=== PATIENT | female | born 1950 | race Caucasian/White ===

== ENCOUNTER → 2021-01-08 14:58 | Outpatient (CLI) | payer MEDICARE, OTHER, SELFPAY | PROVIDERS: Referring Provider Nurse Practitioner Family; Visit Provider Nurse Practitioner Family | DX: N34.3 Urethral syndrome, unspecified (principal) | CPT/HCPCS: 87086 ==

== ENCOUNTER 2021-01-08 15:15 | Inpatient (IN) | payer MEDICARE, OTHER, SELFPAY ==
[2021-01-08] VITALS (11 sets, daily range): BP systolic 144–172; BP diastolic 75–93; PULSE 53–67; RESP 14–18; TEMP 36.1–36.6; O2SAT 93–99; BMI 23.9
[2021-01-08 15:46] LABS: Appearance Urine UA CLOUDY; Bilirubin Urine UA NEGATIVE (NEGATIVE); Color Urine UA BROWN; Glucose Urine UA NEGATIVE (Negative); Ketones Urine UA NEGATIVE (NEGATIVE); Leukocyte Esterase Urine UA TRACE (NEGATIVE); Nitrite Urine UA NEGATIVE (Negative); Occult Blood Urine UA 3+ (Negative); Protein Urine UA 3+ (Negative); Urobilinogen Urine UA 0.2 E.U./dL (0.2)
[2021-01-08 15:55] LABS: Amorphous Sediment Urine 1+; Bacteria Urine Occasional (0-1); Granular Casts Urine 5-10/LPF; Mucus Urine 1+ (Negative); RBC Urine >100/HPF (0-5/HPF); Squamous Epithelial Cell Urine 1-5 /HPF (0-5/HPF); WBC Urine 5-10/HPF (0-5/HPF)
--- NOTE | 2021-01-08 16:42 | DI.CT.S_ITS ---
PROCEDURE: CT ABDOMEN PELVIS WO CON INDICATIONS: Left flank pain, blood in urine TECHNIQUE: After the administration of oral contrast, 5 mm thick sections acquired from the diaphragms to the symphysis. 5 mm coronal and sagittal reformats were performed. For radiation dose reduction, the following was used: automated exposure control, adjustment of mA and/or kV according to patient size. COMPARISON: None. FINDINGS: Lower thorax: Heart size is enlarged. Pacer wires noted. Platelike atelectasis present left lung base. No hiatal hernia. Liver: Normal in size and attenuation. No contour deformity present. 5.3 cm right hepatic cyst. Smaller subcentimeter likely cyst in the right hepatic dome. Biliary system: No calcified cholelithiasis or pericholecystic inflammation. No intra or extrahepatic bile duct dilatation. Pancreas: Unremarkable without mass or inflammation evident. Spleen: Normal in size and density. Adrenals: Normal morphology and density. Reproductive system: Hysterectomy. Urinary system: Left 8 mm calculus present at the proximal ureter results in moderate left hydronephrosis. 4 cm left renal cyst present as well. No right renal calculi. Gastrointestinal system: The bowel is unremarkable without evidence of bowel obstruction or inflammation. The stomach appears unremarkable. Multiple diverticula arise from the sigmoid colon without evidence of diverticulitis. Appendix: No findings to suggest acute appendicitis. Peritoneal spaces: No mesenteric or retroperitoneal adenopathy. No free air. No free fluid. Vasculature: The IVC, aorta and iliac vasculature are unremarkable. Abdominal wall: Abdominal wall intact without evidence of ventral or inguinal hernias. Musculoskeletal: Normal bone mineralization. No acute fractures. IMPRESSION: 1. Left proximal ureteral 8 mm calculus results in moderate left hydronephrosis. 2. Incidental diverticulosis without diverticulitis, hepatorenal cysts, cardiomegaly Approved by: Kelton Multani M.D. on 01/08/2021 at 16:39
--- NOTE | 2021-01-08 16:43 | ED_ITS ---
HPI - Female Genitourinary <Tera Rosenthal PA-C - Last Filed: 01/15/21 19:45> General Chief complaint: Urogenital-Female Stated complaint: sent by [facility] , Possible kidney stones Time Seen by Provider: 01/08/21 15:51 Source: patient Mode of arrival: Ambulatory Limitations: no limitations History of Present Illness HPI Narrative: Patient is a 70-year-old female presenting to the emergency department today for evaluation of left flank pain. Patient states that she noticed intermittent left flank pain approximately 2 weeks ago. She states that her pain worsened this morning and she notes ?rene colored? urine with a strong odor. Of note, patient states that she has a history of kidney stones but has never experienced significant associated symptoms. Additionally, patient states that she has a history of colon polyps and states that she has been unable to completely empty her bowels over the past 2 weeks. Patient reports associated nausea and left- sided abdominal pain but denies fever, chills, chest pain, shortness of breath, cough, diarrhea, vomiting, dysuria, or numbness and tingling in the lower extremities. No other concerns voiced at this time. Related Data Home Medications Medication Instructions Recorded Confirmed biotin 5,000 mcg sublingual tablet 5,000 mcg SUBLINGUAL DAILY 01/09/21 01/09/21 budesonide 200 mcg/actuation 50 mcg INHALATION Q8HR 01/09/21 01/09/21 breath activated powder inhaler carvedilol 6.25 mg tablet 6.25 mg PO BID 01/09/21 01/09/21 cholecalciferol (vitamin D3) 125 125 mcg PO DAILY 01/09/21 01/09/21 mcg (5,000 unit) tablet furosemide 20 mg tablet 20 mg PO 6XW 01/09/21 01/09/21 furosemide 40 mg tablet 40 mg PO WEEKLY 01/09/21 01/09/21 losartan 50 mg tablet 50 mg PO DAILY 01/09/21 01/09/21 rosuvastatin 40 mg tablet 40 mg PO DAILY 01/09/21 01/09/21 warfarin 2 mg tablet 2 mg PO 2XW 01/09/21 01/09/21 warfarin 3 mg tablet 3 mg PO 5XW 01/09/21 01/09/21 Previous Rx's Medication Instructions Recorded tamsulosin 0.4 mg capsule 0.4 mg PO BEDTIME #60 cap 01/10/21 Allergies Allergy/AdvReac Type Severity Reaction Status Date / Time tetracycline Allergy Severe ITCHING Verified 01/11/21 15:49 phenazopyridine Allergy Verified 01/11/21 15:49 [From Pyridium] Review of Systems <Tera Rosenthal PA-C - Last Filed: 01/15/21 19:45> Constitutional Constitutional: Denies chills, Denies fatigue, Denies fever(s), Denies frequent falls, Denies lethargy and Denies weakness Eyes Eyes: Denies loss of vision ENT Ears, Nose, Mouth, and Throat: Denies dizziness and Denies neck pain Cardiovascular Cardiovascular: Denies chest pain, Denies irregular heart rhythm, Denies lightheadedness, Denies palpitations, Denies dyspnea, Denies dyspnea on exertion and Denies orthopnea Respiratory Respiratory: Denies cough, Denies dyspnea, Denies dyspnea on exertion and Denies wheezing Gastrointestinal Gastrointestinal: Reports abdominal pain, Denies change in bowel habits, Denies diarrhea, Reports nausea and Denies vomiting Genitourinary Genitourinary: Reports hematuria, Denies dysuria, Denies dysuria, Reports flank pain (Left flank pain), Denies urinary incontinence and Denies urinary urgency Musculoskeletal Musculoskeletal: Denies muscle weakness, Denies neck pain, Denies numbness and Denies tingling Neurologic Neurologic: Denies behavioral changes, Denies confusion, Denies dizziness, Denies frequent falls, Denies loss of vision, Denies numbness, Denies tingling and Denies weakness Psychiatric Psychiatric: Denies behavioral changes and Denies confusion Endocrine Endocrine: Denies fatigue and Denies palpitations Allergic/Immunologic Allergic/Immunologic: Denies wheezing Patient History <Tera Rosenthal PA-C - Last Filed: 01/15/21 19:45> Medical History Acute kidney injury History of nephrolithiasis Left ureteral calculus alcohol intake frequency: 0-2 drinks per day Substance Use Type: does not use Exam <Tera Rosenthal PA-C - Last Filed: 01/15/21 19:45> Narrative Exam Narrative: GENERAL: 70 year old patient appears stated age. Well-developed patient, in mild distress. HEAD: Atraumatic. Normocephalic. EYES: Pupils equal round and reactive. Extraocular motions intact. No scleral icterus. No injection or drainage. ENT: Nose without bleeding, purulent drainage. Throat without erythema, tonsillar hypertrophy or exudate. Airway patent. NECK: Trachea midline. Non tender CARDIOVASCULAR: Regular rate and rhythm without murmurs, gallops, or rubs. RESPIRATORY: Clear to auscultation. Breath sounds equal bilaterally. No wheezes, rales, or rhonchi. GASTROINTESTINAL: Abdomen soft, nondistended. Tenderness to palpation appreciated he on the left upper and left lower quadrants. EXTREMITIES: No edema or joint tenderness. BACK: Nontender without deformity or crepitance. Left flank, CVA tenderness. NEURO: AOx3. SKIN: No rash or erythema of visible areas Initial Vital Signs Initial Vital Signs: Vital Signs Temperature 97.8 F 01/08/21 15:27 Pulse Rate 63 01/08/21 15:27 Respiratory Rate 18 01/08/21 15:27 Blood Pressure 151/75 H 01/08/21 15:27 Pulse Oximetry 98 01/08/21 15:27 <Luis Nicole DO - Last Filed: 01/18/21 00:30> Initial Vital Signs Initial Vital Signs: Vital Signs Temperature 97.8 F 01/08/21 15:27 Pulse Rate 63 01/08/21 15:27 Respiratory Rate 18 01/08/21 15:27 Blood Pressure 151/75 H 01/08/21 15:27 Pulse Oximetry 98 01/08/21 15:27 Course <Tera Rosenthal PA-C - Last Filed: 01/15/21 19:45> Course Course Narrative: CBC, CMP, urinalysis, and CT of the abdomen and pelvis without contrast obtained. Orders Ordered: Discontinued Medications Acetaminophen (Acetaminophen 325 Mg Tablet) 650 mg PO NOW ONE Stop: 01/08/21 19:36 Last Admin: 01/08/21 19:42 Dose: 650 mg Documented by: ZEFERINO Acetaminophen (Acetaminophen 325 Mg Tablet) 650 mg PO Q6HR PRN PRN Reason: Fever/Mild Pain (1-3) Last Admin: 01/09/21 17:20 Dose: 650 mg Documented by: Admin: 01/09/21 10:01 Dose: 650 mg Documented by: Admin: 01/09/21 03:18 Dose: 650 mg Documented by: JTURNEK Atorvastatin Calcium (Atorvastatin 20 Mg Tablet) 80 mg PO BEDTIME [facility] Last Admin: 01/09/21 20:26 Dose: 40 mg Documented by: CAMILO Belladonna Alkaloids/Opium (Belladonna/Opium Suppositories) 1 each [place] BID [facility] Last Admin: 01/10/21 10:45 Dose: 1 each Documented by: Admin: 01/09/21 18:59 Dose: 1 each Documented by: DONAVON Budesonide (Budesonide 0.5 Mg/2 Ml Neb) 0.5 mg INH RTBID [facility] Last Admin: 01/09/21 23:08 Dose: Not Given Documented by: WALLY Budesonide (Budesonide 0.5 Mg/2 Ml Neb) 0.5 mg INH RTBID [facility] Last Admin: 01/09/21 23:08 Dose: Not Given Documented by: WALLY Carvedilol (Carvedilol 3.125 Mg Tablet) 6.25 mg PO BID [facility] Last Admin: 01/09/21 10:01 Dose: 6.25 mg Documented by: DONAVON Cefazolin Sodium (Cefazolin 1 Gm Vial) 2 gm IV PREOP [facility] Last Admin: 01/09/21 16:35 Dose: 2 gm Documented by: ROGER Fentanyl (Fentanyl 100 Mcg/2 Ml Inj) 0 mcg IV Q5M PRN PRN Reason: Pain, Moderate (4-6) Furosemide (Furosemide 20 Mg Tablet) 20 mg PO SuMoTuWeThFr@0900 [facility] Last Admin: 01/10/21 10:48 Dose: 20 mg Documented by: LEONIDES Furosemide (Furosemide 40 Mg Tablet) 40 mg PO Sa@0900 [facility] Hydromorphone HCl (Hydromorphone 0.5 Mg Inj) 0.5 mg IV NOW ONE Stop: 01/08/21 19:04 Last Admin: 01/08/21 19:35 Dose: Not Given Documented by: ZEFERINO Hydromorphone HCl (Hydromorphone 0.5 Mg Inj) 0.5 mg IV Q6H PRN PRN Reason: Pain, Moderate (4-6) Last Admin: 01/08/21 23:14 Dose: 0.5 mg Documented by: CAMILO Sodium Chloride (Normal Saline 0.9%) 1,000 mls @ 100 mls/hr IV CONT [facility] Last Admin: 01/09/21 10:03 Dose: 100 mls/hr Documented by: Infusion: 01/09/21 08:24 Dose: 100 mls/hr Documented by: Admin: 01/08/21 22:24 Dose: 100 mls/hr Documented by: CAMILO Phytonadione 5 mg/ Sodium (Chloride) 100.5 mls @ 201 mls/hr IV NOW ONE Stop: 01/08/21 21:56 Last Admin: 01/08/21 23:09 Dose: 201 mls/hr Documented by: CAMILO Lactated Ringer's (Lactated Ringers) 1,000 mls @ 42 mls/hr IV CONT [facility] Last Admin: 01/09/21 15:52 Dose: 42 mls/hr Documented by: STAN Losartan Potassium (Losartan 50 Mg Tablet) 50 mg PO DAILY [facility] Last Admin: 01/10/21 10:46 Dose: 50 mg Documented by: LEONIDES Ondansetron HCl (Ondansetron 4 Mg/2 Ml Inj) 4 mg IV Q8HR PRN PRN Reason: Nausea And Vomiting Ondansetron HCl (Ondansetron 4 Mg/2 Ml Inj) 4 mg IV NOW PRN PRN Reason: Nausea And Vomiting Oxycodone HCl (Oxycodone Ir 5 Mg Tablet) 5 mg PO NOW ONE Stop: 01/08/21 17:24 Last Admin: 01/08/21 17:55 Dose: 5 mg Documented by: GIANNI Oxycodone HCl (Oxycodone 5 Mg/5 Ml Oral Solution) 5 mg PO Q6HR [facility] Oxycodone HCl (Oxycodone Ir 5 Mg Tablet) 5 mg PO Q6H PRN PRN Reason: Pain, Moderate (4-6) Oxycodone HCl (Oxycodone Ir 5 Mg Tablet) 5 mg PO Q6HR [facility] Last Admin: 01/10/21 12:00 Dose: 5 mg Documented by: Admin: 01/10/21 05:51 Dose: 5 mg Documented by: Admin: 01/10/21 00:00 Dose: 5 mg Documented by: CAMILO Oxycodone/Acetaminophen (Oxycodone/Acetaminophen 5/325 Tablet) 1 tab PO PACUNOW PRN PRN Reason: Mild or Moderate Pain Vitamin D (Cholecalciferol (Vitamin D3) 1,000 Unit Tablet) 5,000 unit PO DAILY [facility] Last Admin: 01/10/21 10:45 Dose: 5,000 unit Documented by: LEONIDES Warfarin Sodium (Warfarin 2 Mg Tablet) 2 mg PO Fr@1700 [facility] Warfarin Sodium (Warfarin 1 Mg Tablet) 3 mg PO SuMoTuWeThSa@1700 [facility] Consultations Consultation #1: Consulted with Dr. Knapp urology. Request patient to be admitted to medicine, stop warfarin, and remain NPO. He plans to perform a cystoscopy to obstruct the ureteral stone with a left stent placement tomorrow morning. Time: 19:52 Consultation #2: Consulted with Dr. Pruett internal medicine. Request we obtained in PT/INR on the patient and will accept the patient for observation. Time: 18:20 Vital Signs Vital signs: Vital Signs - 8 hr 01/08/21 15:27 01/08/21 16:04 01/08/21 17:32 Temperature 97.8 F Pulse Rate 63 56 L 54 L Respiratory Rate 18 Blood Pressure 151/75 H 144/79 H Pulse Oximetry 98 93 93 01/08/21 17:37 01/08/21 18:00 01/08/21 18:30 Temperature Pulse Rate 63 54 L 54 L Respiratory Rate Blood Pressure 156/80 H Pulse Oximetry 97 99 98 <Luis Nicole DO - Last Filed: 01/18/21 00:30> Orders Ordered: Discontinued Medications Acetaminophen (Acetaminophen 325 Mg Tablet) 650 mg PO NOW ONE Stop: 01/08/21 19:36 Last Admin: 01/08/21 19:42 Dose: 650 mg Documented by: ZEFERINO Acetaminophen (Acetaminophen 325 Mg Tablet) 650 mg PO Q6HR PRN PRN Reason: Fever/Mild Pain (1-3) Last Admin: 01/09/21 17:20 Dose: 650 mg Documented by: Admin: 01/09/21 10:01 Dose: 650 mg Documented by: Admin: 01/09/21 03:18 Dose: 650 mg Documented by: CAMILO Atorvastatin Calcium (Atorvastatin 20 Mg Tablet) 80 mg PO BEDTIME [facility] Last Admin: 01/09/21 20:26 Dose: 40 mg Documented by: CAMILO Belladonnluis e Alkaloids/Opium (Belladonna/Opium Suppositories) 1 each [place] BID [facility] Last Admin: 01/10/21 10:45 Dose: 1 each Documented by: Admin: 01/09/21 18:59 Dose: 1 each Documented by: DONAVON Budesonide (Budesonide 0.5 Mg/2 Ml Neb) 0.5 mg INH RTBID [facility] Last Admin: 01/09/21 23:08 Dose: Not Given Documented by: WALLY Budesonide (Budesonide 0.5 Mg/2 Ml Neb) 0.5 mg INH RTBID [facility] Last Admin: 01/09/21 23:08 Dose: Not Given Documented by: WALLY Carvedilol (Carvedilol 3.125 Mg Tablet) 6.25 mg PO BID [facility] Last Admin: 01/09/21 10:01 Dose: 6.25 mg Documented by: DONAVON Cefazolin Sodium (Cefazolin 1 Gm Vial) 2 gm IV PREOP [facility] Last Admin: 01/09/21 16:35 Dose: 2 gm Documented by: ROGER Fentanyl (Fentanyl 100 Mcg/2 Ml Inj) 0 mcg IV Q5M PRN PRN Reason: Pain, Moderate (4-6) Furosemide (Furosemide 20 Mg Tablet) 20 mg PO SuMoTuWeThFr@0900 [facility] Last Admin: 01/10/21 10:48 Dose: 20 mg Documented by: LEONIDES Furosemide (Furosemide 40 Mg Tablet) 40 mg PO Sa@0900 [facility] Hydromorphone HCl (Hydromorphone 0.5 Mg Inj) 0.5 mg IV NOW ONE Stop: 01/08/21 19:04 Last Admin: 01/08/21 19:35 Dose: Not Given Documented by: ZEFERINO Hydromorphone HCl (Hydromorphone 0.5 Mg Inj) 0.5 mg IV Q6H PRN PRN Reason: Pain, Moderate (4-6) Last Admin: 01/08/21 23:14 Dose: 0.5 mg Documented by: CAMILO Sodium Chloride (Normal Saline 0.9%) 1,000 mls @ 100 mls/hr IV CONT [facility] Last Admin: 01/09/21 10:03 Dose: 100 mls/hr Documented by: DONAVON Mejia: 01/09/21 08:24 Dose: 100 mls/hr Documented by: Admin: 01/08/21 22:24 Dose: 100 mls/hr Documented by: CAMILO Phytonadione 5 mg/ Sodium (Chloride) 100.5 mls @ 201 mls/hr IV NOW ONE Stop: 01/08/21 21:56 Last Admin: 01/08/21 23:09 Dose: 201 mls/hr Documented by: CAMILO Lactated Ringer's (Lactated Ringers) 1,000 mls @ 42 mls/hr IV CONT [facility] Last Admin: 01/09/21 15:52 Dose: 42 mls/hr Documented by: STAN Losartan Potassium (Losartan 50 Mg Tablet) 50 mg PO DAILY [facility] Last Admin: 01/10/21 10:46 Dose: 50 mg Documented by: LEONIDES Ondansetron HCl (Ondansetron 4 Mg/2 Ml Inj) 4 mg IV Q8HR PRN PRN Reason: Nausea And Vomiting Ondansetron HCl (Ondansetron 4 Mg/2 Ml Inj) 4 mg IV NOW PRN PRN Reason: Nausea And Vomiting Oxycodone HCl (Oxycodone Ir 5 Mg Tablet) 5 mg PO NOW ONE Stop: 01/08/21 17:24 Last Admin: 01/08/21 17:55 Dose: 5 mg Documented by: GIANNI Oxycodone HCl (Oxycodone 5 Mg/5 Ml Oral Solution) 5 mg PO Q6HR [facility] Oxycodone HCl (Oxycodone Ir 5 Mg Tablet) 5 mg PO Q6H PRN PRN Reason: Pain, Moderate (4-6) Oxycodone HCl (Oxycodone Ir 5 Mg Tablet) 5 mg PO Q6HR [facility] Last Admin: 01/10/21 12:00 Dose: 5 mg Documented by: Admin: 01/10/21 05:51 Dose: 5 mg Documented by: Admin: 01/10/21 00:00 Dose: 5 mg Documented by: CAMILO Oxycodone/Acetaminophen (Oxycodone/Acetaminophen 5/325 Tablet) 1 tab PO PACUNOW PRN PRN Reason: Mild or Moderate Pain Vitamin D (Cholecalciferol (Vitamin D3) 1,000 Unit Tablet) 5,000 unit PO DAILY [facility] Last Admin: 01/10/21 10:45 Dose: 5,000 unit Documented by: DEIDRAEWCELSO Warfarin Sodium (Warfarin 2 Mg Tablet) 2 mg PO Fr@1700 [facility] Warfarin Sodium (Warfarin 1 Mg Tablet) 3 mg PO SuMoTuWeThSa@1700 [facility] Vital Signs Vital signs: Vital Signs - 8 hr 01/08/21 15:27 01/08/21 16:04 01/08/21 17:32 Temperature 97.8 F Pulse Rate 63 56 L 54 L Respiratory Rate 18 Blood Pressure 151/75 H 144/79 H Pulse Oximetry 98 93 93 01/08/21 17:37 01/08/21 18:00 01/08/21 18:30 Temperature Pulse Rate 63 54 L 54 L Respiratory Rate Blood Pressure 156/80 H Pulse Oximetry 97 99 98 MDM - Female Genitourinary <Tera Rosenthal PA-C - Last Filed: 01/15/21 19:45> Lab Data Result diagrams: 01/09/21 04:50 01/09/21 04:50 Labs: Lab Results 01/08/21 01/08/21 01/08/21 Range/Units 15:35 18:16 18:16 WBC 10.0 (4.5-11.0) X10^3/uL RBC 3.83 L (4.0-5.2) X10^6/uL Hgb 11.6 L (12.0-16.0) g/dL Hct 34.8 L (36-46) % MCV 90.8 (80-100) fL MCH 30.4 (26-34) PG MCHC 33.5 (30-36) % RDW 14.0 (11.6-14.8) % Plt Count 308 (150-400) X10^3/uL Neut % (Auto) 72.0 (50-75) % Lymph % (Auto) 16.2 L (25-40) % Mccormick % (Auto) 8.1 (3-14) % Eos % (Auto) 2.9 (2-4) % Baso % (Auto) 0.8 (0-2) % Neut # (Auto) 7200 H (6028-5064) /uL Lymph # (Auto) 1600 (6689-7694) /uL Mccormick # (Auto) 800 (0-900) /uL Eos # (Auto) 300 (0-450) /uL Baso # (Auto) 100 (0-100) /uL PT (10.1-12.7) SECONDS INR (0.9-1.3) Sodium 139 (137-145) mmol/L Potassium 3.7 (3.4-5.1) mmol/L Chloride 104 (98-107) mmol/L Carbon Dioxide 27 (22-32) mmol/L BUN 22 H (7-17) mg/dL Creatinine 1.72 H (0.52-1.04) mg/dL Estimated GFR 29.5 L (>60) mL/min BUN/Creatinine Ratio 12.8 (6-22) Glucose 111 H (80-110) mg/dL Calcium 10.3 H (8.4-10.2) mg/dL Total Bilirubin 0.4 (0.2-1.3) mg/dL AST 22 (14-36) IU/L ALT 15 (<35) IU/L Alkaline Phosphatase 54 (38-126) U/L Total Protein 6.8 (6.3-8.2) g/dL Albumin 3.9 (3.5-5.0) g/dL Globulin 2.9 (1.7-4.1) g/dL Albumin/Globulin Ratio 1.3 (1.0-2.8) Urine Color Brown Urine Appearance Cloudy Urine pH 8.0 (4.5-8.0) Ur Specific [place] 1.020 (1.000-1.035) Urine Protein 3+ H (Negative) Urine Glucose (UA) Negative (Negative) g/dL Urine Ketones Negative (NEGATIVE) Urine Occult Blood 3+ H (Negative) Urine Nitrate Negative (Negative) Urine Bilirubin Negative (NEGATIVE) Urine Urobilinogen 0.2 (0.2) E.U./dL Ur Leukocyte Esterase Trace H (NEGATIVE) Urine RBC >100/hpf H (0-5/HPF) Urine WBC 5-10/hpf H (0-5/HPF) Ur Squamous Epith Cells 1-5 /hpf (0-5/HPF) Amorphous Sediment 1+ Urine Bacteria Occasional (0-1) (None) Granular Casts 5-10/lpf (None) Urine Mucus 1+ H (Negative) Ur Culture Indicated? Culture not indicate 11/17/21 Range/Units 18:16 WBC (4.5-11.0) X10^3/uL RBC (4.0-5.2) X10^6/uL Hgb (12.0-16.0) g/dL Hct (36-46) % MCV (80-100) fL MCH (26-34) PG MCHC (30-36) % RDW (11.6-14.8) % Plt Count (150-400) X10^3/uL Neut % (Auto) (50-75) % Lymph % (Auto) (25-40) % Mccormick % (Auto) (3-14) % Eos % (Auto) (2-4) % Baso % (Auto) (0-2) % Neut # (Auto) (4160-3198) /uL Lymph # (Auto) (0166-5634) /uL Mccormick # (Auto) (0-900) /uL Eos # (Auto) (0-450) /uL Baso # (Auto) (0-100) /uL PT 44.6 H (10.1-12.7) SECONDS INR 3.8 H (0.9-1.3) Sodium (137-145) mmol/L Potassium (3.4-5.1) mmol/L Chloride (98-107) mmol/L Carbon Dioxide (22-32) mmol/L BUN (7-17) mg/dL Creatinine (0.52-1.04) mg/dL Estimated GFR (>60) mL/min BUN/Creatinine Ratio (6-22) Glucose (80-110) mg/dL Calcium (8.4-10.2) mg/dL Total Bilirubin (0.2-1.3) mg/dL AST (14-36) IU/L ALT (<35) IU/L Alkaline Phosphatase (38-126) U/L Total Protein (6.3-8.2) g/dL Albumin (3.5-5.0) g/dL Globulin (1.7-4.1) g/dL Albumin/Globulin Ratio (1.0-2.8) Urine Color Urine Appearance Urine pH (4.5-8.0) Ur Specific [place] (1.000-1.035) Urine Protein (Negative) Urine Glucose (UA) (Negative) g/dL Urine Ketones (NEGATIVE) Urine Occult Blood (Negative) Urine Nitrate (Negative) Urine Bilirubin (NEGATIVE) Urine Urobilinogen (0.2) E.U./dL Ur Leukocyte Esterase (NEGATIVE) Urine RBC (0-5/HPF) Urine WBC (0-5/HPF) Ur Squamous Epith Cells (0-5/HPF) Amorphous Sediment Urine Bacteria (None) Granular Casts (None) Urine Mucus (Negative) Ur Culture Indicated? Imaging Data CT scan - abdomen/pelvis: Radiologist's Impression: PROCEDURE:? CT ABDOMEN PELVIS WO CON ? INDICATIONS:? Left flank pain, blood in urine ? TECHNIQUE:? After the administration of oral contrast, 5 mm thick sections acquired from the diaphragms to the symphysis.? 5 mm coronal and sagittal reformats were performed.? For radiation dose reduction, the following was used:? automated exposure control, adjustment of mA and/or kV according to patient size.? ? COMPARISON:? None. ? FINDINGS: ? Lower thorax:? Heart size is enlarged.? Pacer wires noted.? Platelike atelectasis present left lung base.? No hiatal hernia.? ? Liver:? Normal in size and attenuation. No contour deformity present.? 5.3 cm right hepatic cyst.? Smaller subcentimeter likely cyst in the right hepatic dome. ? Biliary system:? No calcified cholelithiasis or pericholecystic inflammation. No intra or extrahepatic bile duct dilatation. ? Pancreas:? Unremarkable without mass or inflammation evident. ? Spleen:? Normal in size and density. ? Adrenals:? Normal morphology and density. ? Reproductive system:? Hysterectomy. ? Urinary system:? Left 8 mm calculus present at the proximal ureter results in moderate left hydronephrosis.? 4 cm left renal cyst present as well.? No right renal calculi. ? Gastrointestinal system:? The bowel is unremarkable without evidence of bowel obstruction or inflammation. The stomach appears unremarkable.? Multiple diverticula arise from the sigmoid colon without evidence of diverticulitis. ? ? Appendix:? No findings to suggest acute appendicitis. ? Peritoneal spaces:? No mesenteric or retroperitoneal adenopathy.? No free air.? No free fluid.? ? Vasculature:? The IVC, aorta and iliac vasculature are unremarkable. ? Abdominal wall:? Abdominal wall intact without evidence of ventral or inguinal hernias. ? Musculoskeletal:? Normal bone mineralization.? No acute fractures.? ? IMPRESSION: ? 1. Left proximal ureteral 8 mm calculus results in moderate left hydronephrosis. ? 2. Incidental diverticulosis without diverticulitis, hepatorenal cysts, cardiomegaly ? ? ? Approved by: Kelton Multani M.D. on 01/08/2021 at 16:39? [facility] Narrative Medical decision making narrative: Patient is a 70-year-old female presenting to the emergency department today for evaluation of left flank pain. To consider the nephrolithiasis versus ureterolithiasis versus urinary tract infection versus pyelonephritis versus lumbago. CT showed with the mm obstructing stone in the left proximal ureter. Additionally, CMP showed patient with a GFR of 29.5, a creatinine of 1.72, and a BUN of 22. Discussed with patient results of imaging and labs. Inform the patient that she will be admitted overnight with plans to have cystoscopy performed tomorrow with a left stent placed. Patient understands plan. <Luis Nicole, DO - Last Filed: 01/18/21 00:30> Lab Data Labs: Lab Results 01/08/21 01/08/21 01/08/21 Range/Units 15:35 18:16 18:16 WBC 10.0 (4.5-11.0) X10^3/uL RBC 3.83 L (4.0-5.2) X10^6/uL Hgb 11.6 L (12.0-16.0) g/dL Hct 34.8 L (36-46) % MCV 90.8 (80-100) fL MCH 30.4 (26-34) PG MCHC 33.5 (30-36) % RDW 14.0 (11.6-14.8) % Plt Count 308 (150-400) X10^3/uL Neut % (Auto) 72.0 (50-75) % Lymph % (Auto) 16.2 L (25-40) % Mccormick % (Auto) 8.1 (3-14) % Eos % (Auto) 2.9 (2-4) % Baso % (Auto) 0.8 (0-2) % Neut # (Auto) 7200 H (6423-2120) /uL Lymph # (Auto) 1600 (7607-5341) /uL Mccormick # (Auto) 800 (0-900) /uL Eos # (Auto) 300 (0-450) /uL Baso # (Auto) 100 (0-100) /uL PT (10.1-12.7) SECONDS INR (0.9-1.3) Sodium 139 (137-145) mmol/L Potassium 3.7 (3.4-5.1) mmol/L Chloride 104 (98-107) mmol/L Carbon Dioxide 27 (22-32) mmol/L BUN 22 H (7-17) mg/dL Creatinine 1.72 H (0.52-1.04) mg/dL Estimated GFR 29.5 L (>60) mL/min BUN/Creatinine Ratio 12.8 (6-22) Glucose 111 H (80-110) mg/dL Calcium 10.3 H (8.4-10.2) mg/dL Total Bilirubin 0.4 (0.2-1.3) mg/dL AST 22 (14-36) IU/L ALT 15 (<35) IU/L Alkaline Phosphatase 54 (38-126) U/L Total Protein 6.8 (6.3-8.2) g/dL Albumin 3.9 (3.5-5.0) g/dL Globulin 2.9 (1.7-4.1) g/dL Albumin/Globulin Ratio 1.3 (1.0-2.8) Urine Color Brown Urine Appearance Cloudy Urine pH 8.0 (4.5-8.0) Ur Specific [place] 1.020 (1.000-1.035) Urine Protein 3+ H (Negative) Urine Glucose (UA) Negative (Negative) g/dL Urine Ketones Negative (NEGATIVE) Urine Occult Blood 3+ H (Negative) Urine Nitrate Negative (Negative) Urine Bilirubin Negative (NEGATIVE) Urine Urobilinogen 0.2 (0.2) E.U./dL Ur Leukocyte Esterase Trace H (NEGATIVE) Urine RBC >100/hpf H (0-5/HPF) Urine WBC 5-10/hpf H (0-5/HPF) Ur Squamous Epith Cells 1-5 /hpf (0-5/HPF) Amorphous Sediment 1+ Urine Bacteria Occasional (0-1) (None) Granular Casts 5-10/lpf (None) Urine Mucus 1+ H (Negative) Ur Culture Indicated? Culture not indicate 01/08/21 Range/Units 18:16 WBC (4.5-11.0) X10^3/uL RBC (4.0-5.2) X10^6/uL Hgb (12.0-16.0) g/dL Hct (36-46) % MCV (80-100) fL MCH (26-34) PG MCHC (30-36) % RDW (11.6-14.8) % Plt Count (150-400) X10^3/uL Neut % (Auto) (50-75) % Lymph % (Auto) (25-40) % Mccormick % (Auto) (3-14) % Eos % (Auto) (2-4) % Baso % (Auto) (0-2) % Neut # (Auto) (6573-3483) /uL Lymph # (Auto) (0035-0760) /uL Mccormick # (Auto) (0-900) /uL Eos # (Auto) (0-450) /uL Baso # (Auto) (0-100) /uL PT 44.6 H (10.1-12.7) SECONDS INR 3.8 H (0.9-1.3) Sodium (137-145) mmol/L Potassium (3.4-5.1) mmol/L Chloride (98-107) mmol/L Carbon Dioxide (22-32) mmol/L BUN (7-17) mg/dL Creatinine (0.52-1.04) mg/dL Estimated GFR (>60) mL/min BUN/Creatinine Ratio (6-22) Glucose (80-110) mg/dL Calcium (8.4-10.2) mg/dL Total Bilirubin (0.2-1.3) mg/dL AST (14-36) IU/L ALT (<35) IU/L Alkaline Phosphatase (38-126) U/L Total Protein (6.3-8.2) g/dL Albumin (3.5-5.0) g/dL Globulin (1.7-4.1) g/dL Albumin/Globulin Ratio (1.0-2.8) Urine Color Urine Appearance Urine pH (4.5-8.0) Ur Specific [place] (1.000-1.035) Urine Protein (Negative) Urine Glucose (UA) (Negative) g/dL Urine Ketones (NEGATIVE) Urine Occult Blood (Negative) Urine Nitrate (Negative) Urine Bilirubin (NEGATIVE) Urine Urobilinogen (0.2) E.U./dL Ur Leukocyte Esterase (NEGATIVE) Urine RBC (0-5/HPF) Urine WBC (0-5/HPF) Ur Squamous Epith Cells (0-5/HPF) Amorphous Sediment Urine Bacteria (None) Granular Casts (None) Urine Mucus (Negative) Ur Culture Indicated? Discharge Plan Departure Patient Disposition: Admitted As Inpatient Clinical Impression: Ureterolithiasis Admit Date/Time: 01/08/21 20:40 Admit Provider: Aric Pruett <Luis Nicole DO - Last Filed: 01/18/21 00:30> Cosign ED Attending Cosignature Attestation: I was immediately available in the department for consultation. This documentation has been reviewed and I agree with assessment and plan. Supervised by Luis Nicole DO
[2021-01-08] MEDS: OXYCODONE IR 5 MG TABLET PO (17:55)
[2021-01-08 18:25] LABS: Add Manual Diff / Slide Review NO; Basophils Absolute Auto 100 /uL (0-100); Basophils Percent Auto 0.8 % (0-2); Eosinophils Absolute Auto 300 /uL (0-450); Eosinophils Percent Auto 2.9 % (2-4); Hematocrit 34.8 % (36-46); Hemoglobin 11.6 g/dL (12.0-16.0); Lymphocytes Absolute Auto 1600 /uL (1100-4500); Lymphocytes Percent Auto 16.2 % (25-40); Mean Corpuscular HGB Conc 33.5 % (30-36); Mean Corpuscular Hemoglobin 30.4 PG (26-34); Mean Corpuscular Volume 90.8 fL (80-100); Monocytes Absolute Auto 800 /uL (0-900); Monocytes Percent Auto 8.1 % (3-14); Neutrophils Absolute Auto 7200 /uL (1500-7000); Platelet Count 308 X10^3/uL (150-400); Red Blood Cell Count 3.83 X10^6/uL (4.0-5.2)
[2021-01-08 18:38] LABS: Alanine Aminotransferase 15 IU/L (<35); Albumin 3.9 g/dL (3.5-5.0); Albumin Globulin Ratio 1.3 (1.0-2.8); Alkaline Phosphatase 54 U/L (38-126); Aspartate Aminotransferase 22 IU/L (14-36); BUN Creatinine Ratio 12.8 (6-22); Bilirubin Total 0.4 mg/dL (0.2-1.3); Blood Urea Nitrogen 22 mg/dL (7-17); Calcium 10.3 mg/dL (8.4-10.2); Carbon Dioxide 27 mmol/L (22-32); Chloride 104 mmol/L (98-107); Estimated Glomerular Filt Rate 29.5 mL/min (>60); Globulin 2.9 g/dL (1.7-4.1); Glucose 111 mg/dL (80-110); HEMOLYSIS < 15 (0-50); Potassium 3.7 mmol/L (3.4-5.1); Sodium 139 mmol/L (137-145); Total Protein 6.8 g/dL (6.3-8.2)
[2021-01-08] MEDS: ACETAMINOPHEN 325 MG TABLET 650 MG PO (19:42)
[2021-01-08 20:26] LABS: INR 3.8 (0.9-1.3); Prothrombin Time 44.6 SECONDS (10.1-12.7)
--- NOTE | 2021-01-08 22:00 | P.HP_ITS ---
History of Present Illness History of Present Illness Date Patient Seen: 01/08/21 Time Patient Seen: 22:00 Chief complaint: sent by [facility] , Possible kidney stones Narrative: Ms. Wilson is a 70W with PMH CHF, sudden cardiac arrest s/p PPM/AICD, asthma who presents with left flank pain. She notes intermittent left flank pain that began initially 2 weeks ago. She has noted this 3-5x since. She has noted a sensation of incomplete voiding. She has also noted what she thinks is blood in her urine. She has no dysuria. She has no fevers/chills. She has noted nausea. B ecause of this she presented to the ED. In the ED workup was done, she was noted to have an elevated blood pressure. Labs notable for WBC 10, hgb 11.6, BUN 22, creatinine 1.72. INR 3.8. UA notable for >100 RBCs, trace leuk esterase, 5-[address] abdomen noted to have 8mm stone in the left proximal ureter with moderate left hydronephrosis. She was ordered for IV fluids and pain medications and admitted for further treatment. Family history: brother with kidney stones Patient History Family & Social History Social History: household members spouse Prior Living Arrangements RV Safety & Behavioral: Feels Safe in Current Yes Environment Been Physically Hurt or No Threatened By a Person Suicidal Ideation Description None Suicide Plan Description No Plan Tobacco & Substance use: Smoking Status Never smoker alcohol intake never alcohol intake frequency 0-2 drinks per day Substance Use Type does not use Meds Home Medications and Allergies Home Medications Medication Instructions Recorded Confirmed Type biotin 5,000 mcg sublingual tablet 5,000 mcg SUBLINGUAL DAILY 01/09/21 01/09/21 History budesonide 200 mcg/actuation 50 mcg INHALATION Q8HR 01/09/21 01/09/21 History breath activated powder inhaler carvedilol 6.25 mg tablet 6.25 mg PO BID 01/09/21 01/09/21 History cholecalciferol (vitamin D3) 125 125 mcg PO DAILY 01/09/21 01/09/21 History mcg (5,000 unit) tablet furosemide 20 mg tablet 20 mg PO 6XW 01/09/21 01/09/21 History furosemide 40 mg tablet 40 mg PO WEEKLY 01/09/21 01/09/21 History losartan 50 mg tablet 50 mg PO DAILY 01/09/21 01/09/21 History potassium 99 mg tablet 99 mg PO DAILY 01/09/21 01/09/21 History rosuvastatin 40 mg tablet 40 mg PO DAILY 01/09/21 01/09/21 History warfarin 2 mg tablet 2 mg PO 2XW 01/09/21 01/09/21 History warfarin 3 mg tablet 3 mg PO 5XW 01/09/21 01/09/21 History Allergies Allergy/AdvReac Type Severity Reaction Status Date / Time tetracycline Allergy Severe ITCHING Verified 01/08/21 15:31 Review of Systems Review of Systems Narrative: 14 systems reviewed and negative aside from what is noted in HPI Exam Vital Signs (past 8 hours): - 01/08/21 20:00 01/08/21 20:30 01/08/21 21:30 Temperature 97.0 F L Pulse Rate 67 57 L 66 Respiratory Rate 14 Blood Pressure 172/93 H Pulse Oximetry 97 97 97 01/09/21 03:28 Temperature 97.1 F L Pulse Rate 57 L Respiratory Rate 14 Blood Pressure 136/73 Pulse Oximetry 97 Oxygen Delivery Method Room Air Oxygen Flow Rate 0 Narrative Exam Narrative: GEN: no acute distress HEENT: moist mucous membranes, PERRL NECK: trachea midline, no JVD CV: regular rate rhythm, no murmurs PULM: clear bilaterally, no wheezes, rhonchi, rales ABD: soft, nontender, distended, no organomegaly, decreased bowel sounds BACK: +left CVA tenderness EXT: warm and well perfused with no edema NEURO: awake, alert, moving all extremities with no focal deficits Objective Labs Result Diagrams: 01/08/21 18:16 01/08/21 18:16 Labs: Laboratory Results - last 24 hr 01/08/21 01/08/21 01/08/21 15:35 18:16 18:16 WBC 10.0 RBC 3.83 L Hgb 11.6 L Hct 34.8 L MCV 90.8 MCH 30.4 MCHC 33.5 RDW 14.0 Plt Count 308 Neut % (Auto) 72.0 Lymph % (Auto) 16.2 L [place] % (Auto) 8.1 Eos % (Auto) 2.9 Baso % (Auto) 0.8 Neut # (Auto) 7200 H Lymph # (Auto) 1600 [place] # (Auto) 800 Eos # (Auto) 300 Baso # (Auto) 100 PT INR Sodium 139 Potassium 3.7 Chloride 104 Carbon Dioxide 27 BUN 22 H Creatinine 1.72 H Estimated GFR 29.5 L BUN/Creatinine Ratio 12.8 Glucose 111 H Calcium 10.3 H Total Bilirubin 0.4 AST 22 ALT 15 Alkaline Phosphatase 54 Total Protein 6.8 Albumin 3.9 Globulin 2.9 Albumin/Globulin Ratio 1.3 Urine Color Brown Urine Appearance Cloudy Urine pH 8.0 Ur Specific [place] 1.020 Urine Protein 3+ H Urine Glucose (UA) Negative Urine Ketones Negative Urine Occult Blood 3+ H Urine Nitrate Negative Urine Bilirubin Negative Urine Urobilinogen 0.2 Ur Leukocyte Esterase Trace H Urine RBC >100/hpf H Urine WBC 5-10/hpf H Ur Squamous Epith Cells 1-5 /hpf Amorphous Sediment 1+ Urine Bacteria Occasional (0-1) Granular Casts 5-10/lpf Urine Mucus 1+ H Ur Culture Indicated? Culture not indicate SARS-CoV-2 (PCR) 01/08/21 01/08/21 18:16 20:58 WBC RBC Hgb Hct MCV MCH MCHC RDW Plt Count Neut % (Auto) Lymph % (Auto) [place] % (Auto) Eos % (Auto) Baso % (Auto) Neut # (Auto) Lymph # (Auto) [place] # (Auto) Eos # (Auto) Baso # (Auto) PT 44.6 H INR 3.8 H Sodium Potassium Chloride Carbon Dioxide BUN Creatinine Estimated GFR BUN/Creatinine Ratio Glucose Calcium Total Bilirubin AST ALT Alkaline Phosphatase Total Protein Albumin Globulin Albumin/Globulin Ratio Urine Color Urine Appearance Urine pH Ur Specific [place] Urine Protein Urine Glucose (UA) Urine Ketones Urine Occult Blood Urine Nitrate Urine Bilirubin Urine Urobilinogen Ur Leukocyte Esterase Urine RBC Urine WBC Ur Squamous Epith Cells Amorphous Sediment Urine Bacteria Granular Casts Urine Mucus Ur Culture Indicated? SARS-CoV-2 (PCR) Negative Assessment & Plan Assessment & Plan narrative: Ms. Wilson is a 70W with PMH CHF, s/p PPM, on warfair who presents with flank plan found to have obstructing kidney stone and LANIE. 1. Obstructing kidney stone, acute -patient left flank pain -CT confirms 8mm obstruction stone in left ureter with hydronephrosis -urology consulted, plan for intervention in AM -NPO over midnight, for now continue IV fluids and pain control -UA showed no infection, patient with no fevers 2. Acute kidney injury -secondary to obstructing stone -baseline creatinine unknown -trend creatinine daily 3. Asthma -continue home budesonide 4. CHF with history of sudden cardiac arrest s/p PPM/AICD, atrial fibrillation -hold lasix for now due to LANIE -hold warfarin -initial INR >3, ordered for IV vitamin K -repeat INR in AM 5. Hypertension -hold losartan CODE: Full Proxy: Puneet Hernandezingrid, I have utilized all available immediate resources to obtain, update, or review of the patient's current medications Time Spent With Patient Critical Care time: I spent a total of [] minutes of critical care time on this patient's care today; this time is exclusive of procedural time. Quality VTE Deep Vein Thrombosis/Pulmonary Embolism Present on Admission: No MIPS - Admit I confirm the patient?s Advance Care Plan is present, Code status is documented, Surrogate decision maker is in patient?s record [If Yes, STOP here]: Yes
[2021-01-08 22:07] LABS: COVID19 - ADMIT (NP swab/PCR) Negative (Negative)
[2021-01-08] MEDS: SODIUM CHLORIDE 0.9% 1,000 ML 100 ML IV (22:24)
[2021-01-08] MEDS: PHYTONADIONE (VIT K1) 5 MG in SODIUM CHLORIDE 0.9% 100 ML 201 ML IV (23:09)
[2021-01-08] MEDS: HYDROMORPHONE 0.5 MG INJ IV (23:14)
[2021-01-09] VITALS (14 sets, daily range): BP systolic 124–153; BP diastolic 63–87; PULSE 52–85; RESP 12–18; TEMP 36.1–37; O2SAT 93–100; BMI 23.9
--- NOTE | 2021-01-09 | DI.RAD.S_ITS ---
PROCEDURE: XR KUB INDICATIONS: Left ureteral calculus TECHNIQUE: One view of the abdomen acquired. COMPARISON: [facility], CT, CT ABDOMEN PELVIS WO CON, 01/08/2021, 17:01. FINDINGS: Surgical changes and devices: None. Bowel: Bowel gas pattern is normal. Soft tissues: No suspicious abdominal calcifications. Bowel gas and stool overlie the left kidney, obscuring area of previously identified stone. Visualized solid organ contours appear normal in size. Bones: No suspicious bony lesions. IMPRESSION: No visualized stone. However, regions of interest are obscured as above. Dictated by: Patricia Davis M.D. on 01/09/2021 at 8:23 Approved by: Patricia Davis M.D. on 01/09/2021 at 8:25
[2021-01-09] MEDS: ACETAMINOPHEN 325 MG TABLET 650 MG PO ×3 (03:18→17:20)
[2021-01-09 05:40] LABS: Add Manual Diff / Slide Review NO; Basophils Absolute Auto 100 /uL (0-100); Basophils Percent Auto 0.5 % (0-2); Eosinophils Absolute Auto 200 /uL (0-450); Hematocrit 33.4 % (36-46); Hemoglobin 11.2 g/dL (12.0-16.0); Lymphocytes Absolute Auto 1400 /uL (1100-4500); Lymphocytes Percent Auto 12.3 % (25-40); Mean Corpuscular HGB Conc 33.7 % (30-36); Mean Corpuscular Hemoglobin 30.8 PG (26-34); Mean Corpuscular Volume 91.4 fL (80-100); Monocytes Absolute Auto 1200 /uL (0-900); Monocytes Percent Auto 10.7 % (3-14); Neutrophils Absolute Auto 8600 /uL (1500-7000); Neutrophils Percent Auto 74.5 % (50-75); Platelet Count 263 X10^3/uL (150-400); Red Blood Cell Count 3.65 X10^6/uL (4.0-5.2); Red Cell Distribution Width 14.1 % (11.6-14.8); White Blood Cell Count 11.5 X10^3/uL (4.5-11.0)
[2021-01-09 05:44] LABS: INR 2.2 (0.9-1.3); Prothrombin Time 25.3 SECONDS (10.1-12.7)
[2021-01-09 05:48] LABS: BUN Creatinine Ratio 12.9 (6-22); Blood Urea Nitrogen 20 mg/dL (7-17); Calcium 9.7 mg/dL (8.4-10.2); Carbon Dioxide 25 mmol/L (22-32); Chloride 105 mmol/L (98-107); Estimated Glomerular Filt Rate 33.3 mL/min (>60); Glucose 112 mg/dL (80-110); HEMOLYSIS < 15 (0-50); Potassium 3.5 mmol/L (3.4-5.1); Sodium 138 mmol/L (137-145)
--- NOTE | 2021-01-09 06:52 | PM.PN.1 ---
Subjective Subjective Date Patient Seen: 01/09/21 Time Patient Seen: 06:30 Interval history: She clarifies she did not have atrial fibrillation, she did not have any clotting (PE, DVT). She has no valve replacement. She says she is on warfarin because her EF is 15%. Her pain is improved. Exam Vital Signs (past 8 hours): - 01/09/21 03:28 Temperature 97.1 F L Pulse Rate 57 L Respiratory Rate 14 Blood Pressure 136/73 Pulse Oximetry 97 Oxygen Delivery Method Room Air Oxygen Flow Rate 0 Narrative Exam Narrative: GEN: no acute distress HEENT: moist mucous membranes, PERRL NECK: trachea midline, no JVD CV: regular rate rhythm, no murmurs PULM: clear bilaterally, no wheezes, rhonchi, rales ABD: soft, nontender, distended, no organomegaly, decreased bowel sounds BACK: +left CVA tenderness EXT: warm and well perfused with no edema NEURO: awake, alert, moving all extremities with no focal deficits Objective Labs Result Diagrams: 01/09/21 04:50 01/09/21 04:50 Labs: Laboratory Results - last 24 hr 01/08/21 01/08/21 01/08/21 15:35 18:16 18:16 WBC 10.0 RBC 3.83 L Hgb 11.6 L Hct 34.8 L MCV 90.8 MCH 30.4 MCHC 33.5 RDW 14.0 Plt Count 308 Neut % (Auto) 72.0 Lymph % (Auto) 16.2 L [place] % (Auto) 8.1 Eos % (Auto) 2.9 Baso % (Auto) 0.8 Neut # (Auto) 7200 H Lymph # (Auto) 1600 [place] # (Auto) 800 Eos # (Auto) 300 Baso # (Auto) 100 PT INR Sodium 139 Potassium 3.7 Chloride 104 Carbon Dioxide 27 BUN 22 H Creatinine 1.72 H Estimated GFR 29.5 L BUN/Creatinine Ratio 12.8 Glucose 111 H Calcium 10.3 H Total Bilirubin 0.4 AST 22 ALT 15 Alkaline Phosphatase 54 Total Protein 6.8 Albumin 3.9 Globulin 2.9 Albumin/Globulin Ratio 1.3 Urine Color Brown Urine Appearance Cloudy Urine pH 8.0 Ur Specific [place] 1.020 Urine Protein 3+ H Urine Glucose (UA) Negative Urine Ketones Negative Urine Occult Blood 3+ H Urine Nitrate Negative Urine Bilirubin Negative Urine Urobilinogen 0.2 Ur Leukocyte Esterase Trace H Urine RBC >100/hpf H Urine WBC 5-10/hpf H Ur Squamous Epith Cells 1-5 /hpf Amorphous Sediment 1+ Urine Bacteria Occasional (0-1) Granular Casts 5-10/lpf Urine Mucus 1+ H Ur Culture Indicated? Culture not indicate SARS-CoV-2 (PCR) 01/08/21 01/08/21 01/09/21 18:16 20:58 04:50 WBC 11.5 H RBC 3.65 L Hgb 11.2 L Hct 33.4 L MCV 91.4 MCH 30.8 MCHC 33.7 RDW 14.1 Plt Count 263 Neut % (Auto) 74.5 Lymph % (Auto) 12.3 L [place] % (Auto) 10.7 Eos % (Auto) 2.0 Baso % (Auto) 0.5 Neut # (Auto) 8600 H Lymph # (Auto) 1400 [place] # (Auto) 1200 H Eos # (Auto) 200 Baso # (Auto) 100 PT 44.6 H INR 3.8 H Sodium Potassium Chloride Carbon Dioxide BUN Creatinine Estimated GFR BUN/Creatinine Ratio Glucose Calcium Total Bilirubin AST ALT Alkaline Phosphatase Total Protein Albumin Globulin Albumin/Globulin Ratio Urine Color Urine Appearance Urine pH Ur Specific [place] Urine Protein Urine Glucose (UA) Urine Ketones Urine Occult Blood Urine Nitrate Urine Bilirubin Urine Urobilinogen Ur Leukocyte Esterase Urine RBC Urine WBC Ur Squamous Epith Cells Amorphous Sediment Urine Bacteria Granular Casts Urine Mucus Ur Culture Indicated? SARS-CoV-2 (PCR) Negative 01/09/21 01/09/21 04:50 04:50 WBC RBC Hgb Hct MCV MCH MCHC RDW Plt Count Neut % (Auto) Lymph % (Auto) [place] % (Auto) Eos % (Auto) Baso % (Auto) Neut # (Auto) Lymph # (Auto) [place] # (Auto) Eos # (Auto) Baso # (Auto) PT 25.3 H D INR 2.2 H Sodium 138 Potassium 3.5 Chloride 105 Carbon Dioxide 25 BUN 20 H Creatinine 1.55 H Estimated GFR 33.3 L BUN/Creatinine Ratio 12.9 Glucose 112 H Calcium 9.7 Total Bilirubin AST ALT Alkaline Phosphatase Total Protein Albumin Globulin Albumin/Globulin Ratio Urine Color Urine Appearance Urine pH Ur Specific [place] Urine Protein Urine Glucose (UA) Urine Ketones Urine Occult Blood Urine Nitrate Urine Bilirubin Urine Urobilinogen Ur Leukocyte Esterase Urine RBC Urine WBC Ur Squamous Epith Cells Amorphous Sediment Urine Bacteria Granular Casts Urine Mucus Ur Culture Indicated? SARS-CoV-2 (PCR) PFSH Social History household members: spouse Smoking Status: Never smoker alcohol intake: never Assessment & Plan Assessment & Plan narrative: Ms. Wilson is a 70W with PMH CHF, s/p PPM, on warfair who presents with flank plan found to have obstructing kidney stone and LANIE. 1. Obstructing kidney stone, acute -patient left flank pain -CT confirms 8mm obstruction stone in left ureter with hydronephrosis -urology consulted, plan for intervention in AM -NPO over midnight, for now continue IV fluids and pain control -UA showed no infection, patient with no fevers 2. Acute kidney injury -secondary to obstructing stone -baseline creatinine unknown -trend creatinine daily, improved from 1.7 to 1.5 with IV fluid 3. Asthma -continue home budesonide 4. CHF with history of sudden cardiac arrest s/p PPM/AICD -hold lasix for now due to LANIE -hold warfarin -initial INR >3 on admit, ordered for IV vitamin K and improving to 2.2, full effect of vitamin K not yet likely in effect as given 7 hours before lab draw -repeat INR in AM -careful with IV fluids not to cause fluid overload 5. Hypertension -hold losartan CODE: Full Proxy: Puneet Wilson, I have utilized all available immediate resources to obtain, update, or review of the patient's current medications Time Spent With Patient Critical Care time: I spent a total of [] minutes of critical care time on this patient's care today; this time is exclusive of procedural time. Quality VTE Deep Vein Thrombosis/Pulmonary Embolism Present on Admission: No
--- NOTE | 2021-01-09 07:35 | P.CONS_ITS ---
History of Present Illness Consult details Date Patient Seen: 01/09/21 Time Patient Seen: 07:35 Chief complaint: sent by [facility] , Possible kidney stones Reason for consult: Left ureteral calculus Requesting provider: Tera Rosenthal Narrative: The patient is a 70-year-old female who was experiencing usual health until a bout 2 weeks ago when she began noting intermittent left flank pain. After awakening yesterday morning the pain became significantly worse and unremitting. She presented to [facility] ED for evaluation. CT KUB demonstrated an obstructing 8 mm left UPJ calculus and associated moderate hydronephrosis. Laboratory for indicative of LANIE verses baseline CKD with superimposed LANIE. Urinalysis was devoid of bacteria. She did not have picture of UTI or sepsis. Due to the size of the stone, on likelihood of successful facets, and unremitting pain, she is admitted for intervention to relieve obstruction. Meds Home Medications and Allergies Home Medications Medication Instructions Recorded Confirmed Type biotin 5,000 mcg sublingual tablet 5,000 mcg SUBLINGUAL DAILY 01/09/21 01/09/21 History budesonide 200 mcg/actuation 50 mcg INHALATION Q8HR 01/09/21 01/09/21 History breath activated powder inhaler carvedilol 6.25 mg tablet 6.25 mg PO BID 01/09/21 01/09/21 History cholecalciferol (vitamin D3) 125 125 mcg PO DAILY 01/09/21 01/09/21 History mcg (5,000 unit) tablet furosemide 20 mg tablet 20 mg PO 6XW 01/09/21 01/09/21 History furosemide 40 mg tablet 40 mg PO WEEKLY 01/09/21 01/09/21 History losartan 50 mg tablet 50 mg PO DAILY 01/09/21 01/09/21 History potassium 99 mg tablet 99 mg PO DAILY 01/09/21 01/09/21 History rosuvastatin 40 mg tablet 40 mg PO DAILY 01/09/21 01/09/21 History warfarin 2 mg tablet 2 mg PO 2XW 01/09/21 01/09/21 History warfarin 3 mg tablet 3 mg PO 5XW 01/09/21 01/09/21 History Allergies Allergy/AdvReac Type Severity Reaction Status Date / Time tetracycline Allergy Severe ITCHING Verified 01/08/21 15:31 Review of Systems Review of Systems ROS: Yes All systems reviewed with the patient and are negative except as ot herwise documented Exam Vital Signs (past 8 hours): - 01/09/21 03:28 01/09/21 07:00 Temperature 97.1 F L 98.6 F Pulse Rate 57 L 52 L Respiratory Rate 14 14 Blood Pressure 136/73 129/79 Pulse Oximetry 97 94 Oxygen Delivery Method Room Air Oxygen Flow Rate 0 Narrative Exam Narrative: She is a well-developed and nourished woman in no distress Head/neck-sclera clear and pupils are equal round bilaterally. No visible evidence of adenopathy or JVD. Chest-equal, and unlabored expansion bilaterally. Heart-regular rate and rhythm. Objective Labs Result Diagrams: 01/09/21 04:50 01/09/21 04:50 Labs: Laboratory Results - last 24 hr 01/08/21 01/08/21 01/08/21 15:35 18:16 18:16 WBC 10.0 RBC 3.83 L Hgb 11.6 L Hct 34.8 L MCV 90.8 MCH 30.4 MCHC 33.5 RDW 14.0 Plt Count 308 Neut % (Auto) 72.0 Lymph % (Auto) 16.2 L [place] % (Auto) 8.1 Eos % (Auto) 2.9 Baso % (Auto) 0.8 Neut # (Auto) 7200 H Lymph # (Auto) 1600 [place] # (Auto) 800 Eos # (Auto) 300 Baso # (Auto) 100 PT INR Sodium 139 Potassium 3.7 Chloride 104 Carbon Dioxide 27 BUN 22 H Creatinine 1.72 H Estimated GFR 29.5 L BUN/Creatinine Ratio 12.8 Glucose 111 H Calcium 10.3 H Total Bilirubin 0.4 AST 22 ALT 15 Alkaline Phosphatase 54 Total Protein 6.8 Albumin 3.9 Globulin 2.9 Albumin/Globulin Ratio 1.3 Urine Color Brown Urine Appearance Cloudy Urine pH 8.0 Ur Specific [place] 1.020 Urine Protein 3+ H Urine Glucose (UA) Negative Urine Ketones Negative Urine Occult Blood 3+ H Urine Nitrate Negative Urine Bilirubin Negative Urine Urobilinogen 0.2 Ur Leukocyte Esterase Trace H Urine RBC >100/hpf H Urine WBC 5-10/hpf H Ur Squamous Epith Cells 1-5 /hpf Amorphous Sediment 1+ Urine Bacteria Occasional (0-1) Granular Casts 5-10/lpf Urine Mucus 1+ H Ur Culture Indicated? Culture not indicate SARS-CoV-2 (PCR) 01/08/21 01/08/21 01/09/21 18:16 20:58 04:50 WBC 11.5 H RBC 3.65 L Hgb 11.2 L Hct 33.4 L MCV 91.4 MCH 30.8 MCHC 33.7 RDW 14.1 Plt Count 263 Neut % (Auto) 74.5 Lymph % (Auto) 12.3 L [place] % (Auto) 10.7 Eos % (Auto) 2.0 Baso % (Auto) 0.5 Neut # (Auto) 8600 H Lymph # (Auto) 1400 [place] # (Auto) 1200 H Eos # (Auto) 200 Baso # (Auto) 100 PT 44.6 H INR 3.8 H Sodium Potassium Chloride Carbon Dioxide BUN Creatinine Estimated GFR BUN/Creatinine Ratio Glucose Calcium Total Bilirubin AST ALT Alkaline Phosphatase Total Protein Albumin Globulin Albumin/Globulin Ratio Urine Color Urine Appearance Urine pH Ur Specific [place] Urine Protein Urine Glucose (UA) Urine Ketones Urine Occult Blood Urine Nitrate Urine Bilirubin Urine Urobilinogen Ur Leukocyte Esterase Urine RBC Urine WBC Ur Squamous Epith Cells Amorphous Sediment Urine Bacteria Granular Casts Urine Mucus Ur Culture Indicated? SARS-CoV-2 (PCR) Negative 01/09/21 01/09/21 04:50 04:50 WBC RBC Hgb Hct MCV MCH MCHC RDW Plt Count Neut % (Auto) Lymph % (Auto) [place] % (Auto) Eos % (Auto) Baso % (Auto) Neut # (Auto) Lymph # (Auto) [place] # (Auto) Eos # (Auto) Baso # (Auto) PT 25.3 H D INR 2.2 H Sodium 138 Potassium 3.5 Chloride 105 Carbon Dioxide 25 BUN 20 H Creatinine 1.55 H Estimated GFR 33.3 L BUN/Creatinine Ratio 12.9 Glucose 112 H Calcium 9.7 Total Bilirubin AST ALT Alkaline Phosphatase Total Protein Albumin Globulin Albumin/Globulin Ratio Urine Color Urine Appearance Urine pH Ur Specific [place] Urine Protein Urine Glucose (UA) Urine Ketones Urine Occult Blood Urine Nitrate Urine Bilirubin Urine Urobilinogen Ur Leukocyte Esterase Urine RBC Urine WBC Ur Squamous Epith Cells Amorphous Sediment Urine Bacteria Granular Casts Urine Mucus Ur Culture Indicated? SARS-CoV-2 (PCR) [facility] Medical History (Updated 01/09/21 @ 07:39 by Bi Knapp MD) History of nephrolithiasis Left ureteral calculus Social History household members: spouse Tobacco & Substance Use Smoking Status: Never smoker alcohol intake: never Assessment & Plan Assessment and plan (1) Left ureteral calculus: Status: Acute (2) History of nephrolithiasis: Status: Acute Plan 1. To the operating room today for CYSTOSCOPY/PLACEMENT LEFT URETERAL STENT. 2. KUB Reviewed findings and discussed impression and recommended plan. The patient is on chronic Coumadin anticoagulation and has a pacemaker. Explained rationale for relief of left renal obstruction to relieve pain and maximize renal function. Explain common side effects, possible complications, perioperative limitations/restrictions, and reasonable expectations of outcomes and recovery. Further explained overview of near future plan following passive ureteral dilation, optimization of renal function, and guidance regarding interruption of anticoagulant therapy, for definitive ESWL versus laser lithotripsy. He acknowledges understanding of the situation and discuss and and agrees with the plan. Time Spent With Patient Critical Care time: I spent a total of [] minutes of critical care time on this patient's care today; this time is exclusive of procedural time.
[2021-01-09] MEDS: carvediloL 3.125 MG TABLET 6.25 MG PO (10:01)
[2021-01-09] MEDS: SODIUM CHLORIDE 0.9% 1,000 ML 100 ML IV (10:03)
--- NOTE | 2021-01-09 10:49 | CM.DANOTE ---
Addendum entered by Dominga Lamar R.N. 01/10/21 13:07: CM met with patient and gave her a list of PCP physicians who are accepting new patients both at [facility] and at [facility]. Cm also gave her information on Cardiology clinics within the area that she can work with to get established and work on follow up after discharge. No other DC planning needs patient plan to DC back to her RV with her today. Dominga lamar RNmicrobiology lab manager Original Note: DCP Assessment: Patient is a 70 yr old female who was admitted for large kidney stone and planning surgery today with stent placement planned with Dr. Knapp. CM met with patient at the bedside and explained role. Patient was alert and oriented x4 during CM visit. patient is independent and drives at her baseline and is currently traveling with her in an RV patient has 3 steps into the trailor and 3 steps inside the trailor. patients RV is currently Parked at [facility] and she is planning on returning to camping in her RV once DC from the hospital. Patient lives in [facility] and states her PCP is MD Ismael Avila in [facility]. I: Medicare and commercial insurance Plan: DC back to RV with her when medically stable no Identified DC planning needs at this time. CM department will continue to follow to assist with any new DC plans that may arise. Discharge Planning/Care Management Discharge Assessment Start: 01/09/21 10:47 Freq: Status: Active Protocol: Document 01/09/21 10:47 HS (Rec: 01/09/21 10:49 HS [id number]) Discharge Planning Assessment Assigned Bathroom Tiling Professional Dominga Lamar RN Case Manger DPOA/Assigned Designee Name Puneet Wilson () Contact Information [phone] Advance Directives? No Advance Directives on File No History Provided By Patient Prior Living Arrangements RV Comment Currently lives in RV and is traveling with her - from [facility]. Household Members spouse Type of transporation used prior to Drives own vehicle admit Independent with ADL's Yes Is patient alert and oriented? Yes Caregiver for Another No Comment Does not use DME at her base line Barriers to Discharge No Discharge Plan Home Transportation Arrangement Patients will provide Transport home Referrals Initiated None needed Whiteboard Updated in Patient Room with Yes name and ext. # of Bathroom Tiling Professional Review Status In Process Next Review Type Continued Stay Review
[2021-01-09] MEDS: LACTATED RINGERS 1,000 ML 42 ML IV (15:52)
--- NOTE | 2021-01-09 16:21 | PM.PREOP ---
Pre-operative Note Interval Note History & Physical reviewed/Exam performed by Physician: Yes Changes to H&P: No
[2021-01-09] MEDS: CEFAZOLIN 1 GM VIAL 2 GM IV (16:35)
--- NOTE | 2021-01-09 16:46 | SUR.OPER ---
Lithotomy on padded OR bed, head on pillow, arms secured on padded arm boards at <90 degrees abduction. Legs secured in padded yellow fins stirrups.
--- NOTE | 2021-01-09 16:58 | P.OP_ITS ---
Operative Date/Time/Diagnoses Date of procedure: 01/09/21 Time of procedure: 16:58 Pre-op diagnosis: 1. Obstructing 8 mm left proximal ureteral calculus. 2. Intractable left renal colic. 3. Acute kidney injury. Post-op diagnosis: same Procedure & Clinicians Procedure: 1. Cystoscopy/left ureteral stone manipulation without removal. 2. Cystoscopy/placement left ureteral stent (6 Burmese by 22-32 cm multi-length). Same procedure as scheduled: Yes Indications: 1. Obstructing 8 mm left proximal ureteral calculus. 2. Intractable left renal colic. 3. Acute kidney injury. Surgeon: Bi Knapp Click Yes if Unassisted: Yes Anesthesia Type: General Operative Notes Findings: Urethra normal caliber without tenderness. Bladder had trace trabeculation with normal appearing ureteral orifices bilaterally. Following advancement of left ureteral stent there was a postobstructive turbid efflux witnessed. Closure Type: not applicable Specimen(s): none sent Applied: other (Six Burmese by 22-32 cm multi-length stent) Estimated Blood Loss (mL): 0 Blood products transfused: none Tourniquet time (min): 0 Procedure in detail: The patient was positioned supine was administered general anesthesia. He was then repositioned semi lithotomy and the lower abdomen, genitalia, and groin were then prepped and draped in sterile fashion. A 22 Burmese panendoscope was inserted lower urinary tract with the findings as described above. Next a 0.35 hybrid guidewire was is selected and advanced through the working port of the endoscope advanced in left collecting system under direct and fluoroscopic syed nce. Over this a 6 Burmese by 22-32 cm multi-length stent was selected advanced over the hybrid guidewire, again, under direct and fluoroscopic guidance. NO RETRIEVAL LINE WAS LEFT ATTACHED. Bladder is entering completing all instrumentation was removed. The patient was then repositioned in supine, was awakened, was transferred recovery in stable condition. Complications: none Post-operative Condition: stable Disposition: PACU Plan for aftercare: Transfer to hospitalist service-acute care.
[2021-01-09] MEDS: BELLADONNA/OPIUM SUPPOSITORIES 1 EACH PR (18:59)
[2021-01-09] MEDS: ATORVASTATIN 20 MG TABLET 80 MG PO (20:26)
[2021-01-10 00:27] VITALS: BP 127/76; PULSE 64; RESP 14; TEMP 36.9; O2SAT 95
[2021-01-10 05:30] VITALS: BP 147/69; PULSE 65; RESP 12; TEMP 36.1; O2SAT 97
[2021-01-10] MEDS: OXYCODONE IR 5 MG TABLET PO ×3 (05:51→12:00)
[2021-01-10 08:00] VITALS: BP 131/62; PULSE 67; RESP 16; TEMP 36.9; O2SAT 97
--- NOTE | 2021-01-10 08:18 | P.PN_ITS ---
Subjective Subjective Date Patient Seen: 01/10/21 Time Patient Seen: 08:18 Interval history: The patient is postoperative day 1. Status post cystoscopy and placement left ureteral stent for obstructing 8 mm left proximal ureteral calculus, intractable left renal colic, and LANIE. She has expected complaints of lower urinary tract irritative symptoms this morning. She denies nausea or vomiting. She denies flank pain. Explained to her by telephone last evening and the patient this morning intraoperative findings and events. Explained suture plan for definitive laser ureteroscopic laser lithotripsy once off warfarin and passive ureteral dilation. Exam Vital Signs (past 8 hours): - 01/10/21 00:27 01/10/21 05:30 01/10/21 08:00 Temperature 98.4 F 96.9 F L 98.5 F Pulse Rate 64 65 67 Respiratory Rate 14 12 16 Blood Pressure 127/76 147/69 H 131/62 Pulse Oximetry 95 97 97 Oxygen Delivery Method Room Air Oxygen Flow Rate 0 Objective Labs Result Diagrams: 01/09/21 04:50 01/09/21 04:50 [facility] Medical History (Updated 01/10/21 @ 08:20 by Bi Knapp MD) Acute kidney injury History of nephrolithiasis Left ureteral calculus Social History household members: spouse Smoking Status: Never smoker alcohol intake: never Assessment & Plan Assessment and plan (1) Left ureteral calculus: Status: Acute (2) Acute kidney injury: Status: Acute Plan 1. Patient may be discharged from standpoint today. 2. Bladder scan for postvoid residual prior to discharge. I have spoken with nursing staff in this regard. 3. May consider a low-dose anticholinergic such as tolterodine, etc (NOT oxybutynin). 4. Follow-up at [facility] as currently being arranged. Time Spent With Patient Critical Care time: I spent a total of [] minutes of critical care time on this patient's care today; this time is exclusive of procedural time. Quality VTE Deep Vein Thrombosis/Pulmonary Embolism Present on Admission: No
[2021-01-10] MEDS: CHOLECALCIFEROL (VITAMIN D3) 1,000 UNIT TABLET 5000 UNIT PO (10:45)
[2021-01-10] MEDS: BELLADONNA/OPIUM SUPPOSITORIES 1 EACH PR (10:45)
[2021-01-10 10:46] VITALS: BP 131/62; PULSE 70
[2021-01-10] MEDS: LOSARTAN 50 MG TABLET PO (10:46)
[2021-01-10] MEDS: FUROSEMIDE 20 MG TABLET PO (10:48)
[2021-01-10 11:10] VITALS: BP 135/76; PULSE 73; RESP 18; TEMP 36.4; O2SAT 95
--- NOTE | 2021-01-10 12:39 | P.PN_ITS ---
Subjective Subjective Interval history: The patient endorses a fair degree of pain to the left side this morning. She denies issues with urination. She understands that she is due to undergo urologic intervention today for the obstructing left mid-ureter stone. Exam Vital Signs (past 8 hours): - 01/10/21 05:30 01/10/21 08:00 01/10/21 10:46 Temperature 96.9 F L 98.5 F Pulse Rate 65 67 70 Respiratory Rate 12 16 Blood Pressure 147/69 H 131/62 131/62 Pulse Oximetry 97 97 Oxygen Delivery Method Room Air Oxygen Flow Rate 0 Const Other: Patient standing up and washing her hands upon my entering the room, in no apparent acute distress. Eyes Other: No scleral icterus appreciated. Resp Other: Clear to auscultation bilaterally. Cardio Other: Regular rate and rhythm. S1 and S2 heart sounds auscultated with no extra heart sounds or murmurs appreciated. GI Other: Soft, non-distended, non-tender. Bowel sounds present. Skin Other: No reji skin lesions appreciated grossly. Extrem Other: Palpable and equal radial and dorsalis pedis pulses bilaterally. Objective Labs Result Diagrams: 01/09/21 04:50 01/09/21 04:50 [facility] Medical History (Updated 01/10/21 @ 08:20 by Bi Knapp MD) Acute kidney injury History of nephrolithiasis Left ureteral calculus Social History household members: spouse Smoking Status: Never smoker alcohol intake: never Assessment & Plan Assessment & Plan narrative: Assessment: 1. Left mid-ureter obstructing?8 mm nephrolithiasis with hydronephrosis and no evidence of pyelonephritis 2. LANIE, likely pre-renal 3. Intermittent asthma, not in exacerbation 4. HFrEF (EF reportedly 10-15%), not in acute exacerbation 5. Hx of sudden cardiac arrest status post AICD placement 6. Hypertension 7. History of ischemic strokes without residual deficits 8. Anticoagulated on warfarin, likely for atrial fibrillation hx Plan: 1. Patient underwent left ureteral stent placement by urology on Jan 09 with good effect. She is due to follow-up with urology outpatient. 2. Cr has improved with hydration, and urologic intervention. 3. Patient taking budesonide inhaler at home and will continue. 4. Home lasix held initially due to LANIE. Can resume at home as prescribed. 5. Patient is not aware what caused this. AICD in place. 6. Home losartan initally held due to LANIE. Can resume home medication as prescribed on discharge. 7. These likely were the result of problem 8. 8. INR slightly supratherapeutic on admission. Responded well to IV vitamin K for problem 1 intervention. Patient has reliable follow[facility]. CODE: Full Proxy: Puneet Wilson, I have utilized all available immediate resources to obtain, update, or review of the patient's current medications Time Spent With Patient Critical Care time: I spent a total of [] minutes of critical care time on this patient's care today; this time is exclusive of procedural time. Time Spent With Patient Critical Care time: I spent a total of [] minutes of critical care time on this patient's care today; this time is exclusive of procedural time. Quality VTE Deep Vein Thrombosis/Pulmonary Embolism Present on Admission: No
--- NOTE | 2021-01-10 13:15 | PM.DS.1 ---
History of Present Illness History of Present Illness Chief complaint: sent by [facility] , Possible kidney stones Narrative: 70yo female with a hx of HFrEF (EF 10-15%), hx of sudden cardiac arrest status post AICD placement, hx of ischemic strokes without residual deficits, and likely hx of atrial fibrillation as she is on warfarin that presented with left mid-ureter 8 mm obstructing nephrolithiasis with hydronephrosis and without evidence of pyelonephritis. She underwent urological left ureteral stent placement on January 09 and is due to follow-up with outpatient urology. She reports reliably followin-up with [facility] for her INR needs, and states she will do that oupatient. Discharge Providers Provider Date of admission: 01/08/21 20:40 Discharge Date: 01/10/21 Discharge provider: Gaby Galicia MD Summary Hospital Course Discharge Diagnosis: 1. Left mid-ureter obstructing 8 mm nephrolithiasis with hydronephrosis and no evidence of pyelonephritis 2. LANIE, likely pre-renal 3. Intermittent asthma, not in exacerbation 4. HFrEF (EF reportedly 10-15%), not in acute exacerbation 5. Hx of sudden cardiac arrest status post AICD placement 6. Hypertension 7. History of ischemic strokes without residual deficits 8. Anticoagulated on warfarin, likely for atrial fibrillation hx Hospital Course: 70yo female with a hx of HFrEF (EF 10-15%), hx of sudden cardiac arrest status post AICD placement, hx of ischemic strokes without residual deficits, and likely hx of atrial fibrillation as she is on warfarin that presented with left mid-ureter 8 mm obstructing nephrolithiasis with hydronephrosis and without evidence of pyelonephritis. She underwent urological left ureteral stent placement on January 09 and is due to follow-up with outpatient urology. She reports reliably followin-[facility] with [facility] for her [facility]R needs, and states she will do that oupatient. Exam Vital Signs (past 8 hours): - 01/10/21 05:30 01/10/21 08:00 01/10/21 10:46 Temperature 96.9 F L 98.5 F Pulse Rate 65 67 70 Respiratory Rate 12 16 Blood Pressure 147/69 H 131/62 131/62 Pulse Oximetry 97 97 Oxygen Delivery Method Room Air Oxygen Flow Rate 0 Objective Labs Result Diagrams: 01/09/21 04:50 01/09/21 04:50 [facility] Medical History (Updated 01/10/21 @ 08:20 by Bi Knapp MD) Acute kidney injury History of nephrolithiasis Left ureteral calculus Social History household members: spouse Smoking Status: Never smoker alcohol intake: never Discharge Assessment & Plan Assessment and Plan Assessment: 1. Left mid-ureter obstructing?8 mm nephrolithiasis with hydronephrosis and no evidence of pyelonephritis 2. LANIE, likely pre-renal 3. Intermittent asthma, not in exacerbation 4. HFrEF (EF reportedly 10-15%), not in acute exacerbation 5. Hx of sudden cardiac arrest status post AICD placement 6. Hypertension 7. History of ischemic strokes without residual deficits 8. Anticoagulated on warfarin, likely for atrial fibrillation hx Plan of Treatment: 1. Patient underwent left ureteral stent placement by urology on Jan 09 with good effect. She is due to follow-up with urology outpatient. 2. Cr has improved with hydration, and urologic intervention. 3. Patient taking budesonide inhaler at home and will continue. 4. Home lasix held initially due to LANIE. Can resume at home as prescribed. 5. Patient is not aware what caused this. AICD in place. 6. Home losartan initally held due to LANIE. Can resume home medication as prescribed on discharge. 7. These likely were the result of problem 8. 8. INR slightly supratherapeutic on admission. Responded well to IV vitamin K for problem 1 intervention. Patient has reliable follow-up with [facility]. Discharge Plan Discharge Plan Patient Disposition: Home Discharge orders & Medications Prescriptions: Continued biotin 5,000 mcg Tablet, Sublingual 5,000 mcg sublingual DAILY 0RF losartan 50 mg Tablet 50 mg PO DAILY 0RF furosemide 40 mg Tablet 40 mg PO WEEKLY 0RF cholecalciferol (vitamin D3) 125 mcg (5,000 unit) Tablet 125 mcg PO DAILY 0RF carvedilol 6.25 mg Tablet 6.25 mg PO BID 0RF Rx Instructions: must administer with a meal/food budesonide 200 mcg/actuation Aerosol Powdr Breath Activated 50 mcg INHALATION Q8HR 0RF Label Comments: takes 4 puffs qhs rosuvastatin 40 mg Tablet 40 mg PO DAILY 0RF warfarin 3 mg Tablet 3 mg PO 5XW 0RF Rx Instructions: takes it 5x/week warfarin 2 mg Tablet 2 mg PO 2XW 0RF furosemide 20 mg Tablet 20 mg PO 6XW 0RF Discontinued potassium 99 mg Tablet 99 mg PO DAILY 0RF Quality VTE Deep Vein Thrombosis/Pulmonary Embolism Present on Admission: No
== END 2021-01-10 15:09 | disposition home or self-care (01) | DRG 660 ==
LOC: ED 20:24 → ICU 01-09 07:33 → AC 01-09 13:17
PROVIDERS: Specialist; Admitting Provider Internal Medicine; Emergency Provider Physician Assistant; Referring Provider Emergency Medicine; Visit Provider Internal Medicine
PROC: 0T778DZ Dilation of Left Ureter with Intraluminal Device, Via Natural or Artificial Opening Endoscopic (ICD-10-PCS; principal; 2021-01-09 16:45)
DX: N13.2 Hydronephrosis with renal and ureteral calculous obstruction (principal); I13.0 Hypertensive heart and chronic kidney disease with heart failure and stage 1 through stage 4 chronic kidney disease, or unspecified chronic kidney disease; I50.22 Chronic systolic (congestive) heart failure; N17.9 Acute kidney failure, unspecified; N18.9 Chronic kidney disease, unspecified; I48.91 Unspecified atrial fibrillation; J45.909 Unspecified asthma, uncomplicated; Z20.822 Contact with and (suspected) exposure to COVID-19; Z95.0 Presence of cardiac pacemaker; Z79.01 Long term (current) use of anticoagulants; N34.3 Urethral syndrome, unspecified
CPT/HCPCS: 36415; 74018; 74176; 76000; 80048; 80053; 81001; 82962; 85025; 85610; 87086; 87635; 99283; 99284; C9803; J0690; J1170; J2250; J2704; J3010; J3430

== ENCOUNTER 2021-01-11 15:43 | Emergency (ER) | payer MEDICARE, OTHER, SELFPAY ==
[2021-01-08 21:46] VITALS: BMI 23.9
[2021-01-11 15:49] VITALS: BP 141/74; PULSE 81; RESP 18; TEMP 36.9; O2SAT 97; BMI 24.5
--- NOTE | 2021-01-11 16:14 | DI.RAD.S_ITS ---
PROCEDURE: XR ABDOMEN 1V INDICATIONS: Left ureter stone, stent recently placed. TECHNIQUE: One view of the abdomen acquired. COMPARISON: [facility], CT, CT ABDOMEN PELVIS WO CON, 01/08/2021, 17:01. [facility], CR, XR KUB, 01/09/2021, 7:52. FINDINGS: Surgical changes and devices: There is a left-sided double-J stent. An AICD is partially seen. Bowel: Bowel gas pattern is normal. Soft tissues: No suspicious abdominal calcifications. No findings of [place] are seen. Visualized solid organ contours appear normal in size. Bones: No suspicious bony lesions. Age-appropriate bony degenerative changes are seen. IMPRESSION: Left-sided ureteral double-J stent, without stones seen. Dictated by: Fady Gupta M.D. on 01/11/2021 at 15:46 Approved by: Fady Gupta M.D. on 01/11/2021 at 15:48
--- NOTE | 2021-01-11 16:16 | ED_ITS ---
HPI - Abdominal Pain General Chief Complaint: Abdominal Pain Stated Complaint: kidney pain Time Seen by Provider: 01/11/21 15:58 Source: patient Mode of arrival: Ambulatory Limitations: no limitations History of Present Illness HPI narrative: The patient presents with left flank pain. She denies nausea. She has normal BMs. She denies dysuria or hematuria. She was diagnosed with a left 8 mm stone that required a stent to the left ureter. This was placed [address] Knapp, urology. She is eating and drinking normally. Urine output is normal. It is noted she is anticoagulated with Coumadin which was stopped preceding the recent procedure. She has history of cardiomyopathy, cardiac arrest, and she has an AICD. The patient restarted the Coumadin yesterday. She has Percocet and Flomax at home. She is having adequate urine output. She had a significant flare of pain today. She has no fever chills. She denies dysuria. Related Data Home Medications Medication Instructions Recorded Confirmed biotin 5,000 mcg sublingual tablet 5,000 mcg SUBLINGUAL DAILY 01/09/21 01/09/21 budesonide 200 mcg/actuation 50 mcg INHALATION Q8HR 01/09/21 01/09/21 breath activated powder inhaler carvedilol 6.25 mg tablet 6.25 mg PO BID 01/09/21 01/09/21 cholecalciferol (vitamin D3) 125 125 mcg PO DAILY 01/09/21 01/09/21 mcg (5,000 unit) tablet furosemide 20 mg tablet 20 mg PO 6XW 01/09/21 01/09/21 furosemide 40 mg tablet 40 mg PO WEEKLY 01/09/21 01/09/21 losartan 50 mg tablet 50 mg PO DAILY 01/09/21 01/09/21 rosuvastatin 40 mg tablet 40 mg PO DAILY 01/09/21 01/09/21 warfarin 2 mg tablet 2 mg PO 2XW 01/09/21 01/09/21 warfarin 3 mg tablet 3 mg PO 5XW 01/09/21 01/09/21 Previous Rx's Medication Instructions Recorded oxycodone 5 mg tablet 5 mg PO Q4H PRN #14 tab 01/10/21 tamsulosin 0.4 mg capsule 0.4 mg PO BEDTIME #60 cap 01/10/21 tolterodine 4 mg capsule,extended 4 mg PO DAILY #60 cap 01/10/21 release 24 hr Allergies Allergy/AdvReac Type Severity Reaction Status Date / Time tetracycline Allergy Severe ITCHING Verified 01/11/21 15:49 phenazopyridine Allergy Verified 01/11/21 15:49 [From Pyridium] Review of Systems Constitutional Constitutional: Denies body ache(s) and Denies fever(s) Gastrointestinal Gastrointestinal: Reports abdominal pain, Denies constipation, Denies diarrhea and Denies nausea Genitourinary Genitourinary: Denies dysuria and Reports flank pain Comments: No hematuria. Musculoskeletal Musculoskeletal: Denies back pain Patient History Medical History Acute kidney injury History of nephrolithiasis Left ureteral calculus Social History household members: spouse Smoking Status: Never smoker alcohol intake: never Smoking Status: Never smoker alcohol intake frequency: 0-2 drinks per day Substance Use Type: does not use Exam Initial Vital Signs Initial Vital Signs: Vital Signs Temperature 98.4 F 01/11/21 15:49 Pulse Rate 81 01/11/21 15:49 Respiratory Rate 18 01/11/21 15:49 Blood Pressure 141/74 H 01/11/21 15:49 Pulse Oximetry 97 01/11/21 15:49 Const General: cooperative (Obviously uncomfortable. Nontoxic in appearance.) HENOK Head: normocephalic and atraumatic Resp Auscultation: clear to auscultation bilaterally Cardio Rate: regular rate Rhythm: regular rhythm Heart Sounds: S1 normal and S2 normal GI Other: Mild tenderness in left flank. No distension. No guarding rebound. No masses. Normal bowel sounds. Back/Spine/Pelvis Back: No CVA tenderness Skin General: no rashes or lesions noted Neuro General: patient alert, patient awake, patient oriented x3 and no focal motor deficits Extrem General: normal to inspection, no pedal edema and no calf tenderness Course Course Course Narrative: KUB x-ray shows the left ureter stent, the stone is not seen. She has signi ficant relief with the Dilaudid. Labs are reassuring. She is discharged home with her prior prescriptions for Flomax and Percocet. There is no suggestion of infection. She has scheduled follow-up with Urology in 2 days. Orders Ordered: ED Orders 01/11/21 16:05 Urinalysis and Microscopic Stat Urine Culture Stat 01/11/21 16:12 BMP [Basic Metabolic Panel] Stat Complete Blood Count AUTO DIFF Stat 01/11/21 16:14 XR abdomen 1V Stat 01/11/21 16:15 Prothrombin Time INR Stat Sodium Chloride (Normal Saline 0.9%) 1,000 mls @ 150 mls/hr IV CONT BRENDA Last Admin: 01/11/21 16:25 Dose: 150 mls/hr Documented by: Discontinued Medications Hydromorphone HCl (Hydromorphone 0.5 Mg Inj) 0.5 mg IV NOW ONE Stop: 01/11/21 16:13 Last Admin: 01/11/21 16:24 Dose: 0.5 mg Documented by: Vital Signs Vital signs: Vital Signs - 8 hr 01/11/21 15:49 Temperature 98.4 F Pulse Rate 81 Respiratory Rate 18 Blood Pressure 141/74 H Pulse Oximetry 97 MDM - Abdominal Pain Lab Data Result diagrams: 01/11/21 16:10 01/11/21 16:10 Labs: Lab Results 01/11/21 01/11/21 01/11/21 Range/Units 16:05 16:10 16:10 WBC 9.5 (4.5-11.0) X10^3/uL RBC 3.95 L (4.0-5.2) X10^6/uL Hgb 12.3 (12.0-16.0) g/dL Hct 36.0 (36-46) % MCV 91.1 (80-100) fL MCH 31.1 (26-34) PG MCHC 34.1 (30-36) % RDW 14.3 (11.6-14.8) % Plt Count 327 (150-400) X10^3/uL Neut % (Auto) 73.9 (50-75) % Lymph % (Auto) 10.5 L (25-40) % [place] % (Auto) 9.2 (3-14) % Eos % (Auto) 5.7 H (2-4) % Baso % (Auto) 0.7 (0-2) % Neut # (Auto) 7000 (1199-5624) /uL Lymph # (Auto) 1000 L (9635-1834) /uL [place] # (Auto) 900 (0-900) /uL Eos # (Auto) 500 H (0-450) /uL Baso # (Auto) 100 (0-100) /uL PT (10.1-12.7) SECONDS INR (0.9-1.3) Sodium 142 (137-145) mmol/L Potassium 3.6 (3.4-5.1) mmol/L Chloride 104 (98-107) mmol/L Carbon Dioxide 28 (22-32) mmol/L BUN 17 (7-17) mg/dL Creatinine 1.37 H (0.52-1.04) mg/dL Estimated GFR 38.3 L (>60) mL/min BUN/Creatinine Ratio 12.4 (6-22) Glucose 185 H (80-110) mg/dL Calcium 10.4 H (8.4-10.2) mg/dL Urine Color [place] Urine Appearance Sl cloudy Urine pH 6.0 (4.5-8.0) Ur Specific [place] <=1.005 (1.000-1.035) Urine Protein 1+ H (Negative) Urine Glucose (UA) Trace H (Negative) g/dL Urine Ketones Negative (NEGATIVE) Urine Occult Blood 3+ H (Negative) Urine Nitrate Negative (Negative) Urine Bilirubin Negative (NEGATIVE) Urine Urobilinogen 0.2 (0.2) E.U./dL Ur Leukocyte Esterase 1+ H (NEGATIVE) Urine RBC 10-30/hpf H (0-5/HPF) Urine WBC 5-10/hpf H (0-5/HPF) Ur Squamous Epith Cells 1-5 /hpf (0-5/HPF) Ur Transition Epith Cell 5-10/hpf H (0-5/HPF) Urine Bacteria Occasional (0-1) (None) Ur Culture Indicated? Specimen cultured 01/11/21 Range/Units 16:10 WBC (4.5-11.0) X10^3/uL RBC (4.0-5.2) X10^6/uL Hgb (12.0-16.0) g/dL Hct (36-46) % MCV (80-100) fL MCH (26-34) PG MCHC (30-36) % RDW (11.6-14.8) % Plt Count (150-400) X10^3/uL Neut % (Auto) (50-75) % Lymph % (Auto) (25-40) % [place] % (Auto) (3-14) % Eos % (Auto) (2-4) % Baso % (Auto) (0-2) % Neut # (Auto) (3547-4336) /uL Lymph # (Auto) (6475-5361) /uL [place] # (Auto) (0-900) /uL Eos # (Auto) (0-450) /uL Baso # (Auto) (0-100) /uL PT 13.7 H D (10.1-12.7) SECONDS INR 1.2 (0.9-1.3) Sodium (137-145) mmol/L Potassium (3.4-5.1) mmol/L Chloride (98-107) mmol/L Carbon Dioxide (22-32) mmol/L BUN (7-17) mg/dL Creatinine (0.52-1.04) mg/dL Estimated GFR (>60) mL/min BUN/Creatinine Ratio (6-22) Glucose (80-110) mg/dL Calcium (8.4-10.2) mg/dL Urine Color Urine Appearance Urine pH (4.5-8.0) Ur Specific [place] (1.000-1.035) Urine Protein (Negative) Urine Glucose (UA) (Negative) g/dL Urine Ketones (NEGATIVE) Urine Occult Blood (Negative) Urine Nitrate (Negative) Urine Bilirubin (NEGATIVE) Urine Urobilinogen (0.2) E.U./dL Ur Leukocyte Esterase (NEGATIVE) Urine RBC (0-5/HPF) Urine WBC (0-5/HPF) Ur Squamous Epith Cells (0-5/HPF) Ur Transition Epith Cell (0-5/HPF) Urine Bacteria (None) Ur Culture Indicated? Discharge Plan Departure Patient Disposition: Home Clinical Impression: Ureterolithiasis Instructions: DI for Kidney Stones Activity Restrictions/Additional Instructions: Continue to drink plenty of fluids. Tamsulosin daily as prescribed. Percocet every 4 hours as needed for pain. Follow-up with Dr. Knapp next week as scheduled. Return the ER if you have significant discomfort with urination or fever. Prescriptions: No Action tamsulosin 0.4 mg capsule 0.4 mg PO BEDTIME Qty: 60 0RF tolterodine 4 mg capsule,extended release 24hr 4 mg PO DAILY Qty: 60 0RF oxycodone 5 mg tablet 5 mg PO Q4H PRN (Reason: pain) Qty: 14 0RF biotin 5,000 mcg Tablet, Sublingual 5,000 mcg sublingual DAILY 0RF losartan 50 mg Tablet 50 mg PO DAILY 0RF furosemide 40 mg Tablet 40 mg PO WEEKLY 0RF cholecalciferol (vitamin D3) 125 mcg (5,000 unit) Tablet 125 mcg PO DAILY 0RF carvedilol 6.25 mg Tablet 6.25 mg PO BID 0RF Rx Instructions: must administer with a meal/food budesonide 200 mcg/actuation Aerosol Powdr Breath Activated 50 mcg INHALATION Q8HR 0RF Label Comments: takes 4 puffs qhs rosuvastatin 40 mg Tablet 40 mg PO DAILY 0RF warfarin 3 mg Tablet 3 mg PO 5XW 0RF Rx Instructions: takes it 5x/week warfarin 2 mg Tablet 2 mg PO 2XW 0RF furosemide 20 mg Tablet 20 mg PO 6XW 0RF
[2021-01-11] MEDS: HYDROMORPHONE 0.5 MG INJ IV (16:24)
[2021-01-11] MEDS: SODIUM CHLORIDE 0.9% 1,000 ML 150 ML IV (16:25)
[2021-01-11 16:27] LABS: Appearance Urine UA SL CLOUDY; Bilirubin Urine UA NEGATIVE (NEGATIVE); Color Urine UA PINK; Glucose Urine UA TRACE g/dL (Negative); Ketones Urine UA NEGATIVE (NEGATIVE); Leukocyte Esterase Urine UA 1+ (NEGATIVE); Nitrite Urine UA NEGATIVE (Negative); Occult Blood Urine UA 3+ (Negative); Protein Urine UA 1+ (Negative); Specific Gravity Urine UA <=1.005 (1.000-1.035); Urobilinogen Urine UA 0.2 E.U./dL (0.2)
[2021-01-11 16:32] VITALS: PULSE 74; O2SAT 92
[2021-01-11 16:32] LABS: Add Manual Diff / Slide Review NO; Basophils Absolute Auto 100 /uL (0-100); Basophils Percent Auto 0.7 % (0-2); Eosinophils Absolute Auto 500 /uL (0-450); Eosinophils Percent Auto 5.7 % (2-4); Hemoglobin 12.3 g/dL (12.0-16.0); Lymphocytes Absolute Auto 1000 /uL (1100-4500); Lymphocytes Percent Auto 10.5 % (25-40); Mean Corpuscular HGB Conc 34.1 % (30-36); Mean Corpuscular Hemoglobin 31.1 PG (26-34); Mean Corpuscular Volume 91.1 fL (80-100); Monocytes Absolute Auto 900 /uL (0-900); Monocytes Percent Auto 9.2 % (3-14); Neutrophils Absolute Auto 7000 /uL (1500-7000); Neutrophils Percent Auto 73.9 % (50-75); Platelet Count 327 X10^3/uL (150-400); Red Blood Cell Count 3.95 X10^6/uL (4.0-5.2); Red Cell Distribution Width 14.3 % (11.6-14.8); White Blood Cell Count 9.5 X10^3/uL (4.5-11.0)
[2021-01-11 16:34] VITALS: BP 140/66; PULSE 70; O2SAT 98
[2021-01-11 16:42] LABS: INR 1.2 (0.9-1.3); Prothrombin Time 13.7 SECONDS (10.1-12.7)
[2021-01-11 16:46] LABS: BUN Creatinine Ratio 12.4 (6-22); Blood Urea Nitrogen 17 mg/dL (7-17); Calcium 10.4 mg/dL (8.4-10.2); Carbon Dioxide 28 mmol/L (22-32); Chloride 104 mmol/L (98-107); Estimated Glomerular Filt Rate 38.3 mL/min (>60); Glucose 185 mg/dL (80-110); HEMOLYSIS 53 (0-50); Potassium 3.6 mmol/L (3.4-5.1); Sodium 142 mmol/L (137-145)
[2021-01-11 16:50] LABS: Bacteria Urine Occasional (0-1); Culture Indicated Urine Specimen Cultured; RBC Urine 10-30/HPF (0-5/HPF); Squamous Epithelial Cell Urine 1-5 /HPF (0-5/HPF); Transitional Epi Cells Urine 5-10/HPF (0-5/HPF); WBC Urine 5-10/HPF (0-5/HPF)
[2021-01-11 17:00] VITALS: BP 131/60; PULSE 63; O2SAT 94
[2021-01-11 17:30] VITALS: BP 137/63; PULSE 71; O2SAT 97
== END 2021-01-11 18:29 | disposition home or self-care (01) ==
PROVIDERS: Emergency Provider Emergency Medicine
DX: N20.1 Calculus of ureter (principal); Z96.0 Presence of urogenital implants
CPT/HCPCS: 36415; 51798; 74018; 80048; 81001; 85025; 85610; 87086; 96361; 96374; 99284; J1170

== ENCOUNTER → 2021-01-23 14:53 | Outpatient (CLI) | payer MEDICARE, OTHER, SELFPAY ==
[2021-01-08 21:46] VITALS: BMI 23.9
--- NOTE | 2021-01-23 14:57 | DI.RAD.S_ITS ---
PROCEDURE: XR KUB INDICATIONS: calculus of ureter TECHNIQUE: One view of the abdomen acquired. COMPARISON: [facility], CR, XR ABDOMEN 1V, 01/11/2021, 16:20. [facility], CT, CT ABDOMEN PELVIS WO CON, 01/08/2021, 17:01. [facility], CR, XR KUB, 01/09/2021, 7:52. FINDINGS: Surgical changes and devices: Left ureteral stent is present with a redundant loop in the interpolar kidney, as before. Bowel: Bowel gas pattern is normal. Soft tissues: No suspicious abdominal calcifications. Visualized solid organ contours appear normal in size. Bones: No suspicious bony lesions. IMPRESSION: Left ureteral stent as above. Dictated by: Juju Morton M.D. on 01/23/2021 at 16:09 Approved by: Juju Morton M.D. on 01/23/2021 at 16:35
== END ==
PROVIDERS: Referring Provider Specialist; Visit Provider Specialist
DX: N20.1 Calculus of ureter (principal); Z96.0 Presence of urogenital implants
CPT/HCPCS: 74018

== ENCOUNTER → 2021-02-07 10:40 | Outpatient (CLI) | payer MEDICARE, OTHER, SELFPAY ==
[2021-01-08 21:46] VITALS: BMI 23.9
== END ==
PROVIDERS: Visit Provider Specialist
DX: N20.1 Calculus of ureter (principal); R30.0 Dysuria
CPT/HCPCS: 51701; 87086

== ENCOUNTER → 2021-02-11 14:21 | Outpatient (CLI) | payer MEDICARE, OTHER, SELFPAY ==
[2021-01-08 21:46] VITALS: BMI 23.9
[2021-02-11 14:49] LABS: COVID19 -Nasal RAPID Negative (Negative)
== END ==
PROVIDERS: Referring Provider Specialist; Visit Provider Specialist
DX: Z20.822 Contact with and (suspected) exposure to COVID-19 (principal)
CPT/HCPCS: 87635; C9803

== ENCOUNTER 2021-02-14 07:58 | Day surgery (SDC) | payer MEDICARE, OTHER, SELFPAY ==
[2021-01-08 21:46] VITALS: BMI 23.9
[2021-02-11 13:33] VITALS: BMI 24.4
[2021-02-14] VITALS (11 sets, daily range): BP systolic 112–147; BP diastolic 73–92; PULSE 78–98; RESP 13–22; TEMP 36–37.1; O2SAT 93–98; BMI 24.4
--- NOTE | 2021-02-14 | DI.RAD.S_ITS ---
PROCEDURE: XR KUB INDICATIONS: Left ureteral calculus TECHNIQUE: One view of the abdomen acquired. COMPARISON: [facility], , XR KUB, 01/23/2021, 14:56. FINDINGS: Surgical changes and devices: A left-sided ureteral stent is in good position. Bowel: Bowel gas pattern is normal. Soft tissues: No suspicious abdominal calcifications. Visualized solid organ contours appear normal in size. Bones: No suspicious bony lesions. IMPRESSION: Left ureteral stent is well positioned. Dictated by: David Boyer M.D. on 02/14/2021 at 9:44 Approved by: David Boyer M.D. on 02/14/2021 at 9:48
[2021-02-14] MEDS: LACTATED RINGERS 1,000 ML 42 ML IV ×2 (08:35→10:49)
--- NOTE | 2021-02-14 08:40 | SUR.PREOP ---
[facility] 0838-off unit for KUB study.
--- NOTE | 2021-02-14 08:46 | SUR.PREOP ---
preop Returned to unit. preop assessment completed.
--- NOTE | 2021-02-14 09:03 | PM.PREOP ---
Pre-operative Note Interval Note History & Physical reviewed/Exam performed by Physician: Yes Changes to H&P: No
[2021-02-14] MEDS: CEFAZOLIN 2 GM/20 ML SYRINGE IV (09:30)
--- NOTE | 2021-02-14 09:39 | SUR.OPER ---
Lithotomy on padded OR bed, head on pillow, arms secured on padded arm boards at <90 degrees abduction. Legs secured in padded yellow fins stirrups.
[2021-02-14] MEDS: IOPAMIDOL 15 ML VIAL INJ (10:42)
[2021-02-14] MEDS: BELLADONNA/OPIUM SUPPOSITORIES 1 EACH PR (11:56)
--- NOTE | 2021-02-14 12:09 | P.OP_ITS ---
Operative Date/Time/Diagnoses Date of procedure: 02/14/21 Time of procedure: 12:09 Pre-op diagnosis: Obstructing 8 mm left ureteropelvic junction calculus. History acute kidney injury due to left ureteral obstruction Post-op diagnosis: same Procedure & Clinicians Procedure: 1. Cystoscopy/left ureteroscopic laser lithotripsy. 2. Cystoscopy/left ureteral stent exchange. Same procedure as scheduled: Yes Indications: 1. Obstructing 8 mm left ureteropelvic junction calculus. 2. History of a acute kidney injury secondary to left renal obstruction. Surgeon: Bi Knapp Click Yes if Unassisted: Yes Anesthesia Type: General Operative Notes Findings: 1. Urethra-normal caliber without lesion or obstruction. 2. Bladder-trace trabeculation. Normal right ureteral orifice. Left ureteral orifice at surrounding edema and erythema with intact left indwelling ureteral stent. Closure Type: not applicable Specimen(s): none sent Applied: other (Six [place] by 22-32 cm multi-length stent.) Estimated Blood Loss (mL): 5 Blood products transfused: none Procedure in detail: The patient was positioned supine was administered general anesthesia. She was then repositioned semi lithotomy and the lower abdomen, genitalia, and groin were then prepped and draped in sterile fashion. The 22 [place] panendoscope some past lower urinary tract with the findings as described above. A foreign body grasper was then utilized to engage the distal end of the stent and the scope in the stent were then withdrawn to the perineum. A 0.35 hybrid guidewire was then passed retrograde into the lumen of the retained stent under fluor oscopic guidance. The retained stent was then backloaded off the wire discarded. A dual lumen ureteral access sheath was then advanced over the hybrid guidewire under fluoroscopic guidance. A 2nd 0.35 hybrid guidewire was then passed through the accessory channel of the dual lumen ureteral access sheath under fluoroscopic guidance. Ureteral access sheath was then backloaded off both wires. One wire was a attached to the surgical drape. The remaining wire was then utilized to guide the flexible ureteral scope over it under fluoroscopic guidance. The stone was noted to be in a difficult curvature at the UPJ due to impaction and then proximal dilation. Flexor ureteral scope was backloaded off a wire temporarily in the dual lumen ureteral access sheath was again advanced and then passed a bit further to dislodge the stone so could be approached and maneuvered within the central renal collecting system. The dual lumen ureteral access sheath was then backloaded off the both wires again. Again 1 wire was secured to the surgical drape and the other was utilized as a guide for repeat placement of the flexible ureteral scope. A guidewire was then removed. The index calculus was then identified. A 200 micron laser fiber was then selected. All operating room personnel and patient were fitted with laser safety eyewear. Laser lithotripsy was then commenced with painstaking effort. Eventually the stone was broken down into minute fragments. Most of these lie within the lower pole collecting system. Laser fiber was then backloaded of the flexible ureteral scope. A 0 0.35 hybrid guidewire was then advanced through the ureteral scope so that the proximal tip of the hybrid guidewire was coiled within the lower pole collecting system flexible ureteral scope was then back loaded off the guidewire. Same safety wire was sent removed. The 22 [place] panendoscope was then front loaded on the wire just recently positioned with its coil in the lower pole collecting system. Over this a 6 [place] by 22-32 cm multi-length stent was then advanced over the wire under direct and fluoroscopic guidance. A SHORT RETRIEVAL LINE WAS LEFT ATTACHED. The bladder is in drained completely and all instrumentation was removed. The patient was then repositioned supine, was awakened, and then was transferred to recovery awake in stable condition. Complications: none Post-operative Condition: stable Disposition: PACU Plan for aftercare: Discharge home
[2021-02-14] MEDS: FUROSEMIDE 20 MG/2 ML VIAL IV (12:16)
--- NOTE | 2021-02-14 12:17 | DI.RAD.S_ITS ---
PROCEDURE: XR KUB INDICATIONS: LEFT STONE LAZERING, STENT REPLACEMENT TECHNIQUE: One view of the abdomen acquired. COMPARISON: [facility], , XR KUB, 02/14/2021, 8:25. FINDINGS: Intraoperative fluoroscopic support was performed by the limited radiology technician. IMPRESSION: Intraoperative fluoroscopic views are presented. Dictated by: David Boyer M.D. on 02/14/2021 at 11:45 Approved by: David Boyer M.D. on 02/14/2021 at 11:46
[2021-02-14] MEDS: OXYCODONE/ACETAMINOPHEN 5/325 TABLET 1 TAB PO ×2 (12:34→13:54)
[2021-02-14] MEDS: fentaNYL 100 MCG/2 ML INJ IV ×3 (12:47→12:58)
--- NOTE | 2021-02-14 13:17 | SUR.PHASEI ---
1231 Pt reports begin desperate to get up to BR due to pain in urethra and need to pee, also reports flank pain to left side. Stretcher to BR and pt able to walk to toilet after being unable to void on bedpan. Pt voided small amt which severe pain reported to both flank and urethra. Pt back to stretch and then medicated with IV medication to help control pain. Pt up to [facility] at 1306 after reporting significant pressure to void. Voided well and assisted back to back. Pain to urethrea down to 7 from 01/31 and flank pain to left side 7/10 and down to 5/10. resting back in bed now. VSS. Declining pain meds at this time.
--- NOTE | 2021-02-14 13:48 | SUR.PHASEII ---
Dr Knapp here at beside to see patient discussing with her.
--- NOTE | 2021-02-14 14:12 | SUR.PHASEII ---
pt awake, alert. states pain is better controlled. [facility]
== END 2021-02-14 14:41 | disposition home or self-care (01) ==
PROVIDERS: Referring Provider Specialist; Visit Provider Specialist
PROC: (CPT 52356; principal; 2021-02-14 09:15)
DX: Z96.0 Presence of urogenital implants (principal); N20.1 Calculus of ureter; Z79.01 Long term (current) use of anticoagulants; I69.398 Other sequelae of cerebral infarction; Z87.898 Personal history of other specified conditions; Z86.74 Personal history of sudden cardiac arrest; Z95.0 Presence of cardiac pacemaker
CPT/HCPCS: 52356; 74018; 76000; 82962; C1771; J0690; J1100; J1940; J2405; J2704; J3010

== ENCOUNTER → 2021-02-18 10:55 | Outpatient (CLI) | payer MEDICARE, OTHER, SELFPAY ==
[2021-01-08 21:46] VITALS: BMI 23.9
== END ==
PROVIDERS: Referring Provider Specialist; Visit Provider Specialist
DX: R30.0 Dysuria (principal); R10.9 Unspecified abdominal pain; Z96.0 Presence of urogenital implants
CPT/HCPCS: 81002; 87077; 87086; 87186; 99214

== ENCOUNTER → 2021-02-28 14:45 | Outpatient (CLI) | payer MEDICARE, OTHER, SELFPAY ==
[2021-01-08 21:46] VITALS: BMI 23.9
== END ==
PROVIDERS: Visit Provider Specialist
DX: R30.0 Dysuria (principal)
CPT/HCPCS: 87077; 87086; 87186

== ENCOUNTER → 2021-03-17 11:18 | Outpatient (CLI) | payer MEDICARE, OTHER, SELFPAY ==
[2021-03-14 15:04] VITALS: BMI 23.9
[2021-03-17 11:50] LABS: Appearance Urine UA SL CLOUDY; Bilirubin Urine UA NEGATIVE (NEGATIVE); Color Urine UA YELLOW; Glucose Urine UA NEGATIVE (Negative); Ketones Urine UA NEGATIVE (NEGATIVE); Leukocyte Esterase Urine UA 2+ (NEGATIVE); Nitrite Urine UA NEGATIVE (Negative); Occult Blood Urine UA 2+ (Negative); Protein Urine UA 2+ (Negative); Specific Gravity Urine UA 1.015 (1.000-1.035); Urobilinogen Urine UA 0.2 E.U./dL (0.2); pH Urine UA 6.5 (4.5-8.0)
[2021-03-17 11:55] LABS: Bacteria Urine Moderate (10-30); Culture Indicated Urine Specimen Cultured; RBC Urine 10-30/HPF (0-5/HPF); Renal Epithelial Cells Urine 1-5/HPF (0-1/HPF); Squamous Epithelial Cell Urine 1-5 /HPF (0-5/HPF); Transitional Epi Cells Urine 0-1/HPF (0-5/HPF); WBC Urine 10-30/HPF (0-5/HPF)
== END ==
PROVIDERS: Visit Provider Urology
DX: Z87.440 Personal history of urinary (tract) infections (principal); Z09 Encounter for follow-up examination after completed treatment for conditions other than malignant neoplasm
CPT/HCPCS: 51701; 81001; 87077; 87086; 87186

== ENCOUNTER 2022-02-14 07:04 | Emergency (ER) | payer MEDICARE, OTHER, SELFPAY ==
[2021-03-14 15:04] VITALS: BMI 23.9
[2022-02-14 07:15] VITALS: BP 137/90; PULSE 88; O2SAT 96
[2022-02-14 07:20] VITALS: BP 137/90; PULSE 65; RESP 17; TEMP 36.5; O2SAT 96; BMI 22.3
--- NOTE | 2022-02-14 07:22 | ED_ITS ---
HPI - Female Genitourinary General Chief complaint: Urogenital-Female Stated complaint: think she has bladder infection t-4 Time Seen by Provider: 02/14/22 07:15 Source: patient Mode of arrival: Ambulatory Limitations: no limitations History of Present Illness HPI Narrative: This is a 71-year-old female with prior strokes, diabetes, hypertension, prior cardiomyopathy on warfarin, pacemaker and states she had a cardiac arrest in the past was found to have an EF of 15% she states they never found exact cause. She has had recurrent UTIs, and required ureteral stents in the past as well as had kidney stones. Patient states today she is having UTI symptoms with frequency, dysuria, urgency and sense of incomplete emptying. She denies fevers or chills. No nausea or vomiting. She denies any flank or back pain. She states it is very suprapubic. Patient states she has chronic diarrhea from metformin which has not changed, no black or bloody stools. Patient has not had any vaginal bleeding or discharge. Patient states she is had about 5 days symptoms she came to get checked today because symptoms had started to improve and then worsened again overnight. Patient did have straight cath obtained in the urology office on 03/17/2021 which had showed Enterobacter greater than 100,000 did have sensitivities to Levaquin, Cipro and Bactrim at that time. Patient states she is allergic to azo causes swelling for throat and vomiting. Patient states this does not feel like when she is had kidney stones before. Related Data Home Medications Medication Instructions Recorded Confirmed biotin 5,000 mcg sublingual tablet 5,000 mcg sublingual DAILY 01/09/21 03/03/21 budesonide 200 mcg/actuation 50 mcg inhalation Q8HR 01/09/21 03/03/21 breath activated powder inhaler carvedilol 6.25 mg tablet 6.25 mg PO BID 01/09/21 03/03/21 cholecalciferol (vitamin D3) 125 125 mcg PO DAILY 01/09/21 03/03/21 mcg (5,000 unit) tablet furosemide 20 mg tablet 20 mg PO 6XW 01/09/21 03/03/21 furosemide 40 mg tablet 40 mg PO WEEKLY 01/09/21 03/03/21 losartan 50 mg tablet 50 mg PO DAILY 01/09/21 03/03/21 rosuvastatin 40 mg tablet 40 mg PO DAILY 01/09/21 03/03/21 warfarin 2 mg tablet 2 mg PO 2XW 01/09/21 03/03/21 warfarin 3 mg tablet 3 mg PO 5XW 01/09/21 03/03/21 metformin 500 mg tablet 1,000 mg PO BID 02/14/21 03/03/21 potassium 99 mg tablet 99 mg PO DAILY 02/14/21 03/03/21 Previous Rx's Medication Instructions Recorded tamsulosin 0.4 mg capsule 0.4 mg PO BEDTIME #60 caps 01/10/21 oxycodone 5 mg tablet 5 mg PO Q4H PRN pain #20 tabs 02/14/21 fosfomycin tromethamine 3 gram 3 g PO ONCE #1 ea 02/19/21 oral packet fosfomycin tromethamine 3 gram 3 g PO ONCE #1 ea 02/20/21 oral packet estradiol 0.01% (0.1 mg/gram) 1 g vaginal 2XW #42.5 grams 03/10/21 vaginal cream (Estrace) ciprofloxacin HCl 250 mg tablet 250 mg PO BEDTIME #60 tabs 03/24/21 sulfamethoxazole 800 1 tab PO BID 7 days #14 tabs 02/14/22 mg-trimethoprim 160 mg tablet (Bactrim DS) Allergies Allergy/AdvReac Type Severity Reaction Status Date / Time tetracycline Allergy Severe ITCHING Verified 03/03/21 08:17 phenazopyridine Allergy Verified 03/03/21 08:17 [From Pyridium] Review of Systems Review of Systems ROS Unobtainable: All systems reviewed & are unremarkable except as noted in HPI and below Patient History Medical History Acute kidney injury Afib Cardiac arrest (06/20/20) Cardiomyopathy CHF (congestive heart failure) CVA (cerebral vascular accident) Diabetes History of nephrolithiasis History of UTI HLD (hyperlipidemia) HTN (hypertension) Left ureteral calculus Postmenopausal atrophic vaginitis Retained ureteral stent SVT (supraventricular tachycardia) Surgical History AICD (automatic cardioverter/defibrillator) present (06/20/20) History of colon surgery History of colonoscopy History of hysterectomy History of thyroidectomy, subtotal Hx of appendectomy Hx of breast surgery Hx of cystoscopy (01/09/21) Hx of eye surgery alcohol intake frequency: 0-2 drinks per day Substance Use Type: does not use Exam Narrative Exam Narrative: GENERAL: Alert and oriented x three, female in mild distress. HEENT: Head normocephalic, atraumatic, EOMI, pupils reactive, face symmetric, moist mucous membranes NECK: Supple, full range of motion CARDIOVASCULAR: Regular rate and rhythm without murmurs, rubs or gallops. RESPIRATORY: Breath sounds equal bilaterally, no wheezes rales or rhonchi. ABDOMEN: Soft, nontender. Normoactive bowel sounds all 4 quadrants. No guarding or rebound, rigidity, no mass : No CVA tenderness EXTREMITIES: Normal range of motion, no clubbing or edema. Neurovascularly intact NEUROLOGICAL: Cranial nerves II through XII grossly intact. Moving all extremities SKIN: Warm, dry, no petechiae, no rashes or lesions. Initial Vital Signs Initial Vital Signs: Vital Signs Pulse Rate 88 02/14/22 07:15 Blood Pressure 137/90 02/14/22 07:15 Pulse Oximetry 96 02/14/22 07:15 Course Orders Ordered: Discontinued Medications Trimethoprim/Sulfamethoxazole (Trimeth/Sulfa 160/800 (Ds) Tablet) 1 tab PO NOW ONE Stop: 02/14/22 07:58 Last Admin: 02/14/22 08:15 Dose: 1 tab Documented By: ROBIN Vital Signs Vital signs: Vital Signs - 8 hr 02/14/22 07:20 Temperature 97.7 F Pulse Rate 65 Respiratory Rate 17 Blood Pressure 137/90 Pulse Oximetry 96 Oxygen Delivery Method Room Air MDM - Female Genitourinary Lab Data Labs: Lab Results 02/14/22 Range/Units 07:20 Urine Color Yellow Urine Appearance Clear Urine pH 6.0 (4.5-8.0) Ur Specific [place] 1.015 (1.000-1.035) Urine Protein 2+ H (Negative) Urine Glucose (UA) Negative (Negative) g/dL Urine Ketones Negative (NEGATIVE) Urine Occult Blood 2+ H (Negative) Urine Nitrate Negative (Negative) Urine Bilirubin Negative (NEGATIVE) Urine Urobilinogen 0.2 (0.2) E.U./dL Ur Leukocyte Esterase Negative (NEGATIVE) Urine RBC 1-5/hpf D (0-5/HPF) Urine WBC 1-5/hpf (0-5/HPF) Urine Bacteria None seen (None) Ur Culture Indicated? Cult not indicated Urine Dip Bedside Urine Glucose Negative Bedside Urine Bilirubin - Negative Bedside Urine Ketone - Negative Urine Specific [place] 1.015 Bedside Urine Occult Blood ++ Bedside Urine pH 6.0 Bedside Urine Protein ++ 100 Bedside Urine Urobilinogen - Negative Bedside Urine Nitrite - Negative Bedside Urine Leukocytes - Negative Esterase MDM Narrative Medical decision making narrative: 71-year-old male with UTI like symptoms, she is on warfarin, sensitivities for her last 3 urine cultures show Enterobacter aerogenes, most recent had resistance and Bactrim, Levaquin and Cipro were sensitive. Because of warfarin will go with Bactrim but patient has been instructed to have her INR rechecked in the next several days. Patient has had issues with kidney stones and required ureteral stents in the past, her exam and symptoms today as overall reassuring make me less suspicious for kidney stone. Further workup is deferred at this time. Return precautions discussed patient expressed her understanding as well as her need for repeat INR. Discharge Plan Departure Patient Disposition: Home Clinical Impression: Acute UTI Instructions: DI for Urinary Tract Infection (UTI) Activity Restrictions/Additional Instructions: Follow-up Wednesday have your INR rechecked, Bactrim can sometimes affect your warfarin level and make it elevate. Take Bactrim 1 tablet twice daily until gone. Your urine was sent for culture if it shows resistance V antibiotics prescribed you will be contacted to change your antibiotic. Prescription sent to [facility] in [place]. Please return for fevers, worsening abdominal, pelvic or flank pain, nausea or vomiting, black or bloody stools, difficulty with urination or worsening symptoms. Prescriptions: New sulfamethoxazole-trimethoprim [Bactrim DS] 800-160 mg tablet 1 tab PO BID 7 Days Qty: 14 0RF No Action tamsulosin 0.4 mg capsule 0.4 mg PO BEDTIME Qty: 60 0RF fosfomycin tromethamine 3 gram packet 3 g PO ONCE Qty: 1 0RF fosfomycin tromethamine 3 gram packet 3 g PO ONCE Qty: 1 0RF Rx Instructions: Please take this the morning of February 23, 2021. ciprofloxacin HCl 250 mg tablet 250 mg PO BEDTIME Qty: 60 0RF Rx Instructions: Start after 5 day course of 2 caps daily is complete. metformin 500 mg Tablet 1,000 mg PO BID potassium 99 mg Tablet 99 mg PO DAILY oxycodone 5 mg tablet 5 mg PO Q4H PRN (Reason: pain) Qty: 20 0RF biotin 5,000 mcg Tablet, Sublingual 5,000 mcg sublingual DAILY losartan 50 mg Tablet 50 mg PO DAILY furosemide 40 mg Tablet 40 mg PO WEEKLY cholecalciferol (vitamin D3) 125 mcg (5,000 unit) Tablet 125 mcg PO DAILY carvedilol 6.25 mg Tablet 6.25 mg PO BID Rx Instructions: must administer with a meal/food budesonide 200 mcg/actuation Aerosol Powdr Breath Activated 50 mcg INHALATION Q8HR Label Comments: takes 4 puffs qhs-(Pulmacort) rosuvastatin 40 mg Tablet 40 mg PO DAILY warfarin 3 mg Tablet 3 mg PO 5XW Rx Instructions: takes it 5x/week warfarin 2 mg Tablet 2 mg PO 2XW furosemide 20 mg Tablet 20 mg PO 6XW estradiol [Estrace] 0.01 % (0.1 mg/gram) cream 1 g vaginal 2XW Qty: 42.5 3RF Rx Instructions: Insert 1 g intravaginally at HS times 12 days then 1 g intravaginally at HS twice weekly thereafter. Referrals: Miscellaneous,Doctor, MD [Primary Care Provider] - Visit Report Forms: Patient Portal/API
[2022-02-14 07:30] VITALS: BP 127/56; PULSE 58; O2SAT 96
[2022-02-14 07:47] LABS: Appearance Urine UA CLEAR; Bilirubin Urine UA NEGATIVE (NEGATIVE); Color Urine UA YELLOW; Glucose Urine UA NEGATIVE (Negative); Ketones Urine UA NEGATIVE (NEGATIVE); Leukocyte Esterase Urine UA NEGATIVE (NEGATIVE); Nitrite Urine UA NEGATIVE (Negative); Occult Blood Urine UA 2+ (Negative); Protein Urine UA 2+ (Negative); Specific Gravity Urine UA 1.015 (1.000-1.035); Urobilinogen Urine UA 0.2 E.U./dL (0.2)
[2022-02-14 07:59] LABS: Bacteria Urine None Seen; Culture Indicated Urine Cult Not Indicated; RBC Urine 1-5/HPF (0-5/HPF); WBC Urine 1-5/HPF (0-5/HPF)
[2022-02-14 08:00] VITALS: BP 139/62; PULSE 63; O2SAT 95
[2022-02-14] MEDS: TRIMETH/SULFA 160/800 (DS) TABLET 1 TAB PO (08:15)
== END 2022-02-14 08:18 | disposition home or self-care (01) ==
PROVIDERS: Emergency Provider Emergency Medicine
DX: N39.0 Urinary tract infection, site not specified (principal); Z87.442 Personal history of urinary calculi; Z79.01 Long term (current) use of anticoagulants; Z79.899 Other long term (current) drug therapy
CPT/HCPCS: 81001; 81003; 99283

== ENCOUNTER 2022-02-21 01:07 | Emergency (ER) | payer MEDICARE, OTHER, SELFPAY ==
[2021-03-14 15:04] VITALS: BMI 23.9
[2022-02-21] VITALS (57 sets, daily range): BP systolic 102–146; BP diastolic 52–69; PULSE 53–82; RESP 15–27; TEMP 37.1; O2SAT 94–99; BMI 22.4
--- NOTE | 2022-02-21 | DI.US.S_ITS ---
PROCEDURE: US ABDOMEN COMPLETE INDICATIONS: VOMITING; RENAL FAILURE TECHNIQUE: Real-time scanning was performed of the abdominal and retroperitoneal organs, with image documentation. COMPARISON: None. FINDINGS: Liver: Liver is normal in size and homogeneous in echotexture. Gallbladder: Sonolucent without evidence cholelithiasis, gallbladder wall thickening or pericholecystic fluid. No sonographic Hill sign. Biliary ducts: Intrahepatic bile ducts are non-dilated. Extrahepatic bile duct caliber measures 3.9 mm. Normal is 6-7 mm or less in diameter, or 10 mm or less post-cholecystectomy. Pancreas: Visualized portions of the pancreas are sonographically normal. Spleen: Spleen is normal in size and homogeneous in echotexture. Kidneys: Both kidneys show increased cortical echogenicity. There is a 1.6 cm right renal cyst and several left renal cysts measuring up to 4.7 cm. No hydronephrosis or shadowing calculi bilaterally. Aorta: Visualized aorta is normal in caliber at less than 3 cm. Iliacs: Proximal common iliac arteries are normal in caliber at less than 2.5 cm. IVC: Intrahepatic inferior vena cava is patent. Miscellaneous: No free abdominal fluid. IMPRESSION: Bilateral simple renal cysts. No hydronephrosis Increased renal cortical echogenicity suggests medical renal disease Note: Final report is concordant with preliminary interpretation by [employer] Approved by: Kelton Multani M.D. on 02/21/2022 at 7:43
[2022-02-21 01:48] LABS: Add Manual Diff / Slide Review NO; Basophils Absolute Auto 100 /uL (0-100); Basophils Percent Auto 0.7 % (0-2); Eosinophils Absolute Auto 100 /uL (0-450); Eosinophils Percent Auto 1.2 % (2-4); Hematocrit 38.4 % (36-46); Hemoglobin 12.7 g/dL (12.0-16.0); Lymphocytes Absolute Auto 1500 /uL (1100-4500); Mean Corpuscular HGB Conc 33.1 % (30-36); Mean Corpuscular Hemoglobin 29.9 PG (26-34); Mean Corpuscular Volume 90.3 fL (80-100); Monocytes Absolute Auto 700 /uL (0-900); Monocytes Percent Auto 7.6 % (3-14); Neutrophils Absolute Auto 7400 /uL (1500-7000); Neutrophils Percent Auto 75.5 % (50-75); Platelet Count 262 X10^3/uL (150-400); Red Blood Cell Count 4.26 X10^6/uL (4.0-5.2); Red Cell Distribution Width 14.5 % (11.6-14.8); White Blood Cell Count 9.8 X10^3/uL (4.5-11.0)
[2022-02-21 01:58] LABS: Alanine Aminotransferase 27 IU/L (<35); Albumin 4.2 g/dL (3.5-5.0); Albumin Globulin Ratio 1.4 (1.0-2.8); Alkaline Phosphatase 54 U/L (38-126); Aspartate Aminotransferase 32 IU/L (14-36); BUN Creatinine Ratio 6.7 (6-22); Bilirubin Total 0.7 mg/dL (0.2-1.3); Blood Urea Nitrogen 67 mg/dL (7-17); Calcium 9.9 mg/dL (8.4-10.2); Carbon Dioxide 13 mmol/L (22-32); Chloride 103 mmol/L (98-107); Estimated Glomerular Filt Rate 4 mL/min (>60); Globulin 3.1 g/dL (1.7-4.1); Glucose 88 mg/dL (80-110); Sodium 136 mmol/L (137-145); Total Protein 7.3 g/dL (6.3-8.2)
[2022-02-21 02:06] LABS: HEMOLYSIS 53 (0-50)
[2022-02-21 02:07] LABS: Potassium 5.7 mmol/L (3.4-5.1)
[2022-02-21] MEDS: SODIUM CHLORIDE 0.9% 1,000 ML 1000 ML IV ×2 (02:15→04:04)
--- NOTE | 2022-02-21 02:18 | ED_ITS ---
HPI - Nausea/Vomiting/Diarrhea <Milton Lugo, DO - Last Filed: 02/26/22 06:46> General Chief complaint: Nausea/Vomiting/Diarrhea Stated complaint: body pain/not able to eat or drink x 5 days Time Seen by Provider: 02/21/22 01:38 Source: patient and family Mode of arrival: Ambulatory History of Present Illness HPI Narrative: Patient is a 71-year-old female. To seen here in the emergency department recently for UTI like symptoms. Was sent home with Bactrim. She took this for a couple days but her symptoms were not improving and she started to feel worse so she contact her primary doctor who looked up the culture results and told her that she did not have an infection so she quit taking the medications per their direction. She comes to the emergency department today because of overall body pain, belly pain, vomiting, unable to drink for the past several days. Still having bowel movements. She denies any fevers. No recent travel. Related Data Home Medications Medication Instructions Recorded Confirmed biotin 5,000 mcg sublingual tablet 5,000 mcg sublingual QMWF 01/09/21 02/21/22 carvedilol 6.25 mg tablet 6.25 mg PO BID 01/09/21 02/21/22 cholecalciferol (vitamin D3) 125 125 mcg PO QMWF 01/09/21 02/21/22 mcg (5,000 unit) tablet furosemide 20 mg tablet 20 mg PO DAILY 01/09/21 02/21/22 losartan 50 mg tablet 50 mg PO DAILY 01/09/21 02/21/22 rosuvastatin 40 mg tablet 40 mg PO DAILY 01/09/21 02/21/22 warfarin 2 mg tablet 2 mg PO WEEKLY 01/09/21 02/21/22 warfarin 3 mg tablet 3 mg PO Q6W 01/09/21 02/21/22 metformin 500 mg tablet 1,000 mg PO QID 02/14/21 02/21/22 potassium 99 mg tablet 99 mg PO DAILY 02/14/21 02/21/22 allopurinol 100 mg tablet 100 mg DAILY 02/21/22 02/21/22 Allergies Allergy/AdvReac Type Severity Reaction Status Date / Time prednisone Allergy Severe Swelling Verified 02/21/22 01:20 of Lip/Tongue/Throat rizatriptan Allergy Severe Difficulty Verified 02/21/22 01:20 Breathing tetracycline Allergy Severe ITCHING Verified 03/03/21 08:17 phenazopyridine Allergy Verified 03/03/21 08:17 [From Pyridium] procaine [From Novocain] Allergy Chest Pain Verified 02/21/22 01:20 shellfish derived AdvReac Gastrointestinal Verified 02/21/22 01:20 Upset thiopental AdvReac Palpitation Verified 02/21/22 01:20 s Review of Systems <Milton Lugo DO - Last Filed: 02/26/22 06:46> Review of Systems ROS Unobtainable: All systems reviewed & are unremarkable except as noted in HPI and below Patient History <Milton Lugo DO - Last Filed: 02/26/22 06:46> Medical History Acute kidney injury Afib Cardiac arrest (06/20/20) Cardiomyopathy CHF (congestive heart failure) CVA (cerebral vascular accident) Diabetes History of nephrolithiasis History of UTI HLD (hyperlipidemia) HTN (hypertension) Left ureteral calculus Postmenopausal atrophic vaginitis Retained ureteral stent SVT (supraventricular tachycardia) Surgical History AICD (automatic cardioverter/defibrillator) present (06/20/20) History of colon surgery History of colonoscopy History of hysterectomy History of thyroidectomy, subtotal Hx of appendectomy Hx of breast surgery Hx of cystoscopy (01/09/21) Hx of eye surgery Social History household members: spouse Smoking Status: Never smoker alcohol intake: never Smoking Status: Never smoker alcohol intake frequency: 0-2 drinks per day Substance Use Type: does not use Exam <Milton Lugo DO - Last Filed: 02/26/22 06:46> Initial Vital Signs Initial Vital Signs: Vital Signs Temperature 98.7 F 02/21/22 01:20 Pulse Rate 78 02/21/22 01:20 Respiratory Rate 19 02/21/22 01:20 Blood Pressure 130/69 02/21/22 01:20 Pulse Oximetry 95 02/21/22 01:20 Oxygen Delivery Method 02/21/22 01:20 Const General: cooperative, comfortable and No ill appearing [facility] Head: normal to inspection and normocephalic Chest Other: Pacemaker/AICD left upper chest Resp Effort & Inspection: normal respiratory effort Auscultation: clear to auscultation bilaterally Cardio Rate: regular rate Rhythm: regular rhythm GI Inspection: normal to inspection Palpation: soft, No firm and tender Back/Spine/Pelvis Back: No CVA tenderness Skin General: no rashes or lesions noted Neuro General: patient alert, patient awake, patient oriented x3 and moves all extremities Cognition: normal cognition Speech: speech normal Extrem General: normal to inspection, capillary refill normal and No edema Psych Appearance: grossly normal and well kempt <Leyda Love DO - Last Filed: 02/27/22 07:29> Initial Vital Signs Initial Vital Signs: Vital Signs Temperature 98.7 F 02/21/22 01:20 Pulse Rate 78 02/21/22 01:20 Respiratory Rate 19 02/21/22 01:20 Blood Pressure 130/69 02/21/22 01:20 Pulse Oximetry 95 02/21/22 01:20 Oxygen Delivery Method 02/21/22 01:20 <Melody Bustamante DO - Last Filed: 02/24/22 06:26> Initial Vital Signs Initial Vital Signs: Vital Signs Temperature 98.7 F 02/21/22 01:20 Pulse Rate 78 02/21/22 01:20 Respiratory Rate 19 02/21/22 01:20 Blood Pressure 130/69 02/21/22 01:20 Pulse Oximetry 95 02/21/22 01:20 Oxygen Delivery Method 02/21/22 01:20 <Kana Scott MD - Last Filed: 03/04/22 22:12> Initial Vital Signs Initial Vital Signs: Vital Signs Temperature 98.7 F 02/21/22 01:20 Pulse Rate 78 02/21/22 01:20 Respiratory Rate 19 02/21/22 01:20 Blood Pressure 130/69 02/21/22 01:20 Pulse Oximetry 95 02/21/22 01:20 Oxygen Delivery Method 02/21/22 01:20 <Chanel Smith MD - Last Filed: 03/01/22 18:49> Initial Vital Signs Initial Vital Signs: Vital Signs Temperature 98.7 F 02/21/22 01:20 Pulse Rate 78 02/21/22 01:20 Respiratory Rate 19 02/21/22 01:20 Blood Pressure 130/69 02/21/22 01:20 Pulse Oximetry 95 02/21/22 01:20 Oxygen Delivery Method 02/21/22 01:20 <Mathew Rodríguez MD - Last Filed: 03/25/22 08:12> Initial Vital Signs Initial Vital Signs: Vital Signs Temperature 98.7 F 02/21/22 01:20 Pulse Rate 78 02/21/22 01:20 Respiratory Rate 19 02/21/22 01:20 Blood Pressure 130/69 02/21/22 01:20 Pulse Oximetry 95 02/21/22 01:20 Oxygen Delivery Method 02/21/22 01:20 <Luis Nicole DO - Last Filed: 02/26/22 09:45> Initial Vital Signs Initial Vital Signs: Vital Signs Temperature 98.7 F 02/21/22 01:20 Pulse Rate 78 02/21/22 01:20 Respiratory Rate 19 02/21/22 01:20 Blood Pressure 130/69 02/21/22 01:20 Pulse Oximetry 95 02/21/22 01:20 Oxygen Delivery Method 02/21/22 01:20 Scores <Milton Lugo DO - Last Filed: 02/26/22 06:46> GCS Martha coma scale eye opening: Spontaneous Martha coma scale verbal response: Orientated Martha coma scale motor response: Obey commands Peever coma scale total score: 15 <Leyda Love DO - Last Filed: 02/27/22 07:29> GCS Peever coma scale total score: 15 <Melody Bustamante DO - Last Filed: 02/24/22 06:26> GCS Peever coma scale total score: 15 <Kana Scott MD - Last Filed: 03/04/22 22:12> GCS Martha coma scale total score: 15 <Chanel Smith MD - Last Filed: 03/01/22 18:49> GCS Peever coma scale total score: 15 <Mathew Rodríguez MD - Last Filed: 03/25/22 08:12> GCS Peever coma scale total score: 15 <Luis Nicole DO - Last Filed: 02/26/22 09:45> GCS Matrha coma scale total score: 15 Course <Milton Lugo DO - Last Filed: 02/26/22 06:46> Orders Ordered: Discontinued Medications Acetaminophen (Acetaminophen 325 Mg Tablet) 650 mg PO NOW ONE Stop: 02/22/22 01:37 Last Admin: 02/22/22 01:52 Dose: 650 mg Documented By: NEHEMIAS Acetaminophen (Acetaminophen 325 Mg Tablet) 650 mg PO NOW ONE Stop: 02/22/22 18:33 Last Admin: 02/22/22 18:55 Dose: 650 mg Documented By: SB Acetaminophen (Acetaminophen 325 Mg Tablet) 650 mg PO Q4HR PRN PRN Reason: Pain, Moderate (4-6) Last Admin: 02/25/22 23:06 Dose: 650 mg Documented By: Admin: 02/25/22 08:36 Dose: 650 mg Documented By: Admin: 02/24/22 21:28 Dose: 650 mg Documented By: Admin: 02/24/22 11:00 Dose: 650 mg Documented By: Admin: 02/24/22 03:16 Dose: 650 mg Documented By: Admin: 02/23/22 20:18 Dose: 650 mg Documented By: Admin: 02/23/22 15:36 Dose: 650 mg Documented By: Admin: 02/23/22 09:43 Dose: 650 mg Documented By: YULIYA Budesonide (Budesonide 0.5 Mg/2 Ml Neb) 0.5 mg INH BID [facility] Last Admin: 02/26/22 09:31 Dose: 0.5 mg Documented By: Admin: 02/25/22 20:36 Dose: 0.5 mg Documented By: Admin: 02/25/22 07:53 Dose: 0.5 mg Documented By: Admin: 02/24/22 19:22 Dose: Not Given Documented By: Admin: 02/24/22 08:28 Dose: 0.5 mg Documented By: Admin: 02/23/22 21:33 Dose: 0.5 mg Documented By: Admin: 02/23/22 08:50 Dose: 0.5 mg Documented By: Admin: 02/22/22 21:18 Dose: 0.5 mg Documented By: Admin: 02/22/22 08:56 Dose: 0.5 mg Documented By: DENIA Carvedilol (Carvedilol 3.125 Mg Tablet) 6.25 mg PO BID [facility] Last Admin: 02/26/22 09:26 Dose: 6.25 mg Documented By: Admin: 02/25/22 21:05 Dose: 6.25 mg Documented By: Admin: 02/25/22 08:25 Dose: 6.25 mg Documented By: Admin: 02/24/22 21:28 Dose: 6.25 mg Documented By: Admin: 02/24/22 10:50 Dose: 6.25 mg Documented By: Admin: 02/23/22 20:18 Dose: 6.25 mg Documented By: Admin: 02/23/22 09:44 Dose: 6.25 mg Documented By: Admin: 02/22/22 21:40 Dose: 6.25 mg Documented By: Admin: 02/22/22 08:39 Dose: 6.25 mg Documented By: Admin: 02/21/22 20:59 Dose: 6.25 mg Documented By: GC Sodium Chloride (Normal Saline 0.9%) 1,000 mls @ 1,000 mls/hr IV BOLUS ONE Stop: 02/21/22 02:39 Last Infusion: 02/21/22 03:27 Dose: 0 mls/hr Documented By: Admin: 02/21/22 02:15 Dose: 1,000 mls/hr Documented By: GC Sodium Chloride (Normal Saline 0.9%) 1,000 mls @ 1,000 mls/hr IV BOLUS ONE Stop: 02/21/22 04:57 Last Infusion: 02/21/22 05:05 Dose: 0 mls/hr Documented By: Admin: 02/21/22 04:04 Dose: 1,000 mls/hr Documented By: GC Sodium Chloride (Normal Saline 0.9%) 1,000 mls @ 250 mls/hr IV CONT BRENDA Last Infusion: 02/21/22 10:20 Dose: 0 mls/hr Documented By: Admin: 02/21/22 06:16 Dose: 250 mls/hr Documented By: KATIANA Sodium Bicarbonate 150 meq/ (Dextrose) 1,150 mls @ 75 mls/hr IV CONT BRENDA Last Infusion: 02/22/22 08:20 Dose: 0 mls/hr Documented By: Infusion: 02/22/22 01:03 Dose: 0 mls/hr Documented By: Admin: 02/21/22 10:16 Dose: 75 mls/hr Documented By: PEGGY Sodium Bicarbonate 150 meq/ (Dextrose) 1,150 mls @ 75 mls/hr IV CONT BRENDA Last Infusion: 02/22/22 08:36 Dose: 0 mls/hr Documented By: Admin: 02/22/22 01:02 Dose: 75 mls/hr Documented By: GC Lactated Ringer's (Lactated Ringers) 1,000 mls @ 150 mls/hr IV CONT BRENDA Last Infusion: 02/25/22 12:19 Dose: 0 mls/hr Documented By: Admin: 02/25/22 07:12 Dose: 150 mls/hr Documented By: Infusion: 02/25/22 07:10 Dose: 0 mls/hr Documented By: Admin: 02/24/22 23:45 Dose: 150 mls/hr Documented By: Infusion: 02/24/22 23:42 Dose: 0 mls/hr Documented By: Admin: 02/24/22 17:16 Dose: 150 mls/hr Documented By: Infusion: 02/24/22 17:16 Dose: 0 mls/hr Documented By: Admin: 02/24/22 10:17 Dose: 150 mls/hr Documented By: Infusion: 02/24/22 10:14 Dose: 0 mls/hr Documented By: Admin: 02/24/22 03:12 Dose: 150 mls/hr Documented By: Infusion: 02/24/22 03:03 Dose: 150 mls/hr Documented By: DKBartolo Admin: 02/23/22 20:22 Dose: 150 mls/hr Documented By: Infusion: 02/23/22 20:17 Dose: 150 mls/hr Documented By: Admin: 02/23/22 13:36 Dose: 150 mls/hr Documented By: Infusion: 02/23/22 13:23 Dose: 150 mls/hr Documented By: Admin: 02/23/22 06:42 Dose: 150 mls/hr Documented By: Admin: 02/22/22 13:43 Dose: Not Given Documented By: AT Furosemide 120 mg/ Sodium (Chloride) 62 mls @ 124 mls/hr IV NOW ONE Stop: 02/22/22 11:01 Last Infusion: 02/22/22 12:36 Dose: 0 mls/hr Documented By: Admin: 02/22/22 11:39 Dose: 124 mls/hr Documented By: AT Lactated Ringer's (Lactated Ringers) 1,000 mls @ 150 mls/hr IV CONT BRENDA Last Infusion: 02/23/22 06:32 Dose: 0 mls/hr Documented By: Admin: 02/22/22 23:59 Dose: 150 mls/hr Documented By: RLS(2) Infusion: 02/22/22 23:59 Dose: 150 mls/hr Documented By: RLS(2) Infusion: 02/22/22 23:58 Dose: 150 mls/hr Documented By: RLS(2) Infusion: 02/22/22 18:57 Dose: 0 mls/hr Documented By: Admin: 02/22/22 16:40 Dose: 150 mls/hr Documented By: AT Cefepime HCl 0.5 gm/ Sodium (Chloride) 100 mls @ 200 mls/hr IV NOW ONE Stop: 02/22/22 18:20 Last Infusion: 02/22/22 19:52 Dose: 0 mls/hr Documented By: Admin: 02/22/22 18:57 Dose: 200 mls/hr Documented By: SB Cefepime HCl 1 gm/ Sodium (Chloride) 100 mls @ 200 mls/hr IV Q24H BRENDA Last Infusion: 02/25/22 20:49 Dose: 0 mls/hr Documented By: Admin: 02/25/22 19:31 Dose: 200 mls/hr Documented By: Infusion: 02/24/22 18:03 Dose: 0 mls/hr Documented By: Admin: 02/24/22 17:17 Dose: 200 mls/hr Documented By: Infusion: 02/23/22 21:02 Dose: 0 mls/hr Documented By: Admin: 02/23/22 20:23 Dose: 200 mls/hr Documented By: AT Furosemide 80 mg/ Sodium (Chloride) 58 mls @ 116 mls/hr IV Q8H BRENDA Last Infusion: 02/26/22 11:12 Dose: 0 mls/hr Documented By: Admin: 02/26/22 09:32 Dose: 116 mls/hr Documented By: Infusion: 02/26/22 04:15 Dose: 0 mls/hr Documented By: Admin: 02/26/22 03:42 Dose: 116 mls/hr Documented By: Infusion: 02/25/22 21:53 Dose: 0 mls/hr Documented By: Admin: 02/25/22 21:04 Dose: 116 mls/hr Documented By: Infusion: 02/25/22 12:18 Dose: 0 mls/hr Documented By: Admin: 02/25/22 11:32 Dose: 116 mls/hr Documented By: Infusion: 02/25/22 02:26 Dose: 0 mls/hr Documented By: Admin: 02/25/22 01:57 Dose: 116 mls/hr Documented By: Infusion: 02/24/22 19:14 Dose: 0 mls/hr Documented By: Admin: 02/24/22 18:37 Dose: 116 mls/hr Documented By: Infusion: 02/24/22 13:14 Dose: 0 mls/hr Documented By: Admin: 02/24/22 10:36 Dose: 116 mls/hr Documented By: SHARONA Lidocaine HCl (Lidocaine 2% (Glydo) 6 Ml Gel) 6 ml TOP NOW ONE Stop: 02/21/22 07:44 Last Admin: 02/21/22 08:01 Dose: 6 ml Documented By: NR Morphine Sulfate (Morphine 2 Mg/Ml Inj) 2 mg IV Q4HR PRN PRN Reason: Pain, Moderate (4-6) Last Admin: 02/22/22 23:23 Dose: 2 mg Documented By: AT Ondansetron HCl (Ondansetron 4 Mg/2 Ml Inj) 4 mg IV NOW PRN PRN Reason: Nausea And Vomiting Last Admin: 02/21/22 02:48 Dose: 4 mg Documented By: NEHEMIAS Ondansetron HCl (Ondansetron 4 Mg Odt) 4 mg PO NOW PRN PRN Reason: Nausea And Vomiting Ondansetron HCl (Ondansetron 4 Mg/2 Ml Inj) 4 mg IV Q6HR PRN PRN Reason: Nausea And Vomiting Last Admin: 02/23/22 06:42 Dose: 4 mg Documented By: GC Phytonadione (Phytonadione (Vit K1) 5 Mg Tablet) 10 mg PO NOW ONE Stop: 02/21/22 08:23 Last Admin: 02/21/22 08:53 Dose: 10 mg Documented By: NR Vital Signs Vital signs: Vital Signs - 8 hr 02/26/22 03:49 Temperature 96.8 F L Pulse Rate 60 Respiratory Rate 16 Blood Pressure 148/72 H Pulse Oximetry 96 Oxygen Delivery Method Room Air <Leyda Love DO - Last Filed: 02/27/22 07:29> Orders Ordered: Discontinued Medications Acetaminophen (Acetaminophen 325 Mg Tablet) 650 mg PO NOW ONE Stop: 02/22/22 01:37 Last Admin: 02/22/22 01:52 Dose: 650 mg Documented By: NEHEMIAS Acetaminophen (Acetaminophen 325 Mg Tablet) 650 mg PO NOW ONE Stop: 02/22/22 18:33 Last Admin: 02/22/22 18:55 Dose: 650 mg Documented By: SB Acetaminophen (Acetaminophen 325 Mg Tablet) 650 mg PO Q4HR PRN PRN Reason: Pain, Moderate (4-6) Last Admin: 02/25/22 23:06 Dose: 650 mg Documented By: Admin: 02/25/22 08:36 Dose: 650 mg Documented By: Admin: 02/24/22 21:28 Dose: 650 mg Documented By: Admin: 02/24/22 11:00 Dose: 650 mg Documented By: Admin: 02/24/22 03:16 Dose: 650 mg Documented By: Admin: 02/23/22 20:18 Dose: 650 mg Documented By: Admin: 02/23/22 15:36 Dose: 650 mg Documented By: Admin: 02/23/22 09:43 Dose: 650 mg Documented By: YULIYA Budesonide (Budesonide 0.5 Mg/2 Ml Neb) 0.5 mg INH BID [facility] Last Admin: 02/26/22 09:31 Dose: 0.5 mg Documented By: Admin: 02/25/22 20:36 Dose: 0.5 mg Documented By: Admin: 02/25/22 07:53 Dose: 0.5 mg Documented By: Admin: 02/24/22 19:22 Dose: Not Given Documented By: Admin: 02/24/22 08:28 Dose: 0.5 mg Documented By: Admin: 02/23/22 21:33 Dose: 0.5 mg Documented By: Admin: 02/23/22 08:50 Dose: 0.5 mg Documented By: Admin: 02/22/22 21:18 Dose: 0.5 mg Documented By: Admin: 02/22/22 08:56 Dose: 0.5 mg Documented By: DENIA Carvedilol (Carvedilol 3.125 Mg Tablet) 6.25 mg PO BID BRENDA Last Admin: 02/26/22 09:26 Dose: 6.25 mg Documented By: Admin: 02/25/22 21:05 Dose: 6.25 mg Documented By: Admin: 02/25/22 08:25 Dose: 6.25 mg Documented By: Admin: 02/24/22 21:28 Dose: 6.25 mg Documented By: Admin: 02/24/22 10:50 Dose: 6.25 mg Documented By: Admin: 02/23/22 20:18 Dose: 6.25 mg Documented By: Admin: 02/23/22 09:44 Dose: 6.25 mg Documented By: Admin: 02/22/22 21:40 Dose: 6.25 mg Documented By: Admin: 02/22/22 08:39 Dose: 6.25 mg Documented By: Admin: 02/21/22 20:59 Dose: 6.25 mg Documented By: NEHEMIAS Sodium Chloride (Normal Saline 0.9%) 1,000 mls @ 1,000 mls/hr IV BOLUS ONE Stop: 02/21/22 02:39 Last Infusion: 02/21/22 03:27 Dose: 0 mls/hr Documented By: Admin: 02/21/22 02:15 Dose: 1,000 mls/hr Documented By: GC Sodium Chloride (Normal Saline 0.9%) 1,000 mls @ 1,000 mls/hr IV BOLUS ONE Stop: 02/21/22 04:57 Last Infusion: 02/21/22 05:05 Dose: 0 mls/hr Documented By: Admin: 02/21/22 04:04 Dose: 1,000 mls/hr Documented By: GC Sodium Chloride (Normal Saline 0.9%) 1,000 mls @ 250 mls/hr IV CONT BRENDA Last Infusion: 02/21/22 10:20 Dose: 0 mls/hr Documented By: Admin: 02/21/22 06:16 Dose: 250 mls/hr Documented By: KATIANA Sodium Bicarbonate 150 meq/ (Dextrose) 1,150 mls @ 75 mls/hr IV CONT BRENDA Last Infusion: 02/22/22 08:20 Dose: 0 mls/hr Documented By: Infusion: 02/22/22 01:03 Dose: 0 mls/hr Documented By: Admin: 02/21/22 10:16 Dose: 75 mls/hr Documented By: NR Sodium Bicarbonate 150 meq/ (Dextrose) 1,150 mls @ 75 mls/hr IV CONT BRENDA Last Infusion: 02/22/22 08:36 Dose: 0 mls/hr Documented By: Admin: 02/22/22 01:02 Dose: 75 mls/hr Documented By: GC Lactated Ringer's (Lactated Ringers) 1,000 mls @ 150 mls/hr IV CONT BRENDA Last Infusion: 02/25/22 12:19 Dose: 0 mls/hr Documented By: Admin: 02/25/22 07:12 Dose: 150 mls/hr Documented By: Infusion: 02/25/22 07:10 Dose: 0 mls/hr Documented By: Admin: 02/24/22 23:45 Dose: 150 mls/hr Documented By: Infusion: 02/24/22 23:42 Dose: 0 mls/hr Documented By: Admin: 02/24/22 17:16 Dose: 150 mls/hr Documented By: Infusion: 02/24/22 17:16 Dose: 0 mls/hr Documented By: Admin: 02/24/22 10:17 Dose: 150 mls/hr Documented By: KEBartolo Infusion: 02/24/22 10:14 Dose: 0 mls/hr Documented By: KEBartolo Admin: 02/24/22 03:12 Dose: 150 mls/hr Documented By: Infusion: 02/24/22 03:03 Dose: 150 mls/hr Documented By: Admin: 02/23/22 20:22 Dose: 150 mls/hr Documented By: Infusion: 02/23/22 20:17 Dose: 150 mls/hr Documented By: Admin: 02/23/22 13:36 Dose: 150 mls/hr Documented By: Infusion: 02/23/22 13:23 Dose: 150 mls/hr Documented By: Admin: 02/23/22 06:42 Dose: 150 mls/hr Documented By: Admin: 02/22/22 13:43 Dose: Not Given Documented By: AT Furosemide 120 mg/ Sodium (Chloride) 62 mls @ 124 mls/hr IV NOW ONE Stop: 02/22/22 11:01 Last Infusion: 02/22/22 12:36 Dose: 0 mls/hr Documented By: Admin: 02/22/22 11:39 Dose: 124 mls/hr Documented By: AT Lactated Ringer's (Lactated Ringers) 1,000 mls @ 150 mls/hr IV CONT BRENDA Last Infusion: 02/23/22 06:32 Dose: 0 mls/hr Documented By: Admin: 02/22/22 23:59 Dose: 150 mls/hr Documented By: RLS(2) Infusion: 02/22/22 23:59 Dose: 150 mls/hr Documented By: RLS(2) Infusion: 02/22/22 23:58 Dose: 150 mls/hr Documented By: RLS(2) Infusion: 02/22/22 18:57 Dose: 0 mls/hr Documented By: Admin: 02/22/22 16:40 Dose: 150 mls/hr Documented By: AT Cefepime HCl 0.5 gm/ Sodium (Chloride) 100 mls @ 200 mls/hr IV NOW ONE Stop: 02/22/22 18:20 Last Infusion: 02/22/22 19:52 Dose: 0 mls/hr Documented By: Admin: 02/22/22 18:57 Dose: 200 mls/hr Documented By: SB Cefepime HCl 1 gm/ Sodium (Chloride) 100 mls @ 200 mls/hr IV Q24H [facility] Last Infusion: 02/25/22 20:49 Dose: 0 mls/hr Documented By: Admin: 02/25/22 19:31 Dose: 200 mls/hr Documented By: Infusion: 02/24/22 18:03 Dose: 0 mls/hr Documented By: Admin: 02/24/22 17:17 Dose: 200 mls/hr Documented By: Infusion: 02/23/22 21:02 Dose: 0 mls/hr Documented By: Admin: 02/23/22 20:23 Dose: 200 mls/hr Documented By: AT Furosemide 80 mg/ Sodium (Chloride) 58 mls @ 116 mls/hr IV Q8H BRENDA Last Infusion: 02/26/22 11:12 Dose: 0 mls/hr Documented By: Admin: 02/26/22 09:32 Dose: 116 mls/hr Documented By: Infusion: 02/26/22 04:15 Dose: 0 mls/hr Documented By: Admin: 02/26/22 03:42 Dose: 116 mls/hr Documented By: Infusion: 02/25/22 21:53 Dose: 0 mls/hr Documented By: Admin: 02/25/22 21:04 Dose: 116 mls/hr Documented By: Infusion: 02/25/22 12:18 Dose: 0 mls/hr Documented By: Admin: 02/25/22 11:32 Dose: 116 mls/hr Documented By: Infusion: 02/25/22 02:26 Dose: 0 mls/hr Documented By: Admin: 02/25/22 01:57 Dose: 116 mls/hr Documented By: Infusion: 02/24/22 19:14 Dose: 0 mls/hr Documented By: Admin: 02/24/22 18:37 Dose: 116 mls/hr Documented By: Infusion: 02/24/22 13:14 Dose: 0 mls/hr Documented By: Admin: 02/24/22 10:36 Dose: 116 mls/hr Documented By: SHARONA Lidocaine HCl (Lidocaine 2% (Glydo) 6 Ml Gel) 6 ml TOP NOW ONE Stop: 02/21/22 07:44 Last Admin: 02/21/22 08:01 Dose: 6 ml Documented By: NR Morphine Sulfate (Morphine 2 Mg/Ml Inj) 2 mg IV Q4HR PRN PRN Reason: Pain, Moderate (4-6) Last Admin: 02/22/22 23:23 Dose: 2 mg Documented By: AT Ondansetron HCl (Ondansetron 4 Mg/2 Ml Inj) 4 mg IV NOW PRN PRN Reason: Nausea And Vomiting Last Admin: 02/21/22 02:48 Dose: 4 mg Documented By: GC Ondansetron HCl (Ondansetron 4 Mg Odt) 4 mg PO NOW PRN PRN Reason: Nausea And Vomiting Ondansetron HCl (Ondansetron 4 Mg/2 Ml Inj) 4 mg IV Q6HR PRN PRN Reason: Nausea And Vomiting Last Admin: 02/23/22 06:42 Dose: 4 mg Documented By: GC Phytonadione (Phytonadione (Vit K1) 5 Mg Tablet) 10 mg PO NOW ONE Stop: 02/21/22 08:23 Last Admin: 02/21/22 08:53 Dose: 10 mg Documented By: NR Vital Signs Vital signs: Vital Signs - 8 hr 02/26/22 03:49 Temperature 96.8 F L Pulse Rate 60 Respiratory Rate 16 Blood Pressure 148/72 H Pulse Oximetry 96 Oxygen Delivery Method Room Air <Melody Bustamante DO - Last Filed: 02/24/22 06:26> Orders Ordered: Discontinued Medications Acetaminophen (Acetaminophen 325 Mg Tablet) 650 mg PO NOW ONE Stop: 02/22/22 01:37 Last Admin: 02/22/22 01:52 Dose: 650 mg Documented By: NEHEMIAS Acetaminophen (Acetaminophen 325 Mg Tablet) 650 mg PO NOW ONE Stop: 02/22/22 18:33 Last Admin: 02/22/22 18:55 Dose: 650 mg Documented By: SB Acetaminophen (Acetaminophen 325 Mg Tablet) 650 mg PO Q4HR PRN PRN Reason: Pain, Moderate (4-6) Last Admin: 02/25/22 23:06 Dose: 650 mg Documented By: Admin: 02/25/22 08:36 Dose: 650 mg Documented By: Admin: 02/24/22 21:28 Dose: 650 mg Documented By: Admin: 02/24/22 11:00 Dose: 650 mg Documented By: Admin: 02/24/22 03:16 Dose: 650 mg Documented By: Admin: 02/23/22 20:18 Dose: 650 mg Documented By: Admin: 02/23/22 15:36 Dose: 650 mg Documented By: Admin: 02/23/22 09:43 Dose: 650 mg Documented By: YULIYA Budesonide (Budesonide 0.5 Mg/2 Ml Neb) 0.5 mg INH BID BRENDA Last Admin: 02/26/22 09:31 Dose: 0.5 mg Documented By: Admin: 02/25/22 20:36 Dose: 0.5 mg Documented By: Admin: 02/25/22 07:53 Dose: 0.5 mg Documented By: Admin: 02/24/22 19:22 Dose: Not Given Documented By: Admin: 02/24/22 08:28 Dose: 0.5 mg Documented By: Admin: 02/23/22 21:33 Dose: 0.5 mg Documented By: Admin: 02/23/22 08:50 Dose: 0.5 mg Documented By: Admin: 02/22/22 21:18 Dose: 0.5 mg Documented By: Admin: 02/22/22 08:56 Dose: 0.5 mg Documented By: DENIA Carvedilol (Carvedilol 3.125 Mg Tablet) 6.25 mg PO BID BRENDA Last Admin: 02/26/22 09:26 Dose: 6.25 mg Documented By: Admin: 02/25/22 21:05 Dose: 6.25 mg Documented By: Admin: 02/25/22 08:25 Dose: 6.25 mg Documented By: Admin: 02/24/22 21:28 Dose: 6.25 mg Documented By: Admin: 02/24/22 10:50 Dose: 6.25 mg Documented By: [email or web address] Admin: 02/23/22 20:18 Dose: 6.25 mg Documented By: Admin: 02/23/22 09:44 Dose: 6.25 mg Documented By: Admin: 02/22/22 21:40 Dose: 6.25 mg Documented By: Admin: 02/22/22 08:39 Dose: 6.25 mg Documented By: Admin: 02/21/22 20:59 Dose: 6.25 mg Documented By: GC Sodium Chloride (Normal Saline 0.9%) 1,000 mls @ 1,000 mls/hr IV BOLUS ONE Stop: 02/21/22 02:39 Last Infusion: 02/21/22 03:27 Dose: 0 mls/hr Documented By: Admin: 02/21/22 02:15 Dose: 1,000 mls/hr Documented By: GC Sodium Chloride (Normal Saline 0.9%) 1,000 mls @ 1,000 mls/hr IV BOLUS ONE Stop: 02/21/22 04:57 Last Infusion: 02/21/22 05:05 Dose: 0 mls/hr Documented By: Admin: 02/21/22 04:04 Dose: 1,000 mls/hr Documented By: GC Sodium Chloride (Normal Saline 0.9%) 1,000 mls @ 250 mls/hr IV CONT BRENDA Last Infusion: 02/21/22 10:20 Dose: 0 mls/hr Documented By: Admin: 02/21/22 06:16 Dose: 250 mls/hr Documented By: KATIANA Sodium Bicarbonate 150 meq/ (Dextrose) 1,150 mls @ 75 mls/hr IV CONT BRENDA Last Infusion: 02/22/22 08:20 Dose: 0 mls/hr Documented By: Infusion: 02/22/22 01:03 Dose: 0 mls/hr Documented By: Admin: 02/21/22 10:16 Dose: 75 mls/hr Documented By: PEGGY Sodium Bicarbonate 150 meq/ (Dextrose) 1,150 mls @ 75 mls/hr IV CONT BRENDA Last Infusion: 02/22/22 08:36 Dose: 0 mls/hr Documented By: Admin: 02/22/22 01:02 Dose: 75 mls/hr Documented By: NEHEMIAS Lactated Ringer's (Lactated Ringers) 1,000 mls @ 150 mls/hr IV CONT BRENDA Last Infusion: 02/25/22 12:19 Dose: 0 mls/hr Documented By: Admin: 02/25/22 07:12 Dose: 150 mls/hr Documented By: Infusion: 02/25/22 07:10 Dose: 0 mls/hr Documented By: Admin: 02/24/22 23:45 Dose: 150 mls/hr Documented By: Infusion: 02/24/22 23:42 Dose: 0 mls/hr Documented By: Admin: 02/24/22 17:16 Dose: 150 mls/hr Documented By: Infusion: 02/24/22 17:16 Dose: 0 mls/hr Documented By: Admin: 02/24/22 10:17 Dose: 150 mls/hr Documented By: Infusion: 02/24/22 10:14 Dose: 0 mls/hr Documented By: Admin: 02/24/22 03:12 Dose: 150 mls/hr Documented By: Infusion: 02/24/22 03:03 Dose: 150 mls/hr Documented By: Admin: 02/23/22 20:22 Dose: 150 mls/hr Documented By: Infusion: 02/23/22 20:17 Dose: 150 mls/hr Documented By: Admin: 02/23/22 13:36 Dose: 150 mls/hr Documented By: Infusion: 02/23/22 13:23 Dose: 150 mls/hr Documented By: Admin: 02/23/22 06:42 Dose: 150 mls/hr Documented By: Admin: 02/22/22 13:43 Dose: Not Given Documented By: AT Furosemide 120 mg/ Sodium (Chloride) 62 mls @ 124 mls/hr IV NOW ONE Stop: 02/22/22 11:01 Last Infusion: 02/22/22 12:36 Dose: 0 mls/hr Documented By: Admin: 02/22/22 11:39 Dose: 124 mls/hr Documented By: AT Lactated Ringer's (Lactated Ringers) 1,000 mls @ 150 mls/hr IV CONT BRENDA Last Infusion: 02/23/22 06:32 Dose: 0 mls/hr Documented By: Admin: 02/22/22 23:59 Dose: 150 mls/hr Documented By: RLS(2) Infusion: 02/22/22 23:59 Dose: 150 mls/hr Documented By: RLS(2) Infusion: 02/22/22 23:58 Dose: 150 mls/hr Documented By: RLS(2) Infusion: 02/22/22 18:57 Dose: 0 mls/hr Documented By: Admin: 02/22/22 16:40 Dose: 150 mls/hr Documented By: AT Cefepime HCl 0.5 gm/ Sodium (Chloride) 100 mls @ 200 mls/hr IV NOW ONE Stop: 02/22/22 18:20 Last Infusion: 02/22/22 19:52 Dose: 0 mls/hr Documented By: Admin: 02/22/22 18:57 Dose: 200 mls/hr Documented By: SB Cefepime HCl 1 gm/ Sodium (Chloride) 100 mls @ 200 mls/hr IV Q24H BRENDA Last Infusion: 02/25/22 20:49 Dose: 0 mls/hr Documented By: Admin: 02/25/22 19:31 Dose: 200 mls/hr Documented By: Infusion: 02/24/22 18:03 Dose: 0 mls/hr Documented By: Admin: 02/24/22 17:17 Dose: 200 mls/hr Documented By: Infusion: 02/23/22 21:02 Dose: 0 mls/hr Documented By: Admin: 02/23/22 20:23 Dose: 200 mls/hr Documented By: AT Furosemide 80 mg/ Sodium (Chloride) 58 mls @ 116 mls/hr IV Q8H BRENDA Last Infusion: 02/26/22 11:12 Dose: 0 mls/hr Documented By: Admin: 02/26/22 09:32 Dose: 116 mls/hr Documented By: Infusion: 02/26/22 04:15 Dose: 0 mls/hr Documented By: Admin: 02/26/22 03:42 Dose: 116 mls/hr Documented By: Infusion: 02/25/22 21:53 Dose: 0 mls/hr Documented By: Admin: 02/25/22 21:04 Dose: 116 mls/hr Documented By: Infusion: 02/25/22 12:18 Dose: 0 mls/hr Documented By: Admin: 02/25/22 11:32 Dose: 116 mls/hr Documented By: Infusion: 02/25/22 02:26 Dose: 0 mls/hr Documented By: Admin: 02/25/22 01:57 Dose: 116 mls/hr Documented By: Infusion: 02/24/22 19:14 Dose: 0 mls/hr Documented By: Admin: 02/24/22 18:37 Dose: 116 mls/hr Documented By: Infusion: 02/24/22 13:14 Dose: 0 mls/hr Documented By: KEBartolo Admin: 02/24/22 10:36 Dose: 116 mls/hr Documented By: SHARONA Lidocaine HCl (Lidocaine 2% (Glydo) 6 Ml Gel) 6 ml TOP NOW ONE Stop: 02/21/22 07:44 Last Admin: 02/21/22 08:01 Dose: 6 ml Documented By: NR Morphine Sulfate (Morphine 2 Mg/Ml Inj) 2 mg IV Q4HR PRN PRN Reason: Pain, Moderate (4-6) Last Admin: 02/22/22 23:23 Dose: 2 mg Documented By: AT Ondansetron HCl (Ondansetron 4 Mg/2 Ml Inj) 4 mg IV NOW PRN PRN Reason: Nausea And Vomiting Last Admin: 02/21/22 02:48 Dose: 4 mg Documented By: NEHEMIAS Ondansetron HCl (Ondansetron 4 Mg Odt) 4 mg PO NOW PRN PRN Reason: Nausea And Vomiting Ondansetron HCl (Ondansetron 4 Mg/2 Ml Inj) 4 mg IV Q6HR PRN PRN Reason: Nausea And Vomiting Last Admin: 02/23/22 06:42 Dose: 4 mg Documented By: NEHEMIAS Phytonadione (Phytonadione (Vit K1) 5 Mg Tablet) 10 mg PO NOW ONE Stop: 02/21/22 08:23 Last Admin: 02/21/22 08:53 Dose: 10 mg Documented By: PEGGY Vital Signs Vital signs: Vital Signs - 8 hr 02/26/22 03:49 Temperature 96.8 F L Pulse Rate 60 Respiratory Rate 16 Blood Pressure 148/72 H Pulse Oximetry 96 Oxygen Delivery Method Room Air <Kana Scott MD - Last Filed: 03/04/22 22:12> Course Course Narrative: February 23, 2022 at 7:[address] Bustamante, patient here for acute renal failure/UTI, patient awaiting for transfer for nephrology needs. [facility] nephrology has been contacted. Patient currently off bicarb drip. Labs are pending this morning. Orders Ordered: Discontinued Medications Acetaminophen (Acetaminophen 325 Mg Tablet) 650 mg PO NOW ONE Stop: 02/22/22 01:37 Last Admin: 02/22/22 01:52 Dose: 650 mg Documented By: NEHEMIAS Acetaminophen (Acetaminophen 325 Mg Tablet) 650 mg PO NOW ONE Stop: 02/22/22 18:33 Last Admin: 02/22/22 18:55 Dose: 650 mg Documented By: ARNOLD Acetaminophen (Acetaminophen 325 Mg Tablet) 650 mg PO Q4HR PRN PRN Reason: Pain, Moderate (4-6) Last Admin: 02/25/22 23:06 Dose: 650 mg Documented By: Admin: 02/25/22 08:36 Dose: 650 mg Documented By: Admin: 02/24/22 21:28 Dose: 650 mg Documented By: Admin: 02/24/22 11:00 Dose: 650 mg Documented By: Admin: 02/24/22 03:16 Dose: 650 mg Documented By: Admin: 02/23/22 20:18 Dose: 650 mg Documented By: Admin: 02/23/22 15:36 Dose: 650 mg Documented By: Admin: 02/23/22 09:43 Dose: 650 mg Documented By: YULIYA Budesonide (Budesonide 0.5 Mg/2 Ml Neb) 0.5 mg INH BID [facility] Last Admin: 02/26/22 09:31 Dose: 0.5 mg Documented By: Admin: 02/25/22 20:36 Dose: 0.5 mg Documented By: Admin: 02/25/22 07:53 Dose: 0.5 mg Documented By: Admin: 02/24/22 19:22 Dose: Not Given Documented By: Admin: 02/24/22 08:28 Dose: 0.5 mg Documented By: Admin: 02/23/22 21:33 Dose: 0.5 mg Documented By: Admin: 02/23/22 08:50 Dose: 0.5 mg Documented By: Admin: 02/22/22 21:18 Dose: 0.5 mg Documented By: Admin: 02/22/22 08:56 Dose: 0.5 mg Documented By: DENIA Carvedilol (Carvedilol 3.125 Mg Tablet) 6.25 mg PO BID [facility] Last Admin: 02/26/22 09:26 Dose: 6.25 mg Documented By: Admin: 02/25/22 21:05 Dose: 6.25 mg Documented By: Admin: 02/25/22 08:25 Dose: 6.25 mg Documented By: Admin: 02/24/22 21:28 Dose: 6.25 mg Documented By: Admin: 02/24/22 10:50 Dose: 6.25 mg Documented By: Admin: 02/23/22 20:18 Dose: 6.25 mg Documented By: Admin: 02/23/22 09:44 Dose: 6.25 mg Documented By: Admin: 02/22/22 21:40 Dose: 6.25 mg Documented By: Admin: 02/22/22 08:39 Dose: 6.25 mg Documented By: Admin: 02/21/22 20:59 Dose: 6.25 mg Documented By: GC Sodium Chloride (Normal Saline 0.9%) 1,000 mls @ 1,000 mls/hr IV BOLUS ONE Stop: 02/21/22 02:39 Last Infusion: 02/21/22 03:27 Dose: 0 mls/hr Documented By: Admin: 02/21/22 02:15 Dose: 1,000 mls/hr Documented By: GC Sodium Chloride (Normal Saline 0.9%) 1,000 mls @ 1,000 mls/hr IV BOLUS ONE Stop: 02/21/22 04:57 Last Infusion: 02/21/22 05:05 Dose: 0 mls/hr Documented By: Admin: 02/21/22 04:04 Dose: 1,000 mls/hr Documented By: GC Sodium Chloride (Normal Saline 0.9%) 1,000 mls @ 250 mls/hr IV CONT BRENDA Last Infusion: 02/21/22 10:20 Dose: 0 mls/hr Documented By: Admin: 02/21/22 06:16 Dose: 250 mls/hr Documented By: KATIANA Sodium Bicarbonate 150 meq/ (Dextrose) 1,150 mls @ 75 mls/hr IV CONT BRENDA Last Infusion: 02/22/22 08:20 Dose: 0 mls/hr Documented By: Infusion: 02/22/22 01:03 Dose: 0 mls/hr Documented By: Admin: 02/21/22 10:16 Dose: 75 mls/hr Documented By: NR Sodium Bicarbonate 150 meq/ (Dextrose) 1,150 mls @ 75 mls/hr IV CONT BRENDA Last Infusion: 02/22/22 08:36 Dose: 0 mls/hr Documented By: Admin: 02/22/22 01:02 Dose: 75 mls/hr Documented By: GC Lactated Ringer's (Lactated Ringers) 1,000 mls @ 150 mls/hr IV CONT BRENDA Last Infusion: 02/25/22 12:19 Dose: 0 mls/hr Documented By: Admin: 02/25/22 07:12 Dose: 150 mls/hr Documented By: Infusion: 02/25/22 07:10 Dose: 0 mls/hr Documented By: Admin: 02/24/22 23:45 Dose: 150 mls/hr Documented By: Infusion: 02/24/22 23:42 Dose: 0 mls/hr Documented By: Admin: 02/24/22 17:16 Dose: 150 mls/hr Documented By: Infusion: 02/24/22 17:16 Dose: 0 mls/hr Documented By: KLIndigo Admin: 02/24/22 10:17 Dose: 150 mls/hr Documented By: KEBartolo Infusion: 02/24/22 10:14 Dose: 0 mls/hr Documented By: Admin: 02/24/22 03:12 Dose: 150 mls/hr Documented By: Infusion: 02/24/22 03:03 Dose: 150 mls/hr Documented By: Admin: 02/23/22 20:22 Dose: 150 mls/hr Documented By: Infusion: 02/23/22 20:17 Dose: 150 mls/hr Documented By: Admin: 02/23/22 13:36 Dose: 150 mls/hr Documented By: Infusion: 02/23/22 13:23 Dose: 150 mls/hr Documented By: Admin: 02/23/22 06:42 Dose: 150 mls/hr Documented By: Admin: 02/22/22 13:43 Dose: Not Given Documented By: AT Furosemide 120 mg/ Sodium (Chloride) 62 mls @ 124 mls/hr IV NOW ONE Stop: 02/22/22 11:01 Last Infusion: 02/22/22 12:36 Dose: 0 mls/hr Documented By: Admin: 02/22/22 11:39 Dose: 124 mls/hr Documented By: AT Lactated Ringer's (Lactated Ringers) 1,000 mls @ 150 mls/hr IV CONT BRENDA Last Infusion: 02/23/22 06:32 Dose: 0 mls/hr Documented By: Admin: 02/22/22 23:59 Dose: 150 mls/hr Documented By: RLS(2) Infusion: 02/22/22 23:59 Dose: 150 mls/hr Documented By: RLS(2) Infusion: 02/22/22 23:58 Dose: 150 mls/hr Documented By: RLS(2) Infusion: 02/22/22 18:57 Dose: 0 mls/hr Documented By: Admin: 02/22/22 16:40 Dose: 150 mls/hr Documented By: AT Cefepime HCl 0.5 gm/ Sodium (Chloride) 100 mls @ 200 mls/hr IV NOW ONE Stop: 02/22/22 18:20 Last Infusion: 02/22/22 19:52 Dose: 0 mls/hr Documented By: Admin: 02/22/22 18:57 Dose: 200 mls/hr Documented By: SB Cefepime HCl 1 gm/ Sodium (Chloride) 100 mls @ 200 mls/hr IV Q24H BRENDA Last Infusion: 02/25/22 20:49 Dose: 0 mls/hr Documented By: Admin: 02/25/22 19:31 Dose: 200 mls/hr Documented By: Infusion: 02/24/22 18:03 Dose: 0 mls/hr Documented By: Admin: 02/24/22 17:17 Dose: 200 mls/hr Documented By: Infusion: 02/23/22 21:02 Dose: 0 mls/hr Documented By: Admin: 02/23/22 20:23 Dose: 200 mls/hr Documented By: AT Furosemide 80 mg/ Sodium (Chloride) 58 mls @ 116 mls/hr IV Q8H [facility] Last Infusion: 02/26/22 11:12 Dose: 0 mls/hr Documented By: Admin: 02/26/22 09:32 Dose: 116 mls/hr Documented By: Infusion: 02/26/22 04:15 Dose: 0 mls/hr Documented By: Admin: 02/26/22 03:42 Dose: 116 mls/hr Documented By: Infusion: 02/25/22 21:53 Dose: 0 mls/hr Documented By: Admin: 02/25/22 21:04 Dose: 116 mls/hr Documented By: Infusion: 02/25/22 12:18 Dose: 0 mls/hr Documented By: Admin: 02/25/22 11:32 Dose: 116 mls/hr Documented By: Infusion: 02/25/22 02:26 Dose: 0 mls/hr Documented By: Admin: 02/25/22 01:57 Dose: 116 mls/hr Documented By: Infusion: 02/24/22 19:14 Dose: 0 mls/hr Documented By: Admin: 02/24/22 18:37 Dose: 116 mls/hr Documented By: Infusion: 02/24/22 13:14 Dose: 0 mls/hr Documented By: Admin: 02/24/22 10:36 Dose: 116 mls/hr Documented By: SHARONA Lidocaine HCl (Lidocaine 2% (Glydo) 6 Ml Gel) 6 ml TOP NOW ONE Stop: 02/21/22 07:44 Last Admin: 02/21/22 08:01 Dose: 6 ml Documented By: NR Morphine Sulfate (Morphine 2 Mg/Ml Inj) 2 mg IV Q4HR PRN PRN Reason: Pain, Moderate (4-6) Last Admin: 02/22/22 23:23 Dose: 2 mg Documented By: AT Ondansetron HCl (Ondansetron 4 Mg/2 Ml Inj) 4 mg IV NOW PRN PRN Reason: Nausea And Vomiting Last Admin: 02/21/22 02:48 Dose: 4 mg Documented By: NEHEMIAS Ondansetron HCl (Ondansetron 4 Mg Odt) 4 mg PO NOW PRN PRN Reason: Nausea And Vomiting Ondansetron HCl (Ondansetron 4 Mg/2 Ml Inj) 4 mg IV Q6HR PRN PRN Reason: Nausea And Vomiting Last Admin: 02/23/22 06:42 Dose: 4 mg Documented By: NEHEMIAS Phytonadione (Phytonadione (Vit K1) 5 Mg Tablet) 10 mg PO NOW ONE Stop: 02/21/22 08:23 Last Admin: 02/21/22 08:53 Dose: 10 mg Documented By: NR Vital Signs Vital signs: Vital Signs - 8 hr 02/26/22 03:49 Temperature 96.8 F L Pulse Rate 60 Respiratory Rate 16 Blood Pressure 148/72 H Pulse Oximetry 96 Oxygen Delivery Method Room Air <Chanel Smith MD - Last Filed: 03/01/22 18:49> Orders Ordered: Discontinued Medications Acetaminophen (Acetaminophen 325 Mg Tablet) 650 mg PO NOW ONE Stop: 02/22/22 01:37 Last Admin: 02/22/22 01:52 Dose: 650 mg Documented By: NEHEMIAS Acetaminophen (Acetaminophen 325 Mg Tablet) 650 mg PO NOW ONE Stop: 02/22/22 18:33 Last Admin: 02/22/22 18:55 Dose: 650 mg Documented By: SB Acetaminophen (Acetaminophen 325 Mg Tablet) 650 mg PO Q4HR PRN PRN Reason: Pain, Moderate (4-6) Last Admin: 02/25/22 23:06 Dose: 650 mg Documented By: Admin: 02/25/22 08:36 Dose: 650 mg Documented By: Admin: 02/24/22 21:28 Dose: 650 mg Documented By: Admin: 02/24/22 11:00 Dose: 650 mg Documented By: Admin: 02/24/22 03:16 Dose: 650 mg Documented By: Admin: 02/23/22 20:18 Dose: 650 mg Documented By: Admin: 02/23/22 15:36 Dose: 650 mg Documented By: Admin: 02/23/22 09:43 Dose: 650 mg Documented By: YULIYA Budesonide (Budesonide 0.5 Mg/2 Ml Neb) 0.5 mg INH BID [facility] Last Admin: 02/26/22 09:31 Dose: 0.5 mg Documented By: Admin: 02/25/22 20:36 Dose: 0.5 mg Documented By: Admin: 02/25/22 07:53 Dose: 0.5 mg Documented By: Admin: 02/24/22 19:22 Dose: Not Given Documented By: Admin: 02/24/22 08:28 Dose: 0.5 mg Documented By: Admin: 02/23/22 21:33 Dose: 0.5 mg Documented By: Admin: 02/23/22 08:50 Dose: 0.5 mg Documented By: Admin: 02/22/22 21:18 Dose: 0.5 mg Documented By: Admin: 02/22/22 08:56 Dose: 0.5 mg Documented By: DENIA Carvedilol (Carvedilol 3.125 Mg Tablet) 6.25 mg PO BID [facility] Last Admin: 02/26/22 09:26 Dose: 6.25 mg Documented By: Admin: 02/25/22 21:05 Dose: 6.25 mg Documented By: Admin: 02/25/22 08:25 Dose: 6.25 mg Documented By: Admin: 02/24/22 21:28 Dose: 6.25 mg Documented By: Admin: 02/24/22 10:50 Dose: 6.25 mg Documented By: Admin: 02/23/22 20:18 Dose: 6.25 mg Documented By: Admin: 02/23/22 09:44 Dose: 6.25 mg Documented By: Admin: 02/22/22 21:40 Dose: 6.25 mg Documented By: Admin: 02/22/22 08:39 Dose: 6.25 mg Documented By: Admin: 02/21/22 20:59 Dose: 6.25 mg Documented By: GC Sodium Chloride (Normal Saline 0.9%) 1,000 mls @ 1,000 mls/hr IV BOLUS ONE Stop: 02/21/22 02:39 Last Infusion: 02/21/22 03:27 Dose: 0 mls/hr Documented By: Admin: 02/21/22 02:15 Dose: 1,000 mls/hr Documented By: GC Sodium Chloride (Normal Saline 0.9%) 1,000 mls @ 1,000 mls/hr IV BOLUS ONE Stop: 02/21/22 04:57 Last Infusion: 02/21/22 05:05 Dose: 0 mls/hr Documented By: Admin: 02/21/22 04:04 Dose: 1,000 mls/hr Documented By: GC Sodium Chloride (Normal Saline 0.9%) 1,000 mls @ 250 mls/hr IV CONT BRENDA Last Infusion: 02/21/22 10:20 Dose: 0 mls/hr Documented By: Admin: 02/21/22 06:16 Dose: 250 mls/hr Documented By: KATIANA Sodium Bicarbonate 150 meq/ (Dextrose) 1,150 mls @ 75 mls/hr IV CONT BRENDA Last Infusion: 02/22/22 08:20 Dose: 0 mls/hr Documented By: Infusion: 02/22/22 01:03 Dose: 0 mls/hr Documented By: Admin: 02/21/22 10:16 Dose: 75 mls/hr Documented By: PEGGY Sodium Bicarbonate 150 meq/ (Dextrose) 1,150 mls @ 75 mls/hr IV CONT BRENDA Last Infusion: 02/22/22 08:36 Dose: 0 mls/hr Documented By: Admin: 02/22/22 01:02 Dose: 75 mls/hr Documented By: GC Lactated Ringer's (Lactated Ringers) 1,000 mls @ 150 mls/hr IV CONT BRENDA Last Infusion: 02/25/22 12:19 Dose: 0 mls/hr Documented By: Admin: 02/25/22 07:12 Dose: 150 mls/hr Documented By: Infusion: 02/25/22 07:10 Dose: 0 mls/hr Documented By: Admin: 02/24/22 23:45 Dose: 150 mls/hr Documented By: Infusion: 02/24/22 23:42 Dose: 0 mls/hr Documented By: Admin: 02/24/22 17:16 Dose: 150 mls/hr Documented By: Infusion: 02/24/22 17:16 Dose: 0 mls/hr Documented By: Admin: 02/24/22 10:17 Dose: 150 mls/hr Documented By: Infusion: 02/24/22 10:14 Dose: 0 mls/hr Documented By: Admin: 02/24/22 03:12 Dose: 150 mls/hr Documented By: Infusion: 02/24/22 03:03 Dose: 150 mls/hr Documented By: Admin: 02/23/22 20:22 Dose: 150 mls/hr Documented By: Infusion: 02/23/22 20:17 Dose: 150 mls/hr Documented By: Admin: 02/23/22 13:36 Dose: 150 mls/hr Documented By: Infusion: 02/23/22 13:23 Dose: 150 mls/hr Documented By: Admin: 02/23/22 06:42 Dose: 150 mls/hr Documented By: Admin: 02/22/22 13:43 Dose: Not Given Documented By: AT Furosemide 120 mg/ Sodium (Chloride) 62 mls @ 124 mls/hr IV NOW ONE Stop: 02/22/22 11:01 Last Infusion: 02/22/22 12:36 Dose: 0 mls/hr Documented By: Admin: 02/22/22 11:39 Dose: 124 mls/hr Documented By: AT Lactated Ringer's (Lactated Ringers) 1,000 mls @ 150 mls/hr IV CONT BRENDA Last Infusion: 02/23/22 06:32 Dose: 0 mls/hr Documented By: Admin: 02/22/22 23:59 Dose: 150 mls/hr Documented By: RLS(2) Infusion: 02/22/22 23:59 Dose: 150 mls/hr Documented By: RLS(2) Infusion: 02/22/22 23:58 Dose: 150 mls/hr Documented By: RLS(2) Infusion: 02/22/22 18:57 Dose: 0 mls/hr Documented By: Admin: 02/22/22 16:40 Dose: 150 mls/hr Documented By: AT Cefepime HCl 0.5 gm/ Sodium (Chloride) 100 mls @ 200 mls/hr IV NOW ONE Stop: 02/22/22 18:20 Last Infusion: 02/22/22 19:52 Dose: 0 mls/hr Documented By: Admin: 02/22/22 18:57 Dose: 200 mls/hr Documented By: SB Cefepime HCl 1 gm/ Sodium (Chloride) 100 mls @ 200 mls/hr IV Q24H BRENDA Last Infusion: 02/25/22 20:49 Dose: 0 mls/hr Documented By: Admin: 02/25/22 19:31 Dose: 200 mls/hr Documented By: Infusion: 02/24/22 18:03 Dose: 0 mls/hr Documented By: Admin: 02/24/22 17:17 Dose: 200 mls/hr Documented By: Infusion: 02/23/22 21:02 Dose: 0 mls/hr Documented By: Admin: 02/23/22 20:23 Dose: 200 mls/hr Documented By: AT Furosemide 80 mg/ Sodium (Chloride) 58 mls @ 116 mls/hr IV Q8H BRENDA Last Infusion: 02/26/22 11:12 Dose: 0 mls/hr Documented By: Admin: 02/26/22 09:32 Dose: 116 mls/hr Documented By: Infusion: 02/26/22 04:15 Dose: 0 mls/hr Documented By: Admin: 02/26/22 03:42 Dose: 116 mls/hr Documented By: Infusion: 02/25/22 21:53 Dose: 0 mls/hr Documented By: Admin: 02/25/22 21:04 Dose: 116 mls/hr Documented By: Infusion: 02/25/22 12:18 Dose: 0 mls/hr Documented By: Admin: 02/25/22 11:32 Dose: 116 mls/hr Documented By: Infusion: 02/25/22 02:26 Dose: 0 mls/hr Documented By: Admin: 02/25/22 01:57 Dose: 116 mls/hr Documented By: Infusion: 02/24/22 19:14 Dose: 0 mls/hr Documented By: Admin: 02/24/22 18:37 Dose: 116 mls/hr Documented By: Infusion: 02/24/22 13:14 Dose: 0 mls/hr Documented By: Admin: 02/24/22 10:36 Dose: 116 mls/hr Documented By: SHARONA Lidocaine HCl (Lidocaine 2% (Glydo) 6 Ml Gel) 6 ml TOP NOW ONE Stop: 02/21/22 07:44 Last Admin: 02/21/22 08:01 Dose: 6 ml Documented By: NR Morphine Sulfate (Morphine 2 Mg/Ml Inj) 2 mg IV Q4HR PRN PRN Reason: Pain, Moderate (4-6) Last Admin: 02/22/22 23:23 Dose: 2 mg Documented By: AT Ondansetron HCl (Ondansetron 4 Mg/2 Ml Inj) 4 mg IV NOW PRN PRN Reason: Nausea And Vomiting Last Admin: 02/21/22 02:48 Dose: 4 mg Documented By: NEHEMIAS Ondansetron HCl (Ondansetron 4 Mg Odt) 4 mg PO NOW PRN PRN Reason: Nausea And Vomiting Ondansetron HCl (Ondansetron 4 Mg/2 Ml Inj) 4 mg IV Q6HR PRN PRN Reason: Nausea And Vomiting Last Admin: 02/23/22 06:42 Dose: 4 mg Documented By: NEHEMIAS Phytonadione (Phytonadione (Vit K1) 5 Mg Tablet) 10 mg PO NOW ONE Stop: 02/21/22 08:23 Last Admin: 02/21/22 08:53 Dose: 10 mg Documented By: NR Vital Signs Vital signs: Vital Signs - 8 hr 02/26/22 03:49 Temperature 96.8 F L Pulse Rate 60 Respiratory Rate 16 Blood Pressure 148/72 H Pulse Oximetry 96 Oxygen Delivery Method Room Air <Mathew Rodríguez MD - Last Filed: 03/25/22 08:12> Orders Ordered: Discontinued Medications Acetaminophen (Acetaminophen 325 Mg Tablet) 650 mg PO NOW ONE Stop: 02/22/22 01:37 Last Admin: 02/22/22 01:52 Dose: 650 mg Documented By: NEHEMIAS Acetaminophen (Acetaminophen 325 Mg Tablet) 650 mg PO NOW ONE Stop: 02/22/22 18:33 Last Admin: 02/22/22 18:55 Dose: 650 mg Documented By: ARNOLD Acetaminophen (Acetaminophen 325 Mg Tablet) 650 mg PO Q4HR PRN PRN Reason: Pain, Moderate (4-6) Last Admin: 02/25/22 23:06 Dose: 650 mg Documented By: Admin: 02/25/22 08:36 Dose: 650 mg Documented By: Admin: 02/24/22 21:28 Dose: 650 mg Documented By: Admin: 02/24/22 11:00 Dose: 650 mg Documented By: Admin: 02/24/22 03:16 Dose: 650 mg Documented By: Admin: 02/23/22 20:18 Dose: 650 mg Documented By: Admin: 02/23/22 15:36 Dose: 650 mg Documented By: Admin: 02/23/22 09:43 Dose: 650 mg Documented By: YULIYA Budesonide (Budesonide 0.5 Mg/2 Ml Neb) 0.5 mg INH BID [facility] Last Admin: 02/26/22 09:31 Dose: 0.5 mg Documented By: Admin: 02/25/22 20:36 Dose: 0.5 mg Documented By: Admin: 02/25/22 07:53 Dose: 0.5 mg Documented By: Admin: 02/24/22 19:22 Dose: Not Given Documented By: Admin: 02/24/22 08:28 Dose: 0.5 mg Documented By: Admin: 02/23/22 21:33 Dose: 0.5 mg Documented By: Admin: 02/23/22 08:50 Dose: 0.5 mg Documented By: Admin: 02/22/22 21:18 Dose: 0.5 mg Documented By: Admin: 02/22/22 08:56 Dose: 0.5 mg Documented By: DENIA Carvedilol (Carvedilol 3.125 Mg Tablet) 6.25 mg PO BID [facility] Last Admin: 02/26/22 09:26 Dose: 6.25 mg Documented By: Admin: 02/25/22 21:05 Dose: 6.25 mg Documented By: Admin: 02/25/22 08:25 Dose: 6.25 mg Documented By: Admin: 02/24/22 21:28 Dose: 6.25 mg Documented By: Admin: 02/24/22 10:50 Dose: 6.25 mg Documented By: Admin: 02/23/22 20:18 Dose: 6.25 mg Documented By: Admin: 02/23/22 09:44 Dose: 6.25 mg Documented By: Admin: 02/22/22 21:40 Dose: 6.25 mg Documented By: Admin: 02/22/22 08:39 Dose: 6.25 mg Documented By: Admin: 02/21/22 20:59 Dose: 6.25 mg Documented By: GC Sodium Chloride (Normal Saline 0.9%) 1,000 mls @ 1,000 mls/hr IV BOLUS ONE Stop: 02/21/22 02:39 Last Infusion: 02/21/22 03:27 Dose: 0 mls/hr Documented By: Admin: 02/21/22 02:15 Dose: 1,000 mls/hr Documented By: GC Sodium Chloride (Normal Saline 0.9%) 1,000 mls @ 1,000 mls/hr IV BOLUS ONE Stop: 02/21/22 04:57 Last Infusion: 02/21/22 05:05 Dose: 0 mls/hr Documented By: Admin: 02/21/22 04:04 Dose: 1,000 mls/hr Documented By: GC Sodium Chloride (Normal Saline 0.9%) 1,000 mls @ 250 mls/hr IV CONT BRENDA Last Infusion: 02/21/22 10:20 Dose: 0 mls/hr Documented By: Admin: 02/21/22 06:16 Dose: 250 mls/hr Documented By: KATIANA Sodium Bicarbonate 150 meq/ (Dextrose) 1,150 mls @ 75 mls/hr IV CONT BRENDA Last Infusion: 02/22/22 08:20 Dose: 0 mls/hr Documented By: Infusion: 02/22/22 01:03 Dose: 0 mls/hr Documented By: Admin: 02/21/22 10:16 Dose: 75 mls/hr Documented By: NR Sodium Bicarbonate 150 meq/ (Dextrose) 1,150 mls @ 75 mls/hr IV CONT BRENDA Last Infusion: 02/22/22 08:36 Dose: 0 mls/hr Documented By: Admin: 02/22/22 01:02 Dose: 75 mls/hr Documented By: GC Lactated Ringer's (Lactated Ringers) 1,000 mls @ 150 mls/hr IV CONT BRENDA Last Infusion: 02/25/22 12:19 Dose: 0 mls/hr Documented By: Admin: 02/25/22 07:12 Dose: 150 mls/hr Documented By: Infusion: 02/25/22 07:10 Dose: 0 mls/hr Documented By: Admin: 02/24/22 23:45 Dose: 150 mls/hr Documented By: Infusion: 02/24/22 23:42 Dose: 0 mls/hr Documented By: Admin: 02/24/22 17:16 Dose: 150 mls/hr Documented By: Infusion: 02/24/22 17:16 Dose: 0 mls/hr Documented By: Admin: 02/24/22 10:17 Dose: 150 mls/hr Documented By: Infusion: 02/24/22 10:14 Dose: 0 mls/hr Documented By: Admin: 02/24/22 03:12 Dose: 150 mls/hr Documented By: Infusion: 02/24/22 03:03 Dose: 150 mls/hr Documented By: Admin: 02/23/22 20:22 Dose: 150 mls/hr Documented By: Infusion: 02/23/22 20:17 Dose: 150 mls/hr Documented By: Admin: 02/23/22 13:36 Dose: 150 mls/hr Documented By: Infusion: 02/23/22 13:23 Dose: 150 mls/hr Documented By: Admin: 02/23/22 06:42 Dose: 150 mls/hr Documented By: Admin: 02/22/22 13:43 Dose: Not Given Documented By: AT Furosemide 120 mg/ Sodium (Chloride) 62 mls @ 124 mls/hr IV NOW ONE Stop: 02/22/22 11:01 Last Infusion: 02/22/22 12:36 Dose: 0 mls/hr Documented By: Admin: 02/22/22 11:39 Dose: 124 mls/hr Documented By: AT Lactated Ringer's (Lactated Ringers) 1,000 mls @ 150 mls/hr IV CONT BRENDA Last Infusion: 02/23/22 06:32 Dose: 0 mls/hr Documented By: Admin: 02/22/22 23:59 Dose: 150 mls/hr Documented By: RLS(2) Infusion: 02/22/22 23:59 Dose: 150 mls/hr Documented By: RLS(2) Infusion: 02/22/22 23:58 Dose: 150 mls/hr Documented By: RLS(2) Infusion: 02/22/22 18:57 Dose: 0 mls/hr Documented By: Admin: 02/22/22 16:40 Dose: 150 mls/hr Documented By: AT Cefepime HCl 0.5 gm/ Sodium (Chloride) 100 mls @ 200 mls/hr IV NOW ONE Stop: 02/22/22 18:20 Last Infusion: 02/22/22 19:52 Dose: 0 mls/hr Documented By: Admin: 02/22/22 18:57 Dose: 200 mls/hr Documented By: SB Cefepime HCl 1 gm/ Sodium (Chloride) 100 mls @ 200 mls/hr IV Q24H BRENDA Last Infusion: 02/25/22 20:49 Dose: 0 mls/hr Documented By: Admin: 02/25/22 19:31 Dose: 200 mls/hr Documented By: Infusion: 02/24/22 18:03 Dose: 0 mls/hr Documented By: Admin: 02/24/22 17:17 Dose: 200 mls/hr Documented By: Infusion: 02/23/22 21:02 Dose: 0 mls/hr Documented By: Admin: 02/23/22 20:23 Dose: 200 mls/hr Documented By: AT Furosemide 80 mg/ Sodium (Chloride) 58 mls @ 116 mls/hr IV Q8H BRENDA Last Infusion: 02/26/22 11:12 Dose: 0 mls/hr Documented By: Admin: 02/26/22 09:32 Dose: 116 mls/hr Documented By: Infusion: 02/26/22 04:15 Dose: 0 mls/hr Documented By: Admin: 02/26/22 03:42 Dose: 116 mls/hr Documented By: Infusion: 02/25/22 21:53 Dose: 0 mls/hr Documented By: Admin: 02/25/22 21:04 Dose: 116 mls/hr Documented By: Infusion: 02/25/22 12:18 Dose: 0 mls/hr Documented By: Admin: 02/25/22 11:32 Dose: 116 mls/hr Documented By: Infusion: 02/25/22 02:26 Dose: 0 mls/hr Documented By: Admin: 02/25/22 01:57 Dose: 116 mls/hr Documented By: Infusion: 02/24/22 19:14 Dose: 0 mls/hr Documented By: Admin: 02/24/22 18:37 Dose: 116 mls/hr Documented By: Infusion: 02/24/22 13:14 Dose: 0 mls/hr Documented By: Admin: 02/24/22 10:36 Dose: 116 mls/hr Documented By: SHARONA Lidocaine HCl (Lidocaine 2% (Glydo) 6 Ml Gel) 6 ml TOP NOW ONE Stop: 02/21/22 07:44 Last Admin: 02/21/22 08:01 Dose: 6 ml Documented By: PEGGY Morphine Sulfate (Morphine 2 Mg/Ml Inj) 2 mg IV Q4HR PRN PRN Reason: Pain, Moderate (4-6) Last Admin: 02/22/22 23:23 Dose: 2 mg Documented By: AT Ondansetron HCl (Ondansetron 4 Mg/2 Ml Inj) 4 mg IV NOW PRN PRN Reason: Nausea And Vomiting Last Admin: 02/21/22 02:48 Dose: 4 mg Documented By: GC Ondansetron HCl (Ondansetron 4 Mg Odt) 4 mg PO NOW PRN PRN Reason: Nausea And Vomiting Ondansetron HCl (Ondansetron 4 Mg/2 Ml Inj) 4 mg IV Q6HR PRN PRN Reason: Nausea And Vomiting Last Admin: 02/23/22 06:42 Dose: 4 mg Documented By: GC Phytonadione (Phytonadione (Vit K1) 5 Mg Tablet) 10 mg PO NOW ONE Stop: 02/21/22 08:23 Last Admin: 02/21/22 08:53 Dose: 10 mg Documented By: NR Vital Signs Vital signs: Vital Signs - 8 hr 02/26/22 03:49 Temperature 96.8 F L Pulse Rate 60 Respiratory Rate 16 Blood Pressure 148/72 H Pulse Oximetry 96 Oxygen Delivery Method Room Air <Luis Nicole, - Last Filed: 02/26/22 09:45> Orders Ordered: Discontinued Medications Acetaminophen (Acetaminophen 325 Mg Tablet) 650 mg PO NOW ONE Stop: 02/22/22 01:37 Last Admin: 02/22/22 01:52 Dose: 650 mg Documented By: NEHEMIAS Acetaminophen (Acetaminophen 325 Mg Tablet) 650 mg PO NOW ONE Stop: 02/22/22 18:33 Last Admin: 02/22/22 18:55 Dose: 650 mg Documented By: ARNOLD Acetaminophen (Acetaminophen 325 Mg Tablet) 650 mg PO Q4HR PRN PRN Reason: Pain, Moderate (4-6) Last Admin: 02/25/22 23:06 Dose: 650 mg Documented By: Admin: 02/25/22 08:36 Dose: 650 mg Documented By: Admin: 02/24/22 21:28 Dose: 650 mg Documented By: Admin: 02/24/22 11:00 Dose: 650 mg Documented By: Admin: 02/24/22 03:16 Dose: 650 mg Documented By: Admin: 02/23/22 20:18 Dose: 650 mg Documented By: Admin: 02/23/22 15:36 Dose: 650 mg Documented By: Admin: 02/23/22 09:43 Dose: 650 mg Documented By: YULIYA Budesonide (Budesonide 0.5 Mg/2 Ml Neb) 0.5 mg INH BID [facility] Last Admin: 02/26/22 09:31 Dose: 0.5 mg Documented By: Admin: 02/25/22 20:36 Dose: 0.5 mg Documented By: Admin: 02/25/22 07:53 Dose: 0.5 mg Documented By: Admin: 02/24/22 19:22 Dose: Not Given Documented By: Admin: 02/24/22 08:28 Dose: 0.5 mg Documented By: Admin: 02/23/22 21:33 Dose: 0.5 mg Documented By: Admin: 02/23/22 08:50 Dose: 0.5 mg Documented By: Admin: 02/22/22 21:18 Dose: 0.5 mg Documented By: Admin: 02/22/22 08:56 Dose: 0.5 mg Documented By: DENIA Carvedilol (Carvedilol 3.125 Mg Tablet) 6.25 mg PO BID BRENDA Last Admin: 02/26/22 09:26 Dose: 6.25 mg Documented By: Admin: 02/25/22 21:05 Dose: 6.25 mg Documented By: Admin: 02/25/22 08:25 Dose: 6.25 mg Documented By: Admin: 02/24/22 21:28 Dose: 6.25 mg Documented By: Admin: 02/24/22 10:50 Dose: 6.25 mg Documented By: Admin: 02/23/22 20:18 Dose: 6.25 mg Documented By: Admin: 02/23/22 09:44 Dose: 6.25 mg Documented By: Admin: 02/22/22 21:40 Dose: 6.25 mg Documented By: Admin: 02/22/22 08:39 Dose: 6.25 mg Documented By: Admin: 02/21/22 20:59 Dose: 6.25 mg Documented By: GC Sodium Chloride (Normal Saline 0.9%) 1,000 mls @ 1,000 mls/hr IV BOLUS ONE Stop: 02/21/22 02:39 Last Infusion: 02/21/22 03:27 Dose: 0 mls/hr Documented By: Admin: 02/21/22 02:15 Dose: 1,000 mls/hr Documented By: GC Sodium Chloride (Normal Saline 0.9%) 1,000 mls @ 1,000 mls/hr IV BOLUS ONE Stop: 02/21/22 04:57 Last Infusion: 02/21/22 05:05 Dose: 0 mls/hr Documented By: Admin: 02/21/22 04:04 Dose: 1,000 mls/hr Documented By: GC Sodium Chloride (Normal Saline 0.9%) 1,000 mls @ 250 mls/hr IV CONT BRENDA Last Infusion: 02/21/22 10:20 Dose: 0 mls/hr Documented By: Admin: 02/21/22 06:16 Dose: 250 mls/hr Documented By: KATIANA Sodium Bicarbonate 150 meq/ (Dextrose) 1,150 mls @ 75 mls/hr IV CONT BRENDA Last Infusion: 02/22/22 08:20 Dose: 0 mls/hr Documented By: Infusion: 02/22/22 01:03 Dose: 0 mls/hr Documented By: Admin: 02/21/22 10:16 Dose: 75 mls/hr Documented By: NR Sodium Bicarbonate 150 meq/ (Dextrose) 1,150 mls @ 75 mls/hr IV CONT BRENDA Last Infusion: 02/22/22 08:36 Dose: 0 mls/hr Documented By: Admin: 02/22/22 01:02 Dose: 75 mls/hr Documented By: GC Lactated Ringer's (Lactated Ringers) 1,000 mls @ 150 mls/hr IV CONT BRENDA Last Infusion: 02/25/22 12:19 Dose: 0 mls/hr Documented By: Admin: 02/25/22 07:12 Dose: 150 mls/hr Documented By: Infusion: 02/25/22 07:10 Dose: 0 mls/hr Documented By: Admin: 02/24/22 23:45 Dose: 150 mls/hr Documented By: Infusion: 02/24/22 23:42 Dose: 0 mls/hr Documented By: Admin: 02/24/22 17:16 Dose: 150 mls/hr Documented By: Infusion: 02/24/22 17:16 Dose: 0 mls/hr Documented By: Admin: 02/24/22 10:17 Dose: 150 mls/hr Documented By: KEBartolo Infusion: 02/24/22 10:14 Dose: 0 mls/hr Documented By: Admin: 02/24/22 03:12 Dose: 150 mls/hr Documented By: Infusion: 02/24/22 03:03 Dose: 150 mls/hr Documented By: Admin: 02/23/22 20:22 Dose: 150 mls/hr Documented By: Infusion: 02/23/22 20:17 Dose: 150 mls/hr Documented By: Admin: 02/23/22 13:36 Dose: 150 mls/hr Documented By: Infusion: 02/23/22 13:23 Dose: 150 mls/hr Documented By: Admin: 02/23/22 06:42 Dose: 150 mls/hr Documented By: Admin: 02/22/22 13:43 Dose: Not Given Documented By: AT Furosemide 120 mg/ Sodium (Chloride) 62 mls @ 124 mls/hr IV NOW ONE Stop: 02/22/22 11:01 Last Infusion: 02/22/22 12:36 Dose: 0 mls/hr Documented By: Admin: 02/22/22 11:39 Dose: 124 mls/hr Documented By: AT Lactated Ringer's (Lactated Ringers) 1,000 mls @ 150 mls/hr IV CONT BRENDA Last Infusion: 02/23/22 06:32 Dose: 0 mls/hr Documented By: Admin: 02/22/22 23:59 Dose: 150 mls/hr Documented By: RLS(2) Infusion: 02/22/22 23:59 Dose: 150 mls/hr Documented By: RLS(2) Infusion: 02/22/22 23:58 Dose: 150 mls/hr Documented By: RLS(2) Infusion: 02/22/22 18:57 Dose: 0 mls/hr Documented By: Admin: 02/22/22 16:40 Dose: 150 mls/hr Documented By: AT Cefepime HCl 0.5 gm/ Sodium (Chloride) 100 mls @ 200 mls/hr IV NOW ONE Stop: 02/22/22 18:20 Last Infusion: 02/22/22 19:52 Dose: 0 mls/hr Documented By: Admin: 02/22/22 18:57 Dose: 200 mls/hr Documented By: SB Cefepime HCl 1 gm/ Sodium (Chloride) 100 mls @ 200 mls/hr IV Q24H [facility] Last Infusion: 02/25/22 20:49 Dose: 0 mls/hr Documented By: Admin: 02/25/22 19:31 Dose: 200 mls/hr Documented By: Infusion: 02/24/22 18:03 Dose: 0 mls/hr Documented By: Admin: 02/24/22 17:17 Dose: 200 mls/hr Documented By: Infusion: 02/23/22 21:02 Dose: 0 mls/hr Documented By: Admin: 02/23/22 20:23 Dose: 200 mls/hr Documented By: AT Furosemide 80 mg/ Sodium (Chloride) 58 mls @ 116 mls/hr IV Q8H BRENDA Last Infusion: 02/26/22 11:12 Dose: 0 mls/hr Documented By: Admin: 02/26/22 09:32 Dose: 116 mls/hr Documented By: Infusion: 02/26/22 04:15 Dose: 0 mls/hr Documented By: Admin: 02/26/22 03:42 Dose: 116 mls/hr Documented By: Infusion: 02/25/22 21:53 Dose: 0 mls/hr Documented By: Admin: 02/25/22 21:04 Dose: 116 mls/hr Documented By: Infusion: 02/25/22 12:18 Dose: 0 mls/hr Documented By: Admin: 02/25/22 11:32 Dose: 116 mls/hr Documented By: Infusion: 02/25/22 02:26 Dose: 0 mls/hr Documented By: Admin: 02/25/22 01:57 Dose: 116 mls/hr Documented By: Infusion: 02/24/22 19:14 Dose: 0 mls/hr Documented By: Admin: 02/24/22 18:37 Dose: 116 mls/hr Documented By: Infusion: 02/24/22 13:14 Dose: 0 mls/hr Documented By: Admin: 02/24/22 10:36 Dose: 116 mls/hr Documented By: SHARONA Lidocaine HCl (Lidocaine 2% (Glydo) 6 Ml Gel) 6 ml TOP NOW ONE Stop: 02/21/22 07:44 Last Admin: 02/21/22 08:01 Dose: 6 ml Documented By: NR Morphine Sulfate (Morphine 2 Mg/Ml Inj) 2 mg IV Q4HR PRN PRN Reason: Pain, Moderate (4-6) Last Admin: 02/22/22 23:23 Dose: 2 mg Documented By: AT Ondansetron HCl (Ondansetron 4 Mg/2 Ml Inj) 4 mg IV NOW PRN PRN Reason: Nausea And Vomiting Last Admin: 02/21/22 02:48 Dose: 4 mg Documented By: GC Ondansetron HCl (Ondansetron 4 Mg Odt) 4 mg PO NOW PRN PRN Reason: Nausea And Vomiting Ondansetron HCl (Ondansetron 4 Mg/2 Ml Inj) 4 mg IV Q6HR PRN PRN Reason: Nausea And Vomiting Last Admin: 02/23/22 06:42 Dose: 4 mg Documented By: NEHEMIAS Phytonadione (Phytonadione (Vit K1) 5 Mg Tablet) 10 mg PO NOW ONE Stop: 02/21/22 08:23 Last Admin: 02/21/22 08:53 Dose: 10 mg Documented By: NR Vital Signs Vital signs: Vital Signs - 8 hr 02/26/22 03:49 Temperature 96.8 F L Pulse Rate 60 Respiratory Rate 16 Blood Pressure 148/72 H Pulse Oximetry 96 Oxygen Delivery Method Room Air MDM - Nausea/Vomiting/Diarrhea <Milton Lugo DO - Last Filed: 02/26/22 06:46> Medical Records Attestation: I reviewed the patient's medical records. Lab Data Attestation: I reviewed the patient's lab results. 02/26/22 08:42 02/26/22 08:42 Labs: Lab Results 02/21/22 02/21/22 02/21/22 Range/Units 01:17 01:40 01:40 WBC 9.8 (4.5-11.0) X10^3/uL RBC 4.26 (4.0-5.2) X10^6/uL Hgb 12.7 (12.0-16.0) g/dL Hct 38.4 (36-46) % MCV 90.3 (80-100) fL MCH 29.9 (26-34) PG MCHC 33.1 (30-36) % RDW 14.5 (11.6-14.8) % Plt Count 262 (150-400) X10^3/uL Neut % (Auto) 75.5 H (50-75) % Lymph % (Auto) 15.0 L (25-40) % [place] % (Auto) 7.6 (3-14) % Eos % (Auto) 1.2 L (2-4) % Baso % (Auto) 0.7 (0-2) % Neut # (Auto) 7400 H (6538-2836) /uL Lymph # (Auto) 1500 (7659-5156) /uL [place] # (Auto) 700 (0-900) /uL Eos # (Auto) 100 (0-450) /uL Baso # (Auto) 100 (0-100) /uL PT (10.1-12.7) SECONDS INR (0.9-1.3) Sodium 136 L (137-145) mmol/L Potassium 5.7 H (3.4-5.1) mmol/L Chloride 103 (98-107) mmol/L Carbon Dioxide 13 L (22-32) mmol/L BUN 67 H (7-17) mg/dL Creatinine 10.0 H* (0.52-1.04) mg/dL Estimated GFR 4 L (>60) mL/min BUN/Creatinine Ratio 6.7 (6-22) Glucose 88 (80-110) mg/dL Uric Acid (2.5-6.2) mg/dL Calcium 9.9 (8.4-10.2) mg/dL Total Bilirubin 0.7 (0.2-1.3) mg/dL AST 32 (14-36) IU/L ALT 27 (<35) IU/L Alkaline Phosphatase 54 (38-126) U/L Lactate Dehydrogenase (120-246) U/L Total Protein 7.3 (6.3-8.2) g/dL Albumin 4.2 (3.5-5.0) g/dL Globulin 3.1 (1.7-4.1) g/dL Albumin/Globulin Ratio 1.4 (1.0-2.8) Lipase 2998 H (23-300) U/L Procalcitonin (<0.5) ng/mL Ur Random Sodium (30-90) mmol/L Urine Creatinine mg/dL SARS-CoV-2 (PCR) Negative (Negative) Influenza A (RT-PCR) Flu a negative (NEGATIVE) Influenza B (RT-PCR) Flu b negative (NEGATIVE) RSV (PCR) Negative (Negative) 02/21/22 02/21/22 02/21/22 Range/Units 03:30 05:30 07:46 WBC (4.5-11.0) X10^3/uL RBC (4.0-5.2) X10^6/uL Hgb (12.0-16.0) g/dL Hct (36-46) % MCV (80-100) fL MCH (26-34) PG MCHC (30-36) % RDW (11.6-14.8) % Plt Count (150-400) X10^3/uL Neut % (Auto) (50-75) % Lymph % (Auto) (25-40) % [place] % (Auto) (3-14) % Eos % (Auto) (2-4) % Baso % (Auto) (0-2) % Neut # (Auto) (0275-1573) /uL Lymph # (Auto) (6751-9926) /uL [place] # (Auto) (0-900) /uL Eos # (Auto) (0-450) /uL Baso # (Auto) (0-100) /uL PT 82.9 H (10.1-12.7) SECONDS INR 7.1 H* (0.9-1.3) Sodium 137 (137-145) mmol/L Potassium 5.8 H (3.4-5.1) mmol/L Chloride 109 H (98-107) mmol/L Carbon Dioxide 13 L (22-32) mmol/L BUN 63 H (7-17) mg/dL Creatinine 9.15 H* (0.52-1.04) mg/dL Estimated GFR 4 L (>60) mL/min BUN/Creatinine Ratio 6.9 (6-22) Glucose 86 (80-110) mg/dL Uric Acid (2.5-6.2) mg/dL Calcium 8.4 (8.4-10.2) mg/dL Total Bilirubin (0.2-1.3) mg/dL AST (14-36) IU/L ALT (<35) IU/L Alkaline Phosphatase (38-126) U/L Lactate Dehydrogenase (120-246) U/L Total Protein (6.3-8.2) g/dL Albumin (3.5-5.0) g/dL Globulin (1.7-4.1) g/dL Albumin/Globulin Ratio (1.0-2.8) Lipase (23-300) U/L Procalcitonin (<0.5) ng/mL Ur Random Sodium 84 (30-90) mmol/L Urine Creatinine 69.7 mg/dL SARS-CoV-2 (PCR) (Negative) Influenza A (RT-PCR) (NEGATIVE) Influenza B (RT-PCR) (NEGATIVE) RSV (PCR) (Negative) 02/21/22 02/21/2222 Range/Units 07:46 07:46 07:50 WBC (4.5-11.0) X10^3/uL RBC (4.0-5.2) X10^6/uL Hgb (12.0-16.0) g/dL Hct (36-46) % MCV (80-100) fL MCH (26-34) PG MCHC (30-36) % RDW (11.6-14.8) % Plt Count (150-400) X10^3/uL Neut % (Auto) (50-75) % Lymph % (Auto) (25-40) % [place] % (Auto) (3-14) % Eos % (Auto) (2-4) % Baso % (Auto) (0-2) % Neut # (Auto) (6923-3056) /uL Lymph # (Auto) (3113-6335) /uL [place] # (Auto) (0-900) /uL Eos # (Auto) (0-450) /uL Baso # (Auto) (0-100) /uL PT (10.1-12.7) SECONDS INR (0.9-1.3) Sodium 139 (137-145) mmol/L Potassium 5.5 H (3.4-5.1) mmol/L Chloride 109 H (98-107) mmol/L Carbon Dioxide 13 L (22-32) mmol/L BUN 65 H (7-17) mg/dL Creatinine 9.23 H* (0.52-1.04) mg/dL Estimated GFR 4 L (>60) mL/min BUN/Creatinine Ratio 7.0 (6-22) Glucose 82 (80-110) mg/dL Uric Acid (2.5-6.2) mg/dL Calcium 8.4 (8.4-10.2) mg/dL Total Bilirubin (0.2-1.3) mg/dL AST (14-36) IU/L ALT (<35) IU/L Alkaline Phosphatase (38-126) U/L Lactate Dehydrogenase 231 (120-246) U/L Total Protein (6.3-8.2) g/dL Albumin (3.5-5.0) g/dL Globulin (1.7-4.1) g/dL Albumin/Globulin Ratio (1.0-2.8) Lipase 2978 H (23-300) U/L Procalcitonin 0.33 (<0.5) ng/mL Ur Random Sodium (30-90) mmol/L Urine Creatinine mg/dL SARS-CoV-2 (PCR) (Negative) Influenza A (RT-PCR) (NEGATIVE) Influenza B (RT-PCR) (NEGATIVE) RSV (PCR) (Negative) 02/21/22 02/21/22 02/22/22 Range/Units 12:00 18:00 07:00 WBC (4.5-11.0) X10^3/uL RBC (4.0-5.2) X10^6/uL Hgb (12.0-16.0) g/dL Hct (36-46) % MCV (80-100) fL MCH (26-34) PG MCHC (30-36) % RDW (11.6-14.8) % Plt Count (150-400) X10^3/uL Neut % (Auto) (50-75) % Lymph % (Auto) (25-40) % [place] % (Auto) (3-14) % Eos % (Auto) (2-4) % Baso % (Auto) (0-2) % Neut # (Auto) (3408-9747) /uL Lymph # (Auto) (7634-2516) /uL [place] # (Auto) (0-900) /uL Eos # (Auto) (0-450) /uL Baso # (Auto) (0-100) /uL PT (10.1-12.7) SECONDS INR (0.9-1.3) Sodium 138 137 137 (137-145) mmol/L Potassium 5.5 H 4.4 4.0 (3.4-5.1) mmol/L Chloride 110 H 103 100 (98-107) mmol/L Carbon Dioxide 13 L 16 L 23 (22-32) mmol/L BUN 64 H 67 H 72 H (7-17) mg/dL Creatinine 9.00 H* 9.00 H* 9.31 H* (0.52-1.04) mg/dL Estimated GFR 4 L 4 L 4 L (>60) mL/min BUN/Creatinine Ratio 7.1 7.4 7.7 (6-22) Glucose 78 L 170 H 132 H (80-110) mg/dL Uric Acid (2.5-6.2) mg/dL Calcium 8.0 L 8.2 L 8.7 (8.4-10.2) mg/dL Total Bilirubin 0.5 (0.2-1.3) mg/dL AST 25 (14-36) IU/L ALT 21 (<35) IU/L Alkaline Phosphatase 41 (38-126) U/L Lactate Dehydrogenase (120-246) U/L Total Protein 5.7 L (6.3-8.2) g/dL Albumin 3.1 L (3.5-5.0) g/dL Globulin 2.6 (1.7-4.1) g/dL Albumin/Globulin Ratio 1.2 (1.0-2.8) Lipase 3228 H (23-300) U/L Procalcitonin (<0.5) ng/mL Ur Random Sodium (30-90) mmol/L Urine Creatinine mg/dL SARS-CoV-2 (PCR) (Negative) Influenza A (RT-PCR) (NEGATIVE) Influenza B (RT-PCR) (NEGATIVE) RSV (PCR) (Negative) 02/22/22 02/22/22 02/22/22 Range/Units 08:10 08:10 16:50 WBC 7.0 7.7 (4.5-11.0) X10^3/uL RBC 3.56 L 3.57 L (4.0-5.2) X10^6/uL Hgb 10.8 L 11.1 L (12.0-16.0) g/dL Hct 31.3 L 31.5 L (36-46) % MCV 88.0 88.4 (80-100) fL MCH 30.3 31.0 (26-34) PG MCHC 34.5 35.1 (30-36) % RDW 14.2 13.9 (11.6-14.8) % Plt Count 193 199 (150-400) X10^3/uL Neut % (Auto) 67.6 73.6 (50-75) % Lymph % (Auto) 18.0 L 12.6 L (25-40) % [place] % (Auto) 10.4 10.2 (3-14) % Eos % (Auto) 3.3 3.0 (2-4) % Baso % (Auto) 0.7 0.6 (0-2) % Neut # (Auto) 4700 5600 (2006-3534) /uL Lymph # (Auto) 1300 1000 L (8640-7232) /uL [place] # (Auto) 700 800 (0-900) /uL Eos # (Auto) 200 200 (0-450) /uL Baso # (Auto) 0 0 (0-100) /uL PT 54.9 H D (10.1-12.7) SECONDS INR 4.7 H* (0.9-1.3) Sodium (137-145) mmol/L Potassium (3.4-5.1) mmol/L Chloride (98-107) mmol/L Carbon Dioxide (22-32) mmol/L BUN (7-17) mg/dL Creatinine (0.52-1.04) mg/dL Estimated GFR (>60) mL/min BUN/Creatinine Ratio (6-22) Glucose (80-110) mg/dL Uric Acid (2.5-6.2) mg/dL Calcium (8.4-10.2) mg/dL Total Bilirubin (0.2-1.3) mg/dL AST (14-36) IU/L ALT (<35) IU/L Alkaline Phosphatase (38-126) U/L Lactate Dehydrogenase (120-246) U/L Total Protein (6.3-8.2) g/dL Albumin (3.5-5.0) g/dL Globulin (1.7-4.1) g/dL Albumin/Globulin Ratio (1.0-2.8) Lipase (23-300) U/L Procalcitonin (<0.5) ng/mL Ur Random Sodium (30-90) mmol/L Urine Creatinine mg/dL SARS-CoV-2 (PCR) (Negative) Influenza A (RT-PCR) (NEGATIVE) Influenza B (RT-PCR) (NEGATIVE) RSV (PCR) (Negative) 02/22/22 02/23/22 02/23/22 Range/Units 16:50 08:22 08:22 WBC 8.4 (4.5-11.0) X10^3/uL RBC 3.34 L (4.0-5.2) X10^6/uL Hgb 10.1 L (12.0-16.0) g/dL Hct 29.9 L (36-46) % MCV 89.3 (80-100) fL MCH 30.3 (26-34) PG MCHC 34.0 (30-36) % RDW 14.0 (11.6-14.8) % Plt Count 183 (150-400) X10^3/uL Neut % (Auto) 75.8 H (50-75) % Lymph % (Auto) 9.7 L (25-40) % [place] % (Auto) 10.9 (3-14) % Eos % (Auto) 3.1 (2-4) % Baso % (Auto) 0.5 (0-2) % Neut # (Auto) 6400 (3799-5747) /uL Lymph # (Auto) 800 L (9104-6351) /uL [place] # (Auto) 900 (0-900) /uL Eos # (Auto) 300 (0-450) /uL Baso # (Auto) 0 (0-100) /uL PT 29.4 H D (10.1-12.7) SECONDS INR 2.5 H (0.9-1.3) Sodium 137 (137-145) mmol/L Potassium 4.1 (3.4-5.1) mmol/L Chloride 101 (98-107) mmol/L Carbon Dioxide 20 L (22-32) mmol/L BUN 72 H (7-17) mg/dL Creatinine 9.63 H* (0.52-1.04) mg/dL Estimated GFR 4 L (>60) mL/min BUN/Creatinine Ratio 7.5 (6-22) Glucose 112 H (80-110) mg/dL Uric Acid (2.5-6.2) mg/dL Calcium 8.9 (8.4-10.2) mg/dL Total Bilirubin 0.5 (0.2-1.3) mg/dL AST 27 (14-36) IU/L ALT 21 (<35) IU/L Alkaline Phosphatase 44 (38-126) U/L Lactate Dehydrogenase (120-246) U/L Total Protein 5.8 L (6.3-8.2) g/dL Albumin 3.1 L (3.5-5.0) g/dL Globulin 2.7 (1.7-4.1) g/dL Albumin/Globulin Ratio 1.1 (1.0-2.8) Lipase 3886 H (23-300) U/L Procalcitonin (<0.5) ng/mL Ur Random Sodium (30-90) mmol/L Urine Creatinine mg/dL SARS-CoV-2 (PCR) (Negative) Influenza A (RT-PCR) (NEGATIVE) Influenza B (RT-PCR) (NEGATIVE) RSV (PCR) (Negative) 02/23/22 02/24/22 02/24/22 Range/Units 08:22 06:17 06:17 WBC 8.5 (4.5-11.0) X10^3/uL RBC 3.16 L (4.0-5.2) X10^6/uL Hgb 9.5 L (12.0-16.0) g/dL Hct 28.4 L (36-46) % MCV 90.1 (80-100) fL MCH 30.2 (26-34) PG MCHC 33.6 (30-36) % RDW 14.1 (11.6-14.8) % Plt Count 164 (150-400) X10^3/uL Neut % (Auto) 72.9 (50-75) % Lymph % (Auto) 11.5 L (25-40) % [place] % (Auto) 10.7 (3-14) % Eos % (Auto) 4.4 H (2-4) % Baso % (Auto) 0.5 (0-2) % Neut # (Auto) 6200 (0394-4884) /uL Lymph # (Auto) 1000 L (7500-2449) /uL [place] # (Auto) 900 (0-900) /uL Eos # (Auto) 400 (0-450) /uL Baso # (Auto) 0 (0-100) /uL PT 30.8 H (10.1-12.7) SECONDS INR 2.7 H (0.9-1.3) Sodium 138 (137-145) mmol/L Potassium 4.6 (3.4-5.1) mmol/L Chloride 105 (98-107) mmol/L Carbon Dioxide 21 L (22-32) mmol/L BUN 67 H (7-17) mg/dL Creatinine 9.43 H* (0.52-1.04) mg/dL Estimated GFR 4 L (>60) mL/min BUN/Creatinine Ratio 7.1 (6-22) Glucose 113 H (80-110) mg/dL Uric Acid (2.5-6.2) mg/dL Calcium 8.7 (8.4-10.2) mg/dL Total Bilirubin 0.5 (0.2-1.3) mg/dL AST 25 (14-36) IU/L ALT 18 (<35) IU/L Alkaline Phosphatase 43 (38-126) U/L Lactate Dehydrogenase (120-246) U/L Total Protein 4.9 L (6.3-8.2) g/dL Albumin 2.6 L (3.5-5.0) g/dL Globulin 2.3 (1.7-4.1) g/dL Albumin/Globulin Ratio 1.1 (1.0-2.8) Lipase 2420 H (23-300) U/L Procalcitonin (<0.5) ng/mL Ur Random Sodium (30-90) mmol/L Urine Creatinine mg/dL SARS-CoV-2 (PCR) (Negative) Influenza A (RT-PCR) (NEGATIVE) Influenza B (RT-PCR) (NEGATIVE) RSV (PCR) (Negative) 02/24/22 02/25/22 02/25/22 Range/Units 06:17 08:25 08:25 WBC 8.5 (4.5-11.0) X10^3/uL RBC 3.37 L (4.0-5.2) X10^6/uL Hgb 10.3 L (12.0-16.0) g/dL Hct 30.3 L (36-46) % MCV 90.0 (80-100) fL MCH 30.5 (26-34) PG MCHC 33.9 (30-36) % RDW 14.5 (11.6-14.8) % Plt Count 203 (150-400) X10^3/uL Neut % (Auto) 72.9 (50-75) % Lymph % (Auto) 11.0 L (25-40) % [place] % (Auto) 9.2 (3-14) % Eos % (Auto) 6.2 H (2-4) % Baso % (Auto) 0.7 (0-2) % Neut # (Auto) 6200 (9961-4048) /uL Lymph # (Auto) 900 L (9183-7244) /uL [place] # (Auto) 800 (0-900) /uL Eos # (Auto) 500 H (0-450) /uL Baso # (Auto) 100 (0-100) /uL PT 27.7 H (10.1-12.7) SECONDS INR 2.4 H (0.9-1.3) Sodium 135 L (137-145) mmol/L Potassium 4.3 (3.4-5.1) mmol/L Chloride 108 H (98-107) mmol/L Carbon Dioxide 18 L (22-32) mmol/L BUN 64 H (7-17) mg/dL Creatinine 9.12 H* (0.52-1.04) mg/dL Estimated GFR 4 L (>60) mL/min BUN/Creatinine Ratio 7.0 (6-22) Glucose 102 (80-110) mg/dL Uric Acid (2.5-6.2) mg/dL Calcium 8.5 (8.4-10.2) mg/dL Total Bilirubin 0.5 (0.2-1.3) mg/dL AST 24 (14-36) IU/L ALT 16 (<35) IU/L Alkaline Phosphatase 41 (38-126) U/L Lactate Dehydrogenase (120-246) U/L Total Protein 5.0 L (6.3-8.2) g/dL Albumin 2.5 L (3.5-5.0) g/dL Globulin 2.5 (1.7-4.1) g/dL Albumin/Globulin Ratio 1.0 (1.0-2.8) Lipase 1539 H (23-300) U/L Procalcitonin (<0.5) ng/mL Ur Random Sodium (30-90) mmol/L Urine Creatinine mg/dL SARS-CoV-2 (PCR) (Negative) Influenza A (RT-PCR) (NEGATIVE) Influenza B (RT-PCR) (NEGATIVE) RSV (PCR) (Negative) 02/25/22 02/26/22 02/26/22 Range/Units 08:25 08:42 08:42 WBC 7.6 (4.5-11.0) X10^3/uL RBC 3.59 L (4.0-5.2) X10^6/uL Hgb 10.8 L (12.0-16.0) g/dL Hct 32.2 L (36-46) % MCV 89.7 (80-100) fL MCH 30.0 (26-34) PG MCHC 33.4 (30-36) % RDW 14.1 (11.6-14.8) % Plt Count 227 (150-400) X10^3/uL Neut % (Auto) 74.4 (50-75) % Lymph % (Auto) 11.5 L (25-40) % [place] % (Auto) 7.9 (3-14) % Eos % (Auto) 5.4 H (2-4) % Baso % (Auto) 0.8 (0-2) % Neut # (Auto) 5600 (9301-0205) /uL Lymph # (Auto) 900 L (4324-7746) /uL [place] # (Auto) 600 (0-900) /uL Eos # (Auto) 400 (0-450) /uL Baso # (Auto) 100 (0-100) /uL PT 22.4 H D (10.1-12.7) SECONDS INR 1.9 H (0.9-1.3) Sodium 136 L (137-145) mmol/L Potassium 4.6 (3.4-5.1) mmol/L Chloride 105 (98-107) mmol/L Carbon Dioxide 20 L (22-32) mmol/L BUN 61 H (7-17) mg/dL Creatinine 9.09 H* (0.52-1.04) mg/dL Estimated GFR 4 L (>60) mL/min BUN/Creatinine Ratio 6.7 (6-22) Glucose 90 (80-110) mg/dL Uric Acid (2.5-6.2) mg/dL Calcium 8.6 (8.4-10.2) mg/dL Total Bilirubin 0.5 (0.2-1.3) mg/dL AST 25 (14-36) IU/L ALT 17 (<35) IU/L Alkaline Phosphatase 48 (38-126) U/L Lactate Dehydrogenase (120-246) U/L Total Protein 5.5 L (6.3-8.2) g/dL Albumin 2.7 L (3.5-5.0) g/dL Globulin 2.8 (1.7-4.1) g/dL Albumin/Globulin Ratio 1.0 (1.0-2.8) Lipase 958 H (23-300) U/L Procalcitonin (<0.5) ng/mL Ur Random Sodium (30-90) mmol/L Urine Creatinine mg/dL SARS-CoV-2 (PCR) (Negative) Influenza A (RT-PCR) (NEGATIVE) Influenza B (RT-PCR) (NEGATIVE) RSV (PCR) (Negative) 02/26/22 02/26/22 Range/Units 08:42 08:42 WBC (4.5-11.0) X10^3/uL RBC (4.0-5.2) X10^6/uL Hgb (12.0-16.0) g/dL Hct (36-46) % MCV (80-100) fL MCH (26-34) PG MCHC (30-36) % RDW (11.6-14.8) % Plt Count (150-400) X10^3/uL Neut % (Auto) (50-75) % Lymph % (Auto) (25-40) % [place] % (Auto) (3-14) % Eos % (Auto) (2-4) % Baso % (Auto) (0-2) % Neut # (Auto) (4592-8677) /uL Lymph # (Auto) (4759-1454) /uL [place] # (Auto) (0-900) /uL Eos # (Auto) (0-450) /uL Baso # (Auto) (0-100) /uL PT (10.1-12.7) SECONDS INR (0.9-1.3) Sodium 135 L (137-145) mmol/L Potassium 4.5 (3.4-5.1) mmol/L Chloride 105 (98-107) mmol/L Carbon Dioxide 17 L (22-32) mmol/L BUN 65 H (7-17) mg/dL Creatinine 9.91 H* (0.52-1.04) mg/dL Estimated GFR 4 L (>60) mL/min BUN/Creatinine Ratio 6.6 (6-22) Glucose 149 H (80-110) mg/dL Uric Acid 4.4 (2.5-6.2) mg/dL Calcium 8.7 (8.4-10.2) mg/dL Total Bilirubin 0.5 (0.2-1.3) mg/dL AST 26 (14-36) IU/L ALT 16 (<35) IU/L Alkaline Phosphatase 51 (38-126) U/L Lactate Dehydrogenase (120-246) U/L Total Protein 5.6 L (6.3-8.2) g/dL Albumin 2.8 L (3.5-5.0) g/dL Globulin 2.8 (1.7-4.1) g/dL Albumin/Globulin Ratio 1.0 (1.0-2.8) Lipase 912 H (23-300) U/L Procalcitonin (<0.5) ng/mL Ur Random Sodium (30-90) mmol/L Urine Creatinine mg/dL SARS-CoV-2 (PCR) (Negative) Influenza A (RT-PCR) (NEGATIVE) Influenza B (RT-PCR) (NEGATIVE) RSV (PCR) (Negative) Point of Care Testing Glucose POC 101 Urine Dip Bedside Urine Glucose Negative Bedside Urine Bilirubin - Negative Bedside Urine Ketone +/- 5 Urine Specific [place] 1.015 Bedside Urine Occult Blood + Bedside Urine pH 6.0 Bedside Urine Protein ++ 100 Bedside Urine Urobilinogen - Negative Bedside Urine Nitrite - Negative Bedside Urine Leukocytes - Negative Esterase Imaging Data CT scan - abdomen/pelvis: Radiologist's Impression: No obstructive uropathy Bilateral perinephric stranding. This can be an asymptomatic finding. Pyelonephritis can appear similar noncontrast examination US - abdomen: Radiologist's Impression: Bilateral renal cysts Mild echogenic kidneys suggesting possible medical renal disease. No obstructive uropathy. ECG Data Attestation: I personally reviewed and interpreted this ECG as follows: Interpretation: Atrially sensed/ventricularly paced Rate is 63 MDM Narrative Medical decision making narrative: Patient is well-appearing. Is not tachycardic. Not hypotensive. She does have upper abdominal discomfort. Has pancreatitis based on her lipase which is most likely that the cause of all of her nausea and vomiting even her abdominal pain. She is in acute renal failure/LANIE given her creatinine of 10 and GFR 4. Prior labs that we have for her were greater than 1 year ago which has her creatinine at the 1.3-1.7 range in her GFR in the 30s. Patient has not been vomiting since arrival here to the ER. Her urinalysis today does not show any signs of an infection. CT scans did not give a definitive etiology. Her FeNa is 8.9% which is consistent with a post renal/obstructive pathology however I do not have a specific source of this as it does not appear to be an obstructive stone nor urinary retention. After 2 L of fluid her creatinine only improved slightly. Care turned over to Dr. Love to follow-up and most likely consultation with Nephrology. 02/21/22 Virgilionick-patient signed out to me by Dr. Lugo if seen evaluated patient myself. She says overall she is feeling better. No nausea vomiting no abdominal pain. Blood work today does show improvement in high mild hyperkalemia it was 5.8 now was 5 5. Improvement in her creatinine as well was 10.0 and now 9.23. Knight catheter is placed she has very clear urine draining. She continues to get IV fluids. No sign of infection. INR is found to be elevated at 7.1 thought to be somehow related to her renal failure. Vitamin K is ordered. 0900am- Dr. Cui Nephrology, updated on patient's symptoms test results at this time agrees with a bicarb drip 100 mEq for 75 an hour for about 1 day. Continue checking light. Will likely need dialysis however no beds available at [facility]. Dr lugo 02/21-02/22: Assumed care of patient. Reviewed patient's events over the day. Is on a bicarb drip. Creatinine not much improved. Patient is supratherapeutic on INR but no active bleeding. Care turned over to Dr. Love to continue to observe until disposition can be made. <Leyda Love, - Last Filed: 02/27/22 07:29> Lab Data Labs: Lab Results 02/21/22 02/21/22 02/21/22 Range/Units 01:17 01:40 01:40 WBC 9.8 (4.5-11.0) X10^3/uL RBC 4.26 (4.0-5.2) X10^6/uL Hgb 12.7 (12.0-16.0) g/dL Hct 38.4 (36-46) % MCV 90.3 (80-100) fL MCH 29.9 (26-34) PG MCHC 33.1 (30-36) % RDW 14.5 (11.6-14.8) % Plt Count 262 (150-400) X10^3/uL Neut % (Auto) 75.5 H (50-75) % Lymph % (Auto) 15.0 L (25-40) % [place] % (Auto) 7.6 (3-14) % Eos % (Auto) 1.2 L (2-4) % Baso % (Auto) 0.7 (0-2) % Neut # (Auto) 7400 H (6150-5360) /uL Lymph # (Auto) 1500 (9763-1746) /uL [place] # (Auto) 700 (0-900) /uL Eos # (Auto) 100 (0-450) /uL Baso # (Auto) 100 (0-100) /uL PT (10.1-12.7) SECONDS INR (0.9-1.3) Sodium 136 L (137-145) mmol/L Potassium 5.7 H (3.4-5.1) mmol/L Chloride 103 (98-107) mmol/L Carbon Dioxide 13 L (22-32) mmol/L BUN 67 H (7-17) mg/dL Creatinine 10.0 H* (0.52-1.04) mg/dL Estimated GFR 4 L (>60) mL/min BUN/Creatinine Ratio 6.7 (6-22) Glucose 88 (80-110) mg/dL Uric Acid (2.5-6.2) mg/dL Calcium 9.9 (8.4-10.2) mg/dL Total Bilirubin 0.7 (0.2-1.3) mg/dL AST 32 (14-36) IU/L ALT 27 (<35) IU/L Alkaline Phosphatase 54 (38-126) U/L Lactate Dehydrogenase (120-246) U/L Total Protein 7.3 (6.3-8.2) g/dL Albumin 4.2 (3.5-5.0) g/dL Globulin 3.1 (1.7-4.1) g/dL Albumin/Globulin Ratio 1.4 (1.0-2.8) Lipase 2998 H (23-300) U/L Procalcitonin (<0.5) ng/mL Ur Random Sodium (30-90) mmol/L Urine Creatinine mg/dL SARS-CoV-2 (PCR) Negative (Negative) Influenza A (RT-PCR) Flu a negative (NEGATIVE) Influenza B (RT-PCR) Flu b negative (NEGATIVE) RSV (PCR) Negative (Negative) 02/21/22 02/21/22 02/21/22 Range/Units 03:30 05:30 07:46 WBC (4.5-11.0) X10^3/uL RBC (4.0-5.2) X10^6/uL Hgb (12.0-16.0) g/dL Hct (36-46) % MCV (80-100) fL MCH (26-34) PG MCHC (30-36) % RDW (11.6-14.8) % Plt Count (150-400) X10^3/uL Neut % (Auto) (50-75) % Lymph % (Auto) (25-40) % [place] % (Auto) (3-14) % Eos % (Auto) (2-4) % Baso % (Auto) (0-2) % Neut # (Auto) (2864-5701) /uL Lymph # (Auto) (1615-4839) /uL [place] # (Auto) (0-900) /uL Eos # (Auto) (0-450) /uL Baso # (Auto) (0-100) /uL PT 82.9 H (10.1-12.7) SECONDS INR 7.1 H* (0.9-1.3) Sodium 137 (137-145) mmol/L Potassium 5.8 H (3.4-5.1) mmol/L Chloride 109 H (98-107) mmol/L Carbon Dioxide 13 L (22-32) mmol/L BUN 63 H (7-17) mg/dL Creatinine 9.15 H* (0.52-1.04) mg/dL Estimated GFR 4 L (>60) mL/min BUN/Creatinine Ratio 6.9 (6-22) Glucose 86 (80-110) mg/dL Uric Acid (2.5-6.2) mg/dL Calcium 8.4 (8.4-10.2) mg/dL Total Bilirubin (0.2-1.3) mg/dL AST (14-36) IU/L ALT (<35) IU/L Alkaline Phosphatase (38-126) U/L Lactate Dehydrogenase (120-246) U/L Total Protein (6.3-8.2) g/dL Albumin (3.5-5.0) g/dL Globulin (1.7-4.1) g/dL Albumin/Globulin Ratio (1.0-2.8) Lipase (23-300) U/L Procalcitonin (<0.5) ng/mL Ur Random Sodium 84 (30-90) mmol/L Urine Creatinine 69.7 mg/dL SARS-CoV-2 (PCR) (Negative) Influenza A (RT-PCR) (NEGATIVE) Influenza B (RT-PCR) (NEGATIVE) RSV (PCR) (Negative) 02/21/22 02/21/22 02/21/22 Range/Units 07:46 07:46 07:50 WBC (4.5-11.0) X10^3/uL RBC (4.0-5.2) X10^6/uL Hgb (12.0-16.0) g/dL Hct (36-46) % MCV (80-100) fL MCH (26-34) PG MCHC (30-36) % RDW (11.6-14.8) % Plt Count (150-400) X10^3/uL Neut % (Auto) (50-75) % Lymph % (Auto) (25-40) % [place] % (Auto) (3-14) % Eos % (Auto) (2-4) % Baso % (Auto) (0-2) % Neut # (Auto) (2933-0758) /uL Lymph # (Auto) (4815-5138) /uL [place] # (Auto) (0-900) /uL Eos # (Auto) (0-450) /uL Baso # (Auto) (0-100) /uL PT (10.1-12.7) SECONDS INR (0.9-1.3) Sodium 139 (137-145) mmol/L Potassium 5.5 H (3.4-5.1) mmol/L Chloride 109 H (98-107) mmol/L Carbon Dioxide 13 L (22-32) mmol/L BUN 65 H (7-17) mg/dL Creatinine 9.23 H* (0.52-1.04) mg/dL Estimated GFR 4 L (>60) mL/min BUN/Creatinine Ratio 7.0 (6-22) Glucose 82 (80-110) mg/dL Uric Acid (2.5-6.2) mg/dL Calcium 8.4 (8.4-10.2) mg/dL Total Bilirubin (0.2-1.3) mg/dL AST (14-36) IU/L ALT (<35) IU/L Alkaline Phosphatase (38-126) U/L Lactate Dehydrogenase 231 (120-246) U/L Total Protein (6.3-8.2) g/dL Albumin (3.5-5.0) g/dL Globulin (1.7-4.1) g/dL Albumin/Globulin Ratio (1.0-2.8) Lipase 2978 H (23-300) U/L Procalcitonin 0.33 (<0.5) ng/mL Ur Random Sodium (30-90) mmol/L Urine Creatinine mg/dL SARS-CoV-2 (PCR) (Negative) Influenza A (RT-PCR) (NEGATIVE) Influenza B (RT-PCR) (NEGATIVE) RSV (PCR) (Negative) 02/21/22 02/21/22 02/22/22 Range/Units 12:00 18:00 07:00 WBC (4.5-11.0) X10^3/uL RBC (4.0-5.2) X10^6/uL Hgb (12.0-16.0) g/dL Hct (36-46) % MCV (80-100) fL MCH (26-34) PG MCHC (30-36) % RDW (11.6-14.8) % Plt Count (150-400) X10^3/uL Neut % (Auto) (50-75) % Lymph % (Auto) (25-40) % [place] % (Auto) (3-14) % Eos % (Auto) (2-4) % Baso % (Auto) (0-2) % Neut # (Auto) (5519-1258) /uL Lymph # (Auto) (4445-7928) /uL [place] # (Auto) (0-900) /uL Eos # (Auto) (0-450) /uL Baso # (Auto) (0-100) /uL PT (10.1-12.7) SECONDS INR (0.9-1.3) Sodium 138 137 137 (137-145) mmol/L Potassium 5.5 H 4.4 4.0 (3.4-5.1) mmol/L Chloride 110 H 103 100 (98-107) mmol/L Carbon Dioxide 13 L 16 L 23 (22-32) mmol/L BUN 64 H 67 H 72 H (7-17) mg/dL Creatinine 9.00 H* 9.00 H* 9.31 H* (0.52-1.04) mg/dL Estimated GFR 4 L 4 L 4 L (>60) mL/min BUN/Creatinine Ratio 7.1 7.4 7.7 (6-22) Glucose 78 L 170 H 132 H (80-110) mg/dL Uric Acid (2.5-6.2) mg/dL Calcium 8.0 L 8.2 L 8.7 (8.4-10.2) mg/dL Total Bilirubin 0.5 (0.2-1.3) mg/dL AST 25 (14-36) IU/L ALT 21 (<35) IU/L Alkaline Phosphatase 41 (38-126) U/L Lactate Dehydrogenase (120-246) U/L Total Protein 5.7 L (6.3-8.2) g/dL Albumin 3.1 L (3.5-5.0) g/dL Globulin 2.6 (1.7-4.1) g/dL Albumin/Globulin Ratio 1.2 (1.0-2.8) Lipase 3228 H (23-300) U/L Procalcitonin (<0.5) ng/mL Ur Random Sodium (30-90) mmol/L Urine Creatinine mg/dL SARS-CoV-2 (PCR) (Negative) Influenza A (RT-PCR) (NEGATIVE) Influenza B (RT-PCR) (NEGATIVE) RSV (PCR) (Negative) 02/22/22 02/22/22 02/22/22 Range/Units 08:10 08:10 16:50 WBC 7.0 7.7 (4.5-11.0) X10^3/uL RBC 3.56 L 3.57 L (4.0-5.2) X10^6/uL Hgb 10.8 L 11.1 L (12.0-16.0) g/dL Hct 31.3 L 31.5 L (36-46) % MCV 88.0 88.4 (80-100) fL MCH 30.3 31.0 (26-34) PG MCHC 34.5 35.1 (30-36) % RDW 14.2 13.9 (11.6-14.8) % Plt Count 193 199 (150-400) X10^3/uL Neut % (Auto) 67.6 73.6 (50-75) % Lymph % (Auto) 18.0 L 12.6 L (25-40) % [place] % (Auto) 10.4 10.2 (3-14) % Eos % (Auto) 3.3 3.0 (2-4) % Baso % (Auto) 0.7 0.6 (0-2) % Neut # (Auto) 4700 5600 (2061-8558) /uL Lymph # (Auto) 1300 1000 L (8933-0487) /uL [place] # (Auto) 700 800 (0-900) /uL Eos # (Auto) 200 200 (0-450) /uL Baso # (Auto) 0 0 (0-100) /uL PT 54.9 H D (10.1-12.7) SECONDS INR 4.7 H* (0.9-1.3) Sodium (137-145) mmol/L Potassium (3.4-5.1) mmol/L Chloride (98-107) mmol/L Carbon Dioxide (22-32) mmol/L BUN (7-17) mg/dL Creatinine (0.52-1.04) mg/dL Estimated GFR (>60) mL/min BUN/Creatinine Ratio (6-22) Glucose (80-110) mg/dL Uric Acid (2.5-6.2) mg/dL Calcium (8.4-10.2) mg/dL Total Bilirubin (0.2-1.3) mg/dL AST (14-36) IU/L ALT (<35) IU/L Alkaline Phosphatase (38-126) U/L Lactate Dehydrogenase (120-246) U/L Total Protein (6.3-8.2) g/dL Albumin (3.5-5.0) g/dL Globulin (1.7-4.1) g/dL Albumin/Globulin Ratio (1.0-2.8) Lipase (23-300) U/L Procalcitonin (<0.5) ng/mL Ur Random Sodium (30-90) mmol/L Urine Creatinine mg/dL SARS-CoV-2 (PCR) (Negative) Influenza A (RT-PCR) (NEGATIVE) Influenza B (RT-PCR) (NEGATIVE) RSV (PCR) (Negative) 02/22/22 02/23/22 02/23/22 Range/Units 16:50 08:22 08:22 WBC 8.4 (4.5-11.0) X10^3/uL RBC 3.34 L (4.0-5.2) X10^6/uL Hgb 10.1 L (12.0-16.0) g/dL Hct 29.9 L (36-46) % MCV 89.3 (80-100) fL MCH 30.3 (26-34) PG MCHC 34.0 (30-36) % RDW 14.0 (11.6-14.8) % Plt Count 183 (150-400) X10^3/uL Neut % (Auto) 75.8 H (50-75) % Lymph % (Auto) 9.7 L (25-40) % [place] % (Auto) 10.9 (3-14) % Eos % (Auto) 3.1 (2-4) % Baso % (Auto) 0.5 (0-2) % Neut # (Auto) 6400 (3510-4188) /uL Lymph # (Auto) 800 L (1846-4750) /uL [place] # (Auto) 900 (0-900) /uL Eos # (Auto) 300 (0-450) /uL Baso # (Auto) 0 (0-100) /uL PT 29.4 H D (10.1-12.7) SECONDS INR 2.5 H (0.9-1.3) Sodium 137 (137-145) mmol/L Potassium 4.1 (3.4-5.1) mmol/L Chloride 101 (98-107) mmol/L Carbon Dioxide 20 L (22-32) mmol/L BUN 72 H (7-17) mg/dL Creatinine 9.63 H* (0.52-1.04) mg/dL Estimated GFR 4 L (>60) mL/min BUN/Creatinine Ratio 7.5 (6-22) Glucose 112 H (80-110) mg/dL Uric Acid (2.5-6.2) mg/dL Calcium 8.9 (8.4-10.2) mg/dL Total Bilirubin 0.5 (0.2-1.3) mg/dL AST 27 (14-36) IU/L ALT 21 (<35) IU/L Alkaline Phosphatase 44 (38-126) U/L Lactate Dehydrogenase (120-246) U/L Total Protein 5.8 L (6.3-8.2) g/dL Albumin 3.1 L (3.5-5.0) g/dL Globulin 2.7 (1.7-4.1) g/dL Albumin/Globulin Ratio 1.1 (1.0-2.8) Lipase 3886 H (23-300) U/L Procalcitonin (<0.5) ng/mL Ur Random Sodium (30-90) mmol/L Urine Creatinine mg/dL SARS-CoV-2 (PCR) (Negative) Influenza A (RT-PCR) (NEGATIVE) Influenza B (RT-PCR) (NEGATIVE) RSV (PCR) (Negative) 02/23/22 02/24/22 02/24/22 Range/Units 08:22 06:17 06:17 WBC 8.5 (4.5-11.0) X10^3/uL RBC 3.16 L (4.0-5.2) X10^6/uL Hgb 9.5 L (12.0-16.0) g/dL Hct 28.4 L (36-46) % MCV 90.1 (80-100) fL MCH 30.2 (26-34) PG MCHC 33.6 (30-36) % RDW 14.1 (11.6-14.8) % Plt Count 164 (150-400) X10^3/uL Neut % (Auto) 72.9 (50-75) % Lymph % (Auto) 11.5 L (25-40) % [place] % (Auto) 10.7 (3-14) % Eos % (Auto) 4.4 H (2-4) % Baso % (Auto) 0.5 (0-2) % Neut # (Auto) 6200 (6831-4061) /uL Lymph # (Auto) 1000 L (2689-9633) /uL [place] # (Auto) 900 (0-900) /uL Eos # (Auto) 400 (0-450) /uL Baso # (Auto) 0 (0-100) /uL PT 30.8 H (10.1-12.7) SECONDS INR 2.7 H (0.9-1.3) Sodium 138 (137-145) mmol/L Potassium 4.6 (3.4-5.1) mmol/L Chloride 105 (98-107) mmol/L Carbon Dioxide 21 L (22-32) mmol/L BUN 67 H (7-17) mg/dL Creatinine 9.43 H* (0.52-1.04) mg/dL Estimated GFR 4 L (>60) mL/min BUN/Creatinine Ratio 7.1 (6-22) Glucose 113 H (80-110) mg/dL Uric Acid (2.5-6.2) mg/dL Calcium 8.7 (8.4-10.2) mg/dL Total Bilirubin 0.5 (0.2-1.3) mg/dL AST 25 (14-36) IU/L ALT 18 (<35) IU/L Alkaline Phosphatase 43 (38-126) U/L Lactate Dehydrogenase (120-246) U/L Total Protein 4.9 L (6.3-8.2) g/dL Albumin 2.6 L (3.5-5.0) g/dL Globulin 2.3 (1.7-4.1) g/dL Albumin/Globulin Ratio 1.1 (1.0-2.8) Lipase 2420 H (23-300) U/L Procalcitonin (<0.5) ng/mL Ur Random Sodium (30-90) mmol/L Urine Creatinine mg/dL SARS-CoV-2 (PCR) (Negative) Influenza A (RT-PCR) (NEGATIVE) Influenza B (RT-PCR) (NEGATIVE) RSV (PCR) (Negative) 02/24/22 02/25/22 02/25/22 Range/Units 06:17 08:25 08:25 WBC 8.5 (4.5-11.0) X10^3/uL RBC 3.37 L (4.0-5.2) X10^6/uL Hgb 10.3 L (12.0-16.0) g/dL Hct 30.3 L (36-46) % MCV 90.0 (80-100) fL MCH 30.5 (26-34) PG MCHC 33.9 (30-36) % RDW 14.5 (11.6-14.8) % Plt Count 203 (150-400) X10^3/uL Neut % (Auto) 72.9 (50-75) % Lymph % (Auto) 11.0 L (25-40) % [place] % (Auto) 9.2 (3-14) % Eos % (Auto) 6.2 H (2-4) % Baso % (Auto) 0.7 (0-2) % Neut # (Auto) 6200 (2419-0728) /uL Lymph # (Auto) 900 L (6281-2528) /uL [place] # (Auto) 800 (0-900) /uL Eos # (Auto) 500 H (0-450) /uL Baso # (Auto) 100 (0-100) /uL PT 27.7 H (10.1-12.7) SECONDS INR 2.4 H (0.9-1.3) Sodium 135 L (137-145) mmol/L Potassium 4.3 (3.4-5.1) mmol/L Chloride 108 H (98-107) mmol/L Carbon Dioxide 18 L (22-32) mmol/L BUN 64 H (7-17) mg/dL Creatinine 9.12 H* (0.52-1.04) mg/dL Estimated GFR 4 L (>60) mL/min BUN/Creatinine Ratio 7.0 (6-22) Glucose 102 (80-110) mg/dL Uric Acid (2.5-6.2) mg/dL Calcium 8.5 (8.4-10.2) mg/dL Total Bilirubin 0.5 (0.2-1.3) mg/dL AST 24 (14-36) IU/L ALT 16 (<35) IU/L Alkaline Phosphatase 41 (38-126) U/L Lactate Dehydrogenase (120-246) U/L Total Protein 5.0 L (6.3-8.2) g/dL Albumin 2.5 L (3.5-5.0) g/dL Globulin 2.5 (1.7-4.1) g/dL Albumin/Globulin Ratio 1.0 (1.0-2.8) Lipase 1539 H (23-300) U/L Procalcitonin (<0.5) ng/mL Ur Random Sodium (30-90) mmol/L Urine Creatinine mg/dL SARS-CoV-2 (PCR) (Negative) Influenza A (RT-PCR) (NEGATIVE) Influenza B (RT-PCR) (NEGATIVE) RSV (PCR) (Negative) 02/25/22 02/26/22 02/26/22 Range/Units 08:25 08:42 08:42 WBC 7.6 (4.5-11.0) X10^3/uL RBC 3.59 L (4.0-5.2) X10^6/uL Hgb 10.8 L (12.0-16.0) g/dL Hct 32.2 L (36-46) % MCV 89.7 (80-100) fL MCH 30.0 (26-34) PG MCHC 33.4 (30-36) % RDW 14.1 (11.6-14.8) % Plt Count 227 (150-400) X10^3/uL Neut % (Auto) 74.4 (50-75) % Lymph % (Auto) 11.5 L (25-40) % [place] % (Auto) 7.9 (3-14) % Eos % (Auto) 5.4 H (2-4) % Baso % (Auto) 0.8 (0-2) % Neut # (Auto) 5600 (3126-1235) /uL Lymph # (Auto) 900 L (6800-9498) /uL [place] # (Auto) 600 (0-900) /uL Eos # (Auto) 400 (0-450) /uL Baso # (Auto) 100 (0-100) /uL PT 22.4 H D (10.1-12.7) SECONDS INR 1.9 H (0.9-1.3) Sodium 136 L (137-145) mmol/L Potassium 4.6 (3.4-5.1) mmol/L Chloride 105 (98-107) mmol/L Carbon Dioxide 20 L (22-32) mmol/L BUN 61 H (7-17) mg/dL Creatinine 9.09 H* (0.52-1.04) mg/dL Estimated GFR 4 L (>60) mL/min BUN/Creatinine Ratio 6.7 (6-22) Glucose 90 (80-110) mg/dL Uric Acid (2.5-6.2) mg/dL Calcium 8.6 (8.4-10.2) mg/dL Total Bilirubin 0.5 (0.2-1.3) mg/dL AST 25 (14-36) IU/L ALT 17 (<35) IU/L Alkaline Phosphatase 48 (38-126) U/L Lactate Dehydrogenase (120-246) U/L Total Protein 5.5 L (6.3-8.2) g/dL Albumin 2.7 L (3.5-5.0) g/dL Globulin 2.8 (1.7-4.1) g/dL Albumin/Globulin Ratio 1.0 (1.0-2.8) Lipase 958 H (23-300) U/L Procalcitonin (<0.5) ng/mL Ur Random Sodium (30-90) mmol/L Urine Creatinine mg/dL SARS-CoV-2 (PCR) (Negative) Influenza A (RT-PCR) (NEGATIVE) Influenza B (RT-PCR) (NEGATIVE) RSV (PCR) (Negative) 02/26/22 02/26/22 Range/Units 08:42 08:42 WBC (4.5-11.0) X10^3/uL RBC (4.0-5.2) X10^6/uL Hgb (12.0-16.0) g/dL Hct (36-46) % MCV (80-100) fL MCH (26-34) PG MCHC (30-36) % RDW (11.6-14.8) % Plt Count (150-400) X10^3/uL Neut % (Auto) (50-75) % Lymph % (Auto) (25-40) % [place] % (Auto) (3-14) % Eos % (Auto) (2-4) % Baso % (Auto) (0-2) % Neut # (Auto) (1958-5643) /uL Lymph # (Auto) (7954-8156) /uL [place] # (Auto) (0-900) /uL Eos # (Auto) (0-450) /uL Baso # (Auto) (0-100) /uL PT (10.1-12.7) SECONDS INR (0.9-1.3) Sodium 135 L (137-145) mmol/L Potassium 4.5 (3.4-5.1) mmol/L Chloride 105 (98-107) mmol/L Carbon Dioxide 17 L (22-32) mmol/L BUN 65 H (7-17) mg/dL Creatinine 9.91 H* (0.52-1.04) mg/dL Estimated GFR 4 L (>60) mL/min BUN/Creatinine Ratio 6.6 (6-22) Glucose 149 H (80-110) mg/dL Uric Acid 4.4 (2.5-6.2) mg/dL Calcium 8.7 (8.4-10.2) mg/dL Total Bilirubin 0.5 (0.2-1.3) mg/dL AST 26 (14-36) IU/L ALT 16 (<35) IU/L Alkaline Phosphatase 51 (38-126) U/L Lactate Dehydrogenase (120-246) U/L Total Protein 5.6 L (6.3-8.2) g/dL Albumin 2.8 L (3.5-5.0) g/dL Globulin 2.8 (1.7-4.1) g/dL Albumin/Globulin Ratio 1.0 (1.0-2.8) Lipase 912 H (23-300) U/L Procalcitonin (<0.5) ng/mL Ur Random Sodium (30-90) mmol/L Urine Creatinine mg/dL SARS-CoV-2 (PCR) (Negative) Influenza A (RT-PCR) (NEGATIVE) Influenza B (RT-PCR) (NEGATIVE) RSV (PCR) (Negative) Point of Care Testing Glucose POC 101 Urine Dip Bedside Urine Glucose Negative Bedside Urine Bilirubin - Negative Bedside Urine Ketone +/- 5 Urine Specific [place] 1.015 Bedside Urine Occult Blood + Bedside Urine pH 6.0 Bedside Urine Protein ++ 100 Bedside Urine Urobilinogen - Negative Bedside Urine Nitrite - Negative Bedside Urine Leukocytes - Negative Esterase MDM Narrative Medical decision making narrative: Patient is well-appearing. Is not tachycardic. Not hypotensive. She does have upper abdominal discomfort. Has pancreatitis based on her lipase which is most likely that the cause of all of her nausea and vomiting even her abdominal pain. She is in acute renal failure/LANIE given her creatinine of 10 and GFR 4. Prior labs that we have for her were greater than 1 year ago which has her creatinine at the 1.3-1.7 range in her GFR in the 30s. Patient has not been vomiting since arrival here to the ER. Her urinalysis today does not show any signs of an infection. CT scans did not give a definitive etiology. Her FeNa is 8.9% which is consistent with a post renal/obstructive pathology however I do not have a specific source of this as it does not appear to be an obstructive stone nor urinary retention. After 2 L of fluid her creatinine only improved slightly. Care turned over to Dr. Love to follow-up and most likely consultation with Nephrology. 02/21/22 Ivan-patient signed out to me by Dr. Lugo if seen evaluated patient myself. She says overall she is feeling better. No nausea vomiting no abdominal pain. Blood work today does show improvement in high mild hyperkalemia it was 5.8 now was 5 5. Improvement in her creatinine as well was 10.0 and now 9.23. Knight catheter is placed she has very clear urine draining. She continues to get IV fluids. No sign of infection. INR is found to be elevated at 7.1 thought to be somehow related to her renal failure. Vitamin K is ordered. 0900am- Dr. Cui Nephrology, updated on patient's symptoms test results at this time agrees with a bicarb drip 100 mEq for 75 an hour for about 1 day. Continue checking light. Will likely need dialysis however no beds available at [facility]. Dr lugo 02/21-02/22: Assumed care of patient. Reviewed patient's events over the day. Is on a bicarb drip. Creatinine not much improved. Patient is supratherapeutic on INR but no active bleeding. Care turned over to Dr. Love to continue to observe until disposition can be made. 02/22/2022 8am Ivan- patient seen evaluated by myself. Awaiting for morning blood work. She has mild pain requesting her Pulmicort. But overall eating breakfast. Blood work over last night does show improvement in bicarb creatinine remains about the same. Urine output did decreased throughout the day and last night, 200 cc out last night. 1100am Spoke wiht Dr. Abebe, nephrology, updated on patient's symptoms test results agrees with stopping bicarb drip. Recommends giving a large dose of Lasix to help stimulate the kidneys. Can stop IV fluids if she is eating and drinking. Agrees with continuing to find placement and transfer for probable dialysis. Spoke with Dr. Mathew nixon, nephrologists in [place], [place], patient apparently has seen nephrology previously she saw them once in April and once in September creatinine was 2 and then 1 had complete workup was told did not need any further follow-up. No renal biopsy was done at that time. Clearly in acute renal failure at this time. Patient is having increasing abdominal pain lipase continues to be elevated at 3900 for this reason fluids are continued. She did respond well to 120 mg of Lasix she would significant urine output. Continuing to still try and transfer for need for dialysis. However potassium and bicarb are significantly improved. Patient signed out to Dr. Dianna Bustamante 02/22/22: Patient signed out to myself by Dr. Love. Patient is in acute renal failure, with creatinine being 10 on 02/21/2022 and is currently 9.6 today on 02/22/2022 at 4:50 a.m. in the afternoon. Patient's potassium has improved from 5.7-4.1, her bicarb is slowly improving from 13-20, patient is continued on LR at this time she does appear to be developing some pancreatitis. Glucose has been appropriate on daily labs, lipase is slowly trending upwards it was 2998 on the and is [address] from 02/21/2022 shows nonobstructing right renal calculus, no hydro obstructive uropathy, nonspecific bilateral perinephric stranding noted, 5 cm stable mural calcifications in the liver as well as a 4 cm left renal cyst and a 7 mm nonobstructing right renal calculus. Patient had been seen on the for possible infection had been started on oral antibiotic and that urine culture grew Enterobacter Kurt's greater than 100,000 CFU, patient appears to have sensitivities to cefepime which was started 500 mg x1 followed by 250 mg to be given Q [address] Love had spoken with Nephrology at [facility] yesterday they agree with stopping the bicarb drip they did recommend giving a large dose of Lasix to stimulate kidneys which did seem to be helpful. 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 Patient has a.m. labs ordered, continuing to seek placement for Nephrology and to initiate dialysis, patient signed out to Dr. Scott. February 23, 2022 at 10:00 a.m.. Spoke with patient and family results of laboratory studies this morning. No significant change in creatinine however IN R has improved. Lipase has improved. CT scan imaging does not show pancreatitis. Ultrasound does not show cholecystitis, does not show any gallstones. Liver enzymes are reassuring at this time. They do understand need for transfer for Nephrology Services evaluation, even possible dialysis. Tracy hernandez does have Knight catheter in place. Is making urine 6:[address] Bustamante, new issues during today. Family has been trying to transfer patient to a hospital in [place]. However patient still on waiting list here. No significant changes in blood work. 02/24/2022 Dianna: Patient signed out myself. No additional issues throughout the day. Patient is on waiting list for transfer to possible hospital [place] where she lives. Her was able to help try to find a bed. Patient's labs have been, patient is eating and drinking still making urine. Lipase appears to be trending down words. Patient has labs ordered for this morning, did see independently evaluated herself this morning. She was up we chatted briefly she would like to be more mobile at this time and not be boarding in the emergency department anymore but otherwise does not have any other complaints currently. Patient's diet was upgraded to renal diet. Patient urine culture does show enterobacter and shows sensitivities to cefepime she is on daily. Patient signed out to Dr. Smith while awaiting transfer. Dr Smith 02/24/2022 8am ED observation/progress note 71-year-old woman presents with severe nausea vomiting diarrhea belly pain.? Was seen on February 18 with acute UTI, started on .? Continued to feel worse was re-evaluated on 1230.? Urine has eventually grown out Enterobacter with following sensitivies ? --------- --- ? * Amoxicillin/Clavulanate? >=32? R? * Cefazolin? >=64? R? * Cefepime? <=1? S? * Ceftriaxone? 16? I? * Ciprofloxacin? <=0.25??? S? * Ertapenem? <=0.5??? S? * Gentamicin? <=1? S? * Imipenem? 0.5? S? * Levofloxacin? <=0.12??? S? * Nitrofurantoin? 128? R? * Tobramycin? <=1? S? * Trimethoprim/Sulfamethoxazole??? <=20? S? * Piperacillin/Tazobactam? >=128??? R? CT scan shows a nonobstructing right renal calculus with nonspecific bilateral perinephric stranding. INR was elevated on 02/21 at 7.1 without evidence of bleeding Newly diagnosed renal? failure with creatinine 9.15 , K= 5..8, CO2=13 Objective Vital stable Chest:? Regular breathing, no respiratory distress Cardiac: regular rate and rhythm Abdomen: Minor epigastric tenderness, no rebound or guarding Assessment and plan 1.? Hospital boarding day 3, ?pyelonephritis with Enterobacter, currently on cefepime with no evidence of sepsis.? 2.? Severe vomiting and diarrhea with acute renal failure.? Now off bicarb drip does need axis and will need dialysis.? I have talked to all available facilities up and down the eye 5 quarter and no beds are available.? We will again review with Nephrology at [facility], Dr. Mead and see if arranging for dialysis access to at least be done today would be helpful 3.? Vomiting and diarrhea.? At this point controlled she has not had any diarrhea since the .? She is making minimal amounts of non concentrated urine. 4.? Additional medical problems include stroke for which he is anticoagulated with INR initially significantly elevated but no active bl eeding.? Labs are currently pending this morning with repeat INR 5.? History of diabetes, atrial fibrillation, cardiomyopathy, hypertension, hyperlipidemia with home meds all restarted 6.? Will continue to work on bed availability.? [facility] is involved. 9:55 am Reviewed with Nephrology, Dr Marshall, at [facility]. Recommended continuing LR at 1:50 a.m. an hour as ordered, starting 80 mg of Lasix 3 times a day IV as long as systolic pressures are above 100. Did not think that trying to facilitate dialysis access prior to being seen by a building code inspector would be particularly helpful. Will continue working on bed availability. 945 long discussion with her . He is increasingly frustrated with the weights and inability to transfer her. Is wondering why we simply can not do an ED to ED transfer. Did review EMTALA restraints regarding transfer. He is talking to PCP an organ about possible transfer to [facility]. 245pm Patient [place] Talking with the local hospital, [facility]. Dr Nixon is pt's own nephroloigst and has priveleges at [facility]. Pt has medical evac insurance and they have indicated they will pay for transport to [facility] in light of no bed capacity. Will continue to pursue this option. 02/25/22 @13:17 I assumed care of this patient at change of shift, check out from Dr. Lugo. She presented here several days ago, diagnosed with UTI. She is intra back to her pyelonephritis. She also has pancreatitis. She lost appetite several days before onset of symptoms. She is history of hypertension diabetes. She is found to be in acute renal failure with Cr >9. Her GFR is 4. She is on cefepime. She still makes a small amount of urine. She has mild upper abdominal pain. She does not feel like she currently needs pain or nausea med ications. She is been given a diet, but oral intake is minimal. She is no back pain. She is no fever chills. A facility was not accepting physician has been found in [place], the patient has travel insurance. Transportation has been arranged. At this time, transportation may not occur Ortho tomorrow. Regarding her abdominal pain, she has upper abdominal discomfort, but no guarding or rebound. She is normal bowel sounds. She is left arm erythema, the erythema started suddenly after an IV started several days ago immediately during the IV start. Ultrasound revealed no evidence of DVT. She is anticoagulated. I suspect the erythema is related to hemorrhage at the time of the IV start. Current treatment plan will be continued, awaiting transportation.Phil SANCHEZ. [0700] (Corey) Patient received in sign out from [Brittney]. I have reviewed the clinical course and performed an independent history and physical exam. Patient resting comfortably without any significant events overnight. She is stable per her own admission. Repeat labs reviewed and demonstrate expected abnormalities. Expectant arrival of transport team later today. <Melody Bustamante, - Last Filed: 02/24/22 06:26> Lab Data Labs: Lab Results 02/21/22 02/21/22 02/21/22 Range/Units 01:17 01:40 01:40 WBC 9.8 (4.5-11.0) X10^3/uL RBC 4.26 (4.0-5.2) X10^6/uL Hgb 12.7 (12.0-16.0) g/dL Hct 38.4 (36-46) % MCV 90.3 (80-100) fL MCH 29.9 (26-34) PG MCHC 33.1 (30-36) % RDW 14.5 (11.6-14.8) % Plt Count 262 (150-400) X10^3/uL Neut % (Auto) 75.5 H (50-75) % Lymph % (Auto) 15.0 L (25-40) % [place] % (Auto) 7.6 (3-14) % Eos % (Auto) 1.2 L (2-4) % Baso % (Auto) 0.7 (0-2) % Neut # (Auto) 7400 H (7528-2127) /uL Lymph # (Auto) 1500 (7817-2075) /uL [place] # (Auto) 700 (0-900) /uL Eos # (Auto) 100 (0-450) /uL Baso # (Auto) 100 (0-100) /uL PT (10.1-12.7) SECONDS INR (0.9-1.3) Sodium 136 L (137-145) mmol/L Potassium 5.7 H (3.4-5.1) mmol/L Chloride 103 (98-107) mmol/L Carbon Dioxide 13 L (22-32) mmol/L BUN 67 H (7-17) mg/dL Creatinine 10.0 H* (0.52-1.04) mg/dL Estimated GFR 4 L (>60) mL/min BUN/Creatinine Ratio 6.7 (6-22) Glucose 88 (80-110) mg/dL Uric Acid (2.5-6.2) mg/dL Calcium 9.9 (8.4-10.2) mg/dL Total Bilirubin 0.7 (0.2-1.3) mg/dL AST 32 (14-36) IU/L ALT 27 (<35) IU/L Alkaline Phosphatase 54 (38-126) U/L Lactate Dehydrogenase (120-246) U/L Total Protein 7.3 (6.3-8.2) g/dL Albumin 4.2 (3.5-5.0) g/dL Globulin 3.1 (1.7-4.1) g/dL Albumin/Globulin Ratio 1.4 (1.0-2.8) Lipase 2998 H (23-300) U/L Procalcitonin (<0.5) ng/mL Ur Random Sodium (30-90) mmol/L Urine Creatinine mg/dL SARS-CoV-2 (PCR) Negative (Negative) Influenza A (RT-PCR) Flu a negative (NEGATIVE) Influenza B (RT-PCR) Flu b negative (NEGATIVE) RSV (PCR) Negative (Negative) 02/21/22 02/21/22 02/21/22 Range/Units 03:30 05:30 07:46 WBC (4.5-11.0) X10^3/uL RBC (4.0-5.2) X10^6/uL Hgb (12.0-16.0) g/dL Hct (36-46) % MCV (80-100) fL MCH (26-34) PG MCHC (30-36) % RDW (11.6-14.8) % Plt Count (150-400) X10^3/uL Neut % (Auto) (50-75) % Lymph % (Auto) (25-40) % [place] % (Auto) (3-14) % Eos % (Auto) (2-4) % Baso % (Auto) (0-2) % Neut # (Auto) (0760-8789) /uL Lymph # (Auto) (3744-4289) /uL [place] # (Auto) (0-900) /uL Eos # (Auto) (0-450) /uL Baso # (Auto) (0-100) /uL PT 82.9 H (10.1-12.7) SECONDS INR 7.1 H* (0.9-1.3) Sodium 137 (137-145) mmol/L Potassium 5.8 H (3.4-5.1) mmol/L Chloride 109 H (98-107) mmol/L Carbon Dioxide 13 L (22-32) mmol/L BUN 63 H (7-17) mg/dL Creatinine 9.15 H* (0.52-1.04) mg/dL Estimated GFR 4 L (>60) mL/min BUN/Creatinine Ratio 6.9 (6-22) Glucose 86 (80-110) mg/dL Uric Acid (2.5-6.2) mg/dL Calcium 8.4 (8.4-10.2) mg/dL Total Bilirubin (0.2-1.3) mg/dL AST (14-36) IU/L ALT (<35) IU/L Alkaline Phosphatase (38-126) U/L Lactate Dehydrogenase (120-246) U/L Total Protein (6.3-8.2) g/dL Albumin (3.5-5.0) g/dL Globulin (1.7-4.1) g/dL Albumin/Globulin Ratio (1.0-2.8) Lipase (23-300) U/L Procalcitonin (<0.5) ng/mL Ur Random Sodium 84 (30-90) mmol/L Urine Creatinine 69.7 mg/dL SARS-CoV-2 (PCR) (Negative) Influenza A (RT-PCR) (NEGATIVE) Influenza B (RT-PCR) (NEGATIVE) RSV (PCR) (Negative) 02/21/22 02/21/22 02/21/22 Range/Units 07:46 07:46 07:50 WBC (4.5-11.0) X10^3/uL RBC (4.0-5.2) X10^6/uL Hgb (12.0-16.0) g/dL Hct (36-46) % MCV (80-100) fL MCH (26-34) PG MCHC (30-36) % RDW (11.6-14.8) % Plt Count (150-400) X10^3/uL Neut % (Auto) (50-75) % Lymph % (Auto) (25-40) % [place] % (Auto) (3-14) % Eos % (Auto) (2-4) % Baso % (Auto) (0-2) % Neut # (Auto) (8193-1008) /uL Lymph # (Auto) (3046-4040) /uL [place] # (Auto) (0-900) /uL Eos # (Auto) (0-450) /uL Baso # (Auto) (0-100) /uL PT (10.1-12.7) SECONDS INR (0.9-1.3) Sodium 139 (137-145) mmol/L Potassium 5.5 H (3.4-5.1) mmol/L Chloride 109 H (98-107) mmol/L Carbon Dioxide 13 L (22-32) mmol/L BUN 65 H (7-17) mg/dL Creatinine 9.23 H* (0.52-1.04) mg/dL Estimated GFR 4 L (>60) mL/min BUN/Creatinine Ratio 7.0 (6-22) Glucose 82 (80-110) mg/dL Uric Acid (2.5-6.2) mg/dL Calcium 8.4 (8.4-10.2) mg/dL Total Bilirubin (0.2-1.3) mg/dL AST (14-36) IU/L ALT (<35) IU/L Alkaline Phosphatase (38-126) U/L Lactate Dehydrogenase 231 (120-246) U/L Total Protein (6.3-8.2) g/dL Albumin (3.5-5.0) g/dL Globulin (1.7-4.1) g/dL Albumin/Globulin Ratio (1.0-2.8) Lipase 2978 H (23-300) U/L Procalcitonin 0.33 (<0.5) ng/mL Ur Random Sodium (30-90) mmol/L Urine Creatinine mg/dL SARS-CoV-2 (PCR) (Negative) Influenza A (RT-PCR) (NEGATIVE) Influenza B (RT-PCR) (NEGATIVE) RSV (PCR) (Negative) 02/21/22 02/21/22 02/22/22 Range/Units 12:00 18:00 07:00 WBC (4.5-11.0) X10^3/uL RBC (4.0-5.2) X10^6/uL Hgb (12.0-16.0) g/dL Hct (36-46) % MCV (80-100) fL MCH (26-34) PG MCHC (30-36) % RDW (11.6-14.8) % Plt Count (150-400) X10^3/uL Neut % (Auto) (50-75) % Lymph % (Auto) (25-40) % [place] % (Auto) (3-14) % Eos % (Auto) (2-4) % Baso % (Auto) (0-2) % Neut # (Auto) (8808-1193) /uL Lymph # (Auto) (9600-3786) /uL [place] # (Auto) (0-900) /uL Eos # (Auto) (0-450) /uL Baso # (Auto) (0-100) /uL PT (10.1-12.7) SECONDS INR (0.9-1.3) Sodium 138 137 137 (137-145) mmol/L Potassium 5.5 H 4.4 4.0 (3.4-5.1) mmol/L Chloride 110 H 103 100 (98-107) mmol/L Carbon Dioxide 13 L 16 L 23 (22-32) mmol/L BUN 64 H 67 H 72 H (7-17) mg/dL Creatinine 9.00 H* 9.00 H* 9.31 H* (0.52-1.04) mg/dL Estimated GFR 4 L 4 L 4 L (>60) mL/min BUN/Creatinine Ratio 7.1 7.4 7.7 (6-22) Glucose 78 L 170 H 132 H (80-110) mg/dL Uric Acid (2.5-6.2) mg/dL Calcium 8.0 L 8.2 L 8.7 (8.4-10.2) mg/dL Total Bilirubin 0.5 (0.2-1.3) mg/dL AST 25 (14-36) IU/L ALT 21 (<35) IU/L Alkaline Phosphatase 41 (38-126) U/L Lactate Dehydrogenase (120-246) U/L Total Protein 5.7 L (6.3-8.2) g/dL Albumin 3.1 L (3.5-5.0) g/dL Globulin 2.6 (1.7-4.1) g/dL Albumin/Globulin Ratio 1.2 (1.0-2.8) Lipase 3228 H (23-300) U/L Procalcitonin (<0.5) ng/mL Ur Random Sodium (30-90) mmol/L Urine Creatinine mg/dL SARS-CoV-2 (PCR) (Negative) Influenza A (RT-PCR) (NEGATIVE) Influenza B (RT-PCR) (NEGATIVE) RSV (PCR) (Negative) 02/22/22 02/22/22 02/22/22 Range/Units 08:10 08:10 16:50 WBC 7.0 7.7 (4.5-11.0) X10^3/uL RBC 3.56 L 3.57 L (4.0-5.2) X10^6/uL Hgb 10.8 L 11.1 L (12.0-16.0) g/dL Hct 31.3 L 31.5 L (36-46) % MCV 88.0 88.4 (80-100) fL MCH 30.3 31.0 (26-34) PG MCHC 34.5 35.1 (30-36) % RDW 14.2 13.9 (11.6-14.8) % Plt Count 193 199 (150-400) X10^3/uL Neut % (Auto) 67.6 73.6 (50-75) % Lymph % (Auto) 18.0 L 12.6 L (25-40) % [place] % (Auto) 10.4 10.2 (3-14) % Eos % (Auto) 3.3 3.0 (2-4) % Baso % (Auto) 0.7 0.6 (0-2) % Neut # (Auto) 4700 5600 (7765-3438) /uL Lymph # (Auto) 1300 1000 L (8920-6363) /uL [place] # (Auto) 700 800 (0-900) /uL Eos # (Auto) 200 200 (0-450) /uL Baso # (Auto) 0 0 (0-100) /uL PT 54.9 H D (10.1-12.7) SECONDS INR 4.7 H* (0.9-1.3) Sodium (137-145) mmol/L Potassium (3.4-5.1) mmol/L Chloride (98-107) mmol/L Carbon Dioxide (22-32) mmol/L BUN (7-17) mg/dL Creatinine (0.52-1.04) mg/dL Estimated GFR (>60) mL/min BUN/Creatinine Ratio (6-22) Glucose (80-110) mg/dL Uric Acid (2.5-6.2) mg/dL Calcium (8.4-10.2) mg/dL Total Bilirubin (0.2-1.3) mg/dL AST (14-36) IU/L ALT (<35) IU/L Alkaline Phosphatase (38-126) U/L Lactate Dehydrogenase (120-246) U/L Total Protein (6.3-8.2) g/dL Albumin (3.5-5.0) g/dL Globulin (1.7-4.1) g/dL Albumin/Globulin Ratio (1.0-2.8) Lipase (23-300) U/L Procalcitonin (<0.5) ng/mL Ur Random Sodium (30-90) mmol/L Urine Creatinine mg/dL SARS-CoV-2 (PCR) (Negative) Influenza A (RT-PCR) (NEGATIVE) Influenza B (RT-PCR) (NEGATIVE) RSV (PCR) (Negative) 02/22/22 02/23/22 02/23/22 Range/Units 16:50 08:22 08:22 WBC 8.4 (4.5-11.0) X10^3/uL RBC 3.34 L (4.0-5.2) X10^6/uL Hgb 10.1 L (12.0-16.0) g/dL Hct 29.9 L (36-46) % MCV 89.3 (80-100) fL MCH 30.3 (26-34) PG MCHC 34.0 (30-36) % RDW 14.0 (11.6-14.8) % Plt Count 183 (150-400) X10^3/uL Neut % (Auto) 75.8 H (50-75) % Lymph % (Auto) 9.7 L (25-40) % [place] % (Auto) 10.9 (3-14) % Eos % (Auto) 3.1 (2-4) % Baso % (Auto) 0.5 (0-2) % Neut # (Auto) 6400 (5756-9577) /uL Lymph # (Auto) 800 L (9567-3069) /uL [place] # (Auto) 900 (0-900) /uL Eos # (Auto) 300 (0-450) /uL Baso # (Auto) 0 (0-100) /uL PT 29.4 H D (10.1-12.7) SECONDS INR 2.5 H (0.9-1.3) Sodium 137 (137-145) mmol/L Potassium 4.1 (3.4-5.1) mmol/L Chloride 101 (98-107) mmol/L Carbon Dioxide 20 L (22-32) mmol/L BUN 72 H (7-17) mg/dL Creatinine 9.63 H* (0.52-1.04) mg/dL Estimated GFR 4 L (>60) mL/min BUN/Creatinine Ratio 7.5 (6-22) Glucose 112 H (80-110) mg/dL Uric Acid (2.5-6.2) mg/dL Calcium 8.9 (8.4-10.2) mg/dL Total Bilirubin 0.5 (0.2-1.3) mg/dL AST 27 (14-36) IU/L ALT 21 (<35) IU/L Alkaline Phosphatase 44 (38-126) U/L Lactate Dehydrogenase (120-246) U/L Total Protein 5.8 L (6.3-8.2) g/dL Albumin 3.1 L (3.5-5.0) g/dL Globulin 2.7 (1.7-4.1) g/dL Albumin/Globulin Ratio 1.1 (1.0-2.8) Lipase 3886 H (23-300) U/L Procalcitonin (<0.5) ng/mL Ur Random Sodium (30-90) mmol/L Urine Creatinine mg/dL SARS-CoV-2 (PCR) (Negative) Influenza A (RT-PCR) (NEGATIVE) Influenza B (RT-PCR) (NEGATIVE) RSV (PCR) (Negative) 02/23/22 02/24/22 02/24/22 Range/Units 08:22 06:17 06:17 WBC 8.5 (4.5-11.0) X10^3/uL RBC 3.16 L (4.0-5.2) X10^6/uL Hgb 9.5 L (12.0-16.0) g/dL Hct 28.4 L (36-46) % MCV 90.1 (80-100) fL MCH 30.2 (26-34) PG MCHC 33.6 (30-36) % RDW 14.1 (11.6-14.8) % Plt Count 164 (150-400) X10^3/uL Neut % (Auto) 72.9 (50-75) % Lymph % (Auto) 11.5 L (25-40) % [place] % (Auto) 10.7 (3-14) % Eos % (Auto) 4.4 H (2-4) % Baso % (Auto) 0.5 (0-2) % Neut # (Auto) 6200 (3496-0020) /uL Lymph # (Auto) 1000 L (1932-5049) /uL [place] # (Auto) 900 (0-900) /uL Eos # (Auto) 400 (0-450) /uL Baso # (Auto) 0 (0-100) /uL PT 30.8 H (10.1-12.7) SECONDS INR 2.7 H (0.9-1.3) Sodium 138 (137-145) mmol/L Potassium 4.6 (3.4-5.1) mmol/L Chloride 105 (98-107) mmol/L Carbon Dioxide 21 L (22-32) mmol/L BUN 67 H (7-17) mg/dL Creatinine 9.43 H* (0.52-1.04) mg/dL Estimated GFR 4 L (>60) mL/min BUN/Creatinine Ratio 7.1 (6-22) Glucose 113 H (80-110) mg/dL Uric Acid (2.5-6.2) mg/dL Calcium 8.7 (8.4-10.2) mg/dL Total Bilirubin 0.5 (0.2-1.3) mg/dL AST 25 (14-36) IU/L ALT 18 (<35) IU/L Alkaline Phosphatase 43 (38-126) U/L Lactate Dehydrogenase (120-246) U/L Total Protein 4.9 L (6.3-8.2) g/dL Albumin 2.6 L (3.5-5.0) g/dL Globulin 2.3 (1.7-4.1) g/dL Albumin/Globulin Ratio 1.1 (1.0-2.8) Lipase 2420 H (23-300) U/L Procalcitonin (<0.5) ng/mL Ur Random Sodium (30-90) mmol/L Urine Creatinine mg/dL SARS-CoV-2 (PCR) (Negative) Influenza A (RT-PCR) (NEGATIVE) Influenza B (RT-PCR) (NEGATIVE) RSV (PCR) (Negative) 0102/25/22 02/25/22 Range/Units 06:17 08:25 08:25 WBC 8.5 (4.5-11.0) X10^3/uL RBC 3.37 L (4.0-5.2) X10^6/uL Hgb 10.3 L (12.0-16.0) g/dL Hct 30.3 L (36-46) % MCV 90.0 (80-100) fL MCH 30.5 (26-34) PG MCHC 33.9 (30-36) % RDW 14.5 (11.6-14.8) % Plt Count 203 (150-400) X10^3/uL Neut % (Auto) 72.9 (50-75) % Lymph % (Auto) 11.0 L (25-40) % [place] % (Auto) 9.2 (3-14) % Eos % (Auto) 6.2 H (2-4) % Baso % (Auto) 0.7 (0-2) % Neut # (Auto) 6200 (2650-8657) /uL Lymph # (Auto) 900 L (1431-1604) /uL [place] # (Auto) 800 (0-900) /uL Eos # (Auto) 500 H (0-450) /uL Baso # (Auto) 100 (0-100) /uL PT 27.7 H (10.1-12.7) SECONDS INR 2.4 H (0.9-1.3) Sodium 135 L (137-145) mmol/L Potassium 4.3 (3.4-5.1) mmol/L Chloride 108 H (98-107) mmol/L Carbon Dioxide 18 L (22-32) mmol/L BUN 64 H (7-17) mg/dL Creatinine 9.12 H* (0.52-1.04) mg/dL Estimated GFR 4 L (>60) mL/min BUN/Creatinine Ratio 7.0 (6-22) Glucose 102 (80-110) mg/dL Uric Acid (2.5-6.2) mg/dL Calcium 8.5 (8.4-10.2) mg/dL Total Bilirubin 0.5 (0.2-1.3) mg/dL AST 24 (14-36) IU/L ALT 16 (<35) IU/L Alkaline Phosphatase 41 (38-126) U/L Lactate Dehydrogenase (120-246) U/L Total Protein 5.0 L (6.3-8.2) g/dL Albumin 2.5 L (3.5-5.0) g/dL Globulin 2.5 (1.7-4.1) g/dL Albumin/Globulin Ratio 1.0 (1.0-2.8) Lipase 1539 H (23-300) U/L Procalcitonin (<0.5) ng/mL Ur Random Sodium (30-90) mmol/L Urine Creatinine mg/dL SARS-CoV-2 (PCR) (Negative) Influenza A (RT-PCR) (NEGATIVE) Influenza B (RT-PCR) (NEGATIVE) RSV (PCR) (Negative) 02/25/22 02/26/22 02/26/22 Range/Units 08:25 08:42 08:42 WBC 7.6 (4.5-11.0) X10^3/uL RBC 3.59 L (4.0-5.2) X10^6/uL Hgb 10.8 L (12.0-16.0) g/dL Hct 32.2 L (36-46) % MCV 89.7 (80-100) fL MCH 30.0 (26-34) PG MCHC 33.4 (30-36) % RDW 14.1 (11.6-14.8) % Plt Count 227 (150-400) X10^3/uL Neut % (Auto) 74.4 (50-75) % Lymph % (Auto) 11.5 L (25-40) % [place] % (Auto) 7.9 (3-14) % Eos % (Auto) 5.4 H (2-4) % Baso % (Auto) 0.8 (0-2) % Neut # (Auto) 5600 (2248-3806) /uL Lymph # (Auto) 900 L (0843-2327) /uL [place] # (Auto) 600 (0-900) /uL Eos # (Auto) 400 (0-450) /uL Baso # (Auto) 100 (0-100) /uL PT 22.4 H D (10.1-12.7) SECONDS INR 1.9 H (0.9-1.3) Sodium 136 L (137-145) mmol/L Potassium 4.6 (3.4-5.1) mmol/L Chloride 105 (98-107) mmol/L Carbon Dioxide 20 L (22-32) mmol/L BUN 61 H (7-17) mg/dL Creatinine 9.09 H* (0.52-1.04) mg/dL Estimated GFR 4 L (>60) mL/min BUN/Creatinine Ratio 6.7 (6-22) Glucose 90 (80-110) mg/dL Uric Acid (2.5-6.2) mg/dL Calcium 8.6 (8.4-10.2) mg/dL Total Bilirubin 0.5 (0.2-1.3) mg/dL AST 25 (14-36) IU/L ALT 17 (<35) IU/L Alkaline Phosphatase 48 (38-126) U/L Lactate Dehydrogenase (120-246) U/L Total Protein 5.5 L (6.3-8.2) g/dL Albumin 2.7 L (3.5-5.0) g/dL Globulin 2.8 (1.7-4.1) g/dL Albumin/Globulin Ratio 1.0 (1.0-2.8) Lipase 958 H (23-300) U/L Procalcitonin (<0.5) ng/mL Ur Random Sodium (30-90) mmol/L Urine Creatinine mg/dL SARS-CoV-2 (PCR) (Negative) Influenza A (RT-PCR) (NEGATIVE) Influenza B (RT-PCR) (NEGATIVE) RSV (PCR) (Negative) 02/26/22 02/26/22 Range/Units 08:42 08:42 WBC (4.5-11.0) X10^3/uL RBC (4.0-5.2) X10^6/uL Hgb (12.0-16.0) g/dL Hct (36-46) % MCV (80-100) fL MCH (26-34) PG MCHC (30-36) % RDW (11.6-14.8) % Plt Count (150-400) X10^3/uL Neut % (Auto) (50-75) % Lymph % (Auto) (25-40) % [place] % (Auto) (3-14) % Eos % (Auto) (2-4) % Baso % (Auto) (0-2) % Neut # (Auto) (7740-8693) /uL Lymph # (Auto) (3832-6953) /uL [place] # (Auto) (0-900) /uL Eos # (Auto) (0-450) /uL Baso # (Auto) (0-100) /uL PT (10.1-12.7) SECONDS INR (0.9-1.3) Sodium 135 L (137-145) mmol/L Potassium 4.5 (3.4-5.1) mmol/L Chloride 105 (98-107) mmol/L Carbon Dioxide 17 L (22-32) mmol/L BUN 65 H (7-17) mg/dL Creatinine 9.91 H* (0.52-1.04) mg/dL Estimated GFR 4 L (>60) mL/min BUN/Creatinine Ratio 6.6 (6-22) Glucose 149 H (80-110) mg/dL Uric Acid 4.4 (2.5-6.2) mg/dL Calcium 8.7 (8.4-10.2) mg/dL Total Bilirubin 0.5 (0.2-1.3) mg/dL AST 26 (14-36) IU/L ALT 16 (<35) IU/L Alkaline Phosphatase 51 (38-126) U/L Lactate Dehydrogenase (120-246) U/L Total Protein 5.6 L (6.3-8.2) g/dL Albumin 2.8 L (3.5-5.0) g/dL Globulin 2.8 (1.7-4.1) g/dL Albumin/Globulin Ratio 1.0 (1.0-2.8) Lipase 912 H (23-300) U/L Procalcitonin (<0.5) ng/mL Ur Random Sodium (30-90) mmol/L Urine Creatinine mg/dL SARS-CoV-2 (PCR) (Negative) Influenza A (RT-PCR) (NEGATIVE) Influenza B (RT-PCR) (NEGATIVE) RSV (PCR) (Negative) Point of Care Testing Glucose POC 101 Urine Dip Bedside Urine Glucose Negative Bedside Urine Bilirubin - Negative Bedside Urine Ketone +/- 5 Urine Specific [place] 1.015 Bedside Urine Occult Blood + Bedside Urine pH 6.0 Bedside Urine Protein ++ 100 Bedside Urine Urobilinogen - Negative Bedside Urine Nitrite - Negative Bedside Urine Leukocytes - Negative Esterase MDM Narrative Medical decision making narrative: Patient is well-appearing. Is not tachycardic. Not hypotensive. She does have upper abdominal discomfort. Has pancreatitis based on her lipase which is most likely that the cause of all of her nausea and vomiting even her abdominal pain. She is in acute renal failure/LANIE given her creatinine of 10 and GFR 4. Prior labs that we have for her were greater than 1 year ago which has her creatinine at the 1.3-1.7 range in her GFR in the 30s. Patient has not been vomiting since arrival here to the ER. Her urinalysis today does not show any signs of an infection. CT scans did not give a definitive etiology. Her FeNa is 8.9% which is consistent with a post renal/obstructive pathology however I do not have a specific source of this as it does not appear to be an obstructive stone nor urinary retention. After 2 L of fluid her creatinine only improved slightly. Care turned over to Dr. Love to follow-up and most likely consultation with Nephrology. 02/21/22 Ivan-patient signed out to me by Dr. Lugo if seen evaluated patient myself. She says overall she is feeling better. No nausea vomiting no abdominal pain. Blood work today does show improvement in high mild hyperkalemia it was 5.8 now was 5 5. Improvement in her creatinine as well was 10.0 and now 9.23. Knight catheter is placed she has very clear urine draining. She continues to get IV fluids. No sign of infection. INR is found to be elevated at 7.1 thought to be somehow related to her renal failure. Vitamin K is ordered. 0900am- Dr. Cui Nephrology, updated on patient's symptoms test results at this time agrees with a bicarb drip 100 mEq for 75 an hour for about 1 day. Continue checking light. Will likely need dialysis however no beds available at [facility]. Dr lugo 02/21-02/22: Assumed care of patient. Reviewed patient's events over the day. Is on a bicarb drip. Creatinine not much improved. Patient is supratherapeutic on INR but no active bleeding. Care turned over to Dr. Love to continue to observe until disposition can be made. 02/22/2022 8am patient seen evaluated by myself. Awaiting for morning blood work. She has mild pain requesting her Pulmicort. But overall eating breakfast. Blood work over last night does show improvement in bicarb creatinine remains about the same. Urine output did decreased throughout the day and last night, 200 cc out last night. 1100am Spoke wiht Dr. Abebe, nephrology, updated on patient's symptoms test results agrees with stopping bicarb drip. Recommends giving a large dose of Lasix to help stimulate the kidneys. Can stop IV fluids if she is eating and drinking. Agrees with continuing to find placement and transfer for probable dialysis. Spoke with Dr. Mathew nixon, nephrologists [facility] apparently has seen nephrology previously she saw them once in April and once in September creatinine was 2 and then 1 had complete workup was told did not need any further follow- up. No renal biopsy was done at that time. Clearly in acute renal failure at this time. Patient is having increasing abdominal pain lipase continues to be elevated at 3900 for this reason fluids are continued. She did respond well to 120 mg of Lasix she would significant urine output. Continuing to still try and transfer for need for dialysis. However potassium and bicarb are significantly improved. Patient signed out to Dr. Dianna Bustamante 02/22/22: Patient signed out to myself by Dr. Love. Patient is in acute renal failure, with creatinine being 10 on 02/21/2022 and is currently 9.6 today on 02/22/2022 at 4:50 a.m. in the afternoon. Patient's potassium has improved from 5.7-4.1, her bicarb is slowly improving from 13-20, patient is continued on LR at this time she does appear to be developing some pancreatitis. Glucose has been appropriate on daily labs, lipase is slowly trending upwards it was 2998 on the and is [address] from 02/21/2022 shows no nobstructing right renal calculus, no hydro obstructive uropathy, nonspecific bilateral perinephric stranding noted, 5 cm stable mural calcifications in the liver as well as a 4 cm left renal cyst and a 7 mm nonobstructing right renal calculus. Patient had been seen on the for possible infection had been started on oral antibiotic and that urine culture grew Enterobacter Kurt's greater than 100,000 CFU, patient appears to have sensitivities to cefepime which was started 500 mg x1 followed by 250 mg to be given Q [address] Love had spoken with Nephrology at [facility] yesterday they agree with stopping the bicarb drip they did recommend giving a large dose of Lasix to stimulate kidneys which did seem to be helpful. 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 Patient has a.m. labs ordered, continuing to seek placement for Nephrology and to initiate dialysis, patient signed out to Dr. Scott. February 23, 2022 at 10:00 a.m.. Spoke with patient and family results of laboratory studies this morning. No significant change in creatinine however INR has improved. Lipase has improved. CT scan imaging does not show pancreatitis. Ultrasound does not show cholecystitis, does not show any gallstones. Liver enzymes are reassuring at this time. They do understand need for transfer for Nephrology Services evaluation, even possible dialysis. Patient does have Knight catheter in place. Is making urine 6:[address] Bustamante, new issues during today. Family has been trying to transfer patient to a hospital in [place]. However patient still on waiting list here. No significant changes in blood work. 02/24/2022 Dianna: Patient signed out myself. No additional issues throughout the day. Patient is on waiting list for transfer to possible hospital [place] where she lives. Her was able to help try to find a bed. Patient's labs have been, patient is eating and drinking still making urine. Lipase appears to be trending down words. Patient has labs ordered for this morning, did see independently evaluated herself this morning. She was up we chatted briefly she would like to be more mobile at this time and not be boarding in the emergency department anymore but otherwise does not have any other complaints currently. Patient's diet was upgraded to renal diet. Patient urine culture does show enterobacter and shows sensitivities to cefepime she is on daily. Patient signed out to Dr. Smith while awaiting transfer. <Kana Scott MD - Last Filed: 03/04/22 22:12> Lab Data Labs: Lab Results 02/21/22 02/21/22 02/21/22 Range/Units 01:17 01:40 01:40 WBC 9.8 (4.5-11.0) X10^3/uL RBC 4.26 (4.0-5.2) X10^6/uL Hgb 12.7 (12.0-16.0) g/dL Hct 38.4 (36-46) % MCV 90.3 (80-100) fL MCH 29.9 (26-34) PG MCHC 33.1 (30-36) % RDW 14.5 (11.6-14.8) % Plt Count 262 (150-400) X10^3/uL Neut % (Auto) 75.5 H (50-75) % Lymph % (Auto) 15.0 L (25-40) % [place] % (Auto) 7.6 (3-14) % Eos % (Auto) 1.2 L (2-4) % Baso % (Auto) 0.7 (0-2) % Neut # (Auto) 7400 H (0570-9580) /uL Lymph # (Auto) 1500 (7231-9173) /uL [place] # (Auto) 700 (0-900) /uL Eos # (Auto) 100 (0-450) /uL Baso # (Auto) 100 (0-100) /uL PT (10.1-12.7) SECONDS INR (0.9-1.3) Sodium 136 L (137-145) mmol/L Potassium 5.7 H (3.4-5.1) mmol/L Chloride 103 (98-107) mmol/L Carbon Dioxide 13 L (22-32) mmol/L BUN 67 H (7-17) mg/dL Creatinine 10.0 H* (0.52-1.04) mg/dL Estimated GFR 4 L (>60) mL/min BUN/Creatinine Ratio 6.7 (6-22) Glucose 88 (80-110) mg/dL Uric Acid (2.5-6.2) mg/dL Calcium 9.9 (8.4-10.2) mg/dL Total Bilirubin 0.7 (0.2-1.3) mg/dL AST 32 (14-36) IU/L ALT 27 (<35) IU/L Alkaline Phosphatase 54 (38-126) U/L Lactate Dehydrogenase (120-246) U/L Total Protein 7.3 (6.3-8.2) g/dL Albumin 4.2 (3.5-5.0) g/dL Globulin 3.1 (1.7-4.1) g/dL Albumin/Globulin Ratio 1.4 (1.0-2.8) Lipase 2998 H (23-300) U/L Procalcitonin (<0.5) ng/mL Ur Random Sodium (30-90) mmol/L Urine Creatinine mg/dL SARS-CoV-2 (PCR) Negative (Negative) Influenza A (RT-PCR) Flu a negative (NEGATIVE) Influenza B (RT-PCR) Flu b negative (NEGATIVE) RSV (PCR) Negative (Negative) 02/21/22 02/21/22 02/21/22 Range/Units 03:30 05:30 07:46 WBC (4.5-11.0) X10^3/uL RBC (4.0-5.2) X10^6/uL Hgb (12.0-16.0) g/dL Hct (36-46) % MCV (80-100) fL MCH (26-34) PG MCHC (30-36) % RDW (11.6-14.8) % Plt Count (150-400) X10^3/uL Neut % (Auto) (50-75) % Lymph % (Auto) (25-40) % [place] % (Auto) (3-14) % Eos % (Auto) (2-4) % Baso % (Auto) (0-2) % Neut # (Auto) (3480-0114) /uL Lymph # (Auto) (7678-1005) /uL [place] # (Auto) (0-900) /uL Eos # (Auto) (0-450) /uL Baso # (Auto) (0-100) /uL PT 82.9 H (10.1-12.7) SECONDS INR 7.1 H* (0.9-1.3) Sodium 137 (137-145) mmol/L Potassium 5.8 H (3.4-5.1) mmol/L Chloride 109 H (98-107) mmol/L Carbon Dioxide 13 L (22-32) mmol/L BUN 63 H (7-17) mg/dL Creatinine 9.15 H* (0.52-1.04) mg/dL Estimated GFR 4 L (>60) mL/min BUN/Creatinine Ratio 6.9 (6-22) Glucose 86 (80-110) mg/dL Uric Acid (2.5-6.2) mg/dL Calcium 8.4 (8.4-10.2) mg/dL Total Bilirubin (0.2-1.3) mg/dL AST (14-36) IU/L ALT (<35) IU/L Alkaline Phosphatase (38-126) U/L Lactate Dehydrogenase (120-246) U/L Total Protein (6.3-8.2) g/dL Albumin (3.5-5.0) g/dL Globulin (1.7-4.1) g/dL Albumin/Globulin Ratio (1.0-2.8) Lipase (23-300) U/L Procalcitonin (<0.5) ng/mL Ur Random Sodium 84 (30-90) mmol/L Urine Creatinine 69.7 mg/dL SARS-CoV-2 (PCR) (Negative) Influenza A (RT-PCR) (NEGATIVE) Influenza B (RT-PCR) (NEGATIVE) RSV (PCR) (Negative) 02/21/22 02/21/22 02/21/22 Range/Units 07:46 07:46 07:50 WBC (4.5-11.0) X10^3/uL RBC (4.0-5.2) X10^6/uL Hgb (12.0-16.0) g/dL Hct (36-46) % MCV (80-100) fL MCH (26-34) PG MCHC (30-36) % RDW (11.6-14.8) % Plt Count (150-400) X10^3/uL Neut % (Auto) (50-75) % Lymph % (Auto) (25-40) % [place] % (Auto) (3-14) % Eos % (Auto) (2-4) % Baso % (Auto) (0-2) % Neut # (Auto) (2424-8599) /uL Lymph # (Auto) (3595-7838) /uL [place] # (Auto) (0-900) /uL Eos # (Auto) (0-450) /uL Baso # (Auto) (0-100) /uL PT (10.1-12.7) SECONDS INR (0.9-1.3) Sodium 139 (137-145) mmol/L Potassium 5.5 H (3.4-5.1) mmol/L Chloride 109 H (98-107) mmol/L Carbon Dioxide 13 L (22-32) mmol/L BUN 65 H (7-17) mg/dL Creatinine 9.23 H* (0.52-1.04) mg/dL Estimated GFR 4 L (>60) mL/min BUN/Creatinine Ratio 7.0 (6-22) Glucose 82 (80-110) mg/dL Uric Acid (2.5-6.2) mg/dL Calcium 8.4 (8.4-10.2) mg/dL Total Bilirubin (0.2-1.3) mg/dL AST (14-36) IU/L ALT (<35) IU/L Alkaline Phosphatase (38-126) U/L Lactate Dehydrogenase 231 (120-246) U/L Total Protein (6.3-8.2) g/dL Albumin (3.5-5.0) g/dL Globulin (1.7-4.1) g/dL Albumin/Globulin Ratio (1.0-2.8) Lipase 2978 H (23-300) U/L Procalcitonin 0.33 (<0.5) ng/mL Ur Random Sodium (30-90) mmol/L Urine Creatinine mg/dL SARS-CoV-2 (PCR) (Negative) Influenza A (RT-PCR) (NEGATIVE) Influenza B (RT-PCR) (NEGATIVE) RSV (PCR) (Negative) 02/21/22 02/21/22 02/22/22 Range/Units 12:00 18:00 07:00 WBC (4.5-11.0) X10^3/uL RBC (4.0-5.2) X10^6/uL Hgb (12.0-16.0) g/dL Hct (36-46) % MCV (80-100) fL MCH (26-34) PG MCHC (30-36) % RDW (11.6-14.8) % Plt Count (150-400) X10^3/uL Neut % (Auto) (50-75) % Lymph % (Auto) (25-40) % [place] % (Auto) (3-14) % Eos % (Auto) (2-4) % Baso % (Auto) (0-2) % Neut # (Auto) (2676-0922) /uL Lymph # (Auto) (2380-3374) /uL [place] # (Auto) (0-900) /uL Eos # (Auto) (0-450) /uL Baso # (Auto) (0-100) /uL PT (10.1-12.7) SECONDS INR (0.9-1.3) Sodium 138 137 137 (137-145) mmol/L Potassium 5.5 H 4.4 4.0 (3.4-5.1) mmol/L Chloride 110 H 103 100 (98-107) mmol/L Carbon Dioxide 13 L 16 L 23 (22-32) mmol/L BUN 64 H 67 H 72 H (7-17) mg/dL Creatinine 9.00 H* 9.00 H* 9.31 H* (0.52-1.04) mg/dL Estimated GFR 4 L 4 L 4 L (>60) mL/min BUN/Creatinine Ratio 7.1 7.4 7.7 (6-22) Glucose 78 L 170 H 132 H (80-110) mg/dL Uric Acid (2.5-6.2) mg/dL Calcium 8.0 L 8.2 L 8.7 (8.4-10.2) mg/dL Total Bilirubin 0.5 (0.2-1.3) mg/dL AST 25 (14-36) IU/L ALT 21 (<35) IU/L Alkaline Phosphatase 41 (38-126) U/L Lactate Dehydrogenase (120-246) U/L Total Protein 5.7 L (6.3-8.2) g/dL Albumin 3.1 L (3.5-5.0) g/dL Globulin 2.6 (1.7-4.1) g/dL Albumin/Globulin Ratio 1.2 (1.0-2.8) Lipase 3228 H (23-300) U/L Procalcitonin (<0.5) ng/mL Ur Random Sodium (30-90) mmol/L Urine Creatinine mg/dL SARS-CoV-2 (PCR) (Negative) Influenza A (RT-PCR) (NEGATIVE) Influenza B (RT-PCR) (NEGATIVE) RSV (PCR) (Negative) 02/22/22 02/22/22 02/22/22 Range/Units 08:10 08:10 16:50 WBC 7.0 7.7 (4.5-11.0) X10^3/uL RBC 3.56 L 3.57 L (4.0-5.2) X10^6/uL Hgb 10.8 L 11.1 L (12.0-16.0) g/dL Hct 31.3 L 31.5 L (36-46) % MCV 88.0 88.4 (80-100) fL MCH 30.3 31.0 (26-34) PG MCHC 34.5 35.1 (30-36) % RDW 14.2 13.9 (11.6-14.8) % Plt Count 193 199 (150-400) X10^3/uL Neut % (Auto) 67.6 73.6 (50-75) % Lymph % (Auto) 18.0 L 12.6 L (25-40) % [place] % (Auto) 10.4 10.2 (3-14) % Eos % (Auto) 3.3 3.0 (2-4) % Baso % (Auto) 0.7 0.6 (0-2) % Neut # (Auto) 4700 5600 (5981-8985) /uL Lymph # (Auto) 1300 1000 L (7575-4663) /uL [place] # (Auto) 700 800 (0-900) /uL Eos # (Auto) 200 200 (0-450) /uL Baso # (Auto) 0 0 (0-100) /uL PT 54.9 H D (10.1-12.7) SECONDS INR 4.7 H* (0.9-1.3) Sodium (137-145) mmol/L Potassium (3.4-5.1) mmol/L Chloride (98-107) mmol/L Carbon Dioxide (22-32) mmol/L BUN (7-17) mg/dL Creatinine (0.52-1.04) mg/dL Estimated GFR (>60) mL/min BUN/Creatinine Ratio (6-22) Glucose (80-110) mg/dL Uric Acid (2.5-6.2) mg/dL Calcium (8.4-10.2) mg/dL Total Bilirubin (0.2-1.3) mg/dL AST (14-36) IU/L ALT (<35) IU/L Alkaline Phosphatase (38-126) U/L Lactate Dehydrogenase (120-246) U/L Total Protein (6.3-8.2) g/dL Albumin (3.5-5.0) g/dL Globulin (1.7-4.1) g/dL Albumin/Globulin Ratio (1.0-2.8) Lipase (23-300) U/L Procalcitonin (<0.5) ng/mL Ur Random Sodium (30-90) mmol/L Urine Creatinine mg/dL SARS-CoV-2 (PCR) (Negative) Influenza A (RT-PCR) (NEGATIVE) Influenza B (RT-PCR) (NEGATIVE) RSV (PCR) (Negative) 02/22/22 02/23/22 02/23/22 Range/Units 16:50 08:22 08:22 WBC 8.4 (4.5-11.0) X10^3/uL RBC 3.34 L (4.0-5.2) X10^6/uL Hgb 10.1 L (12.0-16.0) g/dL Hct 29.9 L (36-46) % MCV 89.3 (80-100) fL MCH 30.3 (26-34) PG MCHC 34.0 (30-36) % RDW 14.0 (11.6-14.8) % Plt Count 183 (150-400) X10^3/uL Neut % (Auto) 75.8 H (50-75) % Lymph % (Auto) 9.7 L (25-40) % [place] % (Auto) 10.9 (3-14) % Eos % (Auto) 3.1 (2-4) % Baso % (Auto) 0.5 (0-2) % Neut # (Auto) 6400 (2877-5145) /uL Lymph # (Auto) 800 L (6636-9191) /uL [place] # (Auto) 900 (0-900) /uL Eos # (Auto) 300 (0-450) /uL Baso # (Auto) 0 (0-100) /uL PT 29.4 H D (10.1-12.7) SECONDS INR 2.5 H (0.9-1.3) Sodium 137 (137-145) mmol/L Potassium 4.1 (3.4-5.1) mmol/L Chloride 101 (98-107) mmol/L Carbon Dioxide 20 L (22-32) mmol/L BUN 72 H (7-17) mg/dL Creatinine 9.63 H* (0.52-1.04) mg/dL Estimated GFR 4 L (>60) mL/min BUN/Creatinine Ratio 7.5 (6-22) Glucose 112 H (80-110) mg/dL Uric Acid (2.5-6.2) mg/dL Calcium 8.9 (8.4-10.2) mg/dL Total Bilirubin 0.5 (0.2-1.3) mg/dL AST 27 (14-36) IU/L ALT 21 (<35) IU/L Alkaline Phosphatase 44 (38-126) U/L Lactate Dehydrogenase (120-246) U/L Total Protein 5.8 L (6.3-8.2) g/dL Albumin 3.1 L (3.5-5.0) g/dL Globulin 2.7 (1.7-4.1) g/dL Albumin/Globulin Ratio 1.1 (1.0-2.8) Lipase 3886 H (23-300) U/L Procalcitonin (<0.5) ng/mL Ur Random Sodium (30-90) mmol/L Urine Creatinine mg/dL SARS-CoV-2 (PCR) (Negative) Influenza A (RT-PCR) (NEGATIVE) Influenza B (RT-PCR) (NEGATIVE) RSV (PCR) (Negative) 02/23/22 02/24/22 02/24/22 Range/Units 08:22 06:17 06:17 WBC 8.5 (4.5-11.0) X10^3/uL RBC 3.16 L (4.0-5.2) X10^6/uL Hgb 9.5 L (12.0-16.0) g/dL Hct 28.4 L (36-46) % MCV 90.1 (80-100) fL MCH 30.2 (26-34) PG MCHC 33.6 (30-36) % RDW 14.1 (11.6-14.8) % Plt Count 164 (150-400) X10^3/uL Neut % (Auto) 72.9 (50-75) % Lymph % (Auto) 11.5 L (25-40) % [place] % (Auto) 10.7 (3-14) % Eos % (Auto) 4.4 H (2-4) % Baso % (Auto) 0.5 (0-2) % Neut # (Auto) 6200 (1883-9311) /uL Lymph # (Auto) 1000 L (0065-5635) /uL [place] # (Auto) 900 (0-900) /uL Eos # (Auto) 400 (0-450) /uL Baso # (Auto) 0 (0-100) /uL PT 30.8 H (10.1-12.7) SECONDS INR 2.7 H (0.9-1.3) Sodium 138 (137-145) mmol/L Potassium 4.6 (3.4-5.1) mmol/L Chloride 105 (98-107) mmol/L Carbon Dioxide 21 L (22-32) mmol/L BUN 67 H (7-17) mg/dL Creatinine 9.43 H* (0.52-1.04) mg/dL Estimated GFR 4 L (>60) mL/min BUN/Creatinine Ratio 7.1 (6-22) Glucose 113 H (80-110) mg/dL Uric Acid (2.5-6.2) mg/dL Calcium 8.7 (8.4-10.2) mg/dL Total Bilirubin 0.5 (0.2-1.3) mg/dL AST 25 (14-36) IU/L ALT 18 (<35) IU/L Alkaline Phosphatase 43 (38-126) U/L Lactate Dehydrogenase (120-246) U/L Total Protein 4.9 L (6.3-8.2) g/dL Albumin 2.6 L (3.5-5.0) g/dL Globulin 2.3 (1.7-4.1) g/dL Albumin/Globulin Ratio 1.1 (1.0-2.8) Lipase 2420 H (23-300) U/L Procalcitonin (<0.5) ng/mL Ur Random Sodium (30-90) mmol/L Urine Creatinine mg/dL SARS-CoV-2 (PCR) (Negative) Influenza A (RT-PCR) (NEGATIVE) Influenza B (RT-PCR) (NEGATIVE) RSV (PCR) (Negative) 02/24/22 02/25/22 02/25/22 Range/Units 06:17 08:25 08:25 WBC 8.5 (4.5-11.0) X10^3/uL RBC 3.37 L (4.0-5.2) X10^6/uL Hgb 10.3 L (12.0-16.0) g/dL Hct 30.3 L (36-46) % MCV 90.0 (80-100) fL MCH 30.5 (26-34) PG MCHC 33.9 (30-36) % RDW 14.5 (11.6-14.8) % Plt Count 203 (150-400) X10^3/uL Neut % (Auto) 72.9 (50-75) % Lymph % (Auto) 11.0 L (25-40) % [place] % (Auto) 9.2 (3-14) % Eos % (Auto) 6.2 H (2-4) % Baso % (Auto) 0.7 (0-2) % Neut # (Auto) 6200 (6574-7740) /uL Lymph # (Auto) 900 L (0334-8229) /uL [place] # (Auto) 800 (0-900) /uL Eos # (Auto) 500 H (0-450) /uL Baso # (Auto) 100 (0-100) /uL PT 27.7 H (10.1-12.7) SECONDS INR 2.4 H (0.9-1.3) Sodium 135 L (137-145) mmol/L Potassium 4.3 (3.4-5.1) mmol/L Chloride 108 H (98-107) mmol/L Carbon Dioxide 18 L (22-32) mmol/L BUN 64 H (7-17) mg/dL Creatinine 9.12 H* (0.52-1.04) mg/dL Estimated GFR 4 L (>60) mL/min BUN/Creatinine Ratio 7.0 (6-22) Glucose 102 (80-110) mg/dL Uric Acid (2.5-6.2) mg/dL Calcium 8.5 (8.4-10.2) mg/dL Total Bilirubin 0.5 (0.2-1.3) mg/dL AST 24 (14-36) IU/L ALT 16 (<35) IU/L Alkaline Phosphatase 41 (38-126) U/L Lactate Dehydrogenase (120-246) U/L Total Protein 5.0 L (6.3-8.2) g/dL Albumin 2.5 L (3.5-5.0) g/dL Globulin 2.5 (1.7-4.1) g/dL Albumin/Globulin Ratio 1.0 (1.0-2.8) Lipase 1539 H (23-300) U/L Procalcitonin (<0.5) ng/mL Ur Random Sodium (30-90) mmol/L Urine Creatinine mg/dL SARS-CoV-2 (PCR) (Negative) Influenza A (RT-PCR) (NEGATIVE) Influenza B (RT-PCR) (NEGATIVE) RSV (PCR) (Negative) 02/25/22 02/26/22 02/26/22 Range/Units 08:25 08:42 08:42 WBC 7.6 (4.5-11.0) X10^3/uL RBC 3.59 L (4.0-5.2) X10^6/uL Hgb 10.8 L (12.0-16.0) g/dL Hct 32.2 L (36-46) % MCV 89.7 (80-100) fL MCH 30.0 (26-34) PG MCHC 33.4 (30-36) % RDW 14.1 (11.6-14.8) % Plt Count 227 (150-400) X10^3/uL Neut % (Auto) 74.4 (50-75) % Lymph % (Auto) 11.5 L (25-40) % [place] % (Auto) 7.9 (3-14) % Eos % (Auto) 5.4 H (2-4) % Baso % (Auto) 0.8 (0-2) % Neut # (Auto) 5600 (3311-6434) /uL Lymph # (Auto) 900 L (3851-4235) /uL [place] # (Auto) 600 (0-900) /uL Eos # (Auto) 400 (0-450) /uL Baso # (Auto) 100 (0-100) /uL PT 22.4 H D (10.1-12.7) SECONDS INR 1.9 H (0.9-1.3) Sodium 136 L (137-145) mmol/L Potassium 4.6 (3.4-5.1) mmol/L Chloride 105 (98-107) mmol/L Carbon Dioxide 20 L (22-32) mmol/L BUN 61 H (7-17) mg/dL Creatinine 9.09 H* (0.52-1.04) mg/dL Estimated GFR 4 L (>60) mL/min BUN/Creatinine Ratio 6.7 (6-22) Glucose 90 (80-110) mg/dL Uric Acid (2.5-6.2) mg/dL Calcium 8.6 (8.4-10.2) mg/dL Total Bilirubin 0.5 (0.2-1.3) mg/dL AST 25 (14-36) IU/L ALT 17 (<35) IU/L Alkaline Phosphatase 48 (38-126) U/L Lactate Dehydrogenase (120-246) U/L Total Protein 5.5 L (6.3-8.2) g/dL Albumin 2.7 L (3.5-5.0) g/dL Globulin 2.8 (1.7-4.1) g/dL Albumin/Globulin Ratio 1.0 (1.0-2.8) Lipase 958 H (23-300) U/L Procalcitonin (<0.5) ng/mL Ur Random Sodium (30-90) mmol/L Urine Creatinine mg/dL SARS-CoV-2 (PCR) (Negative) Influenza A (RT-PCR) (NEGATIVE) Influenza B (RT-PCR) (NEGATIVE) RSV (PCR) (Negative) 02/26/22 02/26/22 Range/Units 08:42 08:42 WBC (4.5-11.0) X10^3/uL RBC (4.0-5.2) X10^6/uL Hgb (12.0-16.0) g/dL Hct (36-46) % MCV (80-100) fL MCH (26-34) PG MCHC (30-36) % RDW (11.6-14.8) % Plt Count (150-400) X10^3/uL Neut % (Auto) (50-75) % Lymph % (Auto) (25-40) % [place] % (Auto) (3-14) % Eos % (Auto) (2-4) % Baso % (Auto) (0-2) % Neut # (Auto) (8289-0693) /uL Lymph # (Auto) (4092-4300) /uL [place] # (Auto) (0-900) /uL Eos # (Auto) (0-450) /uL Baso # (Auto) (0-100) /uL PT (10.1-12.7) SECONDS INR (0.9-1.3) Sodium 135 L (137-145) mmol/L Potassium 4.5 (3.4-5.1) mmol/L Chloride 105 (98-107) mmol/L Carbon Dioxide 17 L (22-32) mmol/L BUN 65 H (7-17) mg/dL Creatinine 9.91 H* (0.52-1.04) mg/dL Estimated GFR 4 L (>60) mL/min BUN/Creatinine Ratio 6.6 (6-22) Glucose 149 H (80-110) mg/dL Uric Acid 4.4 (2.5-6.2) mg/dL Calcium 8.7 (8.4-10.2) mg/dL Total Bilirubin 0.5 (0.2-1.3) mg/dL AST 26 (14-36) IU/L ALT 16 (<35) IU/L Alkaline Phosphatase 51 (38-126) U/L Lactate Dehydrogenase (120-246) U/L Total Protein 5.6 L (6.3-8.2) g/dL Albumin 2.8 L (3.5-5.0) g/dL Globulin 2.8 (1.7-4.1) g/dL Albumin/Globulin Ratio 1.0 (1.0-2.8) Lipase 912 H (23-300) U/L Procalcitonin (<0.5) ng/mL Ur Random Sodium (30-90) mmol/L Urine Creatinine mg/dL SARS-CoV-2 (PCR) (Negative) Influenza A (RT-PCR) (NEGATIVE) Influenza B (RT-PCR) (NEGATIVE) RSV (PCR) (Negative) Point of Care Testing Glucose POC 101 Urine Dip Bedside Urine Glucose Negative Bedside Urine Bilirubin - Negative Bedside Urine Ketone +/- 5 Urine Specific [place] 1.015 Bedside Urine Occult Blood + Bedside Urine pH 6.0 Bedside Urine Protein ++ 100 Bedside Urine Urobilinogen - Negative Bedside Urine Nitrite - Negative Bedside Urine Leukocytes - Negative Esterase MDM Narrative Medical decision making narrative: Patient is well-appearing. Is not tachycardic. Not hypotensive. She does have upper abdominal discomfort. Has pancreatitis based on her lipase which is most likely that the cause of all of her nausea and vomiting even her abdominal pain. She is in acute renal failure/LANIE given her creatinine of 10 and GFR 4. Prior labs that we have for her were greater than 1 year ago which has her creatinine at the 1.3-1.7 range in her GFR in the 30s. Patient has not been vomiting since arrival here to the ER. Her urinalysis today does not show any signs of an infection. CT scans did not give a definitive etiology. Her FeNa is 8.9% which is consistent with a post renal/obstructive pathology however I do not have a specific source of this as it does not appear to be an obstructive stone nor urinary retention. After 2 L of fluid her creatinine only improved slightly. Care turned over to Dr. Love to follow-up and most likely consultation with Nephrology. 02/21/22 Ivan-patient signed out to me by Dr. Lugo if seen evaluated patient myself. She says overall she is feeling better. No nausea vomiting no abdominal pain. Blood work today does show improvement in high mild hyperkalemia it was 5.8 now was 5 5. Improvement in her creatinine as well was 10.0 and now 9.23. Knight catheter is placed she has very clear urine draining. She continues to get IV fluids. No sign of infection. INR is found to be elevated at 7.1 thought to be somehow related to her renal failure. Vitamin K is ordered. 0900am- Dr. Cui Nephrology, updated on patient's symptoms test results at this time agrees with a bicarb drip 100 mEq for 75 an hour for about 1 day. Continue checking light. Will likely need dialysis however no beds available at [facility]. Dr lugo 02/21-02/22: Assumed care of patient. Reviewed patient's events over the day. Is on a bicarb drip. Creatinine not much improved. Patient is supratherapeutic on INR but no active bleeding. Care turned over to Dr. Love to continue to observe until disposition can be made. 02/22/2022 8am patient seen evaluated by myself. Awaiting for morning blood work. She has mild pain requesting her Pulmicort. But overall eating breakfast. Blood work over last night does show improvement in bicarb creatinine remains about the same. Urine output did decreased throughout the day and last night, 200 cc out last night. 1100am Spoke wiht Dr. Abebe, nephrology, updated on patient's symptoms test results agrees with stopping bicarb drip. Recommends giving a large dose of Lasix to help stimulate the kidneys. Can stop IV fluids if she is eating and drinking. Agrees with continuing to find placement and transfer for probable dialysis. Spoke with Dr. Mathew nixon, nephrologists [facility] patient apparently has seen nephrology previously she saw them once in April and once in September creatinine was 2 and then 1 had complete workup was told did not need any further follow- up. No renal biopsy was done at that time. Clearly in acute renal failure at this time. Patient is having increasing abdominal pain lipase continues to be elevated at 3900 for this reason fluids are continued. She did respond well to 120 mg of Lasix she would significant urine output. Continuing to still try and transfer for need for dialysis. However potassium and bicarb are significantly improved. Patient signed out to Dr. Dianna Bustamante 02/22/22: Patient signed out to myself by Dr. Love. Patient is in acute renal failure, with creatinine being 10 on 02/21/2022 and is currently 9.6 today on 02/22/2022 at 4:50 a.m. in the afternoon. Patient's potassium has improved from 5.7-4.1, her bicarb is slowly improving from 13-20, patient is continued on LR at this time she does appear to be developing some pancreatitis. Glucose has been appropriate on daily labs, lipase is slowly trending upwards it was 2998 on the and is [address] from 02/21/2022 shows nonobstructing right renal calculus, no hydro obstructive uropathy, nonspecific bilateral perinephric stranding noted, 5 cm stable mural calcifications in the liver as well as a 4 cm left renal cyst and a 7 mm nonobstructing right renal calculus. Patient had been seen on the 24th for possible infection had been started on oral antibiotic and that urine culture grew Enterobacter Kurt's greater than 100,000 CFU, patient appears to have sensitivities to cefepime which was started 500 mg x1 followed by 250 mg to be given Q [address] Love had spoken with Nephrology at [facility] yesterday they agree with stopping the bicarb drip they did recommend giving a large dose of Lasix to stimulate kidneys which did seem to be helpful. 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 Patient has a.m. labs ordered, continuing to seek placement for Nephrology and to initiate dialysis, patient signed out to Dr. Scott. February 23, 2022 at 10:00 a.m.. Spoke with patient and family results of laboratory studies this morning. No significant change in creatinine however INR has improved. Lipase has improved. CT scan imaging does not show pancreatitis. Ultrasound does not show cholecystitis, does not show any g allstones. Liver enzymes are reassuring at this time. They do understand need for transfer for Nephrology Services evaluation, even possible dialysis. Patient does have Knight catheter in place. Is making urine 6:[address] Bustamante, new issues during today. Family has been trying to transfer patient to a hospital in [place]. However patient still on waiting list here. No significant changes in blood work. <Chanel Smith MD - Last Filed: 03/01/22 18:49> Lab Data Labs: Lab Results 02/21/22 02/21/22 02/21/22 Range/Units 01:17 01:40 01:40 WBC 9.8 (4.5-11.0) X10^3/uL RBC 4.26 (4.0-5.2) X10^6/uL Hgb 12.7 (12.0-16.0) g/dL Hct 38.4 (36-46) % MCV 90.3 (80-100) fL MCH 29.9 (26-34) PG MCHC 33.1 (30-36) % RDW 14.5 (11.6-14.8) % Plt Count 262 (150-400) X10^3/uL Neut % (Auto) 75.5 H (50-75) % Lymph % (Auto) 15.0 L (25-40) % [place] % (Auto) 7.6 (3-14) % Eos % (Auto) 1.2 L (2-4) % Baso % (Auto) 0.7 (0-2) % Neut # (Auto) 7400 H (9429-5267) /uL Lymph # (Auto) 1500 (8570-9931) /uL [place] # (Auto) 700 (0-900) /uL Eos # (Auto) 100 (0-450) /uL Baso # (Auto) 100 (0-100) /uL PT (10.1-12.7) SECONDS INR (0.9-1.3) Sodium 136 L (137-145) mmol/L Potassium 5.7 H (3.4-5.1) mmol/L Chloride 103 (98-107) mmol/L Carbon Dioxide 13 L (22-32) mmol/L BUN 67 H (7-17) mg/dL Creatinine 10.0 H* (0.52-1.04) mg/dL Estimated GFR 4 L (>60) mL/min BUN/Creatinine Ratio 6.7 (6-22) Glucose 88 (80-110) mg/dL Uric Acid (2.5-6.2) mg/dL Calcium 9.9 (8.4-10.2) mg/dL Total Bilirubin 0.7 (0.2-1.3) mg/dL AST 32 (14-36) IU/L ALT 27 (<35) IU/L Alkaline Phosphatase 54 (38-126) U/L Lactate Dehydrogenase (120-246) U/L Total Protein 7.3 (6.3-8.2) g/dL Albumin 4.2 (3.5-5.0) g/dL Globulin 3.1 (1.7-4.1) g/dL Albumin/Globulin Ratio 1.4 (1.0-2.8) Lipase 2998 H (23-300) U/L Procalcitonin (<0.5) ng/mL Ur Random Sodium (30-90) mmol/L Urine Creatinine mg/dL SARS-CoV-2 (PCR) Negative (Negative) Influenza A (RT-PCR) Flu a negative (NEGATIVE) Influenza B (RT-PCR) Flu b negative (NEGATIVE) RSV (PCR) Negative (Negative) 02/21/22 02/21/22 02/21/22 Range/Units 03:30 05:30 07:46 WBC (4.5-11.0) X10^3/uL RBC (4.0-5.2) X10^6/uL Hgb (12.0-16.0) g/dL Hct (36-46) % MCV (80-100) fL MCH (26-34) PG MCHC (30-36) % RDW (11.6-14.8) % Plt Count (150-400) X10^3/uL Neut % (Auto) (50-75) % Lymph % (Auto) (25-40) % [place] % (Auto) (3-14) % Eos % (Auto) (2-4) % Baso % (Auto) (0-2) % Neut # (Auto) (6253-4732) /uL Lymph # (Auto) (6011-3116) /uL [place] # (Auto) (0-900) /uL Eos # (Auto) (0-450) /uL Baso # (Auto) (0-100) /uL PT 82.9 H (10.1-12.7) SECONDS INR 7.1 H* (0.9-1.3) Sodium 137 (137-145) mmol/L Potassium 5.8 H (3.4-5.1) mmol/L Chloride 109 H (98-107) mmol/L Carbon Dioxide 13 L (22-32) mmol/L BUN 63 H (7-17) mg/dL Creatinine 9.15 H* (0.52-1.04) mg/dL Estimated GFR 4 L (>60) mL/min BUN/Creatinine Ratio 6.9 (6-22) Glucose 86 (80-110) mg/dL Uric Acid (2.5-6.2) mg/dL Calcium 8.4 (8.4-10.2) mg/dL Total Bilirubin (0.2-1.3) mg/dL AST (14-36) IU/L ALT (<35) IU/L Alkaline Phosphatase (38-126) U/L Lactate Dehydrogenase (120-246) U/L Total Protein (6.3-8.2) g/dL Albumin (3.5-5.0) g/dL Globulin (1.7-4.1) g/dL Albumin/Globulin Ratio (1.0-2.8) Lipase (23-300) U/L Procalcitonin (<0.5) ng/mL Ur Random Sodium 84 (30-90) mmol/L Urine Creatinine 69.7 mg/dL SARS-CoV-2 (PCR) (Negative) Influenza A (RT-PCR) (NEGATIVE) Influenza B (RT-PCR) (NEGATIVE) RSV (PCR) (Negative) 02/21/22 02/21/22 02/21/22 Range/Units 07:46 07:46 07:50 WBC (4.5-11.0) X10^3/uL RBC (4.0-5.2) X10^6/uL Hgb (12.0-16.0) g/dL Hct (36-46) % MCV (80-100) fL MCH (26-34) PG MCHC (30-36) % RDW (11.6-14.8) % Plt Count (150-400) X10^3/uL Neut % (Auto) (50-75) % Lymph % (Auto) (25-40) % [place] % (Auto) (3-14) % Eos % (Auto) (2-4) % Baso % (Auto) (0-2) % Neut # (Auto) (2419-5184) /uL Lymph # (Auto) (2814-3888) /uL [place] # (Auto) (0-900) /uL Eos # (Auto) (0-450) /uL Baso # (Auto) (0-100) /uL PT (10.1-12.7) SECONDS INR (0.9-1.3) Sodium 139 (137-145) mmol/L Potassium 5.5 H (3.4-5.1) mmol/L Chloride 109 H (98-107) mmol/L Carbon Dioxide 13 L (22-32) mmol/L BUN 65 H (7-17) mg/dL Creatinine 9.23 H* (0.52-1.04) mg/dL Estimated GFR 4 L (>60) mL/min BUN/Creatinine Ratio 7.0 (6-22) Glucose 82 (80-110) mg/dL Uric Acid (2.5-6.2) mg/dL Calcium 8.4 (8.4-10.2) mg/dL Total Bilirubin (0.2-1.3) mg/dL AST (14-36) IU/L ALT (<35) IU/L Alkaline Phosphatase (38-126) U/L Lactate Dehydrogenase 231 (120-246) U/L Total Protein (6.3-8.2) g/dL Albumin (3.5-5.0) g/dL Globulin (1.7-4.1) g/dL Albumin/Globulin Ratio (1.0-2.8) Lipase 2978 H (23-300) U/L Procalcitonin 0.33 (<0.5) ng/mL Ur Random Sodium (30-90) mmol/L Urine Creatinine mg/dL SARS-CoV-2 (PCR) (Negative) Influenza A (RT-PCR) (NEGATIVE) Influenza B (RT-PCR) (NEGATIVE) RSV (PCR) (Negative) 02/21/22 02/21/22 02/22/22 Range/Units 12:00 18:00 07:00 WBC (4.5-11.0) X10^3/uL RBC (4.0-5.2) X10^6/uL Hgb (12.0-16.0) g/dL Hct (36-46) % MCV (80-100) fL MCH (26-34) PG MCHC (30-36) % RDW (11.6-14.8) % Plt Count (150-400) X10^3/uL Neut % (Auto) (50-75) % Lymph % (Auto) (25-40) % [place] % (Auto) (3-14) % Eos % (Auto) (2-4) % Baso % (Auto) (0-2) % Neut # (Auto) (1521-5210) /uL Lymph # (Auto) (0685-0791) /uL [place] # (Auto) (0-900) /uL Eos # (Auto) (0-450) /uL Baso # (Auto) (0-100) /uL PT (10.1-12.7) SECONDS INR (0.9-1.3) Sodium 138 137 137 (137-145) mmol/L Potassium 5.5 H 4.4 4.0 (3.4-5.1) mmol/L Chloride 110 H 103 100 (98-107) mmol/L Carbon Dioxide 13 L 16 L 23 (22-32) mmol/L BUN 64 H 67 H 72 H (7-17) mg/dL Creatinine 9.00 H* 9.00 H* 9.31 H* (0.52-1.04) mg/dL Estimated GFR 4 L 4 L 4 L (>60) mL/min BUN/Creatinine Ratio 7.1 7.4 7.7 (6-22) Glucose 78 L 170 H 132 H (80-110) mg/dL Uric Acid (2.5-6.2) mg/dL Calcium 8.0 L 8.2 L 8.7 (8.4-10.2) mg/dL Total Bilirubin 0.5 (0.2-1.3) mg/dL AST 25 (14-36) IU/L ALT 21 (<35) IU/L Alkaline Phosphatase 41 (38-126) U/L Lactate Dehydrogenase (120-246) U/L Total Protein 5.7 L (6.3-8.2) g/dL Albumin 3.1 L (3.5-5.0) g/dL Globulin 2.6 (1.7-4.1) g/dL Albumin/Globulin Ratio 1.2 (1.0-2.8) Lipase 3228 H (23-300) U/L Procalcitonin (<0.5) ng/mL Ur Random Sodium (30-90) mmol/L Urine Creatinine mg/dL SARS-CoV-2 (PCR) (Negative) Influenza A (RT-PCR) (NEGATIVE) Influenza B (RT-PCR) (NEGATIVE) RSV (PCR) (Negative) 02/22/22 02/22/22 02/22/22 Range/Units 08:10 08:10 16:50 WBC 7.0 7.7 (4.5-11.0) X10^3/uL RBC 3.56 L 3.57 L (4.0-5.2) X10^6/uL Hgb 10.8 L 11.1 L (12.0-16.0) g/dL Hct 31.3 L 31.5 L (36-46) % MCV 88.0 88.4 (80-100) fL MCH 30.3 31.0 (26-34) PG MCHC 34.5 35.1 (30-36) % RDW 14.2 13.9 (11.6-14.8) % Plt Count 193 199 (150-400) X10^3/uL Neut % (Auto) 67.6 73.6 (50-75) % Lymph % (Auto) 18.0 L 12.6 L (25-40) % [place] % (Auto) 10.4 10.2 (3-14) % Eos % (Auto) 3.3 3.0 (2-4) % Baso % (Auto) 0.7 0.6 (0-2) % Neut # (Auto) 4700 5600 (3453-4926) /uL Lymph # (Auto) 1300 1000 L (2023-4000) /uL [place] # (Auto) 700 800 (0-900) /uL Eos # (Auto) 200 200 (0-450) /uL Baso # (Auto) 0 0 (0-100) /uL PT 54.9 H D (10.1-12.7) SECONDS INR 4.7 H* (0.9-1.3) Sodium (137-145) mmol/L Potassium (3.4-5.1) mmol/L Chloride (98-107) mmol/L Carbon Dioxide (22-32) mmol/L BUN (7-17) mg/dL Creatinine (0.52-1.04) mg/dL Estimated GFR (>60) mL/min BUN/Creatinine Ratio (6-22) Glucose (80-110) mg/dL Uric Acid (2.5-6.2) mg/dL Calcium (8.4-10.2) mg/dL Total Bilirubin (0.2-1.3) mg/dL AST (14-36) IU/L ALT (<35) IU/L Alkaline Phosphatase (38-126) U/L Lactate Dehydrogenase (120-246) U/L Total Protein (6.3-8.2) g/dL Albumin (3.5-5.0) g/dL Globulin (1.7-4.1) g/dL Albumin/Globulin Ratio (1.0-2.8) Lipase (23-300) U/L Procalcitonin (<0.5) ng/mL Ur Random Sodium (30-90) mmol/L Urine Creatinine mg/dL SARS-CoV-2 (PCR) (Negative) Influenza A (RT-PCR) (NEGATIVE) Influenza B (RT-PCR) (NEGATIVE) RSV (PCR) (Negative) 02/22/22 02/23/22 02/23/22 Range/Units 16:50 08:22 08:22 WBC 8.4 (4.5-11.0) X10^3/uL RBC 3.34 L (4.0-5.2) X10^6/uL Hgb 10.1 L (12.0-16.0) g/dL Hct 29.9 L (36-46) % MCV 89.3 (80-100) fL MCH 30.3 (26-34) PG MCHC 34.0 (30-36) % RDW 14.0 (11.6-14.8) % Plt Count 183 (150-400) X10^3/uL Neut % (Auto) 75.8 H (50-75) % Lymph % (Auto) 9.7 L (25-40) % [place] % (Auto) 10.9 (3-14) % Eos % (Auto) 3.1 (2-4) % Baso % (Auto) 0.5 (0-2) % Neut # (Auto) 6400 (6723-2727) /uL Lymph # (Auto) 800 L (9761-7761) /uL [place] # (Auto) 900 (0-900) /uL Eos # (Auto) 300 (0-450) /uL Baso # (Auto) 0 (0-100) /uL PT 29.4 H D (10.1-12.7) SECONDS INR 2.5 H (0.9-1.3) Sodium 137 (137-145) mmol/L Potassium 4.1 (3.4-5.1) mmol/L Chloride 101 (98-107) mmol/L Carbon Dioxide 20 L (22-32) mmol/L BUN 72 H (7-17) mg/dL Creatinine 9.63 H* (0.52-1.04) mg/dL Estimated GFR 4 L (>60) mL/min BUN/Creatinine Ratio 7.5 (6-22) Glucose 112 H (80-110) mg/dL Uric Acid (2.5-6.2) mg/dL Calcium 8.9 (8.4-10.2) mg/dL Total Bilirubin 0.5 (0.2-1.3) mg/dL AST 27 (14-36) IU/L ALT 21 (<35) IU/L Alkaline Phosphatase 44 (38-126) U/L Lactate Dehydrogenase (120-246) U/L Total Protein 5.8 L (6.3-8.2) g/dL Albumin 3.1 L (3.5-5.0) g/dL Globulin 2.7 (1.7-4.1) g/dL Albumin/Globulin Ratio 1.1 (1.0-2.8) Lipase 3886 H (23-300) U/L Procalcitonin (<0.5) ng/mL Ur Random Sodium (30-90) mmol/L Urine Creatinine mg/dL SARS-CoV-2 (PCR) (Negative) Influenza A (RT-PCR) (NEGATIVE) Influenza B (RT-PCR) (NEGATIVE) RSV (PCR) (Negative) 02/23/22 02/24/22 02/24/22 Range/Units 08:22 06:17 06:17 WBC 8.5 (4.5-11.0) X10^3/uL RBC 3.16 L (4.0-5.2) X10^6/uL Hgb 9.5 L (12.0-16.0) g/dL Hct 28.4 L (36-46) % MCV 90.1 (80-100) fL MCH 30.2 (26-34) PG MCHC 33.6 (30-36) % RDW 14.1 (11.6-14.8) % Plt Count 164 (150-400) X10^3/uL Neut % (Auto) 72.9 (50-75) % Lymph % (Auto) 11.5 L (25-40) % [place] % (Auto) 10.7 (3-14) % Eos % (Auto) 4.4 H (2-4) % Baso % (Auto) 0.5 (0-2) % Neut # (Auto) 6200 (5465-1164) /uL Lymph # (Auto) 1000 L (8608-6459) /uL [place] # (Auto) 900 (0-900) /uL Eos # (Auto) 400 (0-450) /uL Baso # (Auto) 0 (0-100) /uL PT 30.8 H (10.1-12.7) SECONDS INR 2.7 H (0.9-1.3) Sodium 138 (137-145) mmol/L Potassium 4.6 (3.4-5.1) mmol/L Chloride 105 (98-107) mmol/L Carbon Dioxide 21 L (22-32) mmol/L BUN 67 H (7-17) mg/dL Creatinine 9.43 H* (0.52-1.04) mg/dL Estimated GFR 4 L (>60) mL/min BUN/Creatinine Ratio 7.1 (6-22) Glucose 113 H (80-110) mg/dL Uric Acid (2.5-6.2) mg/dL Calcium 8.7 (8.4-10.2) mg/dL Total Bilirubin 0.5 (0.2-1.3) mg/dL AST 25 (14-36) IU/L ALT 18 (<35) IU/L Alkaline Phosphatase 43 (38-126) U/L Lactate Dehydrogenase (120-246) U/L Total Protein 4.9 L (6.3-8.2) g/dL Albumin 2.6 L (3.5-5.0) g/dL Globulin 2.3 (1.7-4.1) g/dL Albumin/Globulin Ratio 1.1 (1.0-2.8) Lipase 2420 H (23-300) U/L Procalcitonin (<0.5) ng/mL Ur Random Sodium (30-90) mmol/L Urine Creatinine mg/dL SARS-CoV-2 (PCR) (Negative) Influenza A (RT-PCR) (NEGATIVE) Influenza B (RT-PCR) (NEGATIVE) RSV (PCR) (Negative) 02/24/22 02/25/22 02/25/22 Range/Units 06:17 08:25 08:25 WBC 8.5 (4.5-11.0) X10^3/uL RBC 3.37 L (4.0-5.2) X10^6/uL Hgb 10.3 L (12.0-16.0) g/dL Hct 30.3 L (36-46) % MCV 90.0 (80-100) fL MCH 30.5 (26-34) PG MCHC 33.9 (30-36) % RDW 14.5 (11.6-14.8) % Plt Count 203 (150-400) X10^3/uL Neut % (Auto) 72.9 (50-75) % Lymph % (Auto) 11.0 L (25-40) % [place] % (Auto) 9.2 (3-14) % Eos % (Auto) 6.2 H (2-4) % Baso % (Auto) 0.7 (0-2) % Neut # (Auto) 6200 (3745-5185) /uL Lymph # (Auto) 900 L (0971-1830) /uL [place] # (Auto) 800 (0-900) /uL Eos # (Auto) 500 H (0-450) /uL Baso # (Auto) 100 (0-100) /uL PT 27.7 H (10.1-12.7) SECONDS INR 2.4 H (0.9-1.3) Sodium 135 L (137-145) mmol/L Potassium 4.3 (3.4-5.1) mmol/L Chloride 108 H (98-107) mmol/L Carbon Dioxide 18 L (22-32) mmol/L BUN 64 H (7-17) mg/dL Creatinine 9.12 H* (0.52-1.04) mg/dL Estimated GFR 4 L (>60) mL/min BUN/Creatinine Ratio 7.0 (6-22) Glucose 102 (80-110) mg/dL Uric Acid (2.5-6.2) mg/dL Calcium 8.5 (8.4-10.2) mg/dL Total Bilirubin 0.5 (0.2-1.3) mg/dL AST 24 (14-36) IU/L ALT 16 (<35) IU/L Alkaline Phosphatase 41 (38-126) U/L Lactate Dehydrogenase (120-246) U/L Total Protein 5.0 L (6.3-8.2) g/dL Albumin 2.5 L (3.5-5.0) g/dL Globulin 2.5 (1.7-4.1) g/dL Albumin/Globulin Ratio 1.0 (1.0-2.8) Lipase 1539 H (23-300) U/L Procalcitonin (<0.5) ng/mL Ur Random Sodium (30-90) mmol/L Urine Creatinine mg/dL SARS-CoV-2 (PCR) (Negative) Influenza A (RT-PCR) (NEGATIVE) Influenza B (RT-PCR) (NEGATIVE) RSV (PCR) (Negative) 02/25/22 02/26/22 02/26/22 Range/Units 08:25 08:42 08:42 WBC 7.6 (4.5-11.0) X10^3/uL RBC 3.59 L (4.0-5.2) X10^6/uL Hgb 10.8 L (12.0-16.0) g/dL Hct 32.2 L (36-46) % MCV 89.7 (80-100) fL MCH 30.0 (26-34) PG MCHC 33.4 (30-36) % RDW 14.1 (11.6-14.8) % Plt Count 227 (150-400) X10^3/uL Neut % (Auto) 74.4 (50-75) % Lymph % (Auto) 11.5 L (25-40) % [place] % (Auto) 7.9 (3-14) % Eos % (Auto) 5.4 H (2-4) % Baso % (Auto) 0.8 (0-2) % Neut # (Auto) 5600 (6411-5870) /uL Lymph # (Auto) 900 L (0676-0740) /uL [place] # (Auto) 600 (0-900) /uL Eos # (Auto) 400 (0-450) /uL Baso # (Auto) 100 (0-100) /uL PT 22.4 H D (10.1-12.7) SECONDS INR 1.9 H (0.9-1.3) Sodium 136 L (137-145) mmol/L Potassium 4.6 (3.4-5.1) mmol/L Chloride 105 (98-107) mmol/L Carbon Dioxide 20 L (22-32) mmol/L BUN 61 H (7-17) mg/dL Creatinine 9.09 H* (0.52-1.04) mg/dL Estimated GFR 4 L (>60) mL/min BUN/Creatinine Ratio 6.7 (6-22) Glucose 90 (80-110) mg/dL Uric Acid (2.5-6.2) mg/dL Calcium 8.6 (8.4-10.2) mg/dL Total Bilirubin 0.5 (0.2-1.3) mg/dL AST 25 (14-36) IU/L ALT 17 (<35) IU/L Alkaline Phosphatase 48 (38-126) U/L Lactate Dehydrogenase (120-246) U/L Total Protein 5.5 L (6.3-8.2) g/dL Albumin 2.7 L (3.5-5.0) g/dL Globulin 2.8 (1.7-4.1) g/dL Albumin/Globulin Ratio 1.0 (1.0-2.8) Lipase 958 H (23-300) U/L Procalcitonin (<0.5) ng/mL Ur Random Sodium (30-90) mmol/L Urine Creatinine mg/dL SARS-CoV-2 (PCR) (Negative) Influenza A (RT-PCR) (NEGATIVE) Influenza B (RT-PCR) (NEGATIVE) RSV (PCR) (Negative) 02/26/22 02/26/22 Range/Units 08:42 08:42 WBC (4.5-11.0) X10^3/uL RBC (4.0-5.2) X10^6/uL Hgb (12.0-16.0) g/dL Hct (36-46) % MCV (80-100) fL MCH (26-34) PG MCHC (30-36) % RDW (11.6-14.8) % Plt Count (150-400) X10^3/uL Neut % (Auto) (50-75) % Lymph % (Auto) (25-40) % [place] % (Auto) (3-14) % Eos % (Auto) (2-4) % Baso % (Auto) (0-2) % Neut # (Auto) (9447-5724) /uL Lymph # (Auto) (8084-3383) /uL [place] # (Auto) (0-900) /uL Eos # (Auto) (0-450) /uL Baso # (Auto) (0-100) /uL PT (10.1-12.7) SECONDS INR (0.9-1.3) Sodium 135 L (137-145) mmol/L Potassium 4.5 (3.4-5.1) mmol/L Chloride 105 (98-107) mmol/L Carbon Dioxide 17 L (22-32) mmol/L BUN 65 H (7-17) mg/dL Creatinine 9.91 H* (0.52-1.04) mg/dL Estimated GFR 4 L (>60) mL/min BUN/Creatinine Ratio 6.6 (6-22) Glucose 149 H (80-110) mg/dL Uric Acid 4.4 (2.5-6.2) mg/dL Calcium 8.7 (8.4-10.2) mg/dL Total Bilirubin 0.5 (0.2-1.3) mg/dL AST 26 (14-36) IU/L ALT 16 (<35) IU/L Alkaline Phosphatase 51 (38-126) U/L Lactate Dehydrogenase (120-246) U/L Total Protein 5.6 L (6.3-8.2) g/dL Albumin 2.8 L (3.5-5.0) g/dL Globulin 2.8 (1.7-4.1) g/dL Albumin/Globulin Ratio 1.0 (1.0-2.8) Lipase 912 H (23-300) U/L Procalcitonin (<0.5) ng/mL Ur Random Sodium (30-90) mmol/L Urine Creatinine mg/dL SARS-CoV-2 (PCR) (Negative) Influenza A (RT-PCR) (NEGATIVE) Influenza B (RT-PCR) (NEGATIVE) RSV (PCR) (Negative) Point of Care Testing Glucose POC 101 Urine Dip Bedside Urine Glucose Negative Bedside Urine Bilirubin - Negative Bedside Urine Ketone +/- 5 Urine Specific [place] 1.015 Bedside Urine Occult Blood + Bedside Urine pH 6.0 Bedside Urine Protein ++ 100 Bedside Urine Urobilinogen - Negative Bedside Urine Nitrite - Negative Bedside Urine Leukocytes - Negative Esterase MDM Narrative Medical decision making narrative: Patient is well-appearing. Is not tachycardic. Not hypotensive. She does have upper abdominal discomfort. Has pancreatitis based on her lipase which is most likely that the cause of all of her nausea and vomiting even her abdominal pain. She is in acute renal failure/LANIE given her creatinine of 10 and GFR 4. Prior labs that we have for her were greater than 1 year ago which has her creatinine at the 1.3-1.7 range in her GFR in the 30s. Patient has not been v omiting since arrival here to the ER. Her urinalysis today does not show any signs of an infection. CT scans did not give a definitive etiology. Her FeNa is 8.9% which is consistent with a post renal/obstructive pathology however I do not have a specific source of this as it does not appear to be an obstructive stone nor urinary retention. After 2 L of fluid her creatinine only improved slightly. Care turned over to Dr. Love to follow-up and most likely consultation with Nephrology. 02/21/22 Ivan-patient signed out to me by Dr. Lugo if seen evaluated patient myself. She says overall she is feeling better. No nausea vomiting no abdominal pain. Blood work today does show improvement in high mild hyperkalemia it was 5.8 now was 5 5. Improvement in her creatinine as well was 10.0 and now 9.23. Knight catheter is placed she has very clear urine draining. She continues to get IV fluids. No sign of infection. INR is found to be elevated at 7.1 thought to be somehow related to her renal failure. Vitamin K is ordered. 0900am- Dr. Cui Nephrology, updated on patient's symptoms test results at this time agrees with a bicarb drip 100 mEq for 75 an hour for about 1 day. Continue checking light. Will likely need dialysis however no beds available at [facility]. Dr lugo 02/21-02/22: Assumed care of patient. Reviewed patient's events over the day. Is on a bicarb drip. Creatinine not much improved. Patient is supratherapeutic on INR but no active bleeding. Care turned over to Dr. Love to continue to observe until disposition can be made. 02/22/2022 8am patient seen evaluated by myself. Awaiting for morning blood work. She has mild pain requesting her Pulmicort. But overall eating breakfast. Blood work over last night does show improvement in bicarb cr eatinine remains about the same. Urine output did decreased throughout the day and last night, 200 cc out last night. 1100am Spoke wiht Dr. Abebe, nephrology, updated on patient's symptoms test resu lts agrees with stopping bicarb drip. Recommends giving a large dose of Lasix to help stimulate the kidneys. Can stop IV fluids if she is eating and drinking. Agrees with continuing to find placement and transfer for probable dialysis. Spoke with Dr. Mathew nixon, nephrologists [facility] patient apparently has seen nephrology previously she saw them once in April and once in September creatinine was 2 and then 1 had complete workup was told did not need any further follow- up. No renal biopsy was done at that time. Clearly in acute renal failure at this time. Patient is having increasing abdominal pain lipase continues to be elevated at 3900 for this reason fluids are continued. She did respond well to 120 mg of Lasix she would significant urine output. Continuing to still try and transfer for need for dialysis. However potassium and bicarb are significantly improved. Patient signed out to Dr. Dianna Bustamante 02/22/22: Patient signed out to myself by Dr. Love. Patient is in acute renal failure, with creatinine being 10 on 02/21/2022 and is currently 9.6 today on 02/22/2022 at 4:50 a.m. in the afternoon. Patient's potassium has improved from 5.7-4.1, her bicarb is slowly improving from 13-20, patient is continued on LR at this time she does appear to be developing some pancreatitis. Glucose has been appropriate on daily labs, lipase is slowly trending upwards it was 2998 on the and is [address] from 02/21/2022 shows nonobstructing right renal calculus, no hydro obstructive uropathy, nonspecific bilateral perinephric stranding noted, 5 cm stable mural calcifications in the liver as well as a 4 cm left renal cyst and a 7 mm nonobstructing right renal calculus. Patient had been seen on the for possible infection had been started on oral antibiotic and that urine culture grew Enterobacter Kurt's greater than 100,000 CFU, patient appears to have sensitivities to cefepime which was started 500 mg x1 followed by 250 mg to be given Q [address] Love had spoken with Nephrology at [facility] yesterday they agree with stopping the bicarb drip they did recommend giving a large dose of Lasix to stimulate kidneys which did seem to be helpful. 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 Patient has a.m. labs ordered, continuing to seek placement for Nephrology and to initiate dialysis, patient signed out to Dr. Scott. February 23, 2022 at 10:00 a.m.. Spoke with patient and family results of laboratory studies this morning. No significant change in creatinine however INR has improved. Lipase has improved. CT scan imaging does not show pancreatitis. Ultrasound does not show cholecystitis, does not show any gallstones. Liver enzymes are reassuring at this time. They do understand need for transfer for Nephrology Services evaluation, even possible dialysis. Patient does have Knight catheter in place. Is making urine 6:[address] Bustamante, new issues during today. Family has been trying to transfer patient to a hospital in [place]. However patient still on waiting list here. No significant changes in blood work. 02/24/2022 Dianna: Patient signed out myself. No additional issues throughout the day. Patient is on waiting list for transfer to possible hospital [place] where she lives. Her was able to help try to find a bed. Patient's labs have been, patient is eating and drinking still making urine. Lipase appears to be trending down words. Patient has labs ordered for this morning, did see independently evaluated herself this morning. She was up we chatted briefly she would like to be more mobile at this time and not be boarding in the emergency department anymore but otherwise does not have any other complaints currently. Patient's diet was upgraded to renal diet. Patient urine culture does show enterobacter and shows sensitivities to cefepime she is on daily. Patient signed out to Dr. Smith while awaiting transfer. Dr Smith 02/24/2022 8am ED observation/progress note 71-year-old woman presents with severe nausea vomiting diarrhea belly pain.? Was seen on February 18 with acute UTI, started on .? Continued to feel wo rse was re-evaluated on 1230.? Urine has eventually grown out Enterobacter with following sensitivies ? --------- --- ? * Amoxicillin/Clavulanate? >=32? R? * Cefazolin? >=64? R? * Cefepime? <=1? S? * Ceftriaxone? 16? I? * Ciprofloxacin? <=0.25??? S? * Ertapenem? <=0.5??? S? * Gentamicin? <=1? S? * Imipenem? 0.5? S? * Levofloxacin? <=0.12??? S? * Nitrofurantoin? 128? R? * Tobramycin? <=1? S? * Trimethoprim/Sulfamethoxazole??? <=20? S? * Piperacillin/Tazobactam? >=128??? R? CT scan shows a nonobstructing right renal calculus with nonspecific bilateral perinephric stranding. INR was elevated on 02/21 at 7.1 without evidence of bleeding Newly diagnosed renal? failure with creatinine 9.15 , K= 5..8, CO2=13 Objective Vital stable Chest:? Regular breathing, no respiratory distress Cardiac: regular rate and rhythm Abdomen: Minor epigastric tenderness, no rebound or guarding Assessment and plan 1.? Hospital boarding day 3, ?pyelonephritis with Enterobacter, currently on cefepime with no evidence of sepsis.? 2.? Severe vomiting and diarrhea with acute renal failure.? Now off bicarb drip does need axis and will need dialysis.? I have talked to all available facilities up and down the eye 5 quarter and no beds are available.? We will again review with Nephrology at [facility], Dr. Mead and see if arranging for dialysis access to at least be done today would be helpful 3.? Vomiting and diarrhea.? At this point controlled she has not had any diarrhea since the .? She is making minimal amounts of non concentrated urine. 4.? Additional medical problems include stroke for which he is ant icoagulated with INR initially significantly elevated but no active bleeding.? Labs are currently pending this morning with repeat INR 5.? History of diabetes, atrial fibrillation, cardiomyopathy, hypertension, hyperlipidemia with home meds all restarted 6.? Will continue to work on bed availability.? [facility] is involved. 9:55 am Reviewed with Nephrology, Dr Marshall, at [facility]. Recommended continuing LR at 1:50 a.m. an hour as ordered, starting 80 mg of Lasix 3 times a day IV as long as systolic pressures are above 100. Did not think that trying to facilitate dialysis access prior to being seen by a building code inspector would be particularly helpful. Will continue working on bed availability. 945 long discussion with her . He is increasingly frustrated with the weights and inability to transfer her. Is wondering why we simply can not do an ED to ED transfer. Did review EMTALA restraints regarding transfer. He is talking to PCP an organ about possible transfer to [facility]. 245pm Patient is from [facility]. Talking with the local hospital, [facility]. Dr Nixon is pt's own nephroloigst and has priveleges at [facility]. Pt has medical evac insurance and they have indicated they will pay for transport to [facility] in light of no bed capacity. Will continue to pursue this option. <Mathew Rodríguez MD - Last Filed: 03/25/22 08:12> Lab Data Labs: Lab Results 02/21/22 02/21/22 02/21/22 Range/Units 01:17 01:40 01:40 WBC 9.8 (4.5-11.0) X10^3/uL RBC 4.26 (4.0-5.2) X10^6/uL Hgb 12.7 (12.0-16.0) g/dL Hct 38.4 (36-46) % MCV 90.3 (80-100) fL MCH 29.9 (26-34) PG MCHC 33.1 (30-36) % RDW 14.5 (11.6-14.8) % Plt Count 262 (150-400) X10^3/uL Neut % (Auto) 75.5 H (50-75) % Lymph % (Auto) 15.0 L (25-40) % [place] % (Auto) 7.6 (3-14) % Eos % (Auto) 1.2 L (2-4) % Baso % (Auto) 0.7 (0-2) % Neut # (Auto) 7400 H (0259-0709) /uL Lymph # (Auto) 1500 (1826-3764) /uL [place] # (Auto) 700 (0-900) /uL Eos # (Auto) 100 (0-450) /uL Baso # (Auto) 100 (0-100) /uL PT (10.1-12.7) SECONDS INR (0.9-1.3) Sodium 136 L (137-145) mmol/L Potassium 5.7 H (3.4-5.1) mmol/L Chloride 103 (98-107) mmol/L Carbon Dioxide 13 L (22-32) mmol/L BUN 67 H (7-17) mg/dL Creatinine 10.0 H* (0.52-1.04) mg/dL Estimated GFR 4 L (>60) mL/min BUN/Creatinine Ratio 6.7 (6-22) Glucose 88 (80-110) mg/dL Uric Acid (2.5-6.2) mg/dL Calcium 9.9 (8.4-10.2) mg/dL Total Bilirubin 0.7 (0.2-1.3) mg/dL AST 32 (14-36) IU/L ALT 27 (<35) IU/L Alkaline Phosphatase 54 (38-126) U/L Lactate Dehydrogenase (120-246) U/L Total Protein 7.3 (6.3-8.2) g/dL Albumin 4.2 (3.5-5.0) g/dL Globulin 3.1 (1.7-4.1) g/dL Albumin/Globulin Ratio 1.4 (1.0-2.8) Lipase 2998 H (23-300) U/L Procalcitonin (<0.5) ng/mL Ur Random Sodium (30-90) mmol/L Urine Creatinine mg/dL SARS-CoV-2 (PCR) Negative (Negative) Influenza A (RT-PCR) Flu a negative (NEGATIVE) Influenza B (RT-PCR) Flu b negative (NEGATIVE) RSV (PCR) Negative (Negative) 02/21/22 02/21/22 02/21/22 Range/Units 03:30 05:30 07:46 WBC (4.5-11.0) X10^3/uL RBC (4.0-5.2) X10^6/uL Hgb (12.0-16.0) g/dL Hct (36-46) % MCV (80-100) fL MCH (26-34) PG MCHC (30-36) % RDW (11.6-14.8) % Plt Count (150-400) X10^3/uL Neut % (Auto) (50-75) % Lymph % (Auto) (25-40) % [place] % (Auto) (3-14) % Eos % (Auto) (2-4) % Baso % (Auto) (0-2) % Neut # (Auto) (4443-4065) /uL Lymph # (Auto) (9878-0731) /uL [place] # (Auto) (0-900) /uL Eos # (Auto) (0-450) /uL Baso # (Auto) (0-100) /uL PT 82.9 H (10.1-12.7) SECONDS INR 7.1 H* (0.9-1.3) Sodium 137 (137-145) mmol/L Potassium 5.8 H (3.4-5.1) mmol/L Chloride 109 H (98-107) mmol/L Carbon Dioxide 13 L (22-32) mmol/L BUN 63 H (7-17) mg/dL Creatinine 9.15 H* (0.52-1.04) mg/dL Estimated GFR 4 L (>60) mL/min BUN/Creatinine Ratio 6.9 (6-22) Glucose 86 (80-110) mg/dL Uric Acid (2.5-6.2) mg/dL Calcium 8.4 (8.4-10.2) mg/dL Total Bilirubin (0.2-1.3) mg/dL AST (14-36) IU/L ALT (<35) IU/L Alkaline Phosphatase (38-126) U/L Lactate Dehydrogenase (120-246) U/L Total Protein (6.3-8.2) g/dL Albumin (3.5-5.0) g/dL Globulin (1.7-4.1) g/dL Albumin/Globulin Ratio (1.0-2.8) Lipase (23-300) U/L Procalcitonin (<0.5) ng/mL Ur Random Sodium 84 (30-90) mmol/L Urine Creatinine 69.7 mg/dL SARS-CoV-2 (PCR) (Negative) Influenza A (RT-PCR) (NEGATIVE) Influenza B (RT-PCR) (NEGATIVE) RSV (PCR) (Negative) 02/21/22 02/21/22 02/21/22 Range/Units 07:46 07:46 07:50 WBC (4.5-11.0) X10^3/uL RBC (4.0-5.2) X10^6/uL Hgb (12.0-16.0) g/dL Hct (36-46) % MCV (80-100) fL MCH (26-34) PG MCHC (30-36) % RDW (11.6-14.8) % Plt Count (150-400) X10^3/uL Neut % (Auto) (50-75) % Lymph % (Auto) (25-40) % [place] % (Auto) (3-14) % Eos % (Auto) (2-4) % Baso % (Auto) (0-2) % Neut # (Auto) (3941-4341) /uL Lymph # (Auto) (1735-5088) /uL [place] # (Auto) (0-900) /uL Eos # (Auto) (0-450) /uL Baso # (Auto) (0-100) /uL PT (10.1-12.7) SECONDS INR (0.9-1.3) Sodium 139 (137-145) mmol/L Potassium 5.5 H (3.4-5.1) mmol/L Chloride 109 H (98-107) mmol/L Carbon Dioxide 13 L (22-32) mmol/L BUN 65 H (7-17) mg/dL Creatinine 9.23 H* (0.52-1.04) mg/dL Estimated GFR 4 L (>60) mL/min BUN/Creatinine Ratio 7.0 (6-22) Glucose 82 (80-110) mg/dL Uric Acid (2.5-6.2) mg/dL Calcium 8.4 (8.4-10.2) mg/dL Total Bilirubin (0.2-1.3) mg/dL AST (14-36) IU/L ALT (<35) IU/L Alkaline Phosphatase (38-126) U/L Lactate Dehydrogenase 231 (120-246) U/L Total Protein (6.3-8.2) g/dL Albumin (3.5-5.0) g/dL Globulin (1.7-4.1) g/dL Albumin/Globulin Ratio (1.0-2.8) Lipase 2978 H (23-300) U/L Procalcitonin 0.33 (<0.5) ng/mL Ur Random Sodium (30-90) mmol/L Urine Creatinine mg/dL SARS-CoV-2 (PCR) (Negative) Influenza A (RT-PCR) (NEGATIVE) Influenza B (RT-PCR) (NEGATIVE) RSV (PCR) (Negative) 02/21/22 02/21/22 02/22/22 Range/Units 12:00 18:00 07:00 WBC (4.5-11.0) X10^3/uL RBC (4.0-5.2) X10^6/uL Hgb (12.0-16.0) g/dL Hct (36-46) % MCV (80-100) fL MCH (26-34) PG MCHC (30-36) % RDW (11.6-14.8) % Plt Count (150-400) X10^3/uL Neut % (Auto) (50-75) % Lymph % (Auto) (25-40) % [place] % (Auto) (3-14) % Eos % (Auto) (2-4) % Baso % (Auto) (0-2) % Neut # (Auto) (5536-3167) /uL Lymph # (Auto) (1849-1520) /uL [place] # (Auto) (0-900) /uL Eos # (Auto) (0-450) /uL Baso # (Auto) (0-100) /uL PT (10.1-12.7) SECONDS INR (0.9-1.3) Sodium 138 137 137 (137-145) mmol/L Potassium 5.5 H 4.4 4.0 (3.4-5.1) mmol/L Chloride 110 H 103 100 (98-107) mmol/L Carbon Dioxide 13 L 16 L 23 (22-32) mmol/L BUN 64 H 67 H 72 H (7-17) mg/dL Creatinine 9.00 H* 9.00 H* 9.31 H* (0.52-1.04) mg/dL Estimated GFR 4 L 4 L 4 L (>60) mL/min BUN/Creatinine Ratio 7.1 7.4 7.7 (6-22) Glucose 78 L 170 H 132 H (80-110) mg/dL Uric Acid (2.5-6.2) mg/dL Calcium 8.0 L 8.2 L 8.7 (8.4-10.2) mg/dL Total Bilirubin 0.5 (0.2-1.3) mg/dL AST 25 (14-36) IU/L ALT 21 (<35) IU/L Alkaline Phosphatase 41 (38-126) U/L Lactate Dehydrogenase (120-246) U/L Total Protein 5.7 L (6.3-8.2) g/dL Albumin 3.1 L (3.5-5.0) g/dL Globulin 2.6 (1.7-4.1) g/dL Albumin/Globulin Ratio 1.2 (1.0-2.8) Lipase 3228 H (23-300) U/L Procalcitonin (<0.5) ng/mL Ur Random Sodium (30-90) mmol/L Urine Creatinine mg/dL SARS-CoV-2 (PCR) (Negative) Influenza A (RT-PCR) (NEGATIVE) Influenza B (RT-PCR) (NEGATIVE) RSV (PCR) (Negative) 02/22/22 02/22/22 02/22/22 Range/Units 08:10 08:10 16:50 WBC 7.0 7.7 (4.5-11.0) X10^3/uL RBC 3.56 L 3.57 L (4.0-5.2) X10^6/uL Hgb 10.8 L 11.1 L (12.0-16.0) g/dL Hct 31.3 L 31.5 L (36-46) % MCV 88.0 88.4 (80-100) fL MCH 30.3 31.0 (26-34) PG MCHC 34.5 35.1 (30-36) % RDW 14.2 13.9 (11.6-14.8) % Plt Count 193 199 (150-400) X10^3/uL Neut % (Auto) 67.6 73.6 (50-75) % Lymph % (Auto) 18.0 L 12.6 L (25-40) % [place] % (Auto) 10.4 10.2 (3-14) % Eos % (Auto) 3.3 3.0 (2-4) % Baso % (Auto) 0.7 0.6 (0-2) % Neut # (Auto) 4700 5600 (9774-6344) /uL Lymph # (Auto) 1300 1000 L (2754-7512) /uL [place] # (Auto) 700 800 (0-900) /uL Eos # (Auto) 200 200 (0-450) /uL Baso # (Auto) 0 0 (0-100) /uL PT 54.9 H D (10.1-12.7) SECONDS INR 4.7 H* (0.9-1.3) Sodium (137-145) mmol/L Potassium (3.4-5.1) mmol/L Chloride (98-107) mmol/L Carbon Dioxide (22-32) mmol/L BUN (7-17) mg/dL Creatinine (0.52-1.04) mg/dL Estimated GFR (>60) mL/min BUN/Creatinine Ratio (6-22) Glucose (80-110) mg/dL Uric Acid (2.5-6.2) mg/dL Calcium (8.4-10.2) mg/dL Total Bilirubin (0.2-1.3) mg/dL AST (14-36) IU/L ALT (<35) IU/L Alkaline Phosphatase (38-126) U/L Lactate Dehydrogenase (120-246) U/L Total Protein (6.3-8.2) g/dL Albumin (3.5-5.0) g/dL Globulin (1.7-4.1) g/dL Albumin/Globulin Ratio (1.0-2.8) Lipase (23-300) U/L Procalcitonin (<0.5) ng/mL Ur Random Sodium (30-90) mmol/L Urine Creatinine mg/dL SARS-CoV-2 (PCR) (Negative) Influenza A (RT-PCR) (NEGATIVE) Influenza B (RT-PCR) (NEGATIVE) RSV (PCR) (Negative) 02/22/22 02/23/22 02/23/22 Range/Units 16:50 08:22 08:22 WBC 8.4 (4.5-11.0) X10^3/uL RBC 3.34 L (4.0-5.2) X10^6/uL Hgb 10.1 L (12.0-16.0) g/dL Hct 29.9 L (36-46) % MCV 89.3 (80-100) fL MCH 30.3 (26-34) PG MCHC 34.0 (30-36) % RDW 14.0 (11.6-14.8) % Plt Count 183 (150-400) X10^3/uL Neut % (Auto) 75.8 H (50-75) % Lymph % (Auto) 9.7 L (25-40) % [place] % (Auto) 10.9 (3-14) % Eos % (Auto) 3.1 (2-4) % Baso % (Auto) 0.5 (0-2) % Neut # (Auto) 6400 (3752-6100) /uL Lymph # (Auto) 800 L (9860-7137) /uL [place] # (Auto) 900 (0-900) /uL Eos # (Auto) 300 (0-450) /uL Baso # (Auto) 0 (0-100) /uL PT 29.4 H D (10.1-12.7) SECONDS INR 2.5 H (0.9-1.3) Sodium 137 (137-145) mmol/L Potassium 4.1 (3.4-5.1) mmol/L Chloride 101 (98-107) mmol/L Carbon Dioxide 20 L (22-32) mmol/L BUN 72 H (7-17) mg/dL Creatinine 9.63 H* (0.52-1.04) mg/dL Estimated GFR 4 L (>60) mL/min BUN/Creatinine Ratio 7.5 (6-22) Glucose 112 H (80-110) mg/dL Uric Acid (2.5-6.2) mg/dL Calcium 8.9 (8.4-10.2) mg/dL Total Bilirubin 0.5 (0.2-1.3) mg/dL AST 27 (14-36) IU/L ALT 21 (<35) IU/L Alkaline Phosphatase 44 (38-126) U/L Lactate Dehydrogenase (120-246) U/L Total Protein 5.8 L (6.3-8.2) g/dL Albumin 3.1 L (3.5-5.0) g/dL Globulin 2.7 (1.7-4.1) g/dL Albumin/Globulin Ratio 1.1 (1.0-2.8) Lipase 3886 H (23-300) U/L Procalcitonin (<0.5) ng/mL Ur Random Sodium (30-90) mmol/L Urine Creatinine mg/dL SARS-CoV-2 (PCR) (Negative) Influenza A (RT-PCR) (NEGATIVE) Influenza B (RT-PCR) (NEGATIVE) RSV (PCR) (Negative) 02/23/22 02/24/22 02/24/22 Range/Units 08:22 06:17 06:17 WBC 8.5 (4.5-11.0) X10^3/uL RBC 3.16 L (4.0-5.2) X10^6/uL Hgb 9.5 L (12.0-16.0) g/dL Hct 28.4 L (36-46) % MCV 90.1 (80-100) fL MCH 30.2 (26-34) PG MCHC 33.6 (30-36) % RDW 14.1 (11.6-14.8) % Plt Count 164 (150-400) X10^3/uL Neut % (Auto) 72.9 (50-75) % Lymph % (Auto) 11.5 L (25-40) % [place] % (Auto) 10.7 (3-14) % Eos % (Auto) 4.4 H (2-4) % Baso % (Auto) 0.5 (0-2) % Neut # (Auto) 6200 (5127-9386) /uL Lymph # (Auto) 1000 L (7287-6462) /uL [place] # (Auto) 900 (0-900) /uL Eos # (Auto) 400 (0-450) /uL Baso # (Auto) 0 (0-100) /uL PT 30.8 H (10.1-12.7) SECONDS INR 2.7 H (0.9-1.3) Sodium 138 (137-145) mmol/L Potassium 4.6 (3.4-5.1) mmol/L Chloride 105 (98-107) mmol/L Carbon Dioxide 21 L (22-32) mmol/L BUN 67 H (7-17) mg/dL Creatinine 9.43 H* (0.52-1.04) mg/dL Estimated GFR 4 L (>60) mL/min BUN/Creatinine Ratio 7.1 (6-22) Glucose 113 H (80-110) mg/dL Uric Acid (2.5-6.2) mg/dL Calcium 8.7 (8.4-10.2) mg/dL Total Bilirubin 0.5 (0.2-1.3) mg/dL AST 25 (14-36) IU/L ALT 18 (<35) IU/L Alkaline Phosphatase 43 (38-126) U/L Lactate Dehydrogenase (120-246) U/L Total Protein 4.9 L (6.3-8.2) g/dL Albumin 2.6 L (3.5-5.0) g/dL Globulin 2.3 (1.7-4.1) g/dL Albumin/Globulin Ratio 1.1 (1.0-2.8) Lipase 2420 H (23-300) U/L Procalcitonin (<0.5) ng/mL Ur Random Sodium (30-90) mmol/L Urine Creatinine mg/dL SARS-CoV-2 (PCR) (Negative) Influenza A (RT-PCR) (NEGATIVE) Influenza B (RT-PCR) (NEGATIVE) RSV (PCR) (Negative) 02/24/22 02/25/22 02/25/22 Range/Units 06:17 08:25 08:25 WBC 8.5 (4.5-11.0) X10^3/uL RBC 3.37 L (4.0-5.2) X10^6/uL Hgb 10.3 L (12.0-16.0) g/dL Hct 30.3 L (36-46) % MCV 90.0 (80-100) fL MCH 30.5 (26-34) PG MCHC 33.9 (30-36) % RDW 14.5 (11.6-14.8) % Plt Count 203 (150-400) X10^3/uL Neut % (Auto) 72.9 (50-75) % Lymph % (Auto) 11.0 L (25-40) % [place] % (Auto) 9.2 (3-14) % Eos % (Auto) 6.2 H (2-4) % Baso % (Auto) 0.7 (0-2) % Neut # (Auto) 6200 (4870-9072) /uL Lymph # (Auto) 900 L (2503-0352) /uL [place] # (Auto) 800 (0-900) /uL Eos # (Auto) 500 H (0-450) /uL Baso # (Auto) 100 (0-100) /uL PT 27.7 H (10.1-12.7) SECONDS INR 2.4 H (0.9-1.3) Sodium 135 L (137-145) mmol/L Potassium 4.3 (3.4-5.1) mmol/L Chloride 108 H (98-107) mmol/L Carbon Dioxide 18 L (22-32) mmol/L BUN 64 H (7-17) mg/dL Creatinine 9.12 H* (0.52-1.04) mg/dL Estimated GFR 4 L (>60) mL/min BUN/Creatinine Ratio 7.0 (6-22) Glucose 102 (80-110) mg/dL Uric Acid (2.5-6.2) mg/dL Calcium 8.5 (8.4-10.2) mg/dL Total Bilirubin 0.5 (0.2-1.3) mg/dL AST 24 (14-36) IU/L ALT 16 (<35) IU/L Alkaline Phosphatase 41 (38-126) U/L Lactate Dehydrogenase (120-246) U/L Total Protein 5.0 L (6.3-8.2) g/dL Albumin 2.5 L (3.5-5.0) g/dL Globulin 2.5 (1.7-4.1) g/dL Albumin/Globulin Ratio 1.0 (1.0-2.8) Lipase 1539 H (23-300) U/L Procalcitonin (<0.5) ng/mL Ur Random Sodium (30-90) mmol/L Urine Creatinine mg/dL SARS-CoV-2 (PCR) (Negative) Influenza A (RT-PCR) (NEGATIVE) Influenza B (RT-PCR) (NEGATIVE) RSV (PCR) (Negative) 02/25/22 02/26/22 02/26/22 Range/Units 08:25 08:42 08:42 WBC 7.6 (4.5-11.0) X10^3/uL RBC 3.59 L (4.0-5.2) X10^6/uL Hgb 10.8 L (12.0-16.0) g/dL Hct 32.2 L (36-46) % MCV 89.7 (80-100) fL MCH 30.0 (26-34) PG MCHC 33.4 (30-36) % RDW 14.1 (11.6-14.8) % Plt Count 227 (150-400) X10^3/uL Neut % (Auto) 74.4 (50-75) % Lymph % (Auto) 11.5 L (25-40) % [place] % (Auto) 7.9 (3-14) % Eos % (Auto) 5.4 H (2-4) % Baso % (Auto) 0.8 (0-2) % Neut # (Auto) 5600 (2372-8959) /uL Lymph # (Auto) 900 L (8932-2643) /uL [place] # (Auto) 600 (0-900) /uL Eos # (Auto) 400 (0-450) /uL Baso # (Auto) 100 (0-100) /uL PT 22.4 H D (10.1-12.7) SECONDS INR 1.9 H (0.9-1.3) Sodium 136 L (137-145) mmol/L Potassium 4.6 (3.4-5.1) mmol/L Chloride 105 (98-107) mmol/L Carbon Dioxide 20 L (22-32) mmol/L BUN 61 H (7-17) mg/dL Creatinine 9.09 H* (0.52-1.04) mg/dL Estimated GFR 4 L (>60) mL/min BUN/Creatinine Ratio 6.7 (6-22) Glucose 90 (80-110) mg/dL Uric Acid (2.5-6.2) mg/dL Calcium 8.6 (8.4-10.2) mg/dL Total Bilirubin 0.5 (0.2-1.3) mg/dL AST 25 (14-36) IU/L ALT 17 (<35) IU/L Alkaline Phosphatase 48 (38-126) U/L Lactate Dehydrogenase (120-246) U/L Total Protein 5.5 L (6.3-8.2) g/dL Albumin 2.7 L (3.5-5.0) g/dL Globulin 2.8 (1.7-4.1) g/dL Albumin/Globulin Ratio 1.0 (1.0-2.8) Lipase 958 H (23-300) U/L Procalcitonin (<0.5) ng/mL Ur Random Sodium (30-90) mmol/L Urine Creatinine mg/dL SARS-CoV-2 (PCR) (Negative) Influenza A (RT-PCR) (NEGATIVE) Influenza B (RT-PCR) (NEGATIVE) RSV (PCR) (Negative) 02/26/22 02/26/22 Range/Units 08:42 08:42 WBC (4.5-11.0) X10^3/uL RBC (4.0-5.2) X10^6/uL Hgb (12.0-16.0) g/dL Hct (36-46) % MCV (80-100) fL MCH (26-34) PG MCHC (30-36) % RDW (11.6-14.8) % Plt Count (150-400) X10^3/uL Neut % (Auto) (50-75) % Lymph % (Auto) (25-40) % [place] % (Auto) (3-14) % Eos % (Auto) (2-4) % Baso % (Auto) (0-2) % Neut # (Auto) (6979-1221) /uL Lymph # (Auto) (9292-0501) /uL [place] # (Auto) (0-900) /uL Eos # (Auto) (0-450) /uL Baso # (Auto) (0-100) /uL PT (10.1-12.7) SECONDS INR (0.9-1.3) Sodium 135 L (137-145) mmol/L Potassium 4.5 (3.4-5.1) mmol/L Chloride 105 (98-107) mmol/L Carbon Dioxide 17 L (22-32) mmol/L BUN 65 H (7-17) mg/dL Creatinine 9.91 H* (0.52-1.04) mg/dL Estimated GFR 4 L (>60) mL/min BUN/Creatinine Ratio 6.6 (6-22) Glucose 149 H (80-110) mg/dL Uric Acid 4.4 (2.5-6.2) mg/dL Calcium 8.7 (8.4-10.2) mg/dL Total Bilirubin 0.5 (0.2-1.3) mg/dL AST 26 (14-36) IU/L ALT 16 (<35) IU/L Alkaline Phosphatase 51 (38-126) U/L Lactate Dehydrogenase (120-246) U/L Total Protein 5.6 L (6.3-8.2) g/dL Albumin 2.8 L (3.5-5.0) g/dL Globulin 2.8 (1.7-4.1) g/dL Albumin/Globulin Ratio 1.0 (1.0-2.8) Lipase 912 H (23-300) U/L Procalcitonin (<0.5) ng/mL Ur Random Sodium (30-90) mmol/L Urine Creatinine mg/dL SARS-CoV-2 (PCR) (Negative) Influenza A (RT-PCR) (NEGATIVE) Influenza B (RT-PCR) (NEGATIVE) RSV (PCR) (Negative) Point of Care Testing Glucose POC 101 Urine Dip Bedside Urine Glucose Negative Bedside Urine Bilirubin - Negative Bedside Urine Ketone +/- 5 Urine Specific [place] 1.015 Bedside Urine Occult Blood + Bedside Urine pH 6.0 Bedside Urine Protein ++ 100 Bedside Urine Urobilinogen - Negative Bedside Urine Nitrite - Negative Bedside Urine Leukocytes - Negative Esterase MDM Narrative Medical decision making narrative: Patient is well-appearing. Is not tachycardic. Not hypotensive. She does have upper abdominal discomfort. Has pancreatitis based on her lipase which is most likely that the cause of all of her nausea and vomiting even her abdominal pain. She is in acute renal failure/LANIE given her creatinine of 10 and GFR 4. Prior labs that we have for her were greater than 1 year ago which has her creatinine at the 1.3-1.7 range in her GFR in the 30s. Patient has not been vomiting since arrival here to the ER. Her urinalysis today does not show any signs of an infection. CT scans did not give a definitive etiology. Her FeNa is 8.9% which is consistent with a post renal/obstructive pathology however I do not have a specific source of this as it does not appear to be an obstructive stone nor urinary retention. After 2 L of fluid her creatinine only improved slightly. Care turned over to Dr. Love to follow-up and most likely consultation with Nephrology. 02/21/22 Ivan-patient signed out to me by Dr. Lugo if seen evaluated patient myself. She says overall she is feeling better. No nausea vomiting no abdominal pain. Blood work today does show improvement in high mild hyperkalemia it was 5.8 now was 5 5. Improvement in her creatinine as well was 10.0 and now 9.23. Knight catheter is placed she has very clear urine draining. She continues to get IV fluids. No sign of infection. INR is found to be elevated at 7.1 thought to be somehow related to her renal failure. Vitamin K is ordered. 0900am- Dr. Cui Nephrology, updated on patient's symptoms test results at this time agrees with a bicarb drip 100 mEq for 75 an hour for about 1 day. Cont inue checking light. Will likely need dialysis however no beds available at [facility]. Dr lugo 02/21-02/22: Assumed care of patient. Reviewed patient's events over the day. Is on a bicarb drip. Creatinine not much improved. Patient is supratherapeutic on INR but no active bleeding. Care turned over to Dr. Love to continue to observe until disposition can be made. 02/22/2022 8am patient seen evaluated by myself. Awaiting for morning blood work. She has mild pain requesting her Pulmicort. But overall eating breakfast. Blood work over last night does show improvement in bicarb creatin ine remains about the same. Urine output did decreased throughout the day and last night, 200 cc out last night. 1100am Spoke wiht Dr. Abebe, nephrology, updated on patient's symptoms test results agrees with stopping bicarb drip. Recommends giving a large dose of Lasix to help stimulate the kidneys. Can stop IV fluids if she is eating and drinking. Agrees with continuing to find placement and transfer for probable dialysis. Spoke with Dr. Mathew nixon, nephrologists [facility] patient apparently has seen nephrology previously she saw them once in April and once in September creatinine was 2 and then 1 had complete workup was told did not need any further follow- up. No renal biopsy was done at that time. Clearly in acute renal failure at this time. Patient is having increasing abdominal pain lipase continues to be elevated at 3900 for this reason fluids are continued. She did respond well to 120 mg of Lasix she would significant urine output. Continuing to still try and transfer for need for dialysis. However potassium and bicarb are significantly improved. Patient signed out to Dr. Dianna Bustamante 02/22/22: Patient signed out to myself by Dr. Love. Patient is in acute renal failure, with creatinine being 10 on 02/21/2022 and is currently 9.6 today on 02/22/2022 at 4:50 a.m. in the afternoon. Patient's potassium has improved from 5.7-4.1, her bicarb is slowly improving from 13-20, patient is continued on LR at this time she does appear to be developing some pancreatitis. Glucose has been appropriate on daily labs, lipase is slowly trending upwards it was 2998 on the and is [address] from 02/21/2022 shows nonobstructing right renal calculus, no hydro obstructive uropathy, nonspecific bilateral perinephric stranding noted, 5 cm stable mural calcifications in the liver as well as a 4 cm left renal cyst and a 7 mm nonobstructing right renal calculus. Patient had been seen on the for possible infection had been started on oral antibiotic and that urine culture grew Enterobacter Kurt's greater than 100,000 CFU, patient appears to have sensitivities to cefepime which was started 500 mg x1 followed by 250 mg to be given Q [address] Bony lehman had spoken with Nephrology at [facility] yesterday they agree with stopping the bicarb drip they did recommend giving a large dose of Lasix to stimulate kidneys which did seem to be helpful. 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 Patient has a.m. labs ordere d, continuing to seek placement for Nephrology and to initiate dialysis, patient signed out to Dr. Scott. February 23, 2022 at 10:00 a.m.. Spoke with patient and family results of laboratory studies this morning. No significant change in creatinine however INR has improved. Lipase has improved. CT scan imaging does not show pancreatitis. Ultrasound does not show cholecystitis, does not show any gallstones. Liver enzymes are reassuring at this time. They do understand need for transfer for Nephrology Services evaluation, even possible dialysis. Patient does have Knight catheter in place. Is making urine 6:[address] Bustamante, new issues during today. Family has been trying to transfer patient to a hospital in [place]. However patient still on waiting list here. No significant changes in blood work. 02/24/2022 Dianna: Patient signed out myself. No additional issues throughout the day. Patient is on waiting list for transfer to possible hospital [place] where she lives. Her was able to help try to find a bed. Patient's labs have been, patient is eating and drinking still making urine. Lipase appears to be trending down words. Patient has labs ordered for this morning, did see independently evaluated herself this morning. She was up we chatted briefly she would like to be more mobile at this time and not be boarding in the emergency department anymore but otherwise does not have any other complaints currently. Patient's diet was upgraded to renal diet. Patient urine culture does show enterobacter and shows sensitivities to cefepime she is on daily. Patient signed out to Dr. Smith while awaiting transfer. Dr Smith 02/24/2022 8am ED observation/progress note 71-year-old woman presents with severe nausea vomiting diarrhea belly pain.? Was seen on February 18 with acute UTI, started on .? Continued to feel worse was re-evaluated on 1230.? Urine has eventually grown out Enterobacter with following sensitivies ? --------- --- ? * Amoxicillin/Clavulanate? >=32? R? * Cefazolin? >=64? R? * Cefepime? <=1? S? * Ceftriaxone? 16? I? * Ciprofloxacin? <=0.25??? S? * Ertapenem? <=0.5??? S? * Gentamicin? <=1? S? * Imipenem? 0.5? S? * Levofloxacin? <=0.12??? S? * Nitrofurantoin? 128? R? * Tobramycin? <=1? S? * Trimethoprim/Sulfamethoxazole??? <=20? S? * Piperacillin/Tazobactam? >=128??? R? CT scan shows a nonobstructing right renal calculus with nonspecific bilateral perinephric stranding. INR was elevated on 02/21 at 7.1 without evidence of bleeding Newly diagnosed renal? failure with creatinine 9.15 , K= 5..8, CO2=13 Objective Vital stable Chest:? Regular breathing, no respiratory distress Cardiac: regular rate and rhythm Abdomen: Minor epigastric tenderness, no rebound or guarding Assessment and plan 1.? Hospital boarding day 3, ?pyelonephritis with Enterobacter, currently on cefepime with no evidence of sepsis.? 2.? Severe vomiting and diarrhea with acute renal failure.? Now off bicarb drip does need axis and will need dialysis.? I have talked to all available facilities up and down the [place] [facility] [place] and no beds are available.? We will again review with Nephrology at [facility], Dr. Mead and see if arranging for dialysis access to at least be done today would be helpful 3.? Vomiting and diarrhea.? At this point controlled she has not had any diarrhea since the .? She is making minimal amounts of non concentrated urine. 4.? Additional medical problems include stroke for which he is anticoag ulated with INR initially significantly elevated but no active bleeding.? Labs are currently pending this morning with repeat INR 5.? History of diabetes, atrial fibrillation, cardiomyopathy, hypertension, hyperlipidemia with home meds all restarted 6.? Will continue to work on bed availability.? [facility] is involved. 9:55 am Reviewed with Nephrology, Dr Marshall, at [facility]. Recommended continuing LR at 1:50 a.m. an hour as ordered, starting 80 mg of Lasix 3 times a day IV as long as systolic pressures are above 100. Did not think that trying to facilitate dialysis access prior to being seen by a building code inspector would be particularly helpful. Will continue working on bed availability. 945 long discussion with her . He is increasingly frustrated with the weights and inability to transfer her. Is wondering why we simply can not do an ED to ED transfer. Did review EMTALA restraints regarding transfer. He is talking to PCP an organ about possible transfer to [facility]. 245pm Patient is from [place]. Talking with the local hospital, [facility]. Dr Nixon is pt's own nephroloigst and has priveleges at [facility]. Pt has medical evac insurance and they have indicated they will pay for transport to [facility] in light of no bed capacity. Will continue to pursue this option. 02/25/22 @13:17 I assumed care of this patient at change of shift, check out from Dr. Lugo. She presented here several days ago, diagnosed with UTI. She is intra back to her pyelonephritis. She also has pancreatitis. She lost appetite several days before onset of symptoms. She is history of hypertension diabetes. She is found to be in acute renal failure with Cr >9. Her GFR is 4. She is on cefepime. She still makes a small amount of urine. She has mild upper abdominal pain. She does not feel like she currently needs pain or nausea medications. She is been given a diet, but oral intake is minimal. She is no back pain. She is no fever chills. A facility was not accepting physician has been found in [place], the patient has travel insurance. Transportation has been arranged. At this time, transportation may not occur Ortho tomorrow. Regarding her abdominal pain, she has upper abdominal discomfort, but no guarding or rebound. She is normal bowel sounds. She is left arm erythema, the erythema started suddenly after an IV started several days ago immediately during the IV start. Ultrasound revealed no evidence of DVT. She is anticoagulated. I suspect the erythema is related to hemorrhage at the time of the IV start. Current treatment plan will be continued, awaiting transportation.Phil SANCHEZ. <Luisag Nicole, DO - Last Filed: 02/26/22 09:45> Lab Data Labs: Lab Results 02/21/22 02/21/22 02/21/22 Range/Units 01:17 01:40 01:40 WBC 9.8 (4.5-11.0) X10^3/uL RBC 4.26 (4.0-5.2) X10^6/uL Hgb 12.7 (12.0-16.0) g/dL Hct 38.4 (36-46) % MCV 90.3 (80-100) fL MCH 29.9 (26-34) PG MCHC 33.1 (30-36) % RDW 14.5 (11.6-14.8) % Plt Count 262 (150-400) X10^3/uL Neut % (Auto) 75.5 H (50-75) % Lymph % (Auto) 15.0 L (25-40) % [place] % (Auto) 7.6 (3-14) % Eos % (Auto) 1.2 L (2-4) % Baso % (Auto) 0.7 (0-2) % Neut # (Auto) 7400 H (5238-7686) /uL Lymph # (Auto) 1500 (6089-5200) /uL [place] # (Auto) 700 (0-900) /uL Eos # (Auto) 100 (0-450) /uL Baso # (Auto) 100 (0-100) /uL PT (10.1-12.7) SECONDS INR (0.9-1.3) Sodium 136 L (137-145) mmol/L Potassium 5.7 H (3.4-5.1) mmol/L Chloride 103 (98-107) mmol/L Carbon Dioxide 13 L (22-32) mmol/L BUN 67 H (7-17) mg/dL Creatinine 10.0 H* (0.52-1.04) mg/dL Estimated GFR 4 L (>60) mL/min BUN/Creatinine Ratio 6.7 (6-22) Glucose 88 (80-110) mg/dL Uric Acid (2.5-6.2) mg/dL Calcium 9.9 (8.4-10.2) mg/dL Total Bilirubin 0.7 (0.2-1.3) mg/dL AST 32 (14-36) IU/L ALT 27 (<35) IU/L Alkaline Phosphatase 54 (38-126) U/L Lactate Dehydrogenase (120-246) U/L Total Protein 7.3 (6.3-8.2) g/dL Albumin 4.2 (3.5-5.0) g/dL Globulin 3.1 (1.7-4.1) g/dL Albumin/Globulin Ratio 1.4 (1.0-2.8) Lipase 2998 H (23-300) U/L Procalcitonin (<0.5) ng/mL Ur Random Sodium (30-90) mmol/L Urine Creatinine mg/dL SARS-CoV-2 (PCR) Negative (Negative) Influenza A (RT-PCR) Flu a negative (NEGATIVE) Influenza B (RT-PCR) Flu b negative (NEGATIVE) RSV (PCR) Negative (Negative) 02/21/22 02/21/22 02/21/22 Range/Units 03:30 05:30 07:46 WBC (4.5-11.0) X10^3/uL RBC (4.0-5.2) X10^6/uL Hgb (12.0-16.0) g/dL Hct (36-46) % MCV (80-100) fL MCH (26-34) PG MCHC (30-36) % RDW (11.6-14.8) % Plt Count (150-400) X10^3/uL Neut % (Auto) (50-75) % Lymph % (Auto) (25-40) % [place] % (Auto) (3-14) % Eos % (Auto) (2-4) % Baso % (Auto) (0-2) % Neut # (Auto) (9428-9987) /uL Lymph # (Auto) (2015-6721) /uL [place] # (Auto) (0-900) /uL Eos # (Auto) (0-450) /uL Baso # (Auto) (0-100) /uL PT 82.9 H (10.1-12.7) SECONDS INR 7.1 H* (0.9-1.3) Sodium 137 (137-145) mmol/L Potassium 5.8 H (3.4-5.1) mmol/L Chloride 109 H (98-107) mmol/L Carbon Dioxide 13 L (22-32) mmol/L BUN 63 H (7-17) mg/dL Creatinine 9.15 H* (0.52-1.04) mg/dL Estimated GFR 4 L (>60) mL/min BUN/Creatinine Ratio 6.9 (6-22) Glucose 86 (80-110) mg/dL Uric Acid (2.5-6.2) mg/dL Calcium 8.4 (8.4-10.2) mg/dL Total Bilirubin (0.2-1.3) mg/dL AST (14-36) IU/L ALT (<35) IU/L Alkaline Phosphatase (38-126) U/L Lactate Dehydrogenase (120-246) U/L Total Protein (6.3-8.2) g/dL Albumin (3.5-5.0) g/dL Globulin (1.7-4.1) g/dL Albumin/Globulin Ratio (1.0-2.8) Lipase (23-300) U/L Procalcitonin (<0.5) ng/mL Ur Random Sodium 84 (30-90) mmol/L Urine Creatinine 69.7 mg/dL SARS-CoV-2 (PCR) (Negative) Influenza A (RT-PCR) (NEGATIVE) Influenza B (RT-PCR) (NEGATIVE) RSV (PCR) (Negative) 02/21/22 02/21/22 02/21/22 Range/Units 07:46 07:46 07:50 WBC (4.5-11.0) X10^3/uL RBC (4.0-5.2) X10^6/uL Hgb (12.0-16.0) g/dL Hct (36-46) % MCV (80-100) fL MCH (26-34) PG MCHC (30-36) % RDW (11.6-14.8) % Plt Count (150-400) X10^3/uL Neut % (Auto) (50-75) % Lymph % (Auto) (25-40) % [place] % (Auto) (3-14) % Eos % (Auto) (2-4) % Baso % (Auto) (0-2) % Neut # (Auto) (2204-7310) /uL Lymph # (Auto) (1077-1959) /uL [place] # (Auto) (0-900) /uL Eos # (Auto) (0-450) /uL Baso # (Auto) (0-100) /uL PT (10.1-12.7) SECONDS INR (0.9-1.3) Sodium 139 (137-145) mmol/L Potassium 5.5 H (3.4-5.1) mmol/L Chloride 109 H (98-107) mmol/L Carbon Dioxide 13 L (22-32) mmol/L BUN 65 H (7-17) mg/dL Creatinine 9.23 H* (0.52-1.04) mg/dL Estimated GFR 4 L (>60) mL/min BUN/Creatinine Ratio 7.0 (6-22) Glucose 82 (80-110) mg/dL Uric Acid (2.5-6.2) mg/dL Calcium 8.4 (8.4-10.2) mg/dL Total Bilirubin (0.2-1.3) mg/dL AST (14-36) IU/L ALT (<35) IU/L Alkaline Phosphatase (38-126) U/L Lactate Dehydrogenase 231 (120-246) U/L Total Protein (6.3-8.2) g/dL Albumin (3.5-5.0) g/dL Globulin (1.7-4.1) g/dL Albumin/Globulin Ratio (1.0-2.8) Lipase 2978 H (23-300) U/L Procalcitonin 0.33 (<0.5) ng/mL Ur Random Sodium (30-90) mmol/L Urine Creatinine mg/dL SARS-CoV-2 (PCR) (Negative) Influenza A (RT-PCR) (NEGATIVE) Influenza B (RT-PCR) (NEGATIVE) RSV (PCR) (Negative) 02/21/22 02/21/22 02/22/22 Range/Units 12:00 18:00 07:00 WBC (4.5-11.0) X10^3/uL RBC (4.0-5.2) X10^6/uL Hgb (12.0-16.0) g/dL Hct (36-46) % MCV (80-100) fL MCH (26-34) PG MCHC (30-36) % RDW (11.6-14.8) % Plt Count (150-400) X10^3/uL Neut % (Auto) (50-75) % Lymph % (Auto) (25-40) % [place] % (Auto) (3-14) % Eos % (Auto) (2-4) % Baso % (Auto) (0-2) % Neut # (Auto) (7897-8373) /uL Lymph # (Auto) (9582-2986) /uL [place] # (Auto) (0-900) /uL Eos # (Auto) (0-450) /uL Baso # (Auto) (0-100) /uL PT (10.1-12.7) SECONDS INR (0.9-1.3) Sodium 138 137 137 (137-145) mmol/L Potassium 5.5 H 4.4 4.0 (3.4-5.1) mmol/L Chloride 110 H 103 100 (98-107) mmol/L Carbon Dioxide 13 L 16 L 23 (22-32) mmol/L BUN 64 H 67 H 72 H (7-17) mg/dL Creatinine 9.00 H* 9.00 H* 9.31 H* (0.52-1.04) mg/dL Estimated GFR 4 L 4 L 4 L (>60) mL/min BUN/Creatinine Ratio 7.1 7.4 7.7 (6-22) Glucose 78 L 170 H 132 H (80-110) mg/dL Uric Acid (2.5-6.2) mg/dL Calcium 8.0 L 8.2 L 8.7 (8.4-10.2) mg/dL Total Bilirubin 0.5 (0.2-1.3) mg/dL AST 25 (14-36) IU/L ALT 21 (<35) IU/L Alkaline Phosphatase 41 (38-126) U/L Lactate Dehydrogenase (120-246) U/L Total Protein 5.7 L (6.3-8.2) g/dL Albumin 3.1 L (3.5-5.0) g/dL Globulin 2.6 (1.7-4.1) g/dL Albumin/Globulin Ratio 1.2 (1.0-2.8) Lipase 3228 H (23-300) U/L Procalcitonin (<0.5) ng/mL Ur Random Sodium (30-90) mmol/L Urine Creatinine mg/dL SARS-CoV-2 (PCR) (Negative) Influenza A (RT-PCR) (NEGATIVE) Influenza B (RT-PCR) (NEGATIVE) RSV (PCR) (Negative) 02/22/22 02/22/22 02/22/22 Range/Units 08:10 08:10 16:50 WBC 7.0 7.7 (4.5-11.0) X10^3/uL RBC 3.56 L 3.57 L (4.0-5.2) X10^6/uL Hgb 10.8 L 11.1 L (12.0-16.0) g/dL Hct 31.3 L 31.5 L (36-46) % MCV 88.0 88.4 (80-100) fL MCH 30.3 31.0 (26-34) PG MCHC 34.5 35.1 (30-36) % RDW 14.2 13.9 (11.6-14.8) % Plt Count 193 199 (150-400) X10^3/uL Neut % (Auto) 67.6 73.6 (50-75) % Lymph % (Auto) 18.0 L 12.6 L (25-40) % [place] % (Auto) 10.4 10.2 (3-14) % Eos % (Auto) 3.3 3.0 (2-4) % Baso % (Auto) 0.7 0.6 (0-2) % Neut # (Auto) 4700 5600 (1003-1604) /uL Lymph # (Auto) 1300 1000 L (0138-8049) /uL [place] # (Auto) 700 800 (0-900) /uL Eos # (Auto) 200 200 (0-450) /uL Baso # (Auto) 0 0 (0-100) /uL PT 54.9 H D (10.1-12.7) SECONDS INR 4.7 H* (0.9-1.3) Sodium (137-145) mmol/L Potassium (3.4-5.1) mmol/L Chloride (98-107) mmol/L Carbon Dioxide (22-32) mmol/L BUN (7-17) mg/dL Creatinine (0.52-1.04) mg/dL Estimated GFR (>60) mL/min BUN/Creatinine Ratio (6-22) Glucose (80-110) mg/dL Uric Acid (2.5-6.2) mg/dL Calcium (8.4-10.2) mg/dL Total Bilirubin (0.2-1.3) mg/dL AST (14-36) IU/L ALT (<35) IU/L Alkaline Phosphatase (38-126) U/L Lactate Dehydrogenase (120-246) U/L Total Protein (6.3-8.2) g/dL Albumin (3.5-5.0) g/dL Globulin (1.7-4.1) g/dL Albumin/Globulin Ratio (1.0-2.8) Lipase (23-300) U/L Procalcitonin (<0.5) ng/mL Ur Random Sodium (30-90) mmol/L Urine Creatinine mg/dL SARS-CoV-2 (PCR) (Negative) Influenza A (RT-PCR) (NEGATIVE) Influenza B (RT-PCR) (NEGATIVE) RSV (PCR) (Negative) 02/22/22 02/23/22 02/23/22 Range/Units 16:50 08:22 08:22 WBC 8.4 (4.5-11.0) X10^3/uL RBC 3.34 L (4.0-5.2) X10^6/uL Hgb 10.1 L (12.0-16.0) g/dL Hct 29.9 L (36-46) % MCV 89.3 (80-100) fL MCH 30.3 (26-34) PG MCHC 34.0 (30-36) % RDW 14.0 (11.6-14.8) % Plt Count 183 (150-400) X10^3/uL Neut % (Auto) 75.8 H (50-75) % Lymph % (Auto) 9.7 L (25-40) % [place] % (Auto) 10.9 (3-14) % Eos % (Auto) 3.1 (2-4) % Baso % (Auto) 0.5 (0-2) % Neut # (Auto) 6400 (8616-9279) /uL Lymph # (Auto) 800 L (0881-6017) /uL [place] # (Auto) 900 (0-900) /uL Eos # (Auto) 300 (0-450) /uL Baso # (Auto) 0 (0-100) /uL PT 29.4 H D (10.1-12.7) SECONDS INR 2.5 H (0.9-1.3) Sodium 137 (137-145) mmol/L Potassium 4.1 (3.4-5.1) mmol/L Chloride 101 (98-107) mmol/L Carbon Dioxide 20 L (22-32) mmol/L BUN 72 H (7-17) mg/dL Creatinine 9.63 H* (0.52-1.04) mg/dL Estimated GFR 4 L (>60) mL/min BUN/Creatinine Ratio 7.5 (6-22) Glucose 112 H (80-110) mg/dL Uric Acid (2.5-6.2) mg/dL Calcium 8.9 (8.4-10.2) mg/dL Total Bilirubin 0.5 (0.2-1.3) mg/dL AST 27 (14-36) IU/L ALT 21 (<35) IU/L Alkaline Phosphatase 44 (38-126) U/L Lactate Dehydrogenase (120-246) U/L Total Protein 5.8 L (6.3-8.2) g/dL Albumin 3.1 L (3.5-5.0) g/dL Globulin 2.7 (1.7-4.1) g/dL Albumin/Globulin Ratio 1.1 (1.0-2.8) Lipase 3886 H (23-300) U/L Procalcitonin (<0.5) ng/mL Ur Random Sodium (30-90) mmol/L Urine Creatinine mg/dL SARS-CoV-2 (PCR) (Negative) Influenza A (RT-PCR) (NEGATIVE) Influenza B (RT-PCR) (NEGATIVE) RSV (PCR) (Negative) 02/23/22 02/24/22 02/24/22 Range/Units 08:22 06:17 06:17 WBC 8.5 (4.5-11.0) X10^3/uL RBC 3.16 L (4.0-5.2) X10^6/uL Hgb 9.5 L (12.0-16.0) g/dL Hct 28.4 L (36-46) % MCV 90.1 (80-100) fL MCH 30.2 (26-34) PG MCHC 33.6 (30-36) % RDW 14.1 (11.6-14.8) % Plt Count 164 (150-400) X10^3/uL Neut % (Auto) 72.9 (50-75) % Lymph % (Auto) 11.5 L (25-40) % [place] % (Auto) 10.7 (3-14) % Eos % (Auto) 4.4 H (2-4) % Baso % (Auto) 0.5 (0-2) % Neut # (Auto) 6200 (0929-1606) /uL Lymph # (Auto) 1000 L (1126-6003) /uL [place] # (Auto) 900 (0-900) /uL Eos # (Auto) 400 (0-450) /uL Baso # (Auto) 0 (0-100) /uL PT 30.8 H (10.1-12.7) SECONDS INR 2.7 H (0.9-1.3) Sodium 138 (137-145) mmol/L Potassium 4.6 (3.4-5.1) mmol/L Chloride 105 (98-107) mmol/L Carbon Dioxide 21 L (22-32) mmol/L BUN 67 H (7-17) mg/dL Creatinine 9.43 H* (0.52-1.04) mg/dL Estimated GFR 4 L (>60) mL/min BUN/Creatinine Ratio 7.1 (6-22) Glucose 113 H (80-110) mg/dL Uric Acid (2.5-6.2) mg/dL Calcium 8.7 (8.4-10.2) mg/dL Total Bilirubin 0.5 (0.2-1.3) mg/dL AST 25 (14-36) IU/L ALT 18 (<35) IU/L Alkaline Phosphatase 43 (38-126) U/L Lactate Dehydrogenase (120-246) U/L Total Protein 4.9 L (6.3-8.2) g/dL Albumin 2.6 L (3.5-5.0) g/dL Globulin 2.3 (1.7-4.1) g/dL Albumin/Globulin Ratio 1.1 (1.0-2.8) Lipase 2420 H (23-300) U/L Procalcitonin (<0.5) ng/mL Ur Random Sodium (30-90) mmol/L Urine Creatinine mg/dL SARS-CoV-2 (PCR) (Negative) Influenza A (RT-PCR) (NEGATIVE) Influenza B (RT-PCR) (NEGATIVE) RSV (PCR) (Negative) 02/24/22 02/25/22 02/25/22 Range/Units 06:17 08:25 08:25 WBC 8.5 (4.5-11.0) X10^3/uL RBC 3.37 L (4.0-5.2) X10^6/uL Hgb 10.3 L (12.0-16.0) g/dL Hct 30.3 L (36-46) % MCV 90.0 (80-100) fL MCH 30.5 (26-34) PG MCHC 33.9 (30-36) % RDW 14.5 (11.6-14.8) % Plt Count 203 (150-400) X10^3/uL Neut % (Auto) 72.9 (50-75) % Lymph % (Auto) 11.0 L (25-40) % [place] % (Auto) 9.2 (3-14) % Eos % (Auto) 6.2 H (2-4) % Baso % (Auto) 0.7 (0-2) % Neut # (Auto) 6200 (3309-1070) /uL Lymph # (Auto) 900 L (9130-8579) /uL [place] # (Auto) 800 (0-900) /uL Eos # (Auto) 500 H (0-450) /uL Baso # (Auto) 100 (0-100) /uL PT 27.7 H (10.1-12.7) SECONDS INR 2.4 H (0.9-1.3) Sodium 135 L (137-145) mmol/L Potassium 4.3 (3.4-5.1) mmol/L Chloride 108 H (98-107) mmol/L Carbon Dioxide 18 L (22-32) mmol/L BUN 64 H (7-17) mg/dL Creatinine 9.12 H* (0.52-1.04) mg/dL Estimated GFR 4 L (>60) mL/min BUN/Creatinine Ratio 7.0 (6-22) Glucose 102 (80-110) mg/dL Uric Acid (2.5-6.2) mg/dL Calcium 8.5 (8.4-10.2) mg/dL Total Bilirubin 0.5 (0.2-1.3) mg/dL AST 24 (14-36) IU/L ALT 16 (<35) IU/L Alkaline Phosphatase 41 (38-126) U/L Lactate Dehydrogenase (120-246) U/L Total Protein 5.0 L (6.3-8.2) g/dL Albumin 2.5 L (3.5-5.0) g/dL Globulin 2.5 (1.7-4.1) g/dL Albumin/Globulin Ratio 1.0 (1.0-2.8) Lipase 1539 H (23-300) U/L Procalcitonin (<0.5) ng/mL Ur Random Sodium (30-90) mmol/L Urine Creatinine mg/dL SARS-CoV-2 (PCR) (Negative) Influenza A (RT-PCR) (NEGATIVE) Influenza B (RT-PCR) (NEGATIVE) RSV (PCR) (Negative) 02/25/22 02/26/22 02/26/22 Range/Units 08:25 08:42 08:42 WBC 7.6 (4.5-11.0) X10^3/uL RBC 3.59 L (4.0-5.2) X10^6/uL Hgb 10.8 L (12.0-16.0) g/dL Hct 32.2 L (36-46) % MCV 89.7 (80-100) fL MCH 30.0 (26-34) PG MCHC 33.4 (30-36) % RDW 14.1 (11.6-14.8) % Plt Count 227 (150-400) X10^3/uL Neut % (Auto) 74.4 (50-75) % Lymph % (Auto) 11.5 L (25-40) % [place] % (Auto) 7.9 (3-14) % Eos % (Auto) 5.4 H (2-4) % Baso % (Auto) 0.8 (0-2) % Neut # (Auto) 5600 (6516-4392) /uL Lymph # (Auto) 900 L (8303-6897) /uL [place] # (Auto) 600 (0-900) /uL Eos # (Auto) 400 (0-450) /uL Baso # (Auto) 100 (0-100) /uL PT 22.4 H D (10.1-12.7) SECONDS INR 1.9 H (0.9-1.3) Sodium 136 L (137-145) mmol/L Potassium 4.6 (3.4-5.1) mmol/L Chloride 105 (98-107) mmol/L Carbon Dioxide 20 L (22-32) mmol/L BUN 61 H (7-17) mg/dL Creatinine 9.09 H* (0.52-1.04) mg/dL Estimated GFR 4 L (>60) mL/min BUN/Creatinine Ratio 6.7 (6-22) Glucose 90 (80-110) mg/dL Uric Acid (2.5-6.2) mg/dL Calcium 8.6 (8.4-10.2) mg/dL Total Bilirubin 0.5 (0.2-1.3) mg/dL AST 25 (14-36) IU/L ALT 17 (<35) IU/L Alkaline Phosphatase 48 (38-126) U/L Lactate Dehydrogenase (120-246) U/L Total Protein 5.5 L (6.3-8.2) g/dL Albumin 2.7 L (3.5-5.0) g/dL Globulin 2.8 (1.7-4.1) g/dL Albumin/Globulin Ratio 1.0 (1.0-2.8) Lipase 958 H (23-300) U/L Procalcitonin (<0.5) ng/mL Ur Random Sodium (30-90) mmol/L Urine Creatinine mg/dL SARS-CoV-2 (PCR) (Negative) Influenza A (RT-PCR) (NEGATIVE) Influenza B (RT-PCR) (NEGATIVE) RSV (PCR) (Negative) 02/26/22 02/26/22 Range/Units 08:42 08:42 WBC (4.5-11.0) X10^3/uL RBC (4.0-5.2) X10^6/uL Hgb (12.0-16.0) g/dL Hct (36-46) % MCV (80-100) fL MCH (26-34) PG MCHC (30-36) % RDW (11.6-14.8) % Plt Count (150-400) X10^3/uL Neut % (Auto) (50-75) % Lymph % (Auto) (25-40) % [place] % (Auto) (3-14) % Eos % (Auto) (2-4) % Baso % (Auto) (0-2) % Neut # (Auto) (7286-0760) /uL Lymph # (Auto) (8439-4147) /uL [place] # (Auto) (0-900) /uL Eos # (Auto) (0-450) /uL Baso # (Auto) (0-100) /uL PT (10.1-12.7) SECONDS INR (0.9-1.3) Sodium 135 L (137-145) mmol/L Potassium 4.5 (3.4-5.1) mmol/L Chloride 105 (98-107) mmol/L Carbon Dioxide 17 L (22-32) mmol/L BUN 65 H (7-17) mg/dL Creatinine 9.91 H* (0.52-1.04) mg/dL Estimated GFR 4 L (>60) mL/min BUN/Creatinine Ratio 6.6 (6-22) Glucose 149 H (80-110) mg/dL Uric Acid 4.4 (2.5-6.2) mg/dL Calcium 8.7 (8.4-10.2) mg/dL Total Bilirubin 0.5 (0.2-1.3) mg/dL AST 26 (14-36) IU/L ALT 16 (<35) IU/L Alkaline Phosphatase 51 (38-126) U/L Lactate Dehydrogenase (120-246) U/L Total Protein 5.6 L (6.3-8.2) g/dL Albumin 2.8 L (3.5-5.0) g/dL Globulin 2.8 (1.7-4.1) g/dL Albumin/Globulin Ratio 1.0 (1.0-2.8) Lipase 912 H (23-300) U/L Procalcitonin (<0.5) ng/mL Ur Random Sodium (30-90) mmol/L Urine Creatinine mg/dL SARS-CoV-2 (PCR) (Negative) Influenza A (RT-PCR) (NEGATIVE) Influenza B (RT-PCR) (NEGATIVE) RSV (PCR) (Negative) Point of Care Testing Glucose POC 101 Urine Dip Bedside Urine Glucose Negative Bedside Urine Bilirubin - Negative Bedside Urine Ketone +/- 5 Urine Specific [place] 1.015 Bedside Urine Occult Blood + Bedside Urine pH 6.0 Bedside Urine Protein ++ 100 Bedside Urine Urobilinogen - Negative Bedside Urine Nitrite - Negative Bedside Urine Leukocytes - Negative Esterase MDM Narrative Medical decision making narrative: Patient is well-appearing. Is not tachycardic. Not hypotensive. She does have upper abdominal discomfort. Has pancreatitis based on her lipase which is most likely that the cause of all of her nausea and vomiting even her abdominal pain. She is in acute renal failure/LANIE given her creatinine of 10 and GFR 4. Prior labs that we have for her were greater than 1 year ago which has her creatinine at the 1.3-1.7 range in her GFR in the 30s. Patient has not been vomiting since arrival here to the ER. Her urinalysis today does not show any signs of an infection. CT scans did not give a definitive etiology. Her FeNa is 8.9% which is consistent with a post renal/obstructive pathology however I do not have a specific source of this as it does not appear to be an obstructive stone nor urinary retention. After 2 L of fluid her creatinine only improved slightly. Care turned over to Dr. Love to follow-up and most likely consultation with Nephrology. 02/21/22 Ivan-patient signed out to me by Dr. Lugo if seen evaluated patie nt myself. She says overall she is feeling better. No nausea vomiting no abdominal pain. Blood work today does show improvement in high mild hyperkalemia it was 5.8 now was 5 5. Improvement in her creatinine as well was 10.0 and now 9.23. Knight catheter is placed she has very clear urine draining. She continues to get IV fluids. No sign of infection. INR is found to be elevated at 7.1 thought to be somehow related to her renal failure. Vitamin K is ordered. 0900am- Dr. Cui Nephrology, updated on patient's symptoms test results at this time agrees with a bicarb drip 100 mEq for 75 an hour for about 1 day. Continue checking light. Will likely need dialysis however no beds available at [facility]. Dr lugo 02/21-02/22: Assumed care of patient. Reviewed patient's events over the day. Is on a bicarb drip. Creatinine not much improved. Patient is supratherapeutic on INR but no active bleeding. Care turned over to Dr. Love to continue to observe until disposition can be made. 02/22/2022 8am patient seen evaluated by myself. Awaiting for morning blood work. She has mild pain requesting her Pulmicort. But overall eating breakfast. Blood work over last night does show improvement in bicarb creatinine remains about the same. Urine output did decreased throughout the day and last night, 200 cc out last night. 1100am Spoke wiht Dr. Abebe, nephrology, updated on patient's symptoms test results agrees with stopping bicarb drip. Recommends giving a large dose of Las ix to help stimulate the kidneys. Can stop IV fluids if she is eating and drinking. Agrees with continuing to find placement and transfer for probable dialysis. Spoke with Dr. Mathew nixon, nephrologists [facility] patient apparently has seen nephrology previously she saw them once in April and once in September creatinine was 2 and then 1 had complete workup was told did not need any further follow-up . No renal biopsy was done at that time. Clearly in acute renal failure at this time. Patient is having increasing abdominal pain lipase continues to be elevated at 3900 for this reason fluids are continued. She did respond well to 120 mg of Lasix she would significant urine output. Continuing to still try and transfer for need for dialysis. However potassium and bicarb are significantly improved. Patient signed out to Dr. Dianna Bustamante 02/22/22: Patient signed out to myself by Dr. Love. Patient is in acute renal failure, with creatinine being 10 on 02/21/2022 and is currently 9.6 today on 02/22/2022 at 4:50 a.m. in the afternoon. Patient's potassium has improved from 5.7-4.1, her bicarb is slowly improving from 13-20, patient is continued on LR at this time she does appear to be developing some pancreatitis. Glucose has been appropriate on daily labs, lipase is slowly trending upwards it was 2998 on the and is [address] from 02/21/2022 shows nonobstructing right renal calculus, no hydro obstructive uropathy, nonspecific bilateral perinephric stranding noted, 5 cm stable mural calcifications in the liver as well as a 4 cm left renal cyst and a 7 mm nonobstructing right renal calculus. Patient had been seen on the for possible infection had been st arted on oral antibiotic and that urine culture grew Enterobacter Kurt's greater than 100,000 CFU, patient appears to have sensitivities to cefepime which was started 500 mg x1 followed by 250 mg to be given Q [address] Love had spoken with Nephrology at [facility] yesterday they agree with stopping the bicarb drip they did recommend giving a large dose of Lasix to stimulate kidneys which did seem to be helpful. 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 Patient has a.m. labs ordered, continuing to seek placement for Nephrology and to initiate dialysis, patient signed out to Dr. Scott. February 23, 2022 at 10:00 a.m.. Spoke with patient and family results of laboratory studies this morning. No significant change in creatinine however INR has improved. Lipase has improved. CT scan imaging does not show pancreatitis. Ultrasound does not show cholecystitis, does not show any gallstones. Liver enzymes are reassuring at this time. They do understand need for transfer for Nephrology Services evaluation, even possible dialysis. Patient does have Knight catheter in place. Is making urine 6:[address] Bustamante, new issues during today. Family has been trying to transfer patient to a hospital in [place]. However patient still on waiting list here. No significant changes in blood work. 02/24/2022 Dianna: Patient signed out myself. No additional issues throughout the day. Patient is on waiting list for transfer to possible hospital [place] where she lives. Her was able to help try to find a bed. Patient's labs have been, patient is eating and drinking still making urine. Lipase appears to be trending down words. Patient has labs ordered for this morning, did see independently evaluated herself this morning. She was up we chatted briefly she would like to be more mobile at this time and not be boarding in the emergency department anymore but otherwise does not have any other complaints currently. Patient's diet was upgraded to renal diet. Patient urine culture does show enterobacter and shows sensitivities to cefepime she is on daily. Patient signed out to Dr. Smith while awaiting transfer. Dr Smith 02/24/2022 8am ED observation/progress note 71-year-old woman presents with severe nausea vomiting diarrhea belly pain.? Was seen on February 18 with acute UTI, started on Septra.? Continued to feel worse was re-evaluated on 1230.? Urine has eventually grown out Enterobacter w ith following sensitivies ? --------- --- ? * Amoxicillin/Clavulanate? >=32? R? * Cefazolin? >=64? R? * Cefepime? <=1? S? * Ceftriaxone? 16? I? * Ciprofloxacin? <=0.25??? S? * Ertapenem? <=0.5??? S? * Gentamicin? <=1? S? * Imipenem? 0.5? S? * Levofloxacin? <=0.12??? S? * Nitrofurantoin? 128? R? * Tobramycin? <=1? S? * Trimethoprim/Sulfamethoxazole??? <=20? S? * Piperacillin/Tazobactam? >=128??? R? CT scan shows a nonobstructing right renal calculus with nonspecific bilateral perinephric stranding. INR was elevated on 02/21 at 7.1 without evidence of bleeding Newly diagnosed renal? failure with creatinine 9.15 , K= 5..8, CO2=13 Objective Vital stable Chest:? Regular breathing, no respiratory distress Cardiac: regular rate and rhythm Abdomen: Minor epigastric tenderness, no rebound or guarding Assessment and plan 1.? Hospital boarding day 3, ?pyelonephritis with Enterobacter, currently on cefepime with no evidence of sepsis.? 2.? Severe vomiting and diarrhea with acute renal failure.? Now off bicarb drip does need axis and will need dialysis.? I have talked to all available facilities up and down the eye 5 quarter and no beds are available.? We will again review with Nephrology at [facility], Dr. Mead and see if arranging for dialysis access to at least be done today would be helpful 3.? Vomiting and diarrhea.? At this point controlled she has not had any diarrhea since the .? She is making minimal amounts of non concentrated urine. 4.? Additional medical problems include stroke for which he is anticoagulated with INR initially significantly elevated but no active bleeding .? Labs are currently pending this morning with repeat INR 5.? History of diabetes, atrial fibrillation, cardiomyopathy, hypertension, hyperlipidemia with home meds all restarted 6.? Will continue to work on bed availability.? [facility] is involved. 9:55 am Reviewed with Nephrology, Dr Marshall, at [facility]. Recommended continuing LR at 1:50 a.m. an hour as ordered, starting 80 mg of Lasix 3 times a day IV as long as systolic pressures are above 100. Did not think that trying to facilitate dialysis access prior to being seen by a building code inspector would be particularly helpful. Will continue working on bed availability. 945 long discussion with her . He is increasingly frustrated with the weights and inability to transfer her. Is wondering why we simply can not do an ED to ED transfer. Did review EMTALA restraints regarding transfer. He is talking to PCP an organ about possible transfer to [facility]. 245pm Patient is from [facility]. Talking with the local hospital, [facility]. Dr Nixon is pt's own nephroloigst and has priveleges at [facility]. Pt has medical evac insurance and they have indicated they will pay for transport to [facility] in light of no bed capacity. Will continue to pursue this option. 02/25/22 @13:17 I assumed care of this patient at change of shift, check out from Dr. Lugo. She presented here several days ago, diagnosed with UTI. She is intra back to her pyelonephritis. She also has pancreatitis. She lost appetite several days before onset of symptoms. She is history of hypertension diabetes. She is found to be in acute renal failure with Cr >9. Her GFR is 4. She is on cefepime. She still makes a small amount of urine. She has mild upper abdominal pain. She does not feel like she currently needs pain or nausea medications. She is been given a diet, but oral intake is minimal. She is no back pain. She is no fever chills. A facility was not accepting physician has been found in [place], the patient has travel insurance. Transportation has been arranged. At this time, transportation may not occur Ortho tomorrow. Regarding her abdominal pain, she has upper abdominal discomfort, but no guarding or rebound. She is normal bowel sounds. She is left arm erythema, the erythema started suddenly after an IV started several days ago immediately during the IV start. Ultrasound revealed no evidence of DVT. She is anticoagulated. I suspect the erythema is related to hemorrhage at the time of the IV start. Current treatment plan will be continued, awaiting transportation.Phil SANCHEZ. [0700] (Corey) Patient received in sign out from Dr. Larios]. I have reviewed the clinical course and performed an independent history and physical exam. Patient resting comfortably without any significant events overnight. She is stable per her own admission. Repeat labs reviewed and demonstrate expected abnormalities. Expectant arrival of transport team later today. <Luis Nicole, DO - Last Filed: 02/26/22 09:45> Critical Care Time Critical Care Time: Yes Total Critical Care Time: 120 Attestation: The high probability of a clinically significant, sudden or life threatening deterioration of the [CV] system(s) required my full and direct attention, inte rvention and personal management. The aggregate critical care time was [120] minutes. This time is in addition to time spent performing reported procedures but includes the following: [x] Data Review and interpretation [x] Patient assessment and monitoring of vital signs [x] Documentation [x ] Medication orders and management Discharge Plan Departure Patient Disposition: [facility] Clinical Impression: Acute kidney failure, Acute pancreatitis, Acute UTI Prescriptions: No Action metformin 500 mg Tablet 1,000 mg PO QID potassium 99 mg Tablet 99 mg PO DAILY biotin 5,000 mcg Tablet, Sublingual 5,000 mcg sublingual QMWF losartan 50 mg Tablet 50 mg PO DAILY cholecalciferol (vitamin D3) 125 mcg (5,000 unit) Tablet 125 mcg PO QMWF carvedilol 6.25 mg Tablet 6.25 mg PO BID Rx Instructions: must administer with a meal/food rosuvastatin 40 mg Tablet 40 mg PO DAILY warfarin 3 mg Tablet 3 mg PO Q6W Rx Instructions: takes it 5x/week- NOT ON SUNDAYS warfarin 2 mg Tablet 2 mg PO WEEKLY Rx Instructions: TAKE THIS ON SUNDAYS furosemide 20 mg Tablet 20 mg PO DAILY allopurinol 100 mg tablet 100 mg DAILY Label Comments: TAKE ONE TABLET BY MOUTH ONE TIME DAILY
--- NOTE | 2022-02-21 02:20 | DI.CT.S_ITS ---
PROCEDURE: CT KIDNEY URETER BLADDER (KUB) INDICATIONS: hx of kidney stone, renal failure, ABD pain TECHNIQUE: Axial sections were acquired from the lung bases to the pubic symphysis. Coronal and sagittal reformats were performed. For radiation dose reduction, the following was used: automated exposure control, adjustment of mA and/or kV according to patient size. COMPARISON: [facility], CT, CT ABDOMEN PELVIS WO CON, 01/08/2021, 17:01. FINDINGS: Lower thorax: Bases are clear. Cardiac biventricular pacemaker/defibrillator noted. Heart size within normal limits. Liver: Normal in size and attenuation. No contour deformity present. 5.3 cm cyst with mural calcifications remains stable from the prior exam Biliary system: No calcified cholelithiasis or pericholecystic inflammation. No intra or extrahepatic bile duct dilatation. Pancreas: Unremarkable without mass or inflammation evident. Spleen: Normal in size and density. Adrenals: Normal morphology and density. Reproductive system: Unremarkable as visualized. Urinary system: 4 cm left renal cyst. 7 mm nonobstructing right renal calculus present. There is left renal scarring. No hydronephrosis. Nonspecific bilateral perinephric stranding present. Gastrointestinal system: The bowel is unremarkable without evidence of bowel obstruction or inflammation. The stomach appears unremarkable. Multiple diverticula arise from the transverse and descending colon without evidence of diverticulitis. Appendix: No findings to suggest acute appendicitis. Peritoneal spaces: No mesenteric or retroperitoneal adenopathy. No free air. No free fluid. Vasculature: The IVC, aorta and iliac vasculature are unremarkable. Abdominal wall: Abdominal wall intact without evidence of ventral or inguinal hernias. Musculoskeletal: Normal bone mineralization. No acute fractures. IMPRESSION: 1. Nonobstructing right renal calculus. No hydronephrosis or obstructive uropathy noted. There is nonspecific bilateral perinephric stranding noted 2. Chronic findings as above Note: Final report is concordant with preliminary interpretation by [facility] Approved by: Kelton Multani M.D. on 02/21/2022 at 7:38
[2022-02-21 02:25] LABS: Influenza A - CEPHEID Flu A NEGATIVE (NEGATIVE); Influenza B - CEPHEID Flu B NEGATIVE (NEGATIVE); Respiratory Syncytial Virus Negative (Negative)
[2022-02-21 02:28] LABS: Lipase 2998 U/L (23-300)
[2022-02-21 02:30] LABS: COVID-19 CEPHEID 4-PLEX PCR Negative (Negative)
[2022-02-21] MEDS: ONDANSETRON 4 MG/2 ML INJ IV (02:48)
[2022-02-21 04:12] LABS: Creatinine Urine Random 69.7 mg/dL; Sodium Urine Random 84 mmol/L (30-90)
[2022-02-21 05:46] LABS: BUN Creatinine Ratio 6.9 (6-22); Blood Urea Nitrogen 63 mg/dL (7-17); Calcium 8.4 mg/dL (8.4-10.2); Carbon Dioxide 13 mmol/L (22-32); Chloride 109 mmol/L (98-107); Estimated Glomerular Filt Rate 4 mL/min (>60); Glucose 86 mg/dL (80-110); HEMOLYSIS 41 (0-50); Sodium 137 mmol/L (137-145)
[2022-02-21 05:47] LABS: Potassium 5.8 mmol/L (3.4-5.1)
[2022-02-21] MEDS: SODIUM CHLORIDE 0.9% 1,000 ML 250 ML IV (06:16)
[2022-02-21] MEDS: SODIUM ZIRCONIUM CYCLOSILICATE 10 GM POWD.PACK PO (07:45)
[2022-02-21] MEDS: LIDOCAINE 2% (GLYDO) 6 ML GEL TOP (08:01)
[2022-02-21 08:09] LABS: Blood Urea Nitrogen 65 mg/dL (7-17); Calcium 8.4 mg/dL (8.4-10.2); Carbon Dioxide 13 mmol/L (22-32); Chloride 109 mmol/L (98-107); Glucose 82 mg/dL (80-110); HEMOLYSIS 28 (0-50); Lactate Dehydrogenase 231 U/L (120-246); Sodium 139 mmol/L (137-145)
[2022-02-21 08:18] LABS: Estimated Glomerular Filt Rate 4 mL/min (>60)
[2022-02-21 08:21] LABS: Potassium 5.5 mmol/L (3.4-5.1)
[2022-02-21 08:23] LABS: INR 7.1 (0.9-1.3); Prothrombin Time 82.9 SECONDS (10.1-12.7)
[2022-02-21 08:26] LABS: Procalcitonin 0.33 ng/mL (<0.5)
[2022-02-21 08:52] LABS: Lipase 2978 U/L (23-300)
[2022-02-21] MEDS: PHYTONADIONE (VIT K1) 5 MG TABLET 10 MG PO (08:53)
[2022-02-21] MEDS: SODIUM BICARB 8.4% VIAL 150 MEQ in DEXTROSE 5% WATER 1,000 ML 75 MEQ IV (10:16)
[2022-02-21 12:27] LABS: Blood Urea Nitrogen 64 mg/dL (7-17); Carbon Dioxide 13 mmol/L (22-32); Chloride 110 mmol/L (98-107); Glucose 78 mg/dL (80-110); HEMOLYSIS < 15 (0-50); Sodium 138 mmol/L (137-145)
[2022-02-21 12:34] LABS: BUN Creatinine Ratio 7.1 (6-22); Estimated Glomerular Filt Rate 4 mL/min (>60)
[2022-02-21 12:35] LABS: Potassium 5.5 mmol/L (3.4-5.1)
[2022-02-21 19:10] LABS: BUN Creatinine Ratio 7.4 (6-22); Blood Urea Nitrogen 67 mg/dL (7-17); Calcium 8.2 mg/dL (8.4-10.2); Carbon Dioxide 16 mmol/L (22-32); Chloride 103 mmol/L (98-107); Estimated Glomerular Filt Rate 4 mL/min (>60); Glucose 170 mg/dL (80-110); HEMOLYSIS 21 (0-50); Potassium 4.4 mmol/L (3.4-5.1); Sodium 137 mmol/L (137-145)
[2022-02-21] MEDS: carvediloL 3.125 MG TABLET 6.25 MG PO (20:59)
--- NOTE | 2022-02-21 21:24 | PC.NURSE ---
ACCOUNTING SYSTEM EXPERT note: Attempting to transfer patient out. Spoke to Mary Ann at [facility]. She said to call my end ([place], [place], and [facility] and she would call her end. [place]: 1957- Denise- still on list. [facility]: 2021- Elena- lots of boarding but still on waiting list. [place]: [address]- no beds. No movement. Still on lists.
[2022-02-22] VITALS (55 sets, daily range): BP systolic 110–151; BP diastolic 55–73; PULSE 51–70; RESP 12–29; TEMP 36.4–36.9; O2SAT 91–99
[2022-02-22] MEDS: SODIUM BICARB 8.4% VIAL 150 MEQ in DEXTROSE 5% WATER 1,000 ML 75 MEQ IV (01:02)
[2022-02-22] MEDS: ACETAMINOPHEN 325 MG TABLET 650 MG PO ×2 (01:52→18:55)
[2022-02-22 08:29] LABS: Add Manual Diff / Slide Review NO; Basophils Absolute Auto 0 /uL (0-100); Basophils Percent Auto 0.7 % (0-2); Eosinophils Absolute Auto 200 /uL (0-450); Eosinophils Percent Auto 3.3 % (2-4); Hematocrit 31.3 % (36-46); Hemoglobin 10.8 g/dL (12.0-16.0); Lymphocytes Absolute Auto 1300 /uL (1100-4500); Mean Corpuscular HGB Conc 34.5 % (30-36); Mean Corpuscular Hemoglobin 30.3 PG (26-34); Monocytes Absolute Auto 700 /uL (0-900); Monocytes Percent Auto 10.4 % (3-14); Neutrophils Absolute Auto 4700 /uL (1500-7000); Neutrophils Percent Auto 67.6 % (50-75); Platelet Count 193 X10^3/uL (150-400); Red Blood Cell Count 3.56 X10^6/uL (4.0-5.2); Red Cell Distribution Width 14.2 % (11.6-14.8)
[2022-02-22] MEDS: carvediloL 3.125 MG TABLET 6.25 MG PO ×2 (08:39→21:40)
[2022-02-22 08:44] LABS: Prothrombin Time 54.9 SECONDS (10.1-12.7)
[2022-02-22 08:48] LABS: Alanine Aminotransferase 21 IU/L (<35); Albumin 3.1 g/dL (3.5-5.0); Albumin Globulin Ratio 1.2 (1.0-2.8); Alkaline Phosphatase 41 U/L (38-126); Aspartate Aminotransferase 25 IU/L (14-36); BUN Creatinine Ratio 7.7 (6-22); Bilirubin Total 0.5 mg/dL (0.2-1.3); Blood Urea Nitrogen 72 mg/dL (7-17); Calcium 8.7 mg/dL (8.4-10.2); Carbon Dioxide 23 mmol/L (22-32); Chloride 100 mmol/L (98-107); Estimated Glomerular Filt Rate 4 mL/min (>60); Globulin 2.6 g/dL (1.7-4.1); Glucose 132 mg/dL (80-110); Sodium 137 mmol/L (137-145); Total Protein 5.7 g/dL (6.3-8.2)
[2022-02-22 08:48] LABS: INR 4.7 (0.9-1.3)
[2022-02-22 08:54] LABS: HEMOLYSIS 31 (0-50)
[2022-02-22 08:56] LABS: Lipase 3228 U/L (23-300)
[2022-02-22] MEDS: BUDESONIDE 0.5 MG/2 ML NEB INH ×2 (08:56→21:18)
[2022-02-22] MEDS: FUROSEMIDE 120 MG in SODIUM CHLORIDE 0.9% 50 ML 124 MG IV (11:39)
--- NOTE | 2022-02-22 11:51 | PC.NURSE ---
Pt alert and oriented x4/4, speaking in clear and coherent sentences, breathing even and unlabored, skin pink warm and dry, denies pain. Pt left AC 22, flushes with blood return, pt denies pain, dressing changed and wrapped in coban for comfort.
--- NOTE | 2022-02-22 16:33 | PC.NURSE ---
Pt updated on plan of care, declines morphine and requests Tylenol for pain. Lab called for scheduled draw.
[2022-02-22] MEDS: LACTATED RINGERS 1,000 ML 150 ML IV ×2 (16:40→23:59)
[2022-02-22 17:06] LABS: Add Manual Diff / Slide Review NO; Basophils Absolute Auto 0 /uL (0-100); Basophils Percent Auto 0.6 % (0-2); Eosinophils Absolute Auto 200 /uL (0-450); Hematocrit 31.5 % (36-46); Hemoglobin 11.1 g/dL (12.0-16.0); Lymphocytes Absolute Auto 1000 /uL (1100-4500); Lymphocytes Percent Auto 12.6 % (25-40); Mean Corpuscular HGB Conc 35.1 % (30-36); Mean Corpuscular Volume 88.4 fL (80-100); Monocytes Absolute Auto 800 /uL (0-900); Monocytes Percent Auto 10.2 % (3-14); Neutrophils Absolute Auto 5600 /uL (1500-7000); Neutrophils Percent Auto 73.6 % (50-75); Platelet Count 199 X10^3/uL (150-400); Red Blood Cell Count 3.57 X10^6/uL (4.0-5.2); Red Cell Distribution Width 13.9 % (11.6-14.8); White Blood Cell Count 7.7 X10^3/uL (4.5-11.0)
[2022-02-22 17:17] LABS: Alanine Aminotransferase 21 IU/L (<35); Albumin 3.1 g/dL (3.5-5.0); Albumin Globulin Ratio 1.1 (1.0-2.8); Alkaline Phosphatase 44 U/L (38-126); Aspartate Aminotransferase 27 IU/L (14-36); BUN Creatinine Ratio 7.5 (6-22); Bilirubin Total 0.5 mg/dL (0.2-1.3); Blood Urea Nitrogen 72 mg/dL (7-17); Calcium 8.9 mg/dL (8.4-10.2); Carbon Dioxide 20 mmol/L (22-32); Chloride 101 mmol/L (98-107); Estimated Glomerular Filt Rate 4 mL/min (>60); Globulin 2.7 g/dL (1.7-4.1); Glucose 112 mg/dL (80-110); Potassium 4.1 mmol/L (3.4-5.1); Sodium 137 mmol/L (137-145); Total Protein 5.8 g/dL (6.3-8.2)
[2022-02-22 17:24] LABS: HEMOLYSIS 20 (0-50); Lipase 3886 U/L (23-300)
[2022-02-22] MEDS: CEFEPIME 0.5 GM in SODIUM CHLORIDE 0.9% 100 ML IV (18:57)
[2022-02-22] MEDS: MORPHINE 2 MG/ML INJ IV (23:23)
[2022-02-23] VITALS (54 sets, daily range): BP systolic 123–159; BP diastolic 65–86; PULSE 50–70; RESP 13–35; O2SAT 90–98
--- NOTE | 2022-02-23 01:51 | PC.NURSE ---
Pt sleeping. Resps even, unlabored. Pi in NAD.
[2022-02-23] MEDS: ONDANSETRON 4 MG/2 ML INJ IV (06:42)
[2022-02-23] MEDS: LACTATED RINGERS 1,000 ML 150 ML IV ×3 (06:42→20:22)
[2022-02-23 08:32] LABS: Add Manual Diff / Slide Review NO; Basophils Absolute Auto 0 /uL (0-100); Basophils Percent Auto 0.5 % (0-2); Eosinophils Absolute Auto 300 /uL (0-450); Eosinophils Percent Auto 3.1 % (2-4); Hematocrit 29.9 % (36-46); Hemoglobin 10.1 g/dL (12.0-16.0); Lymphocytes Absolute Auto 800 /uL (1100-4500); Lymphocytes Percent Auto 9.7 % (25-40); Mean Corpuscular Hemoglobin 30.3 PG (26-34); Mean Corpuscular Volume 89.3 fL (80-100); Monocytes Absolute Auto 900 /uL (0-900); Monocytes Percent Auto 10.9 % (3-14); Neutrophils Absolute Auto 6400 /uL (1500-7000); Neutrophils Percent Auto 75.8 % (50-75); Platelet Count 183 X10^3/uL (150-400); Red Blood Cell Count 3.34 X10^6/uL (4.0-5.2); White Blood Cell Count 8.4 X10^3/uL (4.5-11.0)
[2022-02-23 08:33] LABS: INR 2.5 (0.9-1.3); Prothrombin Time 29.4 SECONDS (10.1-12.7)
[2022-02-23 08:44] LABS: Alanine Aminotransferase 18 IU/L (<35); Albumin 2.6 g/dL (3.5-5.0); Albumin Globulin Ratio 1.1 (1.0-2.8); Alkaline Phosphatase 43 U/L (38-126); Aspartate Aminotransferase 25 IU/L (14-36); BUN Creatinine Ratio 7.1 (6-22); Bilirubin Total 0.5 mg/dL (0.2-1.3); Blood Urea Nitrogen 67 mg/dL (7-17); Calcium 8.7 mg/dL (8.4-10.2); Carbon Dioxide 21 mmol/L (22-32); Chloride 105 mmol/L (98-107); Estimated Glomerular Filt Rate 4 mL/min (>60); Globulin 2.3 g/dL (1.7-4.1); Glucose 113 mg/dL (80-110); HEMOLYSIS < 15 (0-50); Potassium 4.6 mmol/L (3.4-5.1); Sodium 138 mmol/L (137-145); Total Protein 4.9 g/dL (6.3-8.2)
[2022-02-23] MEDS: BUDESONIDE 0.5 MG/2 ML NEB INH ×2 (08:50→21:33)
[2022-02-23 08:51] LABS: Lipase 2420 U/L (23-300)
[2022-02-23] MEDS: ACETAMINOPHEN 325 MG TABLET 650 MG PO ×3 (09:43→20:18)
[2022-02-23] MEDS: carvediloL 3.125 MG TABLET 6.25 MG PO ×2 (09:44→20:18)
--- NOTE | 2022-02-23 11:21 | PC.NURSE ---
Pt resting in bed with eyes closed, breathing even and unlabored. LR running as documented rate through right forearm #22, dressing dry and intact, no signs of infiltration.
--- NOTE | 2022-02-23 13:34 | PC.NURSE ---
Pt sitting up in bed talking on phone, alert and oriented x4/4, speaking in clear and coherent sentences. Breathing even and unlabored, skin pink warm and dry. Updated on plan of care.
--- NOTE | 2022-02-23 16:27 | PC.NURSE ---
has information re: potential transfer site in [facility]. Spoke with nursing road supervisor Armida ARAGON [phone] who states no bed today but I will call her tomorrow 0900 to recheck. is aware.
[2022-02-23] MEDS: CEFEPIME 1 GM in SODIUM CHLORIDE 0.9% 100 ML IV (20:23)
[2022-02-24] VITALS (55 sets, daily range): BP systolic 141–178; BP diastolic 71–78; PULSE 50–88; RESP 13–31; TEMP 36.4–36.8; O2SAT 90–98
[2022-02-24] MEDS: LACTATED RINGERS 1,000 ML 150 ML IV ×4 (03:12→23:45)
[2022-02-24] MEDS: ACETAMINOPHEN 325 MG TABLET 650 MG PO ×3 (03:16→21:28)
[2022-02-24 08:18] LABS: Add Manual Diff / Slide Review NO; Basophils Absolute Auto 0 /uL (0-100); Basophils Percent Auto 0.5 % (0-2); Eosinophils Absolute Auto 400 /uL (0-450); Eosinophils Percent Auto 4.4 % (2-4); Hematocrit 28.4 % (36-46); Hemoglobin 9.5 g/dL (12.0-16.0); Lymphocytes Absolute Auto 1000 /uL (1100-4500); Lymphocytes Percent Auto 11.5 % (25-40); Mean Corpuscular HGB Conc 33.6 % (30-36); Mean Corpuscular Hemoglobin 30.2 PG (26-34); Mean Corpuscular Volume 90.1 fL (80-100); Monocytes Absolute Auto 900 /uL (0-900); Monocytes Percent Auto 10.7 % (3-14); Neutrophils Absolute Auto 6200 /uL (1500-7000); Neutrophils Percent Auto 72.9 % (50-75); Platelet Count 164 X10^3/uL (150-400); Red Blood Cell Count 3.16 X10^6/uL (4.0-5.2); Red Cell Distribution Width 14.1 % (11.6-14.8); White Blood Cell Count 8.5 X10^3/uL (4.5-11.0)
[2022-02-24 08:19] LABS: INR 2.7 (0.9-1.3); Prothrombin Time 30.8 SECONDS (10.1-12.7)
[2022-02-24 08:27] LABS: Alanine Aminotransferase 16 IU/L (<35); Albumin 2.5 g/dL (3.5-5.0); Alkaline Phosphatase 41 U/L (38-126); Aspartate Aminotransferase 24 IU/L (14-36); Bilirubin Total 0.5 mg/dL (0.2-1.3); Blood Urea Nitrogen 64 mg/dL (7-17); Calcium 8.5 mg/dL (8.4-10.2); Carbon Dioxide 18 mmol/L (22-32); Chloride 108 mmol/L (98-107); Estimated Glomerular Filt Rate 4 mL/min (>60); Globulin 2.5 g/dL (1.7-4.1); Glucose 102 mg/dL (80-110); HEMOLYSIS < 15 (0-50); Lipase 1539 U/L (23-300); Potassium 4.3 mmol/L (3.4-5.1); Sodium 135 mmol/L (137-145)
[2022-02-24] MEDS: BUDESONIDE 0.5 MG/2 ML NEB INH (08:28)
[2022-02-24] MEDS: FUROSEMIDE 80 MG in SODIUM CHLORIDE 0.9% 50 ML 116 MG IV ×2 (10:36→18:37)
[2022-02-24] MEDS: carvediloL 3.125 MG TABLET 6.25 MG PO ×2 (10:50→21:28)
--- NOTE | 2022-02-24 10:58 | PC.NURSE ---
Spoke to Osbaldo Huffman rubber goods supervisor @ [facility] in [facility]. Faxed care package to her.
--- NOTE | 2022-02-24 13:33 | PC.NURSE ---
Patient with acute kidney failure, having urine output by Catheter with no change in creatinine level over several days. Patient also has acute pancreatitis with decrease in lipase levels over the last several days. No vomiting at this time. Patient reports mild upper abdominal discomfort and nausea. Has been on a clear liquid diet for several days. No distress, vital signs stable.
[2022-02-24] MEDS: CEFEPIME 1 GM in SODIUM CHLORIDE 0.9% 100 ML IV (17:17)
--- NOTE | 2022-02-24 20:47 | PC.NURSE ---
ACQUISITION COST ESTIMATOR NOTE washed pt hair
[2022-02-25] VITALS (55 sets, daily range): BP systolic 128–181; BP diastolic 68–79; PULSE 49–76; RESP 11–29; TEMP 36.4–36.8; O2SAT 68–98
--- NOTE | 2022-02-25 01:34 | PC.NURSE ---
GAS CHARGER note: Family member Den, . Call w/ updates.
--- NOTE | 2022-02-25 01:46 | PC.NURSE ---
Addendum entered by Rachael Villalta CNA 02/25/22 06:59: 0652 Spoke to Tracie at [employer] regarding transport. Asked if we had an update. They had one at 0620 and read the email to me. We must wait until day shift, which for them is 0800 and then takes a couple hours to arrange transport. I told Tracie I would update day shift and update [facility]. Spoke to Lorna at [facility]. Gave her an update about when the patient may come. Told the ER charge nurse and doctor as well. Addendum entered by Rachael Villalta CNA 02/25/22 05:29: 0525 Spoke to Tracie at [employer] regarding transport. Asked what's the hold up, if we have any news because now [facility] is asking. I said that we have been trying to arrange transport all shift and what's going on, how can I facilitate a faster transport? Tracie said she will surinder it down as urgent. Addendum entered by Rachael Villalta CNA 02/25/22 05:18: 0443 Spoke to Elmer at [employer] regarding flight transport and if they have an eta. He said the person working on the case is on another line and they will call me back. I explained that I had been calling and asking a couple different times and the patient is in our ER. Said they would get back to us shortly. [facility] in [place] called and asked if patient is still coming. Specifically their azure developer was asking. Explained that we are trying to arrange transport with [employer]- and I've called multiple times. Spoke to Lorna at the [facility] transfer center. Her number is [phone]. Will call [employer] to see if I could get more info. Original Note: ASSISTED LIVING ASSISTANT note: Spoke to call center nurse [employer] regarding transport. Had spoken to Thien earlier in the shift (around 2300). Thien said he was going to be arranging transport. Called at 0149. Spoke to Marlyn, she said Thien is working on another case right now. They did get the fit to fly paperwork, but would need to still arrange transport. She is going to push it up to her supervisors to let them know the patient is in the emergency room. She confirmed that patient is going to [facility] in [place]. [employer] will update us with more info as it comes in.
[2022-02-25] MEDS: FUROSEMIDE 80 MG in SODIUM CHLORIDE 0.9% 50 ML 116 MG IV ×3 (01:57→21:04)
[2022-02-25] MEDS: LACTATED RINGERS 1,000 ML 150 ML IV (07:12)
--- NOTE | 2022-02-25 07:19 | PC.NURSE ---
ASSOCIATE PROFESSOR OF THEATRE note: [facility]'s transfer center number: [phone] call with updates.
[2022-02-25] MEDS: BUDESONIDE 0.5 MG/2 ML NEB INH ×2 (07:53→20:36)
[2022-02-25] MEDS: carvediloL 3.125 MG TABLET 6.25 MG PO ×2 (08:25→21:05)
[2022-02-25] MEDS: ACETAMINOPHEN 325 MG TABLET 650 MG PO ×2 (08:36→23:06)
[2022-02-25 08:56] LABS: Add Manual Diff / Slide Review NO; Basophils Absolute Auto 100 /uL (0-100); Basophils Percent Auto 0.7 % (0-2); Eosinophils Absolute Auto 500 /uL (0-450); Eosinophils Percent Auto 6.2 % (2-4); Hematocrit 30.3 % (36-46); Hemoglobin 10.3 g/dL (12.0-16.0); Lymphocytes Absolute Auto 900 /uL (1100-4500); Mean Corpuscular HGB Conc 33.9 % (30-36); Mean Corpuscular Hemoglobin 30.5 PG (26-34); Monocytes Absolute Auto 800 /uL (0-900); Monocytes Percent Auto 9.2 % (3-14); Neutrophils Absolute Auto 6200 /uL (1500-7000); Neutrophils Percent Auto 72.9 % (50-75); Platelet Count 203 X10^3/uL (150-400); Red Blood Cell Count 3.37 X10^6/uL (4.0-5.2); Red Cell Distribution Width 14.5 % (11.6-14.8); White Blood Cell Count 8.5 X10^3/uL (4.5-11.0)
[2022-02-25 09:00] LABS: INR 2.4 (0.9-1.3); Prothrombin Time 27.7 SECONDS (10.1-12.7)
[2022-02-25 09:03] LABS: Alanine Aminotransferase 17 IU/L (<35); Albumin 2.7 g/dL (3.5-5.0); Alkaline Phosphatase 48 U/L (38-126); Aspartate Aminotransferase 25 IU/L (14-36); BUN Creatinine Ratio 6.7 (6-22); Bilirubin Total 0.5 mg/dL (0.2-1.3); Blood Urea Nitrogen 61 mg/dL (7-17); Calcium 8.6 mg/dL (8.4-10.2); Carbon Dioxide 20 mmol/L (22-32); Chloride 105 mmol/L (98-107); Estimated Glomerular Filt Rate 4 mL/min (>60); Globulin 2.8 g/dL (1.7-4.1); Glucose 90 mg/dL (80-110); HEMOLYSIS < 15 (0-50); Lipase 958 U/L (23-300); Potassium 4.6 mmol/L (3.4-5.1); Sodium 136 mmol/L (137-145); Total Protein 5.5 g/dL (6.3-8.2)
--- NOTE | 2022-02-25 10:14 | DI.US.S_ITS ---
PROCEDURE: US PERIPH VENOUS UP EXTREM LT INDICATIONS: swelling left arm TECHNIQUE: Real-time imaging, as well as color and pulse Doppler interrogation, was performed of the left upper extremity deep veins from the inferior neck to the antecubital fossa. COMPARISON: None. FINDINGS: The internal jugular vein, visualized portions of the subclavian vein, axillary, and brachial veins are free of intraluminal thrombus. Where physically possible, the veins are normally compressible. Color and pulse Doppler demonstrate normal intraluminal flow, with expected phasicity and pulsatility. Additional scanning of the cephalic and basilic veins of the superficial system demonstrate normal compressibility, without thrombus. IMPRESSION: No deep venous thrombosis. Dictated by: Patricia Davis M.D. on 02/25/2022 at 10:46 Approved by: Patricia Davis M.D. on 02/25/2022 at 10:47
--- NOTE | 2022-02-25 10:15 | PC.NURSE ---
Pt updated on transfer. Left arm noted to be swollen, increased from previous day. + pulses distally. + CSM. US ordered.
--- NOTE | 2022-02-25 13:12 | PC.NURSE ---
I spoke with Melida with [employer] [facility] who states that they are looking at an ETA for a plane to be here in the morning. they were trying to see if they could come tonight but the crew is on a case right now and they might not have enough time for crew rest. Melida to call me back with an ETA of the plane that she is hoping can be here in the morning. Dr. Rodríguez, nurse discharge, patient and myself (primary RN) aware.
--- NOTE | 2022-02-25 13:34 | PC.NURSE ---
I updated Ely motthousetrailer servicer at [facility] about the update and that I would call her back with an ETA of the plane. She states we still have her bed. Dr. Rodríguez, shoe stock associate and patient aware.
--- NOTE | 2022-02-25 13:52 | PC.NURSE ---
I spoke with Steve with [employer] at ([phone]) and he reports that he will land at the [place] around 9:45am and hopes to be at bedside at 10:45am. savings counselor, Dr. Rodríguez and patient all aware.
--- NOTE | 2022-02-25 15:42 | PC.NURSE ---
I spoke with Ely the warehouse hand at [facility] ([phone]) and updated her on the ETA of the flight crew. she requested if we could call her in the morning after the flight crew leaves and give her an ETA or give the flight crew her number so that they could call with any updates. the warehouse hand phone number is [phone]. propellant charge loader, Dr. Armenta and myself (primary RN) aware.
[2022-02-25] MEDS: CEFEPIME 1 GM in SODIUM CHLORIDE 0.9% 100 ML IV (19:31)
[2022-02-26] VITALS (16 sets, daily range): BP systolic 148–159; BP diastolic 72–78; PULSE 52–73; RESP 12–30; TEMP 36–36.9; O2SAT 93–97
[2022-02-26] MEDS: FUROSEMIDE 80 MG in SODIUM CHLORIDE 0.9% 50 ML 116 MG IV ×2 (03:42→09:32)
--- NOTE | 2022-02-26 06:40 | PC.NURSE ---
Addendum entered by Rachael Villalta CNA 02/26/22 06:58: SANTIAGO note: Courtney ARAGON spoke to Leyda from [employer]. They are going to leaf size picker Ms. Wilson at [phone], and will leave/depart [facility] at 1154. ETA in [place] at 1254. Will update patient. Patient's left for [place]. Original Note: SANTIAGO note: At around 0400 spoke to someone from [employer] flight. They were confirming they are flying into [facility], then picking up Nati via ground transport, taking [facility], and flying to [place]. Confirmed. They spoke to MARGO Dumont. I then started to get the patient transfer packet ready. It's in a manilla envelope since we don't have a special folder for this flight company. Patient's , Puneet, asked for directions to the [facility] where his will be going. I printed out directions for him.
[2022-02-26 09:08] LABS: Add Manual Diff / Slide Review NO; Basophils Absolute Auto 100 /uL (0-100); Basophils Percent Auto 0.8 % (0-2); Eosinophils Absolute Auto 400 /uL (0-450); Eosinophils Percent Auto 5.4 % (2-4); Hematocrit 32.2 % (36-46); Hemoglobin 10.8 g/dL (12.0-16.0); Lymphocytes Absolute Auto 900 /uL (1100-4500); Lymphocytes Percent Auto 11.5 % (25-40); Mean Corpuscular HGB Conc 33.4 % (30-36); Mean Corpuscular Volume 89.7 fL (80-100); Monocytes Absolute Auto 600 /uL (0-900); Monocytes Percent Auto 7.9 % (3-14); Neutrophils Absolute Auto 5600 /uL (1500-7000); Neutrophils Percent Auto 74.4 % (50-75); Platelet Count 227 X10^3/uL (150-400); Red Blood Cell Count 3.59 X10^6/uL (4.0-5.2); Red Cell Distribution Width 14.1 % (11.6-14.8); White Blood Cell Count 7.6 X10^3/uL (4.5-11.0)
[2022-02-26 09:23] LABS: Alanine Aminotransferase 16 IU/L (<35); Albumin 2.8 g/dL (3.5-5.0); Alkaline Phosphatase 51 U/L (38-126); Aspartate Aminotransferase 26 IU/L (14-36); BUN Creatinine Ratio 6.6 (6-22); Bilirubin Total 0.5 mg/dL (0.2-1.3); Blood Urea Nitrogen 65 mg/dL (7-17); Calcium 8.7 mg/dL (8.4-10.2); Carbon Dioxide 17 mmol/L (22-32); Chloride 105 mmol/L (98-107); Estimated Glomerular Filt Rate 4 mL/min (>60); Globulin 2.8 g/dL (1.7-4.1); Glucose 149 mg/dL (80-110); HEMOLYSIS < 15 (0-50); Lipase 912 U/L (23-300); Potassium 4.5 mmol/L (3.4-5.1); Sodium 135 mmol/L (137-145); Total Protein 5.6 g/dL (6.3-8.2)
[2022-02-26] MEDS: carvediloL 3.125 MG TABLET 6.25 MG PO (09:26)
[2022-02-26 09:27] LABS: INR 1.9 (0.9-1.3); Prothrombin Time 22.4 SECONDS (10.1-12.7)
[2022-02-26] MEDS: BUDESONIDE 0.5 MG/2 ML NEB INH (09:31)
[2022-02-26 09:38] LABS: Uric Acid 4.4 mg/dL (2.5-6.2)
--- NOTE | 2022-02-26 11:55 | PC.NURSE ---
received pt with left arm swelling.ultrasound negative for dvt 02/25. pt transferred to [facility]
== END 2022-02-26 11:05 | disposition short-term general hospital (02) ==
PROVIDERS: Emergency Medicine; Specialist; Emergency Provider Emergency Medicine
DX: N17.9 Acute kidney failure, unspecified (principal); K85.90 Acute pancreatitis without necrosis or infection, unspecified; N39.0 Urinary tract infection, site not specified; R10.10 Upper abdominal pain, unspecified; E87.5 Hyperkalemia; R19.7 Diarrhea, unspecified; Z79.01 Long term (current) use of anticoagulants; Z79.899 Other long term (current) drug therapy; Z20.822 Contact with and (suspected) exposure to COVID-19; Z87.442 Personal history of urinary calculi
CPT/HCPCS: 0241U; 36415; 51798; 74176; 76700; 80048; 80053; 81003; 82570; 82962; 83615; 83690; 84145; 84300; 84550; 85025; 85610; 93005; 93010; 93971; 94640; 96361; 96365; 96366; 96367; 96375; 96376; 99285; J0692; J1940; J2270; J2405

== ENCOUNTER → 2023-07-23 12:50 | Outpatient (CLI) | payer MEDICARE, OTHER, SELFPAY ==
[2021-03-14 15:04] VITALS: BMI 23.9
--- NOTE | 2023-07-23 12:52 | DI.CT.S_ITS ---
PROCEDURE: CT KIDNEY URETER BLADDER (KUB) INDICATIONS: Gross hematuria TECHNIQUE: Axial sections were acquired from the lung bases to the pubic symphysis. Coronal and sagittal reformats were performed. For radiation dose reduction, the following was used: automated exposure control, adjustment of mA and/or kV according to patient size. COMPARISON: [facility], CT, CT KIDNEY URETER BLADDER (KUB), 02/21/2022, 2:25. FINDINGS: Image quality: Diagnostic. Lower Chest: No significant findings. URINARY: Right Kidney: 5 mm calculus in the right renal pelvis (HU 300). Right Ureter: No hydroureter. Left Kidney: No stones or hydronephrosis. Increasing size of interpolar cystic structure measuring 5.0 x 5.0 cm (), previously 2.4 x 2.0 cm on 02/21/2022. Mildly increased size of superior pole low attenuating exophytic structure. Stable inferior pole cyst. Left Ureter: No hydroureter. Bladder: Underdistended limiting evaluation. No intraluminal calcified stones. ABDOMEN: Liver: No contour-deforming solid mass. Gallbladder: No radiopaque gallstones or wall thickening. Biliary ducts: No biliary dilation. Pancreas: No ductal dilation. Spleen: Size is within normal limits. Adrenal Glands: No adrenal nodules. Stomach and Bowel: Small hiatal hernia. Normal colonic caliber, without significant wall thickening. Colonic diverticulosis without acute inflammation Peritoneum: No abnormal intraperitoneal fluid. No free air. Ventral Wall: No hernia. Abdominal Nodes: No enlarged retroperitoneal or mesenteric lymph nodes. Vessels: Aorta and inferior vena cava are normal in size. PELVIS: Pelvic Organs: Surgically absent. Pelvic Nodes: Unremarkable. Miscellaneous: No inguinal hernias are seen. Bones: Unremarkable. Degenerative changes of the visualized spine without acute osseous abnormality. IMPRESSION: Right renal pelvis 5 mm calculus with minimal hydronephrosis. Increasing size of left renal interpolar cystic structures since 02/21/2022, which is incompletely characterize on this noncontrast exam. Consider further evaluation with ultrasound or contrast enhanced renal CT or MRI protocol. Approved by: Shani Witt M.D.,Ph.D. on 07/23/2023 at 14:40
== END ==
PROVIDERS: PCP Physician Assistant; Referring Provider Physician Assistant Medical; Visit Provider Physician Assistant Medical
DX: N18.4 Chronic kidney disease, stage 4 (severe) (principal); R31.0 Gross hematuria; N20.0 Calculus of kidney; K44.9 Diaphragmatic hernia without obstruction or gangrene; K57.90 Diverticulosis of intestine, part unspecified, without perforation or abscess without bleeding; Z87.442 Personal history of urinary calculi
CPT/HCPCS: 74176

== ENCOUNTER → 2024-03-14 10:29 | Outpatient (CLI) | payer MEDICARE, OTHER, SELFPAY ==
[2021-03-14 15:04] VITALS: BMI 23.9
[2024-03-14 10:57] LABS: Add Manual Diff / Slide Review NO; Basophils Absolute Auto 100 /uL (0-100); Basophils Percent Auto 0.7 % (0-2); Eosinophils Absolute Auto 700 /uL (0-450); Eosinophils Percent Auto 5.6 % (2-4); Hematocrit 38.1 % (36-46); Hemoglobin 12.7 g/dL (12.0-16.0); Lymphocytes Absolute Auto 1300 /uL (1100-4500); Lymphocytes Percent Auto 11.3 % (25-40); Mean Corpuscular HGB Conc 33.3 % (30-36); Mean Corpuscular Hemoglobin 30.7 PG (26-34); Mean Corpuscular Volume 92.4 fL (80-100); Monocytes Absolute Auto 800 /uL (0-900); Monocytes Percent Auto 6.6 % (3-14); Neutrophils Absolute Auto 8800 /uL (1500-7000); Neutrophils Percent Auto 75.8 % (50-75); Platelet Count 260 X10^3/uL (150-400); Red Blood Cell Count 4.12 X10^6/uL (4.0-5.2); White Blood Cell Count 11.6 X10^3/uL (4.5-11.0)
[2024-03-17 08:36] LABS: Immunoglobulin E 779 IU/mL (6-495)
[2024-03-17 13:36] LABS: Aspergillus fumigatus IgE 0.16 kU/L (Class 0/I)
== END ==
PROVIDERS: PCP Physician Assistant; Referring Provider Internal Medicine; Visit Provider Internal Medicine
DX: J45.50 Severe persistent asthma, uncomplicated (principal)
CPT/HCPCS: 36415; 82785; 85025; 86003; 95012; 99215; A4617

== ENCOUNTER → 2024-04-06 09:15 | Outpatient (CLI) | payer MEDICARE, OTHER, SELFPAY ==
[2021-03-14 15:04] VITALS: BMI 23.9
--- NOTE | 2024-04-06 09:16 | DI.US.S_ITS ---
PROCEDURE: US RENAL COMPLETE INDICATIONS: NEPHROLITHIASIS TECHNIQUE: Real-time scanning was performed of the kidneys and bladder, with image documentation. COMPARISON: None. FINDINGS: Kidneys: Right kidney measures 9.9 cm with no evidence of hydronephrosis. Multiple small cysts are present. There is a minimally complex 1.8 x 1.8 x 2.0 cm involving the right lateral midpole. There is a simple cyst involving the right mid anterior kidney measuring 1.3 x 1.1 x 1.5 cm. It contains a small echogenic 8 mm foci. Left kidney measures 9.9 cm. There is no evidence of hydronephrosis. Multiple cysts are present. There is a septated cyst involving the left lateral midpole measuring 4.8 x 3.2 x 4.1 cm. There is an anechoic cyst involving the midpole the left kidney measuring 1.5 x 2.0 x 1.7 cm. It contains a 5 mm echogenic foci. Scattered punctate echogenic foci are seen to involve the parenchyma. Bladder: Pre-void bladder volume is 104 mL. Post-void residual is 4.0 mL. Pre-void images demonstrate no intraluminal masses or stones. Enlarged 19.4 cm is incidentally identified. Miscellaneous: No free pelvic fluid. IMPRESSION: Nephrolithiasis. Bilateral renal cysts. No evidence of obstruction or hydronephrosis. No acute process. Dictated by: Marshall Obrien M.D. on 04/06/2024 at 11:36 Approved by: Marshall Obrien M.D. on 04/06/2024 at 11:45
== END ==
PROVIDERS: PCP Physician Assistant; Referring Provider Physician Assistant Medical; Visit Provider Physician Assistant Medical
DX: N20.0 Calculus of kidney (principal); N28.1 Cyst of kidney, acquired
CPT/HCPCS: 76770